=== PATIENT | female | born 1965 | race Caucasian/White ===

== ENCOUNTER → 2019-10-14 13:47 | Outpatient (BNVA) | payer MEDICARE, MEDICAID, SELFPAY | PROVIDERS: Family Provider Family Medicine; PCP Family Medicine; Visit Provider Nurse Practitioner | DX: M47.816 Spondylosis without myelopathy or radiculopathy, lumbar region (principal); M54.2 Cervicalgia; E11.40 Type 2 diabetes mellitus with diabetic neuropathy, unspecified; F17.210 Nicotine dependence, cigarettes, uncomplicated; Z79.891 Long term (current) use of opiate analgesic | CPT/HCPCS: 99213; 99214 ==

== ENCOUNTER → 2019-12-10 14:08 | Outpatient (BNVA) | payer MEDICARE, MEDICAID, SELFPAY | PROVIDERS: Family Provider Family Medicine; PCP Family Medicine; Visit Provider Nurse Practitioner | DX: M48.061 Spinal stenosis, lumbar region without neurogenic claudication (principal); M47.816 Spondylosis without myelopathy or radiculopathy, lumbar region; E13.610 Other specified diabetes mellitus with diabetic neuropathic arthropathy; F17.210 Nicotine dependence, cigarettes, uncomplicated; Z79.891 Long term (current) use of opiate analgesic; Z71.6 Tobacco abuse counseling | CPT/HCPCS: 99214 ==

== ENCOUNTER 2020-01-06 21:25 | Emergency (ER) | payer MEDICARE, MEDICAID, SELFPAY ==
[2020-01-06 21:27] VITALS: BP 164/127; PULSE 121; RESP 18; O2SAT 92; BMI 43.6
[2020-01-06 21:44] VITALS: BP 109/75; PULSE 114; RESP 18; O2SAT 90
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
--- NOTE | 2020-01-06 22:02 | PC.NURSE ---
pt to ct via stretcher.
--- NOTE | 2020-01-06 22:20 | PC.NURSE ---
Pt back from CT
[2020-01-06] MEDS: ondansetron 4 MG Tablet PO (23:20)
[2020-01-07 00:26] VITALS: BP 126/93; PULSE 118; RESP 18; O2SAT 98
== END 2020-01-07 00:27 | disposition home or self-care (01) ==
PROVIDERS: Emergency Provider Physician Assistant; Family Provider Family Medicine; PCP Family Medicine
DX: S01.01XA Laceration without foreign body of scalp, initial encounter (principal); S00.03XA Contusion of scalp, initial encounter; W01.198A Fall on same level from slipping, tripping and stumbling with subsequent striking against other object, initial encounter; E11.40 Type 2 diabetes mellitus with diabetic neuropathy, unspecified; E66.01 Morbid (severe) obesity due to excess calories; Z68.41 Body mass index [BMI] 40.0-44.9, adult; F17.210 Nicotine dependence, cigarettes, uncomplicated; Z79.4 Long term (current) use of insulin; Z79.82 Long term (current) use of aspirin; Z91.81 History of falling; Z89.511 Acquired absence of right leg below knee; Z89.412 Acquired absence of left great toe; Z90.49 Acquired absence of other specified parts of digestive tract; Z90.710 Acquired absence of both cervix and uterus
CPT/HCPCS: 12032; 12345; 70450; 72125; 96374; 99282; 99283; J2001; Q0162

== ENCOUNTER → 2020-03-01 14:03 | Outpatient (BNVA) | payer MEDICARE, MEDICAID, SELFPAY | PROVIDERS: Family Provider Family Medicine; PCP Family Medicine; Visit Provider Anesthesiology | DX: M47.816 Spondylosis without myelopathy or radiculopathy, lumbar region (principal); M54.9 Dorsalgia, unspecified; S88.111A Complete traumatic amputation at level between knee and ankle, right lower leg, initial encounter; X58.XXXA Exposure to other specified factors, initial encounter; F17.210 Nicotine dependence, cigarettes, uncomplicated; Z79.891 Long term (current) use of opiate analgesic; Z71.6 Tobacco abuse counseling | CPT/HCPCS: 99214 ==

== ENCOUNTER → 2020-05-03 12:48 | Outpatient (BNVA) | payer MEDICARE, MEDICAID, SELFPAY | PROVIDERS: Family Provider Family Medicine; PCP Family Medicine; Visit Provider Anesthesiology | DX: M47.816 Spondylosis without myelopathy or radiculopathy, lumbar region (principal); M54.9 Dorsalgia, unspecified; S88.111A Complete traumatic amputation at level between knee and ankle, right lower leg, initial encounter; X58.XXXA Exposure to other specified factors, initial encounter; E13.610 Other specified diabetes mellitus with diabetic neuropathic arthropathy; F17.210 Nicotine dependence, cigarettes, uncomplicated; Z79.891 Long term (current) use of opiate analgesic; Z71.6 Tobacco abuse counseling | CPT/HCPCS: 99214 ==

== ENCOUNTER → 2020-06-28 13:33 | Outpatient (BNVA) | payer MEDICARE, MEDICAID, SELFPAY | PROVIDERS: Family Provider Family Medicine; PCP Family Medicine; Visit Provider Nurse Practitioner | DX: M54.41 Lumbago with sciatica, right side (principal); M47.816 Spondylosis without myelopathy or radiculopathy, lumbar region; E13.610 Other specified diabetes mellitus with diabetic neuropathic arthropathy; F17.210 Nicotine dependence, cigarettes, uncomplicated; Z91.81 History of falling; Z79.891 Long term (current) use of opiate analgesic; Z71.6 Tobacco abuse counseling | CPT/HCPCS: 99213 ==

== ENCOUNTER → 2020-08-18 13:01 | Outpatient (BNVA) | payer MEDICARE, MEDICAID, SELFPAY | PROVIDERS: Family Provider Family Medicine; PCP Family Medicine; Visit Provider Anesthesiology | DX: M47.816 Spondylosis without myelopathy or radiculopathy, lumbar region (principal); M54.9 Dorsalgia, unspecified; S88.111A Complete traumatic amputation at level between knee and ankle, right lower leg, initial encounter; X58.XXXA Exposure to other specified factors, initial encounter; E11.42 Type 2 diabetes mellitus with diabetic polyneuropathy; F17.210 Nicotine dependence, cigarettes, uncomplicated; Z79.891 Long term (current) use of opiate analgesic; Z71.6 Tobacco abuse counseling | CPT/HCPCS: 99214 ==

== ENCOUNTER → 2020-10-05 13:57 | Outpatient (BNVA) | payer MEDICARE, MEDICAID, SELFPAY | PROVIDERS: Family Provider Family Medicine; PCP Family Medicine; Visit Provider Nurse Practitioner | DX: M47.816 Spondylosis without myelopathy or radiculopathy, lumbar region (principal); M54.9 Dorsalgia, unspecified; E13.610 Other specified diabetes mellitus with diabetic neuropathic arthropathy; F17.200 Nicotine dependence, unspecified, uncomplicated; Z91.81 History of falling; Z79.899 Other long term (current) drug therapy | CPT/HCPCS: 99215 ==

== ENCOUNTER → 2020-10-26 15:51 | Outpatient (BNVA) | payer MEDICARE, MEDICAID, SELFPAY | PROVIDERS: Family Provider Family Medicine; PCP Family Medicine; Visit Provider Podiatrist Foot & Ankle Surgery | DX: L97.522 Non-pressure chronic ulcer of other part of left foot with fat layer exposed (principal); M77.32 Calcaneal spur, left foot | CPT/HCPCS: 73630 ==

== ENCOUNTER 2020-11-02 13:20 | Outpatient (CLI) | payer MEDICARE, MEDICAID, SELFPAY | END 2020-11-02 13:21 | disposition home or self-care (01) | LOC: WOUND 13:23 | PROVIDERS: Family Provider Family Medicine; PCP Family Medicine; Visit Provider Nurse Practitioner Family | DX: E11.621 Type 2 diabetes mellitus with foot ulcer (principal); L97.522 Non-pressure chronic ulcer of other part of left foot with fat layer exposed | CPT/HCPCS: 11042; 87070; 87077; 87176; 87186; 87205; G0463 ==

== ENCOUNTER 2020-11-29 13:08 | Outpatient (CLI) | payer MEDICARE, MEDICAID, SELFPAY | END 2020-11-29 13:09 | disposition home or self-care (01) | LOC: WOUND 13:09 | PROVIDERS: Family Provider Family Medicine; PCP Family Medicine; Visit Provider Thoracic Surgery (Cardiothoracic Vascular Surgery) | DX: E11.621 Type 2 diabetes mellitus with foot ulcer (principal); L97.522 Non-pressure chronic ulcer of other part of left foot with fat layer exposed | CPT/HCPCS: 11042 ==

== ENCOUNTER → 2020-11-30 13:10 | Outpatient (BNVA) | payer MEDICARE, MEDICAID, SELFPAY | PROVIDERS: Family Provider Family Medicine; PCP Family Medicine; Visit Provider Nurse Practitioner | DX: M47.816 Spondylosis without myelopathy or radiculopathy, lumbar region (principal); M54.9 Dorsalgia, unspecified; E11.40 Type 2 diabetes mellitus with diabetic neuropathy, unspecified; F17.210 Nicotine dependence, cigarettes, uncomplicated; S88.111A Complete traumatic amputation at level between knee and ankle, right lower leg, initial encounter; X58.XXXA Exposure to other specified factors, initial encounter; Z79.891 Long term (current) use of opiate analgesic; Z91.81 History of falling; Z71.6 Tobacco abuse counseling | CPT/HCPCS: 99213 ==

== ENCOUNTER 2020-12-06 13:08 | Outpatient (CLI) | payer MEDICARE, MEDICAID, SELFPAY | END 2020-12-06 13:09 | disposition home or self-care (01) | LOC: WOUND 13:10 | PROVIDERS: Family Provider Family Medicine; PCP Family Medicine; Visit Provider Thoracic Surgery (Cardiothoracic Vascular Surgery) | DX: E11.621 Type 2 diabetes mellitus with foot ulcer (principal); L97.522 Non-pressure chronic ulcer of other part of left foot with fat layer exposed | CPT/HCPCS: 11042 ==

== ENCOUNTER 2020-12-20 14:08 | Outpatient (CLI) | payer MEDICARE, MEDICAID, SELFPAY | END 2020-12-20 14:09 | disposition home or self-care (01) | LOC: WOUND 14:09 | PROVIDERS: Family Provider Family Medicine; PCP Family Medicine; Visit Provider Thoracic Surgery (Cardiothoracic Vascular Surgery) | DX: E11.621 Type 2 diabetes mellitus with foot ulcer (principal); L97.522 Non-pressure chronic ulcer of other part of left foot with fat layer exposed | CPT/HCPCS: 97597 ==

== ENCOUNTER 2021-01-03 10:49 | Outpatient (CLI) | payer MEDICARE, MEDICAID, SELFPAY | END 2021-01-03 10:50 | disposition home or self-care (01) | LOC: WOUND 10:51 | PROVIDERS: Family Provider Family Medicine; PCP Family Medicine; Visit Provider Thoracic Surgery (Cardiothoracic Vascular Surgery) | DX: E11.621 Type 2 diabetes mellitus with foot ulcer (principal); L97.522 Non-pressure chronic ulcer of other part of left foot with fat layer exposed | CPT/HCPCS: 97597 ==

== ENCOUNTER 2021-01-10 10:47 | Outpatient (CLI) | payer MEDICARE, MEDICAID, SELFPAY | END 2021-01-10 10:48 | LOC: WOUND 10:48 | PROVIDERS: Family Provider Family Medicine; PCP Family Medicine; Visit Provider Nurse Practitioner Family | DX: M47.816 Spondylosis without myelopathy or radiculopathy, lumbar region (principal); M54.9 Dorsalgia, unspecified; F17.210 Nicotine dependence, cigarettes, uncomplicated | CPT/HCPCS: 64493; 64494; 64495; 99212; J3490 ==

== ENCOUNTER → 2021-01-26 13:06 | Outpatient (BNVA) | payer MEDICARE, MEDICAID, SELFPAY | PROVIDERS: Family Provider Family Medicine; PCP Family Medicine; Visit Provider Nurse Practitioner | DX: M47.816 Spondylosis without myelopathy or radiculopathy, lumbar region (principal); M54.9 Dorsalgia, unspecified; E11.40 Type 2 diabetes mellitus with diabetic neuropathy, unspecified; S88.111A Complete traumatic amputation at level between knee and ankle, right lower leg, initial encounter; X58.XXXA Exposure to other specified factors, initial encounter; Z91.81 History of falling; Z79.891 Long term (current) use of opiate analgesic; F17.210 Nicotine dependence, cigarettes, uncomplicated; Z71.6 Tobacco abuse counseling | CPT/HCPCS: 99214 ==

== ENCOUNTER → 2021-01-30 14:39 | Outpatient (BNVA) | payer MEDICARE, MEDICAID, SELFPAY | PROVIDERS: Family Provider Family Medicine; PCP Family Medicine; Visit Provider Anesthesiology Pain Medicine | DX: M47.816 Spondylosis without myelopathy or radiculopathy, lumbar region (principal); M54.9 Dorsalgia, unspecified | CPT/HCPCS: 64635; 64636; J7030 ==

== ENCOUNTER → 2021-02-12 12:39 | Outpatient (BNVA) | payer MEDICARE, MEDICAID, SELFPAY | PROVIDERS: Family Provider Family Medicine; PCP Family Medicine; Visit Provider Anesthesiology Pain Medicine | DX: M47.816 Spondylosis without myelopathy or radiculopathy, lumbar region (principal); M54.9 Dorsalgia, unspecified; F17.210 Nicotine dependence, cigarettes, uncomplicated | CPT/HCPCS: 64635; 64636 ==

== ENCOUNTER 2021-03-25 02:50 | Inpatient (IN) | payer MEDICARE, MEDICAID, SELFPAY ==
[2021-03-25] VITALS (12 sets, daily range): BP systolic 154–181; BP diastolic 80–103; PULSE 77–107; RESP 16–18; TEMP 36.2–37.1; O2SAT 90–94; BMI 34.4
--- NOTE | 2021-03-25 03:07 | CTR_ITS ---
PROCEDURE INFORMATION: Exam: CT Head Without Contrast Exam date and time: 03/25/2021 3:07 AM Age: 55 years old Clinical indication: Altered mental status/memory loss; Additional info: AMS TECHNIQUE: Imaging protocol: Computed tomography of the head without contrast. Radiation optimization: All CT scans at this facility use at least one of these dose optimization techniques: automated exposure control; mA and/or kV adjustment per patient size (includes targeted exams where dose is matched to clinical indication); or iterative reconstruction. COMPARISON: CT head wo con* [id number] 01/06/2020 9:58 PM RADIATION DOSE METRICS: Total DLP (mGy-cm): 1615.33 FINDINGS: Brain: Normal. No hemorrhage. Unremarkable white matter. No mass effect. Cerebral ventricles: No ventriculomegaly. Paranasal sinuses: Visualized sinuses are unremarkable. No fluid levels. Mastoid air cells: Visualized mastoid air cells are well aerated. Bones/joints: Unremarkable. No acute fracture. Soft tissues: Unremarkable. CT/CT head wo con* [id number] IMPRESSION: No acute intracranial abnormality. Radiation Dose CTDIVOL = (mGy): DLP = 1615.33 (mGy-cm)
--- NOTE | 2021-03-25 03:07 | XRR_ITS ---
PROCEDURE INFORMATION: Exam: XR Chest Exam date and time: 03/25/2021 3:07 AM Age: 55 years old Clinical indication: Other: AMS TECHNIQUE: Imaging protocol: XR of the chest. Views: 1 view. COMPARISON: CR Chest 1 [place] [id number] 12/07/2018 5:15 PM FINDINGS: Lungs: There is increased lung markings and hazy airspace opacities in the lower lungs, concerning for pneumonia. Mild pulmonary edema can have this appearance. No large pleural effusion or pneumothorax. Pleural spaces: See Lungs finding. Heart/Mediastinum: Stable cardiomediastinal silhouette. Bones/joints: Surgical changes of the right shoulder joint noted. XR/XR chest 1V portable [id number] IMPRESSION: Imaging findings concerning for pneumonia. Mild pulmonary edema can have this appearance. Clinical correlation is recommended.
--- NOTE | 2021-03-25 03:09 | ECG_ITS ---
[facility] Test Date: 2021-03-25 Pat Name: Angeles Valdes Department: Room: Gender: Female [employer]: : 1965 Requested By: Loe Berman Order Number: [id number] John MD: Tye Quezada M.D. Measurements Intervals [place] Rate: 102 P: 40 VA: 186 QRS: -10 QRSD: 114 T: 30 QT: 394 QTc: 513 Interpretive Statements SINUS TACHYCARDIA PROBABLE INFERIOR MYOCARDIAL INFARCTION [35 ms Q WAVE IN II/aVF], PROBABLY OLD Compared to ECG 09/23/2019 14:35:00 Sinus rhythm no longer present Myocardial infarct finding still present Electronically Signed On 03-25-2021 9:45:30 CDT by Tye Quezada M.D. [email or web address]/store/NU/[id number] f
[2021-03-25 03:21] LABS: ABG PCO2 29.8 mmHg (35-45); ABG PH Result 7.59 (7.35-7.45); Base Excess ABG 7.4 mmol/L (-2.0-2.0); Blood Gas Allen Test Pos; Blood Gas Sample Site Radial, left; Blood Gas Sample Type Arterial; HCO3 ABG 28.6 mmol/L (22-26); Oxygen Device ROOM AIR; PO2 ABG 53.2 mmHg (80.0-100.0)
[2021-03-25 03:27] LABS: Basophils # 0.1 10^3/uL (0.0-0.1); Basophils % 0.8 %; Eosinophils % 0.1 %; Hematocrit 43.3 % (37.0-47.0); Hemoglobin 14.3 g/dL (11.5-15.3); Lymphocytes # 1.8 10^3/uL (0.8-4.8); Lymphocytes % 10.6 %; Mean Corpuscular Hemoglobin 27.2 pg (28.0-34.0); Mean Corpuscular Volume 82.5 fL (81-99); Mean Platelet Volume 10.1 fL (7.4-10.4); Monocytes # 1.1 10^3/uL (0.2-0.9); Monocytes % 6.4 %; Neutrophils # 13.16 10^3/uL (1.8-7.7); Neutrophils % 79.8 %; Nucleated Red Blood Cells # 0.1 /100WBC; Nucleated Red Blood Cells % 0.3 %; Platelet Count 391 10^3/cmm (130-400); Red Blood Count 5.25 10^6/uL (4.1-5.3); White Blood Count 16.5 10^3/uL (4.0-10.0)
[2021-03-25 03:38] LABS: Ketone (Acetest) Serum Negative (Negative)
[2021-03-25 03:48] LABS: Alanine Aminotransferase 8 U/L (0-33); Alkaline Phosphatase 136 IU/L (35-105); Aspartate Amino Transferase 13 U/L (0-32); Blood Urea Nitrogen 8 mg/dL (6-20); C Reactive Protein 127.4 mg/L (0.0-4.9); Calcium 10.1 mg/dL (8.5-10.5); Carbon Dioxide 25 mmol/L (22-29); Chloride 90 mmol/L (98-107); Creatine Phosphokinase 252 U/L (26-192); Globulin 4.2 g/dL (1.3-4.6); Glomerular Filtration Rate 57.4 mL/min (90-130); Lipase 27 U/L (13-60); Osmolality Calculated 299 mOsm/kg (285-295); Sodium 133 mmol/L (136-145); Total Bilirubin 0.7 mg/dL (0.15-1.2); Total Protein 8.2 g/dL (6.6-8.7)
[2021-03-25 03:55] LABS: Procalcitonin 0.21 ng/mL (0-0.5)
[2021-03-25] MEDS: sodium chloride 0.9% 1,000 ML 999 ML IV ×2 (04:04→13:44)
[2021-03-25] MEDS: insulin regular-human 100 units/1 mL 14 UNIT IVP (04:05)
[2021-03-25 04:15] LABS: Alcohol Level < 10 mg/dL (0-10); Glucose 535 mg/dL (65-115)
--- NOTE | 2021-03-25 04:23 | PM.HP ---
Providers/Chief Complaint Primary Care Provider: Dayne Greene MD Chief Complaint: HYPERGLYCEMIA History of Present Illness Angeles Valdes is a 55 year old female who has history of opiate dependence follow-up with pain clinic, type 2 diabetes, status post below-knee amputation was brought in because of an episode of confusion. Patient lives with her friend who works at a longterm. When her friend returned from her work around midnight she noticed that Ms. Valdes was not acting right, she was throwing stuff on the ground, and all of a sudden she took her scooter and went outside naked. EMS was called who brought to the ER for further evaluation. On arrival patient did not meet any CVA criteria, she was very aggressive hyperactive and required Valium in the ER to get CT head without contrast, her chest x-ray shows possibility for right middle lobe infiltrate, she has leukocytosis however afebrile with tachycardia, U tox positive for opioids, UA unremarkable, as per her friend last time she had similar episode with UTI. Hyperglycemia without DKA, ABG reveals hypoxia with respiratory alkalosis During my interview patient told me her name her friend's name who was at the bedside, she was able to tell me that she is in the hospital however quickly went back to sleep,, she was able to move all of her extremities, did not appreciate any strokelike symptom or meningitis, she was saturating well on room air Requested D-dimer, high CRP, procalcitonin unremarkable I have requested Covid antigen testing Review of Systems Const: Denies: fever(s) Eyes: Denies: change in vision ENMT: Denies: throat pain Card: Denies: chest pain Resp: Denies: dyspnea GI: Denies: abdominal pain : Denies: flank pain Musc: Denies: neck pain Skin/Breast: Denies: rash Neuro: Denies: headache(s) Psych: Denies: anxiety Endo: Denies: polyuria Iker/Lymph: Denies: easy bruising All/Imm: Denies: urticaria Medications/Allergies Home Medications Medication Instructions Recorded Confirmed Last Taken Type albuterol 90 mcg/actuation aerosol 90 mcg INHALATION QID 10/13/19 02/12/21 01/06/20 History inhaler amlodipine 10 mg tablet 10 mg PO ONCE 10/13/19 02/12/21 01/06/20 History aspirin 81 mg chewable tablet 81 mg PO ONCE 10/13/19 02/12/21 01/06/20 History fluticasone 100 mcg-salmeterol 50 1 puff INHALATION BID 10/13/19 02/12/21 01/06/20 History mcg/dose blistr powdr for inhalation fluticasone propionate 50 1 spray INTRANASAL Q12H 10/13/19 02/12/21 01/06/20 History mcg/actuation nasal spray,suspension levothyroxine 100 mcg tablet 100 mcg PO ONCE 10/13/19 02/12/21 01/06/20 History losartan 50 mg tablet 50 mg PO BID 10/13/19 02/12/21 01/06/20 History metoprolol tartrate 50 mg tablet 50 mg PO BID 10/13/19 02/12/21 01/06/20 History montelukast 10 mg tablet 10 mg PO ONCE 10/13/19 02/12/21 01/06/20 History sennosides 8.6 mg-docusate sodium 1 tab-cap PO BID PRN 10/13/19 02/12/21 01/06/20 History 50 mg capsule simvastatin 20 mg tablet 20 mg PO ONCE 10/13/19 02/12/21 01/06/20 History insulin aspart U-100 100 unit/mL 20 unit SUBCUT TID 10/14/19 02/12/21 01/06/20 History subcutaneous solution trazodone 50 mg tablet 50 mg PO QDAY 10/14/19 02/12/21 01/05/20 History citalopram 20 mg tablet 20 mg PO DAILY tab 01/07/20 02/12/21 Unknown History clonidine HCl 0.1 mg tablet 0.1 mg PO DAILY tab 01/07/20 02/12/21 Unknown History mupirocin 2 % topical ointment 1 applic TOPICAL BID #30 gm 01/19/20 02/12/21 Unknown Rx quetiapine 200 mg tablet 200 mg PO BID 10/25/20 02/12/21 Unknown History celecoxib 200 mg capsule 200 mg PO BID 11/30/20 02/12/21 Unknown History clopidogrel 75 mg tablet 75 mg PO DAILY 11/30/20 02/12/21 Unknown History esomeprazole magnesium 40 mg 40 mg PO BID cap 11/30/20 02/12/21 Unknown History capsule,delayed release melatonin 10 mg capsule 10 mg PO DAILY 11/30/20 02/12/21 Unknown History pantoprazole 40 mg tablet,delayed 40 mg PO DAILY 11/30/20 02/12/21 Unknown History release tamsulosin 0.4 mg capsule 0.4 mg PO DAILY 11/30/20 02/12/21 Unknown History vitamin b-6 DIRECTED 11/30/20 02/12/21 Unknown History gabapentin 600 mg tablet 1,200 mg PO TID 30 Days #180 tab 01/26/21 02/12/21 Unknown Rx hydromorphone 4 mg tablet 4 mg PO .four times day PRN 30 01/26/21 02/12/21 Unknown Rx Days #120 tab hydromorphone 4 mg tablet 4 mg PO QID PRN 30 Days #120 tab 01/26/21 02/12/21 Unknown Rx oxycodone 5 mg tablet 5 mg PO Q8H PRN 30 Days #90 tab 01/26/21 02/12/21 Unknown Rx oxycodone 5 mg tablet 5 mg PO TID PRN 30 Days #90 tab 01/26/21 02/12/21 Unknown Rx tizanidine 4 mg tablet 4 mg PO TID PRN 30 Days #90 tab 01/26/21 02/12/21 Unknown Rx Allergies Allergy/AdvReac Type Severity Reaction Status Date / Time adhesive tape Allergy rash Verified 02/12/21 12:50 varenicline [From Chantix] Allergy RENAL Verified 02/12/21 11:35 FAILURE oxycodone AdvReac Intermediate Itching Verified 02/12/21 11:35 Sulfa (Sulfonamide AdvReac Unknown UNKNOWN Verified 02/12/21 11:35 Antibiotics) amitriptyline AdvReac UNKNOWN Verified 02/12/21 11:35 benzoin AdvReac UNKNOWN Verified 02/12/21 11:35 cefazolin AdvReac UNKNOWN Verified 02/12/21 11:35 codeine AdvReac Unknown Verified 02/12/21 11:35 cyclobenzaprine AdvReac UNKNOWN Verified 02/12/21 11:35 [From Flexeril] hydrocodone AdvReac UNKNOWN Verified 02/12/21 11:35 ketorolac AdvReac UNKNOWN Verified 02/12/21 11:35 Opioids - Morphine Analogues AdvReac nausea Verified 02/12/21 11:35 trimethoprim AdvReac UNKNOWN Verified 02/12/21 11:35 PFSH Acute PFSH: Medical History (Updated 03/25/21 @ 06:18 by Andriy Lambert MD) Failed spinal cord stimulator REMOVED BY DR 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 Status post amputation of toe LT BIG TOE Family History Brother CHF (congestive heart failure) Father Lung disease Denies family history of Anesthesia complication Bleeding disorder Social History Smoking and tobacco status: current every day smoker cigarettes Packs smoked per day: 2 Alcohol intake: never History of recent travel: No Vitals/I&O/Wt Last Vital Signs Temp 97.2 F L 03/25/21 02:55 Pulse 105 H 03/25/21 02:55 Resp 18 03/25/21 02:55 BP 167/103 03/25/21 02:55 Pulse Ox 94 03/25/21 02:55 Weight last 48 hrs Weight 108.862 kg Physical Exam Narrative: EXAM NARRATIVE: Middle-age female who recently got Amos and was very sleepy at the time of my evaluation and interview S1, S2 sinus tachycardia no signs of heart failure Distended abdomen with obesity nontender Below-knee amputation without any active cellulitis lower extremity no edema She is verbally redirectable, she woke up to verbal command as well, no strokelike symptoms She was able to tell me her name, her friend's name, she was oriented to place and person No acute respite distress was saturating well on room air No joint swelling or signs of cellulitis Clinically does not look fluid overloaded or dehydrated Data : 03/25/21 03:19 03/25/21 03:19 A&P Assessment and plan (1) Acute hyperactive delirium due to multiple etiologies: Status: Acute (2) Sepsis: Status: Acute Additional A&P Information Hyperactive delirium Chest x-ray concerning for right middle lobe infiltrate, hyperactive delirium related to metabolic encephalopathy, hyperglycemia nonketotic state Sepsis criteria met with tachycardia and leukocytosis however normal lactic acid No signs of meningitis, UA unremarkable CT head unremarkable Respiratory alkalosis with hypoxia noted however she saturating well on room air, check D-dimer to rule out PE She is allergic to cephalosporins, will start doxycycline and Levaquin and start septic bolus Hyperglycemia without DKA Check hemoglobin A1c level, moderate sliding scale, consistent carb diet Opioid dependence: I would hold her opioids for now until she is more awake and alert U tox reviewed Polypharmacy, she takes multiple medications for her hypertension, continue metoprolol, losartan, clonidine Check ammonia level, procalcitonin, TSH and prolactin along B12 Full code Consistent carb diet DVT prophylaxis Lovenox Attestations Medical Necessity Statement*: Anticipating discharge within 48 hours, need evaluation for metabolic encephalopathy/hyperactive delirium Time Spent in Patient Care: 30mins Coding Level of Care Code Acute [employer] Barnes Diagnoses Acute hyperactive delirium due to multiple etiologies F05 Sepsis A41.9
[2021-03-25] MEDS: midazolam 1 mg/mL INJ 2 mL 2 MG IVP (04:37)
[2021-03-25 05:09] LABS: Add Urine Microscopic? YES; Bilirubin Urine Neg (Negative); Blood Urine 2+ (Negative); Glucose Urine UA 4+ (Normal); Ketones Urine 1+ (Negative); Leukocyte Esterase Urine Negative (Negative); Nitrate Urine Negative (Negative); Protein Urine 1+ (Negative); Specific Gravity, Urine 1.015 (1.005-1.030); Urine Appearance Clear (CLEAR); Urine Color Yellow (Yellow); Urobilinogen Urine Norm (Negative); pH Urine 9 (5-7)
[2021-03-25 05:10] LABS: Add Urine Culture? Yes; Bacteria Urine TRACE /hpf; WBC Urine 0-4 /hpf (0-5)
[2021-03-25 05:12] LABS: Amphetamines Screen Urine Negative (Negative); Barbiturates Screen Urine Negative (Negative); Benzodiazepines Screen Urine Negative (Negative); Cocaine Screen Urine Negative (Negative); Opiate Screen Urine Positive (Negative); PCP Screen Urine Negative (Negative); THC Screen Urine Negative (Negative)
[2021-03-25 05:52] LABS: Glucose Point of Care 441 mg/dL (70-110)
[2021-03-25] MEDS: sodium chloride 0.9% 1,000 ML 500 ML IV (06:16)
--- NOTE | 2021-03-25 06:20 | ED_ITS ---
HPI - Altered Mental Status General: Chief Complaint: Altered Mental Status Stated Complaint: HYPERGLYCEMIA Time Seen by Provider: 03/25/21 02:55 History of Present Illness: HPI narrative: 55-year-old female presents with altered mental status. She is unable to give a history. He has a history of diabetes, and recently had a increased blood sugar. By report she was outside wandering around. 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 Status post amputation of toe LT BIG TOE Family History Brother CHF (congestive heart failure) Father Lung disease Denies family history of Anesthesia complication Bleeding disorder Social History Smoking and tobacco status: current every day smoker cigarettes Packs smoked per day: 2 Alcohol intake: never History of recent travel: No Physical Exam Const: EXAM LIMITATIONS: altered mental status and behavioral limitations GENERAL APPEARANCE: disheveled, ill appearing and appears older than stated age NUTRITIONAL APPEARANCE: obese ORIENTATION/CONSCIOUSNESS: Yes awake and Yes confused HENMT: COMMON NORMALS: normocephalic, atraumatic and Normal external nose present HEAD & SCALP: normocephalic and atraumatic FACE & SINUS: normal facial exam NOSE: Normal external nose present Eye: COMMON NORMALS: Equal, round and reactive pupils present and EOMs intact bilaterally PUPIL: Yes Equal, round and reactive pupils present Chest: COMMONS NORMALS: normal inspection of the chest Resp: COMMON NORMALS: normal respiratory effort, No use of accessory muscles and percussion normal PERCUSSION: percussion normal Cardio: COMMON NORMALS: regular rhythm RATE: tachycardic RHYTHM: regular rhythm GI: COMMON NORMALS: Normal to inspection, nondistended, normoactive bowel sounds present and Soft to palpation PALPATION: Yes Soft to palpation Neuro: TERESA COMA SCALE: document GCS findings [place] coma scale eye opening: Spontaneous [place] coma scale verbal response: Words [place] coma scale motor response: Obey commands Teresa coma scale total score: 13 CRANIAL NERVES: Yes CN normal except as noted GAIT: Yes Unable to assess gait MOTOR EXAM: Motor abnormalities not present Course Consultations: Consultation #1: deejay Vital Signs: Vital signs: Vital Signs Temperature 97.2 F L 03/25/21 02:55 Pulse Rate 105 H 03/25/21 02:55 Respiratory Rate 18 03/25/21 02:55 Blood Pressure 167/103 03/25/21 02:55 Pulse Oximetry 94 03/25/21 02:55 MDM - Altered Mental Status MDM Narrative: Medical decision making narrative: 55-year-old female with altered mental status. Her blood sugar was high, at 535. However, she is not acidotic and not ketotic. She does not appear septic, and is afebrile. Her chest x-ray shows a possible right middle lobe infiltrate, but there is no definite history consistent with pneumonia. Her white blood cell count is 16.5 with 80% neutrophils. Urinalysis is negative. Blood gas showed hypoxia on arrival. Oxygen saturations have been 90 to 95% on room air. She is quite fidgety. She knows her name, but basically does not answer questions otherwise. Head CT is negative by my read. She does take Dilaudid, and this may be a case of unintentional overdose. She was given 14 units of insulin, and sugar is down to the 440s. She will be admitted. Hospitalist aware. Lab Data: Labs: Lab Results 03/25/21 03/25/21 03/25/21 Range/Units 03:15 03:19 03:19 WBC 16.5 H (4.0-10.0) 10^3/ uL RBC 5.25 (4.1-5.3) 10^6/u L Hgb 14.3 (11.5-15.3) g/dL Hct 43.3 (37.0-47.0) % MCV 82.5 (81-99) fL MCH 27.2 L (28.0-34.0) pg MCHC 33.0 (30.0-36.0) g/dL RDW 18.0 H (12.1-15.1) % Plt Count 391 (130-400) 10^3/c mm MPV 10.1 (7.4-10.4) fL Neut % (Auto) 79.8 % Lymph % (Auto) 10.6 % Dickens % (Auto) 6.4 % Eos % (Auto) 0.1 % Baso % (Auto) 0.8 % Neut # (Auto) 13.16 H (1.8-7.7) 10^3/u L Lymph # (Auto) 1.8 (0.8-4.8) 10^3/u L Dickens # (Auto) 1.1 H (0.2-0.9) 10^3/u L Eos # (Auto) 0.0 (0.0-0.8) 10^3/u L Baso # (Auto) 0.1 (0.0-0.1) 10^3/u L Nucleated RBC % (a uto) 0.3 % Nucleated RBCs # 0.1 /100WBC Specimen Type Arterial Sample Site Radial, left ABG pH 7.59 H* (7.35-7.45) ABG pCO2 29.8 L (35-45) mmHg ABG pO2 53.2 L (80.0-100.0) mmH g ABG HCO3 28.6 H (22-26) mmol/L ABG Base Excess 7.4 H (-2.0-2.0) mmol/ L Jeff Test Pos Hematocrit 45.0 (37-47) % O2 Delivery Device Room air Disassembler Product ID ellpe Sodium 133 L (136-145) mmol/L Potassium 4.0 (3.5-5.1) mmol/L Chloride 90 L (98-107) mmol/L Carbon Dioxide 25 (22-29) mmol/L Anion Gap 22.0 H (5-19) BUN 8 (6-20) mg/dL Creatinine 1.0 H (0.5-0.9) mg/dL GFR Calculation 57.4 L (90-130) mL/min Glucose 535 H* (65-115) mg/dL POC Glucose (70-110) mg/dL Calculated Osmolal ity 299 H (285-295) mOsm/k g Lactate (0.5-2.2) mmol/L Calcium 10.1 (8.5-10.5) mg/dL Total Bilirubin 0.7 (0.15-1.2) mg/dL AST 13 (0-32) U/L ALT 8 (0-33) U/L Alkaline Phosphata se 136 H (35-105) IU/L Creatine Kinase 252 H (26-192) U/L C-Reactive Protein 127.4 H (0.0-4.9) mg/L Total Protein 8.2 (6.6-8.7) g/dL Albumin 4.0 (3.5-5.2) g/dL Globulin 4.2 (1.3-4.6) g/dL Lipase 27 (13-60) U/L Procalcitonin 0.21 (0-0.5) ng/mL Urine Color (Yellow) Urine Appearance (CLEAR) Urine pH (5-7) Ur Specific Gravit y (1.005-1.030) Urine Protein (Negative) Urine Glucose (UA) (Normal) Urine Ketones (Negative) Urine Blood (Negative) Urine Nitrate (Negative) Urine Bilirubin (Negative) Urine Urobilinogen (Negative) mg/dL Ur Leukocyte Nallely ase (Negative) Urine RBC (0-2) /hpf Urine WBC (0-5) /hpf Ur Squamous Epith Cells (0-5) /hpf Amorphous Sediment Urine Bacteria (NONE) /hpf Urine Yeast /hpf Urine Opiates Scre en (Negative) ng/mL Ur Barbiturates Sc reen (Negative) ng/mL Ur Phencyclidine S crn (Negative) ng/mL Ur Amphetamines Sc reen (Negative) ng/mL U Benzodiazepines Scrn (Negative) ng/mL Urine Cocaine Scre en (Negative) ng/mL U Marijuana (THC) Screen (Negative) ng/mL Ethyl Alcohol < 10 (0-10) mg/dL Serum Ketones (Negative) 06/27/21 06/27/21 06/27/21 Range/Units 03:19 03:19 04:26 WBC (4.0-10.0) 10^3/ uL RBC (4.1-5.3) 10^6/u L Hgb (11.5-15.3) g/dL Hct (37.0-47.0) % MCV (81-99) fL MCH (28.0-34.0) pg MCHC (30.0-36.0) g/dL RDW (12.1-15.1) % Plt Count (130-400) 10^3/c mm MPV (7.4-10.4) fL Neut % (Auto) % Lymph % (Auto) % Dickens % (Auto) % Eos % (Auto) % Baso % (Auto) % Neut # (Auto) (1.8-7.7) 10^3/u L Lymph # (Auto) (0.8-4.8) 10^3/u L Dickens # (Auto) (0.2-0.9) 10^3/u L Eos # (Auto) (0.0-0.8) 10^3/u L Baso # (Auto) (0.0-0.1) 10^3/u L Nucleated RBC % (a uto) % Nucleated RBCs # /100WBC Specimen Type Sample Site ABG pH (7.35-7.45) ABG pCO2 (35-45) mmHg ABG pO2 (80.0-100.0) mmH g ABG HCO3 (22-26) mmol/L ABG Base Excess (-2.0-2.0) mmol/ L Jeff Test Hematocrit (37-47) % O2 Delivery Device Disassembler Product ID Sodium (136-145) mmol/L Potassium (3.5-5.1) mmol/L Chloride (98-107) mmol/L Carbon Dioxide (22-29) mmol/L Anion Gap (5-19) BUN (6-20) mg/dL Creatinine (0.5-0.9) mg/dL GFR Calculation (90-130) mL/min Glucose (65-115) mg/dL POC Glucose (70-110) mg/dL Calculated Osmolal ity (285-295) mOsm/k g Lactate 2.0 (0.5-2.2) mmol/L Calcium (8.5-10.5) mg/dL Total Bilirubin (0.15-1.2) mg/dL AST (0-32) U/L ALT (0-33) U/L Alkaline Phosphata se (35-105) IU/L Creatine Kinase (26-192) U/L C-Reactive Protein (0.0-4.9) mg/L Total Protein (6.6-8.7) g/dL Albumin (3.5-5.2) g/dL Globulin (1.3-4.6) g/dL Lipase (13-60) U/L Procalcitonin (0-0.5) ng/mL Urine Color Yellow (Yellow) Urine Appearance Clear (CLEAR) Urine pH 9 H (5-7) Ur Specific Gravit y 1.015 (1.005-1.030) Urine Protein 1+ H (Negative) Urine Glucose (UA) 4+ H (Normal) Urine Ketones 1+ H (Negative) Urine Blood 2+ H (Negative) Urine Nitrate Negative (Negative) Urine Bilirubin Neg (Negative) Urine Urobilinogen Norm (Negative) mg/dL Ur Leukocyte Nallely ase Negative (Negative) Urine RBC 5-10 H (0-2) /hpf Urine WBC 0-4 H (0-5) /hpf Ur Squamous Epith Cells 5-10 H (0-5) /hpf Amorphous Sediment Not Reportable Urine Bacteria Trace (NONE) /hpf Urine Yeast Trace /hpf Urine Opiates Scre en (Negative) ng/mL Ur Barbiturates Sc reen (Negative) ng/mL Ur Phencyclidine S crn (Negative) ng/mL Ur Amphetamines Sc reen (Negative) ng/mL U Benzodiazepines Scrn (Negative) ng/mL Urine Cocaine Scre en (Negative) ng/mL U Marijuana (THC) Screen (Negative) ng/mL Ethyl Alcohol (0-10) mg/dL Serum Ketones Negative (Negative) 03/25/21 03/25/21 Range/Units 04:26 05:48 WBC (4.0-10.0) 10^3/ uL RBC (4.1-5.3) 10^6/u L Hgb (11.5-15.3) g/dL Hct (37.0-47.0) % MCV (81-99) fL MCH (28.0-34.0) pg MCHC (30.0-36.0) g/dL RDW (12.1-15.1) % Plt Count (130-400) 10^3/c mm MPV (7.4-10.4) fL Neut % (Auto) % Lymph % (Auto) % Dickens % (Auto) % Eos % (Auto) % Baso % (Auto) % Neut # (Auto) (1.8-7.7) 10^3/u L Lymph # (Auto) (0.8-4.8) 10^3/u L Dickens # (Auto) (0.2-0.9) 10^3/u L Eos # (Auto) (0.0-0.8) 10^3/u L Baso # (Auto) (0.0-0.1) 10^3/u L Nucleated RBC % (a uto) % Nucleated RBCs # /100WBC Specimen Type Sample Site ABG pH (7.35-7.45) ABG pCO2 (35-45) mmHg ABG pO2 (80.0-100.0) mmH g ABG HCO3 (22-26) mmol/L ABG Base Excess (-2.0-2.0) mmol/ L Jeff Test Hematocrit (37-47) % O2 Delivery Device Disassembler Product ID Sodium (136-145) mmol/L Potassium (3.5-5.1) mmol/L Chloride (98-107) mmol/L Carbon Dioxide (22-29) mmol/L Anion Gap (5-19) BUN (6-20) mg/dL Creatinine (0.5-0.9) mg/dL GFR Calculation (90-130) mL/min Glucose (65-115) mg/dL POC Glucose 441 H (70-110) mg/dL Calculated Osmolal ity (285-295) mOsm/k g Lactate (0.5-2.2) mmol/L Calcium (8.5-10.5) mg/dL Total Bilirubin (0.15-1.2) mg/dL AST (0-32) U/L ALT (0-33) U/L Alkaline Phosphata se (35-105) IU/L Creatine Kinase (26-192) U/L C-Reactive Protein (0.0-4.9) mg/L Total Protein (6.6-8.7) g/dL Albumin (3.5-5.2) g/dL Globulin (1.3-4.6) g/dL Lipase (13-60) U/L Procalcitonin (0-0.5) ng/mL Urine Color (Yellow) Urine Appearance (CLEAR) Urine pH (5-7) Ur Specific Gravit y (1.005-1.030) Urine Protein (Negative) Urine Glucose (UA) (Normal) Urine Ketones (Negative) Urine Blood (Negative) Urine Nitrate (Negative) Urine Bilirubin (Negative) Urine Urobilinogen (Negative) mg/dL Ur Leukocyte Nallely ase (Negative) Urine RBC (0-2) /hpf Urine WBC (0-5) /hpf Ur Squamous Epith Cells (0-5) /hpf Amorphous Sediment Urine Bacteria (NONE) /hpf Urine Yeast /hpf Urine Opiates Scre en Positive H (Negative) ng/mL Ur Barbiturates Sc reen Negative (Negative) ng/mL Ur Phencyclidine S crn Negative (Negative) ng/mL Ur Amphetamines Sc reen Negative (Negative) ng/mL U Benzodiazepines Scrn Negative (Negative) ng/mL Urine Cocaine Scre en Negative (Negative) ng/mL U Marijuana (THC) Screen Negative (Negative) ng/mL Ethyl Alcohol (0-10) mg/dL Serum Ketones (Negative) Discharge Plan Discharge Patient Disposition: Admitted As Inpatient Admit Provider: Andriy Lambert Clinical Impression: Acute hyperactive delirium due to multiple etiologies Condition: Stable Coding Level of Care Code ED Athletic Team Physician for Paulieg Fwd Exam Comprehensive
[2021-03-25 06:32] LABS: Estmated Average Glucose 249; Hemoglobin A1C 10.3 % (4.0-6.0)
[2021-03-25 06:41] LABS: D Dimer 1.31 ug/mIFEU (0-0.59)
[2021-03-25 06:44] LABS: Ammonia 38 umol/L (11-51)
[2021-03-25 07:01] LABS: Prolactin 3.44 ng/mL (4.8-23.3)
[2021-03-25 07:07] LABS: Glucose Point of Care 455 mg/dL (70-110)
[2021-03-25 07:08] LABS: Procalcitonin 0.08 ng/mL (0-0.5); Thyroid Stimulating Hormone 1.19 uIU/mL (0.27-4.20); Vitamin B12 566 pg/mL (232-1245)
[2021-03-25] MEDS: doxycycline 100 mg Tablet PO ×2 (10:57→18:31)
[2021-03-25] MEDS: aspirin 81 mg Chew Tablet PO (10:57)
[2021-03-25] MEDS: tamsulosin 0.4 mg Capsule PO (10:57)
[2021-03-25] MEDS: pantoprazole DR 40 mg Tablet PO (10:57)
[2021-03-25] MEDS: clopidogrel 75 mg Tablet PO (10:58)
[2021-03-25] MEDS: cloNIDine 0.1 mg Tablet PO (10:59)
[2021-03-25] MEDS: levothyroxine 100 mcg Tablet PO (11:00)
[2021-03-25] MEDS: metoprolol tartrate 50 mg Tablet PO ×2 (11:00→22:15)
[2021-03-25] MEDS: losartan 50 mg Tablet PO ×2 (11:06→18:32)
[2021-03-25] MEDS: levoFLOXacin 750 mg Tablet PO (11:06)
[2021-03-25 13:04] LABS: Glucose Point of Care 426 mg/dL (70-110)
[2021-03-25 13:05] LABS: SARS Covid-2 Antigen Negative (Negative)
[2021-03-25 17:33] LABS: Glucose Point of Care 152 mg/dL (70-110)
--- NOTE | 2021-03-25 18:52 | PM.PN ---
Subjective Subjective: Interval history: Patient was seen in am, alert however confused. Only nods yes or no to questions, no fever. No nausea or vomiting. Medications: Reviewed: Yes Vitals/I&O/Wt Last Vital Signs Temp 97.6 F 03/25/21 15:45 Pulse 93 03/25/21 15:45 Resp 17 03/25/21 18:32 BP 181/96 03/25/21 18:32 Pulse Ox 91 03/25/21 18:32 03/25/21 03/25/21 03/25/21 06:59 14:59 22:59 Intake Total 1000 / 1000 1959 / 1959 Output Total 350 / 350 Balance 1000 / 1000 1610 / 1610 Weight last 48 hrs Weight 108.862 kg Physical Exam Narrative: EXAM NARRATIVE: General : alert, awake however confused. HEENT : Grossly unremarkable CVS; RRR Chest : CLABL Abd: NT,ND Ext - s/p R.BKA Data : 03/25/21 03:19 03/25/21 03:19 Micro: Microbiology 03/25/21 04:26 Legionella Urinary Antigen - Final Urine,Voided Bacterial Antigens - Final A&P Assessment and plan (1) Acute hyperactive delirium due to multiple etiologies: Status: Acute (2) Sepsis: Status: Acute Additional A&P Information Hyperactive delirium - Multifactorial - Improving - Polypharmacy - Bedside swallow - Fall precautions - PRN Ativan - Avoid narcotics. Sepsis due to possible pneumonia - Chest x-ray - ?RLL pneumonia - On ABx - F/u on culture - Pro-laura in am - CBC in am Diabetes with hyperglycemia - Improving - BS down to 165 - A1c in am - Continue current regimen Full code Consistent carb diet DVT prophylaxis Lovenox Attestations Medical Necessity Statement*: Will require further hospitalization for management of altered mental status Time Spent in Patient Care: Greater than 35 minutes (>than 50% of time spent in counselling and/or direct pt care on unit). Coding Level of Care Code Acute Wire Mesh Filter Fabricator for Darron Fwd Diagnoses Acute hyperactive delirium due to multiple etiologies F05 Sepsis A41.9
[2021-03-25 20:34] LABS: Glucose Point of Care 230 mg/dL (70-110)
[2021-03-26] VITALS (12 sets, daily range): BP systolic 151–169; BP diastolic 84–98; PULSE 87–112; RESP 16–20; TEMP 36.3–37.2; O2SAT 90–96
[2021-03-26] MEDS: levothyroxine 100 mcg Tablet PO (06:32)
[2021-03-26 06:48] LABS: Glucose Point of Care 356 mg/dL (70-110)
[2021-03-26 07:44] LABS: Basophils # 0.1 10^3/uL (0.0-0.1); Basophils % 0.7 %; Eosinophils % 0.2 %; Hematocrit 45.7 % (37.0-47.0); Hemoglobin 14.4 g/dL (11.5-15.3); Lymphocytes # 2.7 10^3/uL (0.8-4.8); Lymphocytes % 14.1 %; Mean Corpuscular HGB Conc 31.5 g/dL (30.0-36.0); Mean Corpuscular Volume 85.6 fL (81-99); Monocytes # 1.3 10^3/uL (0.2-0.9); Monocytes % 6.8 %; Neutrophils # 14.61 10^3/uL (1.8-7.7); Neutrophils % 76.3 %; Nucleated Red Blood Cells % 0 %; Platelet Count 426 10^3/cmm (130-400); Red Blood Count 5.34 10^6/uL (4.1-5.3); Red Cell Distribution Width 18.3 % (12.1-15.1); White Blood Count 19.2 10^3/uL (4.0-10.0)
[2021-03-26 08:03] LABS: Blood Urea Nitrogen 12 mg/dL (6-20); Calcium 9.2 mg/dL (8.5-10.5); Carbon Dioxide 17 mmol/L (22-29); Chloride 99 mmol/L (98-107); Glomerular Filtration Rate 64.8 mL/min (90-130); Glucose 339 mg/dL (65-115); Osmolality Calculated 291 mOsm/kg (285-295); Sodium 134 mmol/L (136-145)
[2021-03-26 08:04] LABS: Anion Gap 21.7 (5-19); Potassium 3.7 mmol/L (3.5-5.1)
[2021-03-26] MEDS: tamsulosin 0.4 mg Capsule PO (09:15)
[2021-03-26] MEDS: losartan 50 mg Tablet PO ×2 (09:15→19:19)
[2021-03-26] MEDS: metoprolol tartrate 50 mg Tablet PO ×2 (09:15→22:36)
[2021-03-26] MEDS: clopidogrel 75 mg Tablet PO (09:16)
[2021-03-26] MEDS: levoFLOXacin 750 mg Tablet PO (09:16)
[2021-03-26] MEDS: doxycycline 100 mg Tablet PO (09:16)
[2021-03-26] MEDS: cloNIDine 0.1 mg Tablet PO (09:16)
[2021-03-26] MEDS: aspirin 81 mg Chew Tablet PO (09:17)
[2021-03-26] MEDS: pantoprazole DR 40 mg Tablet PO (09:17)
[2021-03-26 11:29] LABS: Glucose Point of Care 363 mg/dL (70-110)
--- NOTE | 2021-03-26 13:08 | PC.CHAP ---
Pastoral Care Encounter/Spiritual Assessment Type of Contact [] Declined broadloom weaver visit [] Patient/Family/Request visit [] Outpatient visit [] Follow-up visit [] Physician referral [] Code/Alert [] Routine visit [] Staff referral [] Actively dying [] Patient sleeping [] Family support [] [] Out of room [] Palliative care [] [] Receiving care in room [] Pre-surgical visit [] Trauma [] Long length of stay [] ICU visit [] Other: Relational/Emotional Strength [] Patient feels connected with others/family/visitors/staff [] Distress [] Loneliness/isolation [] Abandonment Spirituality of Patient []x Person of Susan [] Attends Rastafarian of their Susan [x] Believes in Prayer [] Reads Bible or Moravian materials [] There are Spiritual issues to be addressed Head Refrigeration Engineer Interventions [x] Prayer [] Active listening [] Non-anxious presence [] Spiritual/emotional support [] Crisis/trauma care [] Spiritual counseling [] Bereavement support [] Provided bereavement packet [] Provided Bible/devotional materials [] Provided toy/stuffed animal, coloring book to patient or family member [] Provided Communion [] Anointing/[place] [] Salvation [] Completed spiritual assessment [] Other: Impact on Illness or Injury [] Angry [] Fearful [] Anxious [] Often cries [] Exhaustion [] Unable to work [] Unable to attend jewish [] Unable to walk/stand [] Unable to read [] Unable to drive [] Unable to eat/drink [] Unable to sleep [] Unable to be with family [] Patient intubated [] Other: Summary Time spent with patient
--- NOTE | 2021-03-26 14:52 | PM.PN ---
Subjective Subjective: Interval history: mental status worsening today, patient only says yes in response to multiple questions. WBC increasing to 19. Does not tolerate po intake, yesterday had complained of food being bad tasting . Intermittemnt episodes of sweating noted, however afberile. yesterday with one episode of diarrhea. Medications: Reviewed: Yes Vitals/I&O/Wt Last Vital Signs Temp 98.7 F 03/26/21 12:00 Pulse 99 03/26/21 12:00 Resp 16 03/26/21 12:00 BP 163/92 03/26/21 12:00 Pulse Ox 96 03/26/21 12:00 03/25/21 03/26/21 03/26/21 22:59 06:59 14:59 Intake Total 120 / 120 Output Total Balance -1608 120 / 120 Weight last 48 hrs Weight 108.862 kg Physical Exam Narrative: EXAM NARRATIVE: GEN: Disoriented, does not answer any questions or follwo commands, does not participate with attempts at passive movements CVS: S1S2 N RS: CTA B/L Abd: Soft, nt/nd , bs+ TELEGRAPH REPEATER MECHANIC:moves all extremities in bed Data : 03/26/21 07:18 03/26/21 07:18 Micro: Microbiology 03/25/21 04:26 Urine Culture - Preliminary Urine,Clean Catch 03/25/21 04:26 Legionella Urinary Antigen - Final Urine,Voided Bacterial Antigens - Final A&P Assessment and plan (1) Acute hyperactive delirium due to multiple etiologies: Status: Acute (2) Sepsis: Status: Acute Additional A&P Information # Altered mental status Mental status worsened today, encephalopathic, unable to answer questions or follow commands cause under evaluation differentials include acute metabolic encephalopathy, sepsis from possible pneumonia WBC count increasing today 1 episode of diarrhea check C diff PCR, blood culture CT head without acute abnormality TSH within range CT CAP if fails to repsond to changes in medications or WBC continues to trend up # Right lower lobe pneumonia with sepsis Criteria met with leukocytosis, tachycardia, acute encephalopathy Check blood culture D/c levofloxacin and doxycycline start ceftriaxone,vanc 2g iv q12h COVID PCR pending UA, urine cx pending # Diabetes with hyperglycemia - Check ketones to evalute for HHS Mild AG acidosis his am on labs Repeat CMP Full code Consistent carb diet DVT prophylaxis Lovenox Attestations Medical Necessity Statement*: worsening mentation under evaluation at this time, needs iv abx, further work up Coding Level of Care Code Acute Automotive Technician for Chg Fwd Diagnoses Acute hyperactive delirium due to multiple etiologies F05 Sepsis A41.9
--- NOTE | 2021-03-26 15:05 | PC.RESP ---
SMOKING CESSATION INFORMATION SENT TO PATIENT.
[2021-03-26 15:08] LABS: Alanine Aminotransferase 10 U/L (0-33); Albumin Level 3.8 g/dL (3.5-5.2); Alkaline Phosphatase 107 IU/L (35-105); Anion Gap 16.9 (5-19); Aspartate Amino Transferase 19 U/L (0-32); Blood Urea Nitrogen 14 mg/dL (6-20); Calcium 9.5 mg/dL (8.5-10.5); Carbon Dioxide 25 mmol/L (22-29); Chloride 101 mmol/L (98-107); Globulin 4.3 g/dL (1.3-4.6); Glomerular Filtration Rate 51.4 mL/min (90-130); Glucose 182 mg/dL (65-115); Osmolality Calculated 295 mOsm/kg (285-295); Sodium 140 mmol/L (136-145); Total Bilirubin 0.5 mg/dL (0.15-1.2); Total Protein 8.1 g/dL (6.6-8.7)
[2021-03-26 15:26] LABS: Potassium 2.9 mmol/L (3.5-5.1)
[2021-03-26] MEDS: vancomycin 1,250 MG/250 ML PIGGYBACK 250 MG IV (17:11)
[2021-03-26 17:54] LABS: Glucose Point of Care 168 mg/dL (70-110)
[2021-03-26] MEDS: cefTRIAXone 2,000 MG in sodium chloride 0.9% (plus) 50 ML 100 MG IV (19:18)
[2021-03-26] MEDS: lidocaine 1% 5 ML in potassium chloride premix 100 ML 25 ML IV (19:56)
[2021-03-26 22:25] LABS: Glucose Point of Care 260 mg/dL (70-110)
[2021-03-27] VITALS (14 sets, daily range): BP systolic 159–183; BP diastolic 90–116; PULSE 91–109; RESP 15–23; TEMP 36.9–37.6; O2SAT 83–96
[2021-03-27] MEDS: lidocaine 1% 5 ML in potassium chloride premix 100 ML 25 ML IV (00:21)
[2021-03-27] MEDS: cefTRIAXone 2,000 MG in sodium chloride 0.9% (plus) 50 ML 100 MG IV ×2 (05:21→16:53)
[2021-03-27] MEDS: vancomycin 1,250 MG/250 ML PIGGYBACK 250 MG IV ×2 (06:06→18:02)
[2021-03-27] MEDS: cloNIDine 0.1 mg Tablet PO (06:10)
[2021-03-27] MEDS: levothyroxine 100 mcg Tablet PO (06:10)
[2021-03-27] MEDS: metoprolol tartrate 50 mg Tablet PO ×2 (06:10→21:10)
[2021-03-27 06:54] LABS: Glucose Point of Care 275 mg/dL (70-110)
[2021-03-27 06:58] LABS: Basophils # 0.1 10^3/uL (0.0-0.1); Basophils % 0.8 %; Eosinophils % 0.1 %; Hematocrit 46.7 % (37.0-47.0); Hemoglobin 14.9 g/dL (11.5-15.3); Lymphocytes # 3.1 10^3/uL (0.8-4.8); Lymphocytes % 18.8 %; Mean Corpuscular HGB Conc 31.9 g/dL (30.0-36.0); Mean Corpuscular Hemoglobin 27.1 pg (28.0-34.0); Mean Corpuscular Volume 84.9 fL (81-99); Mean Platelet Volume 9.7 fL (7.4-10.4); Monocytes # 1.5 10^3/uL (0.2-0.9); Monocytes % 8.7 %; Neutrophils # 11.56 10^3/uL (1.8-7.7); Neutrophils % 69.7 %; Nucleated Red Blood Cells % 0 %; Platelet Count 440 10^3/cmm (130-400); Red Cell Distribution Width 18.4 % (12.1-15.1); White Blood Count 16.6 10^3/uL (4.0-10.0)
[2021-03-27 07:08] LABS: Alanine Aminotransferase 10 U/L (0-33); Albumin Level 3.7 g/dL (3.5-5.2); Alkaline Phosphatase 98 IU/L (35-105); Blood Urea Nitrogen 18 mg/dL (6-20); Calcium 8.8 mg/dL (8.5-10.5); Carbon Dioxide 21 mmol/L (22-29); Chloride 103 mmol/L (98-107); Globulin 3.9 g/dL (1.3-4.6); Glomerular Filtration Rate 51.4 mL/min (90-130); Glucose 294 mg/dL (65-115); Osmolality Calculated 305 mOsm/kg (285-295); Sodium 141 mmol/L (136-145); Total Bilirubin 0.4 mg/dL (0.15-1.2); Total Protein 7.6 g/dL (6.6-8.7)
[2021-03-27 07:12] LABS: Anion Gap 20.9 (5-19); Aspartate Amino Transferase 30 U/L (0-32); Potassium 3.9 mmol/L (3.5-5.1)
--- NOTE | 2021-03-27 07:47 | PC.NURSE ---
Upon assessment patient would not or could not verbalize any answer's to my questions. She nodded her head in reply but somewhat at inappropriate times. When asked her name she nodded yes. When asked if she was in any pain she nodded yes, but could not point to a specific location.
[2021-03-27 07:49] LABS: HIV 1 & 2 Antibody Non-Reactive (Non-Reactiv); HIV 1 & 2 Antigen Non-Reactive (Non-Reactiv)
[2021-03-27] MEDS: pantoprazole DR 40 mg Tablet PO (08:32)
[2021-03-27] MEDS: clopidogrel 75 mg Tablet PO (08:32)
[2021-03-27] MEDS: azithromycin 250 mg Tablet 500 MG PO (08:32)
[2021-03-27] MEDS: tamsulosin 0.4 mg Capsule PO (08:32)
[2021-03-27] MEDS: aspirin 81 mg Chew Tablet PO (08:32)
[2021-03-27] MEDS: losartan 50 mg Tablet PO ×2 (08:32→18:03)
[2021-03-27 10:46] LABS: Glucose Point of Care 254 mg/dL (70-110)
[2021-03-27 11:46] LABS: Lyme AB Screen <0.90 index
[2021-03-27] MEDS: ondansetron 2 mg/ML SDV 2 mL 4 MG IVP (12:16)
[2021-03-27] MEDS: acetaminophen 325 mg Tablet 650 MG PO (12:16)
--- NOTE | 2021-03-27 12:42 | CT_ITS ---
WS: [id number] CT CHEST, ABDOMEN, AND PELVIS TECHNIQUE: Noncontrast CT of the chest, abdomen, and pelvis with coronal and sagittal reformatted fred ges. CLINICAL INFORMATION: sepsis, source evaluation, persisting leukocytosis COMPARISON: CT abdomen November 29, 2018 DLP: 2341.[address] scans at [facility] use at least one of these dose optimization techniques: automat ed exposure control; mA and/or kV adjustment per patient size (includes targeted exams where dose is matched to clinical indication); or iterative reconstruction. CT CHEST: Moderate chronic emphysematous changes. Bibasilar atelectasis. Groundglass infiltrates within the rig ht upper lobe likely infectious or inflammatory. A few patchy groundglass infiltrates in the left low er lobe. Aortic calcification. Calcified right hilar lymph nodes. Coronary calcification. No axillary lymphade nopathy. No focal consolidation or pleural fluid. CT ABDOMEN AND PELVIS: 2.1 cm incidental left adrenal myelolipoma is unchanged. Prior cholecystectomy. Hepatomegaly. No intr ahepatic biliary ductal dilatation. Fatty atrophy of the pancreas. Splenic granulomas. Small esophage al hiatal hernia. Normal right adrenal gland. Perinephric inflammatory stranding can be seen with baylee al insufficiency or pyelonephritis. No hydronephrosis left kidney. Right calyceal tip calculus measur ing 7 mm. No obstruction. Both ureters are decompressed. No obstructing ureteral calculi. Normal caliber abdominal aorta. Aortic calcification. No abdominal lymphadenopathy. No pelvic or ingu inal lymphadenopathy. Normal sigmoid colon. No evidence of small or large bowel obstruction. No free fluid in the abdomen or pelvis. No other significant findings. CT/CT chest abd pel wo con IMPRESSION: 1. Patchy groundglass infiltrates in the right upper lobe anteriorly likely in fectious or inflammatory. Recommend correlation for pneumonia. A few slight pat aletha infiltrates in the left lower lobe. 2. Chronic emphysematous changes. 3. Bilateral perinephric inflammatory stranding can be seen with renal insuffi ciency or pyelonephritis. No obstructing renal or ureteral calculi. Recommend c orrelation for urinary tract infection. 4. Left adrenal myelolipoma measuring 2.1 cm is unchanged. 5. Hepatomegaly. 6. Cholecystectomy. 7. No free fluid in the abdomen or pelvis.
[2021-03-27] MEDS: labetalol 5 mg/mL SDV 20mL 10 MG IVP (14:17)
[2021-03-27 18:09] LABS: Glucose Point of Care 176 mg/dL (70-110)
--- NOTE | 2021-03-27 19:34 | PM.PN ---
Subjective Subjective: Interval history: mental status overall remains unchanged, responds with few short words, t max 99.8F, leukocytosis stable at 16. Medications: Reviewed: Yes Vitals/I&O/Wt Last Vital Signs Temp 99.7 F H 03/27/21 16:00 Pulse 91 03/27/21 16:00 Resp 18 03/27/21 16:00 BP 159/90 03/27/21 18:03 Pulse Ox 90 03/27/21 16:00 03/27/21 03/27/21 03/27/21 06:59 14:59 22:59 Intake Total 260 / 680 970 / 970 600 / 1570 Balance 260 / 680 970 / 970 600 / 1570 Physical Exam Narrative: EXAM NARRATIVE: GEN: Awake, disoriented , only answers yes to questions CVS: S1S2 N RS: CTA B/L Abd: Soft, nt/nd , bs+ CORRECTIONS NURSE: no focal neuro deficits Data : 03/27/21 06:42 03/27/21 06:42 Micro: Microbiology 03/25/21 04:26 Urine Culture - Final Urine,Clean Catch 03/27/21 06:42 Blood Culture - Preliminary Blood SPECIMEN COLLECTED 03/27/21 06:40 Blood Culture - Preliminary Blood SPECIMEN COLLECTED 03/26/21 17:02 C.difficile Toxin B Gene (PCR) - Final Stool Routine Collection A&P Assessment and plan (1) Acute hyperactive delirium due to multiple etiologies: Status: Acute (2) Sepsis: Status: Acute (3) Acute delirium: Status: Acute Additional A&P Information # Altered mental status Mental status remains unchanged, no gross improvement cause under evaluation differentials include acute metabolic encephalopathy, sepsis from possible pneumonia WBC count stable Thus far work up with pneumonia, on CT chest today noted to have B/L vague GGOs, no gross consoildation, appears unlikely to be the cause of profound AMS CT head without acute abnormality TSH within range CT Abd/pelvis with possible pyelonephritis, however urine cx with no prominent growth. Patient currently on appropriate empiric regimen with ceftriaxone and vancomycin. Tick panel pending, blood cx taken today and pending Rapid Covid Ag negative, PCR pending, per sister patient likely to have been vaccinated Patient has been off opiates and sedating medications since admission without gross improvement in mentation. Now with low grade fever, AMS and no good alternate explanation, will likely need LP # Right lower lobe pneumonia with sepsis Criteria met with leukocytosis, tachycardia, acute encephalopathy Continue ceftriaxone,vanc 2g iv q12h COVID PCR pending UA, urine cx pending # Diabetes with hyperglycemia - Blood sugar better controlled # Uncontrolled hypertension, BP up to 180 systolic today, improved with iv labetalol Full code Consistent carb diet, currently not taking adequate po intake with poor mentation DVT prophylaxis Lovenox Attestations Medical Necessity Statement*: Persisting altered mental status, no gross improvement, cause under evaluation Coding Level of Care Code Acute Career And Guidance Counselor for g Fwd Diagnoses Acute hyperactive delirium due to multiple etiologies F05 Sepsis A41.9 Acute delirium R41.0
[2021-03-27 20:50] LABS: Glucose Point of Care 168 mg/dL (70-110)
[2021-03-28] VITALS (11 sets, daily range): BP systolic 123–192; BP diastolic 77–113; PULSE 97–126; RESP 14–24; TEMP 37.3–38.1; O2SAT 89–95
[2021-03-28] MEDS: hyDRALAzine 20 mg/mL INJ 1 mL 10 MG IVP (03:34)
[2021-03-28] MEDS: cefTRIAXone 2,000 MG in sodium chloride 0.9% (plus) 50 ML 100 MG IV ×2 (03:42→16:37)
[2021-03-28 04:21] LABS: Basophils # 0.2 10^3/uL (0.0-0.1); Basophils % 0.9 %; Eosinophils # 0.1 10^3/uL (0.0-0.8); Eosinophils % 0.3 %; Hematocrit 48.7 % (37.0-47.0); Hemoglobin 15.5 g/dL (11.5-15.3); Lymphocytes # 3.4 10^3/uL (0.8-4.8); Lymphocytes % 17.9 %; Mean Corpuscular HGB Conc 31.8 g/dL (30.0-36.0); Mean Corpuscular Hemoglobin 26.9 pg (28.0-34.0); Mean Corpuscular Volume 84.5 fL (81-99); Mean Platelet Volume 9.7 fL (7.4-10.4); Monocytes # 1.5 10^3/uL (0.2-0.9); Monocytes % 7.7 %; Neutrophils # 13.54 10^3/uL (1.8-7.7); Neutrophils % 71.4 %; Nucleated Red Blood Cells % 0.1 %; Platelet Count 429 10^3/cmm (130-400); Red Blood Count 5.76 10^6/uL (4.1-5.3); Red Cell Distribution Width 18.6 % (12.1-15.1)
[2021-03-28 04:37] LABS: Alanine Aminotransferase 11 U/L (0-33); Albumin Level 3.7 g/dL (3.5-5.2); Alkaline Phosphatase 98 IU/L (35-105); Aspartate Amino Transferase 19 U/L (0-32); Blood Urea Nitrogen 20 mg/dL (6-20); Calcium 9.2 mg/dL (8.5-10.5); Carbon Dioxide 20 mmol/L (22-29); Chloride 102 mmol/L (98-107); Globulin 3.8 g/dL (1.3-4.6); Glomerular Filtration Rate 57.4 mL/min (90-130); Glucose 252 mg/dL (65-115); Osmolality Calculated 299 mOsm/kg (285-295); Sodium 139 mmol/L (136-145); Total Bilirubin 0.3 mg/dL (0.15-1.2); Total Protein 7.5 g/dL (6.6-8.7)
[2021-03-28 04:47] LABS: Anion Gap 20.5 (5-19); Potassium 3.5 mmol/L (3.5-5.1)
[2021-03-28] MEDS: levothyroxine 100 mcg Tablet PO (06:03)
[2021-03-28 07:07] LABS: Glucose Point of Care 254 mg/dL (70-110)
[2021-03-28] MEDS: cloNIDine 0.1 mg Tablet PO (08:58)
[2021-03-28] MEDS: azithromycin 250 mg Tablet 500 MG PO (08:58)
[2021-03-28] MEDS: losartan 50 mg Tablet PO ×2 (08:58→17:04)
[2021-03-28] MEDS: clopidogrel 75 mg Tablet PO (08:58)
[2021-03-28] MEDS: aspirin 81 mg Chew Tablet PO (08:58)
[2021-03-28] MEDS: tamsulosin 0.4 mg Capsule PO (08:58)
[2021-03-28] MEDS: pantoprazole DR 40 mg Tablet PO (08:58)
[2021-03-28] MEDS: metoprolol tartrate 50 mg Tablet PO ×2 (09:07→21:20)
[2021-03-28] MEDS: vancomycin 1,250 MG/250 ML PIGGYBACK 250 MG IV (10:40)
[2021-03-28 13:12] LABS: Glucose Point of Care 226 mg/dL (70-110)
[2021-03-28 13:53] LABS: Coronavirus Test Green County Not Detected
--- NOTE | 2021-03-28 14:08 | PC.NURSE ---
COVID PCR result notified to Dr. Fernandes, new orders received to remove isolation precautions.
[2021-03-28] MEDS: acyclovir 1,000 MG in sodium chloride 0.9% (100 ml) 100 ML 120 MG IV ×2 (15:45→23:20)
--- NOTE | 2021-03-28 16:59 | PC.NURSE ---
MRI form completed with family on the phone, unable to answer all questions fully.
--- NOTE | 2021-03-28 17:35 | PC.NURSE ---
Patients oxygen saturation 88% on 4L NC, notified RT and increased oxygen to 5L NC, heart rate 126, Dr. Fernandes notified.
[2021-03-28 17:55] LABS: Glucose Point of Care 177 mg/dL (70-110)
[2021-03-28 20:55] LABS: Glucose Point of Care 212 mg/dL (70-110)
--- NOTE | 2021-03-28 21:47 | PM.PN ---
Subjective Subjective: Interval history: no significant change in mentation, remains non verbal at this time, does not folow commands, COVID PCR negative, unable to perform LP as currently on DAPT with ASA and Plavix. T max 100.4F. Leukocytosis persisting at 19. Medications: Reviewed: Yes Vitals/I&O/Wt Last Vital Signs Temp 99.3 F 03/28/21 20:00 Pulse 122 H 03/28/21 21:04 Resp 18 03/28/21 21:04 BP 139/83 03/28/21 20:00 Pulse Ox 93 03/28/21 21:04 03/28/21 03/28/21 03/28/21 06:59 14:59 22:59 Intake Total 50 / 1740 370 / 370 170 / 540 Balance 50 / 1740 370 / 370 170 / 540 Physical Exam Narrative: EXAM NARRATIVE: GEN: Awake, disoriented , only answers yes to questions CVS: S1S2 N RS: CTA B/L Abd: Soft, nt/nd , bs+ GEOTHERMAL OPERATIONS ENGINEER: no focal neuro deficits Data : 03/28/21 04:15 03/28/21 04:15 Micro: Microbiology 03/27/21 06:42 Blood Culture - Preliminary Blood NEGATIVE TO DATE 03/27/21 06:40 Blood Culture - Preliminary Blood NEGATIVE TO DATE A&P Assessment and plan (1) Acute hyperactive delirium due to multiple etiologies: Status: Acute (2) Sepsis: Status: Acute (3) Acute delirium: Status: Acute Additional A&P Information # Altered mental status Mental status remains unchanged, no gross improvement , non verbal. does not appear to follow commands cause under evaluation differentials include acute metabolic encephalopathy, sepsis from possible pneumonia WBC count stable Thus far work up with pneumonia on CXR initially, on CT chest noted to have B/L vague GGOs, no gross consoildation, appears unlikely to be the cause of profound AMS CT head without acute abnormality TSH within range CT Abd/pelvis with possible pyelonephritis, however urine cx with no prominent growth. Patient currently on appropriate empiric regimen with ceftriaxone and vancomycin. Tick panel pending, blood cx taken and pending Rapid Covid Ag negative, PCR negative Patient has been off opiates and sedating medications since admission without gross improvement in mentation. Now with low grade fever, AMS and no good alternate explanation, encephalitis on the differential. Unable to perform LP as plavix needs to be off at least 5 days to safely attempt per IR. Empirically add Acyclovir 10mg/kg q8h , closely monitor renal function MR Brain to evaluate for CVA given aphasia which may not have been evident on initial CT images # Tachycardia: increase metoprolol to 75mg BID # Uncontrolled hypertension, BP better controlled today Full code Consistent carb diet, currently not taking adequate po intake with poor mentation DVT prophylaxis Lovenox Attestations Medical Necessity Statement*: AMS under evaluation, MR pending, presumptive addition of Acyclovir and monitor for response Coding Level of Care Code Acute Log Handler for Darron Fwsachin Diagnoses Acute hyperactive delirium due to multiple etiologies F05 Sepsis A41.9 Acute delirium R41.0
[2021-03-29] VITALS (9 sets, daily range): BP systolic 104–146; BP diastolic 69–88; PULSE 75–127; RESP 18–20; TEMP 36.8–37.5; O2SAT 90–97
[2021-03-29] MEDS: cefTRIAXone 2,000 MG in sodium chloride 0.9% (plus) 50 ML 100 MG IV ×2 (04:59→18:35)
[2021-03-29 06:18] LABS: Glucose Point of Care 253 mg/dL (70-110)
[2021-03-29] MEDS: levothyroxine 100 mcg Tablet PO (06:37)
[2021-03-29] MEDS: pantoprazole DR 40 mg Tablet PO (09:13)
[2021-03-29] MEDS: tamsulosin 0.4 mg Capsule PO (09:13)
[2021-03-29] MEDS: metoprolol tartrate 50 mg Tablet 75 MG PO ×2 (09:13→21:14)
[2021-03-29] MEDS: aspirin 81 mg Chew Tablet PO (09:13)
[2021-03-29] MEDS: cloNIDine 0.1 mg Tablet PO (09:13)
[2021-03-29] MEDS: losartan 50 mg Tablet PO ×2 (09:14→17:35)
--- NOTE | 2021-03-29 09:43 | PC.NURSE ---
MRI scheduled for 1430. Transportation arranged with Ricardo Hong.
--- NOTE | 2021-03-29 10:54 | PC.SOCIAL ---
*IMM UPDATE* Gave patient's brother Rodney verbal IMM update. Verbalized understanding 03/29/21 @ 0905 Initialed, dated, timed and placed in chart.
[2021-03-29 11:08] LABS: Glucose Point of Care 271 mg/dL (70-110)
[2021-03-29] MEDS: acyclovir 1,000 MG in sodium chloride 0.9% (100 ml) 100 ML 120 MG IV ×3 (11:14→23:26)
--- NOTE | 2021-03-29 11:33 | PM.PN ---
Subjective Subjective: Interval history: mental status appears slightly improved today, increased oxygen requirement at 5lpm today, tachycardic 112, tmax 99.1F MRI today at 4pm Medications: Reviewed: Yes Vitals/I&O/Wt Last Vital Signs Temp 99.1 F 03/29/21 08:00 Pulse 112 H 03/29/21 08:00 Resp 19 H 03/29/21 08:00 BP 146/84 03/29/21 09:14 Pulse Ox 92 03/29/21 08:00 03/28/21 03/29/21 03/29/21 22:59 06:59 14:59 Intake Total 170 / 540 170 / 710 360 / 360 Balance 170 / 540 170 / 710 360 / 360 Physical Exam Narrative: EXAM NARRATIVE: GEN: Awake, disoriented CVS: S1S2 N RS: CTA B/L Abd: Soft, nt/nd , bs+ SALES AMBASSADOR: no focal neuro deficits Data : 03/28/21 04:15 03/28/21 04:15 Micro: Microbiology 03/28/21 04:15 Cryptococcal Antigen - Final Blood 03/29/21 05:43 Blood Culture - Preliminary Blood SPECIMEN COLLECTED 03/29/21 05:39 Blood Culture - Preliminary Blood SPECIMEN COLLECTED 03/27/21 06:42 Blood Culture - Preliminary Blood NEGATIVE TO DATE 03/27/21 06:40 Blood Culture - Preliminary Blood NEGATIVE TO DATE A&P Assessment and plan (1) Acute hyperactive delirium due to multiple etiologies: Status: Acute (2) Sepsis: Status: Acute (3) Acute delirium: Status: Acute Additional A&P Information # Altered mental status Mental status still with profound lethargy Differentials include acute metabolic encephalopathy, sepsis from possible pneumonia WBC count stable Thus far work up with pneumonia on CXR initially, on CT chest noted to have B/L vague GGOs, no gross consolidation, appears unlikely to be the cause of profound AMS CT head without acute abnormality TSH within range CT Abd/pelvis with possible pyelonephritis, however urine cx with no prominent growth. Patient currently on appropriate empiric regimen with ceftriaxone and vancomycin. Tick panel pending, blood cx taken and pending Rapid Covid Ag negative, PCR negative Patient has been off opiates and sedating medications since admission without gross improvement in mentation. Now with low grade fever, AMS and no good alternate explanation, encephalitis on the differential. Unable to perform LP as plavix needs to be off at least 5 days to safely attempt per IR. Empirically added Acyclovir 10mg/kg q8h , closely monitor renal function MR Brain to evaluate for CVA given aphasia which may not have been evident on initial CT images , will follow results # Tachycardia: increase metoprolol to 75mg BID # Uncontrolled hypertension, BP better controlled today Full code Consistent carb diet, currently not taking adequate po intake with poor mentation DVT prophylaxis Lovenox Attestations Medical Necessity Statement*: MRI today, empiric management for possible encephalitis Coding Level of Care Code Acute Crime Scene Investigator for [facility] Fwd Diagnoses Acute hyperactive delirium due to multiple etiologies F05 Sepsis A41.9 Acute delirium R41.0
--- NOTE | 2021-03-29 14:30 | MR_ITS ---
WS: [id number] MRI HEAD WITHOUT CONTRAST TECHNIQUE: Sagittal T1, T2 axial, T2 axial FLAIR, axial and coronal T1 images, axial susceptibility w eighted imaging, axial diffusion weighted images, and coronal T2 images were obtained. CLINICAL INFORMATION: stroke, altered mental status COMPARISON: CT March 25, 2021 FINDINGS: Some images are limited due to motion artifact. No evidence of restricted diffusion to suggest acute ischemia. Ventricular system and basal cisterns are patent. Mild small vessel changes. Moderate parenchymal volume loss. No extra-axial fluid collect ions. No evidence of mass or mass effect. Normal posterior fossa. Normal vascular flow voids at the s kull base. No extra-axial fluid collections. Chronic lacunar infarcts right cerebellum. Mastoid air c ells are well aerated. Paranasal sinuses are well aerated. Moderate symmetric atrophy temporal lobes and hippocampal formations. Normal optic chiasm and pituita ry infundibulum. No hemosiderin on the susceptibly weighted images. MR/MR head wo con* [id number] IMPRESSION: 1. No evidence of restricted diffusion to suggest acute ischemia. 2. Mild small vessel changes with moderate parenchymal volume loss. 3. Tiny chronic lacunar infarcts in the right cerebellum. 4. Paranasal sinuses and mastoid air cells are well aerated. 5. Moderate symmetric atrophy temporal lobes and hippocampal formations. 6. No hemosiderin on susceptibly weighted images.
[2021-03-29 17:13] LABS: Glucose Point of Care 277 mg/dL (70-110)
[2021-03-29 17:26] LABS: RMSF IGG NOT DETECTED; RMSF IGM NOT DETECTED
[2021-03-29] MEDS: ondansetron 2 mg/ML SDV 2 mL 4 MG IVP (17:47)
[2021-03-29 20:46] LABS: Glucose Point of Care 261 mg/dL (70-110)
[2021-03-29 22:27] LABS: E. Chaffeensis AB IGG <1:64; E. Chaffeensis AB IGM <1:20
[2021-03-30] VITALS (10 sets, daily range): BP systolic 123–165; BP diastolic 81–96; PULSE 87–119; RESP 16–18; TEMP 36.1–36.9; O2SAT 91–95
[2021-03-30 00:45] LABS: Glucose Point of Care 203 mg/dL (70-110)
[2021-03-30] MEDS: cefTRIAXone 2,000 MG in sodium chloride 0.9% (plus) 50 ML 100 MG IV (03:32)
[2021-03-30 04:53] LABS: Basophils # 0.2 10^3/uL (0.0-0.1); Basophils % 0.8 %; Eosinophils # 0.3 10^3/uL (0.0-0.8); Eosinophils % 1.5 %; Hematocrit 46.9 % (37.0-47.0); Hemoglobin 14.8 g/dL (11.5-15.3); Lymphocytes # 3.5 10^3/uL (0.8-4.8); Lymphocytes % 17.2 %; Mean Corpuscular HGB Conc 31.6 g/dL (30.0-36.0); Mean Corpuscular Hemoglobin 27.6 pg (28.0-34.0); Mean Corpuscular Volume 87.3 fL (81-99); Mean Platelet Volume 10.4 fL (7.4-10.4); Monocytes # 1.6 10^3/uL (0.2-0.9); Neutrophils # 14.42 10^3/uL (1.8-7.7); Neutrophils % 71.4 %; Nucleated Red Blood Cells % 0 %; Platelet Count 369 10^3/cmm (130-400); Red Blood Count 5.37 10^6/uL (4.1-5.3); Red Cell Distribution Width 18.6 % (12.1-15.1); White Blood Count 20.2 10^3/uL (4.0-10.0)
[2021-03-30 05:17] LABS: Alanine Aminotransferase 7 U/L (0-33); Alkaline Phosphatase 82 IU/L (35-105); Anion Gap 17.4 (5-19); Aspartate Amino Transferase 11 U/L (0-32); Blood Urea Nitrogen 31 mg/dL (6-20); Calcium 9.7 mg/dL (8.5-10.5); Carbon Dioxide 24 mmol/L (22-29); Chloride 106 mmol/L (98-107); Globulin 3.6 g/dL (1.3-4.6); Glomerular Filtration Rate 38.9 mL/min (90-130); Glucose 211 mg/dL (65-115); Osmolality Calculated 311 mOsm/kg (285-295); Potassium 3.4 mmol/L (3.5-5.1); Sodium 144 mmol/L (136-145); Total Bilirubin 0.3 mg/dL (0.15-1.2); Total Protein 7.6 g/dL (6.6-8.7)
--- NOTE | 2021-03-30 05:46 | PC.NURSE ---
SHIFT SUMMARY Has not slept tonight. Sits upright in bed most of the time. Occ will lay down. Talks very little. Occ will speak a short sentence. Told me couple of times that she was thirsty and would drink well but when giving her her pills she didn't seem to understand to swallow them. Most of the time she will just look at nurse when asked a question. Will follow instructions at times but other times again will just stare at nurse as if she doesn't understand what she is supposed to do. Has not tried to get OOB. Bed alarm is on for safety. Is incont of urine. Required a new IV start due to getting it pulled out. Receiving IV antibiotics. Has occ loose sounding cough. O2 in place at 4l per NC
[2021-03-30] MEDS: levothyroxine 100 mcg Tablet PO (06:13)
[2021-03-30 06:14] LABS: Glucose Point of Care 231 mg/dL (70-110)
--- NOTE | 2021-03-30 08:17 | PC.NURSE ---
PT REFUSED MEDS THIS AM. PT HELD MEDICATIONS IN MOUTH AND WOULDN'T SWALLOW THEM. PT THEN SPIT OUT MEDICATIONS. PT WAS BEGINNING TO INCREASE IN AGITATION. WILL CONTINUE TO MONITOR.
[2021-03-30] MEDS: acyclovir 1,000 MG in sodium chloride 0.9% (100 ml) 100 ML 120 MG IV ×2 (08:50→22:19)
--- NOTE | 2021-03-30 09:35 | PC.NURSE ---
Primary nurse was notified that patient had spit out meds this am. Informed that bp was 165/96. Will continue to monitor.
[2021-03-30] MEDS: ondansetron 2 mg/ML SDV 2 mL 4 MG IVP (10:27)
[2021-03-30 11:04] LABS: Glucose Point of Care 228 mg/dL (70-110)
[2021-03-30] MEDS: labetalol 5 mg/mL SDV 20mL 10 MG IVP (11:06)
--- NOTE | 2021-03-30 17:01 | P.PN_ITS ---
Subjective Subjective: Interval history: Mental status much improved today. Patient was able to correctly tell me her name, date of , recognized her brother bedside, looking at pictures of family on sister in law's phone. verbalized to PT that she doesnt want to work with them., Afberile now Medications: Reviewed: Yes Vitals/I&O/Wt Last Vital Signs Temp 97.6 F 03/30/21 11:28 Pulse 119 H 03/30/21 11:28 Resp 16 03/30/21 11:28 BP 123/88 03/30/21 11:28 Pulse Ox 93 03/30/21 11:28 03/30/21 03/30/21 03/30/21 06:59 14:59 22:59 Intake Total 370 / 1480 240 / 240 Balance 370 / 1480 240 / 240 Physical Exam Narrative: EXAM NARRATIVE: GEN: Awake, much more alert and awake today, still disoriented CVS: S1S2 N RS: CTA B/L Abd: Soft, nt/nd , bs+ COLOR STRAINER: no focal neuro deficits, moving all extremities Data : 03/30/21 04:23 03/30/21 04:23 Micro: Microbiology 03/29/21 05:43 Blood Culture - Preliminary Blood NEGATIVE TO DATE 03/29/21 05:39 Blood Culture - Preliminary Blood NEGATIVE TO DATE A&P Assessment and plan (1) Acute hyperactive delirium due to multiple etiologies: Status: Acute (2) Sepsis: Status: Acute (3) Acute delirium: Status: Acute Additional A&P Information # Altered mental status Mental status appears to be improving today, oriented x 1, correctlt tells me her name aand Differentials include acute metabolic encephalopathy vs viral encephalitis WBC count stable but persistently elevated Sepsis w/up thus far with CT chest noted to have B/L vague GGOs, no gross consolidation, appears unlikely to be the cause of profound AMS CT Abd/pelvis with possible pyelonephritis, however urine cx with no prominent growth. Patient currently on appropriate empiric regimen with ceftriaxone and vancomycin. CT head without acute abnormality TSH within range Tick panel negative Rapid Covid Ag negative, PCR negative Patient has been off opiates and sedating medications since admission without gross improvement in mentation. Now with low grade fever, AMS and no good alternate explanation, encephalitis on the differential. Unable to perform LP as plavix needs to be off at least 5 days to safely attempt per IR. Empirically added Acyclovir 10mg/kg q8h , mentation improving since addition of antivirals MR Brain to evaluate for CVA negative Lp once off plavix x 5 days continue CTX for now, d/c vancomycin # Tachycardia: increase metoprolol to 75mg BID , refused po this morning, metoprolol prn added this morning # Uncontrolled hypertension, BP better controlled today Full code Consistent carb diet, currently not taking adequate po intake with poor mentation , tolerating liquids DVT prophylaxis Lovenox Attestations Medical Necessity Statement*: on empiric management of bacterial vs viral encephalitis Coding Level of Care Code Acute Supervisor Blood Donor Recruiters for g Fwd Diagnoses Acute hyperactive delirium due to multiple etiologies F05 Sepsis A41.9 Acute delirium R41.0
[2021-03-30 17:38] LABS: Glucose Point of Care 324 mg/dL (70-110)
--- NOTE | 2021-03-30 18:48 | PC.NURSE ---
Patient has had increased agitation after her sister in law Lesly visited this after. Her IV infiltrated when I went to hand her 1500 dose of acyclovir. after multiple attempts to get new IV access the patient refused. Dr. Fernandes notified and medications switched to orals. patient refusing to try even open mouth to take a drink. she keeps turning head and shes yelled no and leave me alone . Dr. Fernandes notified.
[2021-03-30 21:05] LABS: Glucose Point of Care 239 mg/dL (70-110)
[2021-03-30 21:46] LABS: Glucose Point of Care 208 mg/dL (70-110)
[2021-03-30] MEDS: metoprolol tartrate 50 mg Tablet 75 MG PO (22:19)
[2021-03-31] MEDS: acetaminophen 325 mg Tablet 650 MG PO ×2 (02:55→23:22)
[2021-03-31 04:00] VITALS: BP 150/94; PULSE 87; RESP 17; TEMP 36.4; O2SAT 95
[2021-03-31] MEDS: cefTRIAXone 2,000 MG in sodium chloride 0.9% (plus) 50 ML 100 MG IV ×2 (04:08→17:06)
[2021-03-31] MEDS: levothyroxine 100 mcg Tablet PO (06:12)
[2021-03-31 06:26] LABS: Glucose Point of Care 213 mg/dL (70-110)
[2021-03-31] MEDS: acyclovir 1,000 MG in sodium chloride 0.9% (100 ml) 100 ML 120 MG IV ×2 (09:20→22:13)
[2021-03-31] MEDS: aspirin 81 mg Chew Tablet PO (09:27)
--- NOTE | 2021-03-31 10:10 | PC.SOCIAL ---
IMM UPDATE Gave pt's brother, Rodney verbal IMM update via phone. Left copy at bedside. Verbalized understanding. 03/31/21 @ 0934 Initialed, dated, timed and placed in chart.
[2021-03-31 10:43] LABS: Glucose Point of Care 229 mg/dL (70-110)
[2021-03-31 12:14] VITALS: BP 150/94
[2021-03-31] MEDS: cloNIDine 0.1 mg Tablet PO (12:14)
[2021-03-31] MEDS: metoprolol tartrate 50 mg Tablet 75 MG PO ×2 (12:14→22:14)
--- NOTE | 2021-03-31 12:25 | PC.NURSE ---
MIDLINE RIGHT arm ready for use. Primary nurse notified.
--- NOTE | 2021-03-31 12:56 | XRR_ITS ---
PROCEDURE INFORMATION: Exam: XR Chest Exam date and time: 03/31/2021 12:56 PM Age: 55 years old Clinical indication: Device placement; Picc; Additional info: Picc placement TECHNIQUE: Imaging protocol: XR of the chest. Views: 1 view. COMPARISON: CT chest abd pel wo con 03/27/2021 1:56 PM FINDINGS: Lungs: Unremarkable. No consolidation. Pleural spaces: Unremarkable. No pleural effusion. No pneumothorax. Heart/Mediastinum: Unremarkable. No cardiomegaly. Bones/joints: Unremarkable. There is a right PICC catheter which is in the mid right arm and perhaps in the right cephalic vein. XR/XR chest 1V portable [id number] IMPRESSION: No acute findings. There is a right PICC catheter which is in the mid right arm and perhaps in the right cephalic vein. Readjust as clinically indicated.
[2021-03-31 15:32] VITALS: BP 136/73; PULSE 69; RESP 18; TEMP 36.7; O2SAT 90
--- NOTE | 2021-03-31 17:48 | P.PN_ITS ---
Subjective Subjective: Interval history: mental status continues to improve today, afberile, PICC placed as poor access. Conversing and joking with niece at bedside, calls her by correct name, knows her name and , tells me she is in a NH, able to correctly tell me her family's names. Follows commands to move limbs Medications: Reviewed: Yes Vitals/I&O/Wt Last Vital Signs Temp 98.1 F 03/31/21 15:32 Pulse 69 03/31/21 15:32 Resp 18 03/31/21 15:32 BP 136/73 03/31/21 15:32 Pulse Ox 90 03/31/21 15:32 03/31/21 03/31/21 03/31/21 06:59 14:59 22:59 Intake Total 530 / 770 120 / 120 Output Total Balance 529 / 769 120 / 120 Physical Exam Narrative: EXAM NARRATIVE: GEN: Awake, much more alert and awake today, oriented x 2 CVS: S1S2 N RS: CTA B/L Abd: Soft, nt/nd , bs+ BIOMEDICAL EQUIPMENT SUPPORT SPECIALIST: no focal neuro deficits, moving all extremities Data : 03/30/21 04:23 03/30/21 04:23 A&P Assessment and plan (1) Acute hyperactive delirium due to multiple etiologies: Status: Acute (2) Sepsis: Status: Acute (3) Acute delirium: Status: Acute (4) Encephalitis: Status: Acute Additional A&P Information # Altered mental status Mental status continues to be improving today, oriented x 1, correctlt tells me her name aand Differentials include acute metabolic encephalopathy vs viral encephalitis WBC count stable but persistently elevated , recheck with am labs Sepsis w/up thus far with CT chest noted to have B/L vague GGOs, no gross consolidation, appears unlikely to be the cause of profound AMS CT Abd/pelvis with possible pyelonephritis, however urine cx with no prominent growth. Patient currently on appropriate empiric regimen with ceftriaxone, s/p vancomycin CT head without acute abnormality TSH within range Tick panel negative Rapid Covid Ag negative, PCR negative Patient has been off opiates and sedating medications since admission without gross improvement in mentation. with low grade fever, AMS and no good alternate explanation, encephalitis on the differential. Unable to perform LP as plavix needs to be off at least 5 days to safely attempt per IR. Empirically added Acyclovir 10mg/kg q8h , mentation continues to be improving since addition of antivirals MR Brain to evaluate for CVA negative Lp once off plavix x 5 days continue CTX for now, d/c vancomycin, d/c doxycycline , continue acyclovir Encourage po intake # Tachycardia: metoprolol to 75mg BID # HTN, currently well controlled Titrated off 02 Full code Consistent carb diet, currently not taking adequate po intake with poor mentation , states poor appetite, tolerating liquids DVT prophylaxis Lovenox Attestations Medical Necessity Statement*: presumed encephalitis, on treatment, refuses po medications, still with significant confusion, need to continue iv abx and iv antivirls Coding Level of Care Code Acute Green Building Engineer for Darron Barnes Diagnoses Acute hyperactive delirium due to multiple etiologies F05 Sepsis A41.9 Acute delirium R41.0 Encephalitis G04.90
[2021-03-31 18:06] LABS: Glucose Point of Care 296 mg/dL (70-110)
[2021-03-31] MEDS: famotidine 20 mg/2 mL INJ IVP (18:42)
[2021-04-01] VITALS (10 sets, daily range): BP systolic 149–160; BP diastolic 80–96; PULSE 80–102; RESP 16–20; TEMP 36.2–37.1; O2SAT 90–96
[2021-04-01] MEDS: cefTRIAXone 2,000 MG in sodium chloride 0.9% (plus) 50 ML 100 MG IV ×2 (04:46→16:01)
[2021-04-01 06:22] LABS: Glucose Point of Care 212 mg/dL (70-110)
[2021-04-01 06:27] LABS: Basophils # 0.2 10^3/uL (0.0-0.1); Eosinophils # 0.4 10^3/uL (0.0-0.8); Eosinophils % 2.4 %; Hematocrit 44.5 % (37.0-47.0); Hemoglobin 13.7 g/dL (11.5-15.3); Lymphocytes # 3.3 10^3/uL (0.8-4.8); Lymphocytes % 22.4 %; Mean Corpuscular HGB Conc 30.8 g/dL (30.0-36.0); Mean Corpuscular Hemoglobin 27.1 pg (28.0-34.0); Mean Corpuscular Volume 88.1 fL (81-99); Monocytes # 1.1 10^3/uL (0.2-0.9); Monocytes % 7.6 %; Neutrophils # 9.54 10^3/uL (1.8-7.7); Neutrophils % 65.7 %; Nucleated Red Blood Cells % 0 %; Platelet Count 323 10^3/cmm (130-400); Red Blood Count 5.05 10^6/uL (4.1-5.3); Red Cell Distribution Width 18.4 % (12.1-15.1); White Blood Count 14.5 10^3/uL (4.0-10.0)
[2021-04-01] MEDS: levothyroxine 100 mcg Tablet PO (06:31)
[2021-04-01] MEDS: acetaminophen 325 mg Tablet 650 MG PO (06:31)
[2021-04-01] MEDS: acyclovir 1,000 MG in sodium chloride 0.9% (100 ml) 100 ML 120 MG IV ×2 (06:32→18:03)
[2021-04-01] MEDS: famotidine 20 mg/2 mL INJ IVP ×2 (06:32→18:42)
[2021-04-01 06:39] LABS: Alanine Aminotransferase 8 U/L (0-33); Albumin Level 3.7 g/dL (3.5-5.2); Alkaline Phosphatase 74 IU/L (35-105); Anion Gap 16.1 (5-19); Aspartate Amino Transferase 13 U/L (0-32); Blood Urea Nitrogen 22 mg/dL (6-20); Calcium 9.3 mg/dL (8.5-10.5); Carbon Dioxide 23 mmol/L (22-29); Chloride 107 mmol/L (98-107); Globulin 3.2 g/dL (1.3-4.6); Glomerular Filtration Rate 51.4 mL/min (90-130); Glucose 206 mg/dL (65-115); Osmolality Calculated 305 mOsm/kg (285-295); Potassium 3.1 mmol/L (3.5-5.1); Sodium 143 mmol/L (136-145); Total Bilirubin 0.3 mg/dL (0.15-1.2); Total Protein 6.9 g/dL (6.6-8.7)
[2021-04-01] MEDS: cloNIDine 0.1 mg Tablet PO (08:24)
[2021-04-01] MEDS: aspirin 81 mg Chew Tablet PO (08:25)
[2021-04-01] MEDS: tamsulosin 0.4 mg Capsule PO (08:25)
[2021-04-01] MEDS: metoprolol tartrate 50 mg Tablet 75 MG PO ×2 (08:25→22:12)
[2021-04-01 10:52] LABS: Glucose Point of Care 201 mg/dL (70-110)
--- NOTE | 2021-04-01 12:29 | PC.PT ---
Patient refused to participate in therapy. Therapist attempted to have patient perform bed mobility to help staighten blankets and pillow cases, but she refused this as well.
--- NOTE | 2021-04-01 17:18 | P.PN_ITS ---
Subjective Subjective: Interval history: Mental status back at baseline today. Patient is alert awake and oriented x3. She is able to have an appropriate conversation. Her brother is at bedside. She states as if she has brain fog and is taking longer than usual to complete activities, however she is significantly improved. Correctly tells me her name age date of and the fact that she is in [facility]. Correctly identifies her brother and names all of her family members. Reports poor appetite, poor p.o. intake. Medications: Reviewed: Yes Vitals/I&O/Wt Last Vital Signs Temp 97.6 F 04/01/21 15:53 Pulse 87 04/01/21 15:53 Resp 17 04/01/21 15:53 BP 157/94 04/01/21 15:53 Pulse Ox 91 04/01/21 15:53 04/01/21 04/01/21 04/01/21 06:59 14:59 22:59 Intake Total 170 / 460 120 / 120 50 / 170 Output Total 225 / 225 Balance -55 / 235 120 / 120 50 / 170 Physical Exam Narrative: EXAM NARRATIVE: GEN: Awake, alert and oriented x 3 CVS: S1S2 N RS: CTA B/L Abd: Soft, nt/nd , bs+ PERSONAL LINES SALES REP: no focal neuro deficits, moving all extremities Data : 04/01/21 05:42 04/01/21 05:42 Micro: Microbiology 03/27/21 06:42 Blood Culture - Final Blood NO GROWTH AFTER 5 DAYS 03/27/21 06:40 Blood Culture - Final Blood NO GROWTH AFTER 5 DAYS A&P Assessment and plan (1) Acute hyperactive delirium due to multiple etiologies: Status: Acute (2) Sepsis: Status: Acute (3) Acute delirium: Status: Acute (4) Encephalitis: Status: Acute Additional A&P Information # Altered mental status Mental status now back at baseline. Confirmed with brother at bedside. Differentials include acute metabolic encephalopathy vs viral encephalitis WBC count trending down Sepsis w/up thus far with CT chest noted to have B/L vague GGOs, no gross consolidation, appears unlikely to be the cause of profound AMS CT Abd/pelvis with possible pyelonephritis, however urine cx with no prominent growth. CT head without acute abnormality TSH within range Tick panel negative Rapid Covid Ag negative, PCR negative Patient had been off opiates and sedating medications since admission without gross improvement in mentation. With low grade fever, AMS and no good alternate explanation, high suspicion for herpes encephalitis. Unable to perform LP as plavix needs to be off at least 5 days to safely attempt per IR. Empirically added Acyclovir 10mg/kg q8h on 03/28, mentation has continued to improve since then and is now back at baseline. MR Brain to evaluate for CVA negative defer LP since mental status improved Will treat presumptively with Ceftriaxone (day 7 today) and acyclovir (day 5 today) for total 10 days of treatment. Encourage PT/OT ambulation Her brother has brought in her prosthetic leg so she can ambulate, uses sccoter at home aditionally # Tachycardia: metoprolol to 75mg BID # HTN, currently well controlled #Titrated off 02 # chronic pain : resume dilaudid 2mg po q6h and monitor mentation very closely Full code Consistent carb diet, currently not taking adequate po intake , states poor appetite, tolerating liquids DVT prophylaxis Lovenox Attestations Medical Necessity Statement*: ongoing need for iv abx and antivirals, therapy assessments Coding Level of Care Code Acute Sales Operations for Darron Barnes Diagnoses Acute hyperactive delirium due to multiple etiologies F05 Sepsis A41.9 Acute delirium R41.0 Encephalitis G04.90
[2021-04-01 17:34] LABS: Glucose Point of Care 220 mg/dL (70-110)
[2021-04-01] MEDS: losartan 50 mg Tablet PO (18:42)
[2021-04-01 20:30] LABS: Glucose Point of Care 190 mg/dL (70-110)
[2021-04-02] VITALS (13 sets, daily range): BP systolic 144–166; BP diastolic 79–86; PULSE 76–90; RESP 16–18; TEMP 36.3–36.8; O2SAT 90–93
[2021-04-02] MEDS: acyclovir 1,000 MG in sodium chloride 0.9% (100 ml) 100 ML 120 MG IV ×3 (01:30→20:51)
[2021-04-02] MEDS: ondansetron 2 mg/ML SDV 2 mL 4 MG IVP (04:10)
[2021-04-02] MEDS: cefTRIAXone 2,000 MG in sodium chloride 0.9% (plus) 50 ML 100 MG IV ×2 (04:14→16:32)
[2021-04-02] MEDS: levothyroxine 100 mcg Tablet PO (05:32)
[2021-04-02] MEDS: famotidine 20 mg/2 mL INJ IVP ×2 (05:32→18:29)
[2021-04-02 06:33] LABS: Glucose Point of Care 221 mg/dL (70-110)
[2021-04-02 07:05] LABS: Basophils # 0.2 10^3/uL (0.0-0.1); Eosinophils # 0.4 10^3/uL (0.0-0.8); Eosinophils % 2.3 %; Hematocrit 43.2 % (37.0-47.0); Hemoglobin 13.4 g/dL (11.5-15.3); Lymphocytes # 3.3 10^3/uL (0.8-4.8); Mean Corpuscular Hemoglobin 27.2 pg (28.0-34.0); Mean Corpuscular Volume 87.8 fL (81-99); Mean Platelet Volume 11.9 fL (7.4-10.4); Monocytes # 1.1 10^3/uL (0.2-0.9); Monocytes % 7.2 %; Neutrophils # 10.09 10^3/uL (1.8-7.7); Neutrophils % 66.9 %; Nucleated Red Blood Cells % 0 %; Platelet Count 333 10^3/cmm (130-400); Red Blood Count 4.92 10^6/uL (4.1-5.3); Red Cell Distribution Width 18.2 % (12.1-15.1); White Blood Count 15.1 10^3/uL (4.0-10.0)
[2021-04-02 07:25] LABS: Alanine Aminotransferase 8 U/L (0-33); Albumin Level 3.6 g/dL (3.5-5.2); Alkaline Phosphatase 72 IU/L (35-105); Anion Gap 18.2 (5-19); Aspartate Amino Transferase 15 U/L (0-32); Blood Urea Nitrogen 18 mg/dL (6-20); Calcium 8.7 mg/dL (8.5-10.5); Carbon Dioxide 23 mmol/L (22-29); Chloride 107 mmol/L (98-107); Globulin 3.3 g/dL (1.3-4.6); Glomerular Filtration Rate 57.4 mL/min (90-130); Glucose 187 mg/dL (65-115); Osmolality Calculated 307 mOsm/kg (285-295); Potassium 3.2 mmol/L (3.5-5.1); Sodium 145 mmol/L (136-145); Total Bilirubin 0.3 mg/dL (0.15-1.2); Total Protein 6.9 g/dL (6.6-8.7)
[2021-04-02] MEDS: metoprolol tartrate 50 mg Tablet 75 MG PO ×2 (09:35→22:53)
[2021-04-02] MEDS: losartan 50 mg Tablet PO ×2 (09:35→18:00)
[2021-04-02] MEDS: aspirin 81 mg Chew Tablet PO (09:35)
[2021-04-02] MEDS: cloNIDine 0.1 mg Tablet PO (09:35)
[2021-04-02] MEDS: tamsulosin 0.4 mg Capsule PO (09:36)
[2021-04-02 11:12] LABS: Glucose Point of Care 201 mg/dL (70-110)
--- NOTE | 2021-04-02 12:06 | PC.NUTR ---
Nutrition reassessment: Have notified Dr. Blanchard of pt possibly having little to no caloric intake X 8 days per chart, (some liquids possibly consumed but unclear caloric value) and lack of NATIONAL VAN OWNER OPERATOR eval. Recommend to obtain NATIONAL VAN OWNER OPERATOR eval to better determine swallowing ability and aspiration risk. If unable to consume oral diet and consistent with plan of care, recommend initiation of nutrition support within 1-3 days to meet estimated nutritional needs (given previous 8 days of little to no intake). RD available for recommendations as appropriate. See RD assessments for further details.
--- NOTE | 2021-04-02 13:43 | PC.SOCIAL ---
IMM UPDATE IMM updated with patient. Left copy at bedside. Verbalized understanding. Initialed, dated, timed and placed in chart.
--- NOTE | 2021-04-02 16:30 | PM.PN ---
Subjective Subjective: Interval history: She denies any new symptoms. States that she has not had appetite. When asked what she usually eats, states that her [id number] has been bringing her some big Mac meals, other things, and she ate those. Discussed with her consideration of there is anything we could try to get for her here, she states no. Discussed with her if she would try protein shakes and whether has a preferred flavor. She states normal and would not want to try any. Discussed with her if family would be willing to bring her big Mac or other food, she could have that. Only thing bothering her is some chronic lower back pain. Vitals/I&O/Wt Last Vital Signs Temp 97.3 F L 04/02/21 16:00 Pulse 85 04/02/21 16:00 Resp 18 04/02/21 16:00 BP 166/80 04/02/21 16:00 Pulse Ox 90 04/02/21 16:00 04/02/21 04/02/21 04/02/21 06:59 14:59 22:59 Intake Total 290 / 700 120 / 120 Output Total 500 / 500 Balance 290 / 700 -380 / -380 Physical Exam Const: COMMON NORMALS: no acute distress NUTRITIONAL APPEARANCE: overweight OTHER: Things strewn about around the bed. Don't touch my Mountain Dew -open bottle at the edge of the bedside table about to fall over which I had repositioned so it did not get spilled on the floor. HENMT: COMMON NORMALS: oropharynx normal Neck/C-Spine: COMMON NORMALS: no JVD Resp: COMMON NORMALS: normal respiratory effort and clear to auscultation bilaterally AUSCULTATION: clear to auscultation bilaterally Cardio: COMMON NORMALS: no JVD, regular rhythm, S1 normal heart sound present, S2 normal heart sound present and No murmurs present (Cardio) RHYTHM: regular rhythm HEART SOUNDS: S1 normal heart sound present and S2 normal heart sound present GI: COMMON NORMALS: Normal to inspection, nondistended, normoactive bowel sounds present, Soft to palpation and non-tender PALPATION: Yes Soft to palpation Extremity: COMMON NORMALS: no joint enlargement and no pedal edema Neuro: COMMON NORMALS: moves all extremities Skin: COMMON NORMALS: no rashes or lesions noted GENERAL SKIN EXAM: no rashes or lesions noted Data : 04/02/21 05:51 04/02/21 05:51 A&P Assessment and plan (1) Acute delirium: Per reports mental status has returned to baseline, although spotty participation with physical therapy, nursing staff. Appears to be oriented to name only this morning. Continues empirical antibiotic/antiviral coverage due to suspected MEDICAL TECHNOLOGIST CHEMISTRY infection. Fever so far appears resolved. High suspicion for herpes encephalitis. Continue on acyclovir. Ceftriaxone. Complete 10 days of treatment. Continue attempts to mobilize. Would benefit from therapy if would participate. Continue to encourage. Spoke with her today, asking whether she has been working with physical therapy, states yes, with Gregory. Poor oral intake. No appetite. States at home was eating big max which were brought to her by her [id number]. She does not want to try anything different with regards to meals in the hospital. Does not want to try protein shakes. States she would eat Alanis's if family brought it for her. Status: Acute (2) Acute hyperactive delirium due to multiple etiologies: Status: Acute (3) Sepsis: Status: Acute (4) Encephalitis: Status: Acute Additional A&P Information Her brother has brought in her prosthetic leg so she can ambulate, uses scooter at home additionally. # Tachycardia: Improved. metoprolol to 75mg BID # HTN, could be slightly better controlled. Continue clonidine, losartan, tamsulosin, metoprolol. Monitor blood pressures. #Titrated off 02 # chronic pain: Was resumed on Dilaudid. Mild hypokalemia: Replaced. Attestations Medical Necessity Statement*: Continue admission for assessment and treatment of acute encephalopathy, possible MEDICAL TECHNOLOGIST CHEMISTRY infection, suspected herpes encephalitis, possible bacterial infection. Disposition planning and arrangements. Coding Level of Care Code Acute Loan Manager for [facility]ron Barnes Diagnoses Acute delirium R41.0 Acute hyperactive delirium due to multiple etiologies F05 Sepsis A41.9 Encephalitis G04.90
[2021-04-02] MEDS: acetaminophen 325 mg Tablet 650 MG PO (16:31)
[2021-04-02 16:41] LABS: Glucose Point of Care 251 mg/dL (70-110)
[2021-04-02] MEDS: potassium chloride ER 20 mEq Tablet PO (18:00)
[2021-04-02 21:08] LABS: Glucose Point of Care 162 mg/dL (70-110)
[2021-04-03] VITALS (10 sets, daily range): BP systolic 141–178; BP diastolic 70–121; PULSE 58–105; RESP 16–18; TEMP 36.6–37.2; O2SAT 91–98
[2021-04-03] MEDS: cefTRIAXone 2,000 MG in sodium chloride 0.9% (plus) 50 ML 100 MG IV ×2 (03:59→16:47)
[2021-04-03] MEDS: acyclovir 1,000 MG in sodium chloride 0.9% (100 ml) 100 ML 120 MG IV ×2 (04:37→22:10)
[2021-04-03] MEDS: famotidine 20 mg/2 mL INJ IVP ×2 (06:00→18:20)
[2021-04-03] MEDS: levothyroxine 100 mcg Tablet PO (06:00)
[2021-04-03 06:42] LABS: Basophils # 0.2 10^3/uL (0.0-0.1); Basophils % 1.1 %; Eosinophils # 0.3 10^3/uL (0.0-0.8); Hemoglobin 13.9 g/dL (11.5-15.3); Lymphocytes # 2.8 10^3/uL (0.8-4.8); Lymphocytes % 20.2 %; Mean Corpuscular HGB Conc 30.9 g/dL (30.0-36.0); Mean Corpuscular Hemoglobin 27.2 pg (28.0-34.0); Mean Corpuscular Volume 88.1 fL (81-99); Mean Platelet Volume 11.3 fL (7.4-10.4); Monocytes % 7.2 %; Neutrophils # 9.65 10^3/uL (1.8-7.7); Neutrophils % 68.9 %; Nucleated Red Blood Cells % 0 %; Platelet Count 348 10^3/cmm (130-400); Red Blood Count 5.11 10^6/uL (4.1-5.3); Red Cell Distribution Width 18.2 % (12.1-15.1)
[2021-04-03 07:05] LABS: Anion Gap 17.5 (5-19); Blood Urea Nitrogen 19 mg/dL (6-20); Calcium 9.3 mg/dL (8.5-10.5); Carbon Dioxide 23 mmol/L (22-29); Chloride 107 mmol/L (98-107); Glomerular Filtration Rate 33.3 mL/min (90-130); Glucose 201 mg/dL (65-115); Osmolality Calculated 306 mOsm/kg (285-295); Potassium 3.5 mmol/L (3.5-5.1); Sodium 144 mmol/L (136-145)
--- NOTE | 2021-04-03 08:22 | PC.NURSE ---
Taken before morning medicine nurse notified of blood pressure. Is giving morning medicine currently.
[2021-04-03] MEDS: cloNIDine 0.1 mg Tablet PO (08:39)
[2021-04-03] MEDS: aspirin 81 mg Chew Tablet PO (08:39)
[2021-04-03] MEDS: metoprolol tartrate 50 mg Tablet 75 MG PO ×2 (08:40→22:11)
[2021-04-03] MEDS: losartan 50 mg Tablet PO (08:40)
[2021-04-03] MEDS: tamsulosin 0.4 mg Capsule PO (08:40)
[2021-04-03 09:10] LABS: Glucose Point of Care 217 mg/dL (70-110)
[2021-04-03 09:12] LABS: Glucose Point of Care 216 mg/dL (70-110)
[2021-04-03 12:41] LABS: Glucose Point of Care 239 mg/dL (70-110)
--- NOTE | 2021-04-03 12:54 | PC.NURSE ---
Nurse notified of blood pressure, medication is being given.
[2021-04-03] MEDS: amlodipine 5 mg Tablet PO (13:27)
--- NOTE | 2021-04-03 15:11 | P.PN_ITS ---
Subjective Subjective: Interval history: She feels she has not regained her memory. She says she previously did not have trouble with her memory, but feels she is not back to her usual self. She could not remember the year, did remember she was [place] [facility] [place] Knows she is in [place], but had trouble recalling the name of the town. Volunteered the name of the president. She says she previously did not have trouble remembering the year or other similar information. She otherwise denies headache, denies discomfort this time. Still no appetite. Vitals/I&O/Wt Last Vital Signs Temp 98.3 F 04/03/21 12:00 Pulse 95 04/03/21 12:00 Resp 18 04/03/21 12:00 BP 167/121 04/03/21 12:00 Pulse Ox 91 04/03/21 12:00 04/03/21 04/03/21 04/03/21 06:59 14:59 22:59 Intake Total 170 / 580 60 / 60 Output Total 150 / 650 Balance 20 / -70 60 / 60 Physical Exam Const: COMMON NORMALS: no acute distress NUTRITIONAL APPEARANCE: overweight HENMT: COMMON NORMALS: oropharynx normal Neck/C-Spine: COMMON NORMALS: no JVD Resp: COMMON NORMALS: normal respiratory effort and clear to auscultation bilaterally AUSCULTATION: clear to auscultation bilaterally Cardio: COMMON NORMALS: no JVD, regular rhythm, S1 normal heart sound present, S2 normal heart sound present and No murmurs present (Cardio) RHYTHM: regular rhythm HEART SOUNDS: S1 normal heart sound present and S2 normal heart sound present GI: COMMON NORMALS: Normal to inspection, nondistended, normoactive bowel sounds present, Soft to palpation and non-tender PALPATION: Yes Soft to palpation Extremity: COMMON NORMALS: no joint enlargement and no pedal edema Neuro: COMMON NORMALS: moves all extremities Skin: COMMON NORMALS: no rashes or lesions noted GENERAL SKIN EXAM: no rashes or lesions noted Data : 04/03/21 06:25 04/03/21 06:25 Micro: Microbiology 03/29/21 05:43 Blood Culture - Final Blood NO GROWTH AFTER 5 DAYS 03/29/21 05:39 Blood Culture - Final Blood NO GROWTH AFTER 5 DAYS A&P Assessment and plan (1) Acute delirium: Appears to have some lingering cognitive effects, not able to recall the year, cannot recall the month, but knows it is summer, knows the state, not the town. Volunteers name of the president. States previously did not have issues remembering similar information. Sleeping possibly some lingering effects of acute encephalopathy which may take a while to resolve. Discussed with her. She feels that she would have support at home from her brother, [id number], and states that occasionally would have a caregiver coming in to see her, although does echo the concerns with regards to having not yet come back to her usual mental status, and concern that with cognitive deficits may get into trouble if staying alone without daily supervision. Discussing with discharge planning with regards to what support may be provided at home. Discussed with her encouraged her to consider care at assisted facility. She initially was declining, but on additional discussion does state that she will give it more thought, given we cannot give an exact timeline at this time as to when she may return to her previous level of functioning. She is afebrile. Leukocytosis overall with improvement, but persists around 14,000. At this time we will continue with IV antibiotics given some persistent mental status changes. Continue acyclovir, ceftriaxone. Continue discussions regarding disposition planning. Continue to encourage oral intake. Status: Acute (2) Acute hyperactive delirium due to multiple etiologies: Status: Acute (3) Sepsis: Status: Acute (4) Encephalitis: Status: Acute (5) CORINA (acute kidney injury): Creatinine up to 1.6, hold losartan. Status: Acute Additional A&P Information Her brother has brought in her prosthetic leg so she can ambulate, uses scooter at home additionally. # Tachycardia: Improved. metoprolol to 75mg BID # HTN, could be slightly better controlled. Continue clonidine, losartan, tamsulosin, metoprolol. Monitor blood pressures. #Titrated off 02 # chronic pain: Was resumed on Dilaudid. Mild hypokalemia: Replaced. Attestations Medical Necessity Statement*: Continue treatment of suspected DECK LID FITTER infection, suspected herpes encephalitis, persistent symptoms and leukocytosis. CORINA. Disposition planning given persistent memory deficits. Coding Level of Care Code Acute Customer Development Representative for Darron Barnes Diagnoses Acute delirium R41.0 Acute hyperactive delirium due to multiple etiologies F05 Sepsis A41.9 Encephalitis G04.90 CORINA (acute kidney injury) N17.9
[2021-04-03 17:24] LABS: Glucose Point of Care 326 mg/dL (70-110)
[2021-04-03 21:11] LABS: Glucose Point of Care 171 mg/dL (70-110)
[2021-04-04] VITALS (8 sets, daily range): BP systolic 101–174; BP diastolic 80–116; PULSE 91–177; RESP 16–20; TEMP 36.4–36.8; O2SAT 90–95
--- NOTE | 2021-04-04 01:51 | PC.NURSE ---
upon entering the pt's room, pt was laying with her head toward the foot of the bed and completely naked
[2021-04-04] MEDS: cefTRIAXone 2,000 MG in sodium chloride 0.9% (plus) 50 ML 100 MG IV ×2 (04:38→17:41)
[2021-04-04] MEDS: famotidine 20 mg/2 mL INJ IVP ×2 (05:40→17:43)
[2021-04-04] MEDS: acyclovir 1,000 MG in sodium chloride 0.9% (100 ml) 100 ML 120 MG IV ×3 (05:43→22:56)
[2021-04-04] MEDS: levothyroxine 100 mcg Tablet PO (05:43)
[2021-04-04 06:30] LABS: Glucose Point of Care 181 mg/dL (70-110)
[2021-04-04] MEDS: cloNIDine 0.1 mg Tablet PO (09:31)
[2021-04-04] MEDS: metoprolol tartrate 50 mg Tablet 75 MG PO ×2 (09:31→20:55)
[2021-04-04] MEDS: aspirin 81 mg Chew Tablet PO (09:31)
[2021-04-04] MEDS: tamsulosin 0.4 mg Capsule PO (09:31)
[2021-04-04 09:33] LABS: Basophils # 0.1 10^3/uL (0.0-0.1); Basophils % 0.7 %; Eosinophils # 0.3 10^3/uL (0.0-0.8); Hematocrit 45.9 % (37.0-47.0); Hemoglobin 14.4 g/dL (11.5-15.3); Lymphocytes % 20.1 %; Mean Corpuscular HGB Conc 31.4 g/dL (30.0-36.0); Mean Corpuscular Hemoglobin 27.4 pg (28.0-34.0); Mean Corpuscular Volume 87.3 fL (81-99); Mean Platelet Volume 12.1 fL (7.4-10.4); Monocytes % 6.9 %; Neutrophils # 10.38 10^3/uL (1.8-7.7); Neutrophils % 69.8 %; Nucleated Red Blood Cells % 0 %; Platelet Count 394 10^3/cmm (130-400); Red Blood Count 5.26 10^6/uL (4.1-5.3); Red Cell Distribution Width 18.6 % (12.1-15.1); White Blood Count 14.9 10^3/uL (4.0-10.0)
[2021-04-04 09:56] LABS: Blood Urea Nitrogen 16 mg/dL (6-20); Calcium 9.9 mg/dL (8.5-10.5); Carbon Dioxide 25 mmol/L (22-29); Chloride 107 mmol/L (98-107); Creatinine Clr Calc Pharmacy 64.5688; Glomerular Filtration Rate 42.4 mL/min (90-130); Glucose 188 mg/dL (65-115); Osmolality Calculated 308 mOsm/kg (285-295); Sodium 146 mmol/L (136-145)
--- NOTE | 2021-04-04 10:38 | PC.CHAP ---
Pastoral Care Encounter/Spiritual Assessment Type of Contact [] Declined bandage winding machine operator visit [] Patient/Family/Request visit [] Outpatient visit [] Follow-up visit [] Physician referral [] Code/Alert [x] Routine visit [] Staff referral [] Actively dying [] Patient sleeping [] Family support [] [] Out of room [] Palliative care [] [] Receiving care in room [] Pre-surgical visit [] Trauma [] Long length of stay [] ICU visit [] Other: Relational/Emotional Strength [x] Patient feels connected with others/family/visitors/staff [] Distress [] Loneliness/isolation [] Abandonment Spirituality of Patient x[] Person of Susan [] Attends Adventist of their Susan [x] Believes in Prayer [] Reads Bible or Sabianism materials [] There are Spiritual issues to be addressed Spinner Continuous Interventions [x] Prayer [] Active listening [x] Non-anxious presence [] Spiritual/emotional support [] Crisis/trauma care [] Spiritual counseling [] Bereavement support [] Provided bereavement packet [] Provided Bible/devotional materials [] Provided toy/stuffed animal, coloring book to patient or family member [] Provided Communion [] Anointing/[place] [] Salvation [x] Completed spiritual assessment [] Other: Impact on Illness or Injury [] Angry [] Fearful [] Anxious [] Often cries [] Exhaustion [] Unable to work [] Unable to attend yazidism [] Unable to walk/stand [] Unable to read [] Unable to drive [] Unable to eat/drink [] Unable to sleep [] Unable to be with family [] Patient intubated [] Other: Summary Time spent with patient 10 min
[2021-04-04 11:00] LABS: Glucose Point of Care 331 mg/dL (70-110)
--- NOTE | 2021-04-04 11:15 | PM.PN ---
Subjective Subjective: Interval history: She is awake, alert, interacting and readily giving responses. Makes eye contact. Does not remember the year. Does not remember the town she is in. Does not remember the month. Cannot tell me the season of the year. Asks about going home. States that perhaps could come back. Discussed with her that appears she is having significant residual symptoms. We do not know how long it may take for them to improve. We are continuing treatment with Acyclovir and antibiotic. She is agreeable to continue. Understands concern regarding memory problems. Vitals/I&O/Wt Last Vital Signs Temp 98.2 F 04/04/21 07:29 Pulse 115 H 04/04/21 08:46 Resp 16 04/04/21 08:46 BP 161/116 04/04/21 09:31 Pulse Ox 95 04/04/21 08:46 04/03/21 04/04/21 04/04/21 22:59 06:59 14:59 Intake Total 250 / 310 530 / 840 200 / 200 Output Total 0 / 0 Balance 250 / 310 530 / 840 200 / 200 Physical Exam Const: COMMON NORMALS: no acute distress NUTRITIONAL APPEARANCE: overweight HENMT: COMMON NORMALS: oropharynx normal Neck/C-Spine: COMMON NORMALS: no JVD Resp: COMMON NORMALS: normal respiratory effort and clear to auscultation bilaterally AUSCULTATION: clear to auscultation bilaterally Cardio: COMMON NORMALS: no JVD, regular rhythm, S1 normal heart sound present, S2 normal heart sound present and No murmurs present (Cardio) RHYTHM: regular rhythm HEART SOUNDS: S1 normal heart sound present and S2 normal heart sound present GI: COMMON NORMALS: Normal to inspection, nondistended, normoactive bowel sounds present, Soft to palpation and non-tender PALPATION: Yes Soft to palpation Extremity: COMMON NORMALS: no joint enlargement and no pedal edema Neuro: COMMON NORMALS: moves all extremities Skin: COMMON NORMALS: no rashes or lesions noted GENERAL SKIN EXAM: no rashes or lesions noted Data : 04/04/21 08:30 04/04/21 08:30 A&P Assessment and plan (1) Acute delirium: Acute encephalopathy, appears to have some lingering cognitive effects, memory deficits. Aphasia with improvement. Previously repeating single words, short statements, this overall is better, and per discussion with her brother mental status is better, but is not at her baseline. Low-grade fever has resolved without recurrence. There is some persistence of leukocytosis 14.9. Discussed with her and her brother that it is difficult to predict timing of her recovery and whether she may have complete recovery at all. Discussed in the current condition she would not be able to safely care for self without significant risk of neglect at home. He states he and his would not be able to care for her. At this time both patient and brother are agreeable to continue treatment, continue reassessments with regards to her recovery. I encouraged her also yesterday and discussed with him and he will discuss with her again also with regards to going to jail facility. At this time we will continue with IV antibiotics given some persistent mental status changes. Continue acyclovir, ceftriaxone. Requesting neurology consultation given protracted symptoms. Status: Acute (2) Acute hyperactive delirium due to multiple etiologies: Status: Acute (3) Sepsis: Status: Acute (4) Encephalitis: Status: Acute (5) CORINA (acute kidney injury): Creatinine improved to 1.3, hold losartan. Status: Acute Additional A&P Information Her brother has brought in her prosthetic leg so she can ambulate, uses scooter at home additionally. # Tachycardia: Improved. metoprolol to 75mg BID # HTN: Add amlodipine. Continue clonidine, tamsulosin, metoprolol. Monitor blood pressures. Losartan held due to CORINA. #Titrated off 02. Continues empirically on ceftriaxone for PNA. # chronic pain: Was resumed on Dilaudid. Mild hypokalemia: Replaced. Attestations Medical Necessity Statement*: Continue admission for assessment of management of acute encephalopathy, continued empiric treatment with suspected herpes encephalitis. Coding Level of Care Code Acute Commercial Pest Control Representative for [facility] Fwd Exam Comprehensive Diagnoses Acute delirium R41.0 Acute hyperactive delirium due to multiple etiologies F05 Sepsis A41.9 Encephalitis G04.90 CORINA (acute kidney injury) N17.9
--- NOTE | 2021-04-04 12:36 | PC.SOCIAL ---
IMM UPDATE IMM updated with patient. Left copy at bedside. Verbalized understanding. Initialed, dated, timed and placed in chart.
[2021-04-04] MEDS: amlodipine 5 mg Tablet PO (14:02)
[2021-04-04 17:15] LABS: Glucose Point of Care 161 mg/dL (70-110)
--- NOTE | 2021-04-04 19:32 | PC.NURSE ---
AT APPROX. 1650, PT AND PTS FAMILY REQESTED FACE BOSS TO COME INTO ROOM. FACE BOSS PROCEEDED TO ROOM AND PT STATED, I WILL GO. FACE BOSS ASKED GO WHERE? PT THEN STATED, I WILL GO TO THE CARE HOME. FAMILY ASKED FACE BOSS TO NOTIFY [facility]I MAKI MGMT. FACE BOSS NOTIFIED LANI MAKI AND DR. CASTANEDA OF PTS DECISION. PT WAS AAOx4 AND FULLY UNDERSTANDS WHAT GOING TO A SNF MEANS FOR HER.
[2021-04-04 21:45] LABS: Glucose Point of Care 146 mg/dL (70-110)
[2021-04-05] VITALS (10 sets, daily range): BP systolic 136–168; BP diastolic 89–102; PULSE 92–107; RESP 16–18; TEMP 36.3–37.1; O2SAT 92–95
[2021-04-05] MEDS: metoprolol tartrate 1 mg/1 mL SDV 5 mL 5 MG IV (01:56)
[2021-04-05] MEDS: levothyroxine 100 mcg Tablet PO (05:24)
[2021-04-05] MEDS: cefTRIAXone 2,000 MG in sodium chloride 0.9% (plus) 50 ML 100 MG IV ×2 (05:24→15:56)
[2021-04-05] MEDS: famotidine 20 mg/2 mL INJ IVP ×2 (05:48→16:50)
--- NOTE | 2021-04-05 06:07 | PC.NURSE ---
pt has not slept at all tonight, each time this nurse has entered the room, pt has been sitting up on the side of the bed wide awake
[2021-04-05 06:39] LABS: Glucose Point of Care 190 mg/dL (70-110)
--- NOTE | 2021-04-05 08:04 | PC.NURSE ---
I reported the high bp to the nurse 155/102
[2021-04-05] MEDS: cloNIDine 0.1 mg Tablet PO (08:43)
[2021-04-05] MEDS: potassium chloride ER 20 mEq Tablet PO (08:43)
[2021-04-05] MEDS: tamsulosin 0.4 mg Capsule PO (08:44)
[2021-04-05] MEDS: aspirin 81 mg Chew Tablet PO (08:44)
[2021-04-05] MEDS: metoprolol tartrate 50 mg Tablet 75 MG PO ×2 (08:44→20:48)
[2021-04-05] MEDS: amlodipine 5 mg Tablet PO (08:44)
[2021-04-05] MEDS: acyclovir 1,000 MG in sodium chloride 0.9% (100 ml) 100 ML 120 MG IV ×3 (08:48→23:50)
[2021-04-05 10:14] LABS: Basophils # 0.2 10^3/uL (0.0-0.1); Eosinophils # 0.3 10^3/uL (0.0-0.8); Eosinophils % 2.1 %; Hematocrit 42.6 % (37.0-47.0); Hemoglobin 13.5 g/dL (11.5-15.3); Lymphocytes % 19.5 %; Mean Corpuscular HGB Conc 31.7 g/dL (30.0-36.0); Mean Corpuscular Hemoglobin 27.5 pg (28.0-34.0); Mean Corpuscular Volume 86.8 fL (81-99); Mean Platelet Volume 12.1 fL (7.4-10.4); Monocytes # 0.8 10^3/uL (0.2-0.9); Monocytes % 5.4 %; Neutrophils # 10.92 10^3/uL (1.8-7.7); Neutrophils % 71.5 %; Nucleated Red Blood Cells % 0 %; Platelet Count 412 10^3/cmm (130-400); Red Blood Count 4.91 10^6/uL (4.1-5.3); Red Cell Distribution Width 18.3 % (12.1-15.1); White Blood Count 15.3 10^3/uL (4.0-10.0)
[2021-04-05 10:29] LABS: Anion Gap 18.2 (5-19); Blood Urea Nitrogen 14 mg/dL (6-20); Calcium 8.9 mg/dL (8.5-10.5); Carbon Dioxide 22 mmol/L (22-29); Chloride 106 mmol/L (98-107); Glomerular Filtration Rate 57.4 mL/min (90-130); Glucose 202 mg/dL (65-115); Osmolality Calculated 302 mOsm/kg (285-295); Potassium 3.2 mmol/L (3.5-5.1); Sodium 143 mmol/L (136-145)
[2021-04-05 11:44] LABS: Glucose Point of Care 223 mg/dL (70-110)
--- NOTE | 2021-04-05 14:31 | P.PN_ITS ---
Subjective Subjective: Interval history: She is awake, alert, denies any pain or discomfort. When asked if she knows where she is, asks long term? Discussed with her that she is not yet at the long term, although discussed with her I had heard that she had agreed to go to [facility] facility yesterday. Asking her again where she thinks she may be, states hospital. She knows she is in [place] and [place]. Does not remember the year. Cannot tell me the season. Discussed with her again regarding disposition planning. Discussed again regarding it being unsafe returning home at this time. She verbalized understanding. I asked her whether she had given some choices to discharge planning regarding nursing homes, she states [facility]. Then after couple moments also asks [facility]? Vitals/I&O/Wt Last Vital Signs Temp 97.6 F 04/05/21 11:44 Pulse 96 04/05/21 11:44 Resp 18 04/05/21 11:44 BP 152/96 04/05/21 11:44 Pulse Ox 95 04/05/21 11:44 04/04/21 04/05/21 04/05/21 22:59 06:59 14:59 Intake Total 170 / 370 410 / 780 360 / 360 Output Total 200 / 200 Balance -30 / 170 410 / 580 360 / 360 Physical Exam Const: COMMON NORMALS: no acute distress and alert NUTRITIONAL APPEARANCE: overweight ORIENTATION/CONSCIOUSNESS: Yes oriented to person and Yes oriented to place; not oriented to time OTHER: Sitting up in bed. HENMT: COMMON NORMALS: oropharynx normal Neck/C-Spine: COMMON NORMALS: no meningeal signs and no JVD Resp: COMMON NORMALS: normal respiratory effort and clear to auscultation bilaterally AUSCULTATION: clear to auscultation bilaterally Cardio: COMMON NORMALS: no JVD, regular rhythm, S1 normal heart sound present, S2 normal heart sound present and No murmurs present (Cardio) RHYTHM: regular rhythm HEART SOUNDS: S1 normal heart sound present and S2 normal heart sound present GI: COMMON NORMALS: Normal to inspection, nondistended, normoactive bowel sounds present, Soft to palpation and non-tender PALPATION: Yes Soft to palp ation Extremity: COMMON NORMALS: no joint enlargement and no pedal edema Neuro: COMMON NORMALS: moves all extremities SENSORIUM/ORIENTATION: Yes alert, Yes oriented to person, Yes oriented to place and No oriented to time MENINGEAL SIGNS: Yes no meningeal signs SPEECH: expressive aphasia and Other neuro speech findings Skin: COMMON NORMALS: no rashes or lesions noted GENERAL SKIN EXAM: no rashes or lesions noted Data : 04/05/21 09:50 04/05/21 09:50 A&P Assessment and plan (1) Acute delirium: Memory deficits appeared persistent, fluctuating orientation, today she knows she is in [place], in the hospital. Does not remember the year, cannot tell me the season. Response and short statements or single words, but awake alert, interactive. Cooperates with exam. Continue acyclovir. Given persistent deficits may benefit from completion of 21 days of therapy. Has midline in the right arm. She is working on long term selection with case management. Discussed with her and her brother that it is difficult to predict timing of her recovery and whether she may have complete recovery at all. Discussed in the current condition she would not be able to safely care for self without significant risk of neglect at home. He states he and his would not be able to care for her. At this time both patient and brother are agreeable to continue treatment, continue reassessments with regards to her recovery. I encouraged her also yesterday and discussed with him and he will discuss with her again also with regards to going to [facility] facility. At this time we will continue with IV antibiotics given some persistent mental status changes. Continue acyclovir, ceftriaxone. Status: Acute (2) Acute hyperactive delirium due to multiple etiologies: Status: Acute (3) Sepsis: Status: Acute (4) Encephalitis: Status: Acute (5) CORINA (acute kidney injury): Improved, creatinine down to 1. Losartan on hold. Replace and follow mild hypokalemia. Status: Acute Additional A&P Information Her brother has brought in her prosthetic leg so she can ambulate, uses scooter at home additionally. # Tachycardia: Improved. metoprolol to 75mg BID # HTN: Amlodipine. Continue clonidine, tamsulosin, metoprolol. Monitor blood pressures. Losartan held due to CORINA. #Titrated off 02. Continues empirically on ceftriaxone for PNA. # chronic pain: Dilaudid. Mild hypokalemia: Replaced. Attestations Medical Necessity Statement*: Continue admission for assessment management of persistent encephalopathy, memory deficits, aphasia, herpes encephalitis, disposition planning and arrangements. Coding Level of Care Code Acute Engine Repair Supervisor for [facility] Fwd Diagnoses Acute delirium R41.0 Acute hyperactive delirium due to multiple etiologies F05 Sepsis A41.9 Encephalitis G04.90 CORINA (acute kidney injury) N17.9
--- NOTE | 2021-04-05 14:53 | PC.NUTR ---
Nutrition follow up: Interviewed pt and offered multiple foods/snacks, and pt refused, stating she is not likely to eat anything we provide her. Pointed out poor nutritional benefit of only consuming Tariq Yellow. Pt verbalized understanding but continued to refuse. Recommend obtain current weight on patient, given 10 days with only 5 meals consumed. Have stopped order for Ensure with meals, per pt request. Continue to recommend swallowing evaluation. See RD assessments for further details.
[2021-04-05 16:48] LABS: Glucose Point of Care 207 mg/dL (70-110)
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
[2021-04-05 21:03] LABS: Glucose Point of Care 199 mg/dL (70-110)
[2021-04-05] MEDS: acetaminophen 325 mg Tablet 650 MG PO (22:50)
[2021-04-06] VITALS (10 sets, daily range): BP systolic 160–178; BP diastolic 88–113; PULSE 85–110; RESP 16–18; TEMP 36.9–37.2; O2SAT 93–97
[2021-04-06] MEDS: metoprolol tartrate 1 mg/1 mL SDV 5 mL 5 MG IV ×2 (01:17→13:47)
[2021-04-06] MEDS: cefTRIAXone 2,000 MG in sodium chloride 0.9% (plus) 50 ML 100 MG IV ×2 (04:02→16:36)
[2021-04-06] MEDS: levothyroxine 100 mcg Tablet PO (05:30)
[2021-04-06] MEDS: famotidine 20 mg/2 mL INJ IVP (05:33)
[2021-04-06 05:46] LABS: Basophils # 0.2 10^3/uL (0.0-0.1); Basophils % 1.3 %; Eosinophils # 0.4 10^3/uL (0.0-0.8); Eosinophils % 3.2 %; Hematocrit 46.8 % (37.0-47.0); Hemoglobin 13.6 g/dL (11.5-15.3); Lymphocytes # 3.1 10^3/uL (0.8-4.8); Lymphocytes % 23.1 %; Mean Corpuscular HGB Conc 29.1 g/dL (30.0-36.0); Mean Corpuscular Hemoglobin 27.7 pg (28.0-34.0); Mean Corpuscular Volume 95.3 fL (81-99); Mean Platelet Volume 11.3 fL (7.4-10.4); Monocytes # 0.9 10^3/uL (0.2-0.9); Monocytes % 6.8 %; Neutrophils # 8.86 10^3/uL (1.8-7.7); Neutrophils % 65.2 %; Nucleated Red Blood Cells % 0 %; Platelet Count 383 10^3/cmm (130-400); Red Blood Count 4.91 10^6/uL (4.1-5.3); Red Cell Distribution Width 18.7 % (12.1-15.1); White Blood Count 13.6 10^3/uL (4.0-10.0)
[2021-04-06 06:01] LABS: Alanine Aminotransferase 9 U/L (0-33); Albumin Level 3.7 g/dL (3.5-5.2); Alkaline Phosphatase 79 IU/L (35-105); Aspartate Amino Transferase 12 U/L (0-32); Blood Urea Nitrogen 13 mg/dL (6-20); Calcium 9.5 mg/dL (8.5-10.5); Carbon Dioxide 23 mmol/L (22-29); Chloride 107 mmol/L (98-107); Globulin 3.4 g/dL (1.3-4.6); Glomerular Filtration Rate 57.4 mL/min (90-130); Glucose 192 mg/dL (65-115); Osmolality Calculated 301 mOsm/kg (285-295); Sodium 143 mmol/L (136-145); Total Bilirubin 0.4 mg/dL (0.15-1.2); Total Protein 7.1 g/dL (6.6-8.7)
[2021-04-06 06:08] LABS: Anion Gap 16.8 (5-19); Potassium 3.8 mmol/L (3.5-5.1)
[2021-04-06 07:02] LABS: Glucose Point of Care 208 mg/dL (70-110)
[2021-04-06] MEDS: tamsulosin 0.4 mg Capsule PO (08:39)
[2021-04-06] MEDS: amlodipine 5 mg Tablet PO (08:39)
[2021-04-06] MEDS: metoprolol tartrate 50 mg Tablet 75 MG PO (08:39)
[2021-04-06] MEDS: cloNIDine 0.1 mg Tablet PO (08:39)
[2021-04-06] MEDS: aspirin 81 mg Chew Tablet PO (08:39)
[2021-04-06] MEDS: acyclovir 1,000 MG in sodium chloride 0.9% (100 ml) 100 ML 120 MG IV (08:48)
--- NOTE | 2021-04-06 11:51 | PC.SOCIAL ---
IMM UPDATE Gave patient IMM update. Provided copy of pg 2. Verbalized understanding. 04/06/21 @ 1005 Initialed, dated, timed and placed in chart.
--- NOTE | 2021-04-06 17:01 | PC.NURSE ---
PT HAS DONE WELL FOR ME TODAY. SHE HASNT HAD ANY COMPLAINTS OF PAIN. PT HAS HAD A BOWEL MOVEMENT FOR ME TODAY. PT GOT UP WITH PHYSICAL THERAPY. PT WILL DISCHARGE TO [facility] [place] TODAY. PT WILL GO WITH PICC LINE IN. DRESSING WAS CHANGED. REPORT CALLED TO ÁNGEL WILLIAMSON. ALL QUESTIONS ANSWERED. PT IS DRESSED AND WAITING FOR RIDE TO GET HERE. FAMILY HAS BEEN NOTIFIED PER PT REQUEST. WILL CONTINUE TO MONITOR UNTIL RIDE GETS HERE.
--- NOTE | 2021-04-06 17:40 | P.DS_ITS ---
Discharge Providers Date of Admission: 03/26/21 15:02 Date of Discharge: April 06, 2021 Attending Provider at Admission: Andriy Lambert MD Attending Provider at Discharge: Tucker Blanchard Primary Care Provider: Dayne Greene MD Diagnoses at Discharge Discharge Diagnosis (1) Toxic metabolic encephalopathy: Status: Acute (2) Severe obstructive sleep apnea: Status: Acute (3) Depression: Status: Acute (4) Diabetic peripheral neuropathy associated with type 2 diabetes mellitus: Status: Acute (5) Smoker: Status: Chronic Reason for Visit Reason for Visit: HYPERGLYCEMIA Hospital Course Hospital Course 55-year-old lady with history of chronic pain, 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 Nonverbal at times. Mild elevation of WBC count, mild temp 100.4. Initially thought to have possible pneumonia with nonspecific patchy infiltrate noted on imaging in right upper lung, with CT abdomen pelvis with possibility of pyelonephritis. Due to concern of possible [employer] infection was empirically treated with ceftriaxone, vancomycin, and with symptoms concerning for herpes encephalitis empirically started on acyclovir. Due to antiplatelet therapy could not undergo lumbar puncture. Cultures including blood, urine from admission, repeat blood culture on 03/29 all remain negative. Cryptococcal antigen negative. Urine bacterial antigens including Legionella negative. COVID-19 PCR was negative. Tick panel obtained and was negative. HIV nonreactive. TSH was normal. Her mental status noted with very slow/gradual improvement. Some of her medications were held through the hospitalization including gabapentin, Seroquel. Pain medications initially held, subsequently restarted on hydromorphone. Blood pressures were fluctuating, at times elevated, and was restarted on antihypertensives. She has had poor appetite, stating normally being used to eating big Mac sandwiches. He continues to have memory lapses with on and off orientation. She appears to know she is in [place], sometimes knows she is in the hospital, knows she is in [place], not oriented to year, knows the president. She is able to tell me some of her medical conditions, was telling me that she is here to treat infection of nervous system. She is able to tell me that she was seen yesterday specifically by Dr. Ernst. She also notes today had planned follow-up in clinic with EEG. However, she recognizes that her memory and functioning are not back to her usual. As at this time she remains afebrile, with downtrending leukocytosis, without signs of any ongoing pneumonia, urinary infection, antibiotics are not continued. With slow improvement of cognitive, memory changes, she is agreeable for additional care at [facility] facility while completing the course of acyclovir via right arm midline catheter placed on 03/31. Please remove the c atheter on completion of therapy. At discharge she is restarted on additional home medications although at lower doses given she had been off of them during the hospitalization, with doses of gabapentin, trazodone, Seroquel hydromorphone changed. Consider reescalation as appropriate. Insulin dose is also decreased with long-acting insulin 10 units subcutaneous daily. Scheduled short acting insulin for now is held. Continue sliding scale as appropriate. Physical Exam Const: COMMON NORMALS: no acute distress and alert GENERAL APPEARANCE: cooperative and comfortable NUTRITIONAL APPEARANCE: overweight ORIENTATION/CONSCIOUSNESS: Yes awake, Yes oriented to person and Yes oriented to place; not oriented to time OTHER: Having minimal posterior headache, denies dizziness, photosensitivity chills, aches or pain anywhere. In good spirits. Happy about her discharge to [facility] facility today. HENMT: COMMON NORMALS: oropharynx normal Neck/C-Spine: COMMON NORMALS: no meningeal signs and no JVD Resp: COMMON NORMALS: normal respiratory effort and clear to auscultation bilaterally AUSCULTATION: clear to auscultation bilaterally Cardio: COMMON NORMALS: no JVD, regular rhythm, S1 normal heart sound present, S2 normal heart sound present and No murmurs present (Cardio) RHYTHM: regular rhythm HEART SOUNDS: S1 normal heart sound present and S2 normal heart sound present GI: COMMON NORMALS: Normal to inspection, nondistended, normoactive bowel sounds present, Soft to palpation and non-tender PALPATION: Yes Soft to palpation Extremity: COMMON NORMALS: no joint enlargement and no pedal edema Neuro: COMMON NORMALS: moves all extremities SENSORIUM/ORIENTATION: Yes alert, Yes oriented to person, Yes oriented to place and No oriented to time MENINGEAL SIGNS: Yes no meningeal signs SPEECH: expressive aphasia and Other neuro speech findings Skin: COMMON NORMALS: no rashes or lesions noted GENERAL SKIN EXAM: no rashes or lesions noted Discharge Data Data Completed and Pending: Completed Studies During Hospitalization Category Date Time Status CT chest abd pel wo con Routine Cat Scan 03/27/21 12:[address] head wo con* 7 0450 Urgent Cat Scan 03/25/21 03:07 Completed CXRP [XR chest 1V portable 00812] S tat Exams 03/31/21 12:56 Completed XR chest 1V milagros ble [id number] Urgent Exams 03/25/21 03:07 Completed MR head wo con* 7 0551 Routine MRI 03/29/21 14:30 Completed Pending at discharge Category Date Time Status CSF Analysis + Ce ll Count Routine Lab 04/06/21 03:12 Ordered CSF Culture & Gra m Stain Routine Lab 04/06/21 03:12 Ordered Cryptococcal Anti gen Routine Lab 04/06/21 03:12 Ordered Glucose CSF Routi ne Lab 04/06/21 03:12 Ordered Total Protein CSF Routine Lab 04/06/21 03:12 Ordered VDRL on CSF Routi ne Lab 04/06/21 03:12 Ordered Labs from last 24 hours 04/06/21 04/06/21 04/06/21 06:25 05:23 05:23 WBC 13.6 H RBC 4.91 Hgb 13.6 Hct 46.8 MCV 95.3 D MCH 27.7 L MCHC 29.1 L D RDW 18.7 H Plt Count 383 MPV 11.3 H Neut % (Auto) 65.2 Lymph % (Auto) 23.1 Lares % (Auto) 6.8 Eos % (Auto) 3.2 Baso % (Auto) 1.3 Neut # (Auto) 8.86 H Lymph # (Auto) 3.1 Lares # (Auto) 0.9 Eos # (Auto) 0.4 Baso # (Auto) 0.2 H Nucleated RBC % (a uto) 0 Nucleated RBCs # 0.0 Sodium 143 Potassium 3.8 Chloride 107 Carbon Dioxide 23 Anion Gap 16.8 BUN 13 Creatinine 1.0 H GFR Calculation 57.4 L Glucose 192 H POC Glucose 208 H Calculated Osmolal ity 301 H Calcium 9.5 Total Bilirubin 0.4 AST 12 ALT 9 Alkaline Phosphata se 79 Total Protein 7.1 Albumin 3.7 Globulin 3.4 04/05/21 20:37 WBC RBC Hgb Hct MCV MCH MCHC RDW Plt Count MPV Neut % (Auto) Lymph % (Auto) Lares % (Auto) Eos % (Auto) Baso % (Auto) Neut # (Auto) Lymph # (Auto) Lares # (Auto) Eos # (Auto) Baso # (Auto) Nucleated RBC % (a uto) Nucleated RBCs # Sodium Potassium Chloride Carbon Dioxide Anion Gap BUN Creatinine GFR Calculation Glucose POC Glucose 199 H Calculated Osmolal ity Calcium Total Bilirubin AST ALT Alkaline Phosphata se Total Protein Albumin Globulin Vitals: Last Vital Signs Temp 98.9 F 04/06/21 17:09 Pulse 100 04/06/21 17:09 Resp 16 04/06/21 17:09 BP 164/110 04/06/21 12:00 Pulse Ox 94 04/06/21 17:09 Discharge Plan Discharge Patient Disposition: Xfer [facility] Condition: Stable Prescriptions: New acyclovir sodium 1,000 mg recon soln 1,000 mg IV Q8H 14 Days Qty: 42 RF: 0 Continued mupirocin 2 % ointment 1 applic TOPICAL BID Qty: 30 RF: 0 fluticasone propion-salmeterol [Advair Diskus] 100-50 mcg/dose blister with device 1 puff INHALATION BID RF: 0 albuterol 90 mcg/actuation aerosol 90 mcg INHALATION QID RF: 0 amlodipine 10 mg tablet 10 mg PO DAILY RF: 0 aspirin 81 mg tablet,chewable 81 mg PO DAILY RF: 0 fluticasone propionate 50 mcg/actuation spray,suspension 1 spray INTRANASAL Q12H RF: 0 levothyroxine 100 mcg tablet 100 mcg PO DAILY RF: 0 losartan 50 mg tablet 50 mg PO BID RF: 0 montelukast 10 mg tablet 10 mg PO DAILY RF: 0 Senna Plus 8.6-50 mg capsule 1 tab-cap PO BID PRN (Reason: Constipation) RF: 0 simvastatin [Zocor] 20 mg tablet 20 mg PO DAILY RF: 0 citalopram 20 mg tablet 20 mg PO DAILY RF: 0 clonidine HCl 0.1 mg tablet 0.1 mg PO BID RF: 0 tamsulosin 0.4 mg capsule 0.4 mg PO DAILY RF: 0 pantoprazole 40 mg tablet,delayed release (DR/EC) 40 mg PO DAILY RF: 0 clopidogrel 75 mg tablet 75 mg PO DAILY RF: 0 melatonin 10 mg capsule 10 mg PO DAILY RF: 0 Vitamin B-6 50 mg Tablet 25 mg PO DAILY RF: 0 Changed gabapentin 600 mg tablet 600 mg PO BID 30 Days Qty: 180 RF: 1 trazodone 50 mg tablet 25 mg PO BEDTIME Qty: 0 RF: 0 Seroquel 200 mg tablet 25 mg PO BID Qty: 0 RF: 0 metoprolol tartrate 50 mg tablet 75 mg PO BID Qty: 0 RF: 0 hydromorphone 4 mg tablet 2 mg PO .four times day PRN (Reason: pain) 30 Days Qty: 120 RF: 0 Tresiba FlexTouch U-200 200 unit/mL (3 mL) Insulin Pen 10 unit SUBCUT DAILY Qty: 9 RF: 0 Discontinued Novolog U-100 Insulin aspart 100 unit/mL solution 20 unit SUBCUT TID RF: 0 celecoxib [Celebrex] 200 mg capsule 200 mg PO BID RF: 0 esomeprazole magnesium [Nexium] 40 mg capsule,delayed release(DR/EC) 40 mg PO BID RF: 0 tizanidine 4 mg tablet 4 mg PO TID PRN (Reason: muscle spasticity) 30 Days Qty: 90 RF: 1 oxycodone 5 mg tablet 5 mg PO Q8H PRN (Reason: pain) 30 Days Qty: 90 RF: 0 methylprednisolone acetate [Depo-Medrol] 40 mg/mL suspension 40 mg Infiltration ONCE Qty: 1 RF: 0 lidocaine (PF) 10 mg/mL (1 %) solution 10 mg SUBCUT ONCE Qty: 1 RF: 0 Discharge Orders: Discharge Order (Routine); Ordered 04/06/21 Ordered By: Tucker Blanchard Referrals: SNF, PCP [Other] [facility] [Outside] Vianey Ernst MD [Physician] - 1 week Edin Conenlly MD [Physician] - 2 weeks Discharge Diet: Diabetic Discharge Activity: Increase activity as tolerated and As per PT/OT instructions Activity Restrictions/Additional Instructions: Please continue acyclovir for additional 14 days to complete 21 days of therapy. Continue via right arm midline catheter, remove catheter after treatment is finished. Discharge Attestations Time Spent in Discharge Care*: greater than 30 min Quality Metrics Clinical Quality Measures During this hospital stay, did patient experience: None Coding Level of Care Code Acute Chg FW DC note Exam Comprehensive Diagnoses Toxic metabolic encephalopathy G92 Severe obstructive sleep apnea G47.33 Depression F32.9 Diabetic peripheral neuropathy associated with type 2 diabetes mellitus E11.42 Smoker F17.200
== END 2021-04-06 17:09 | disposition skilled nursing facility (03) | DRG 871 ==
LOC: ER 03:07 → MEDSURG 06:29
PROVIDERS: Student in an Organized Health Care Education/Training Program; Admitting Provider Internal Medicine; Emergency Provider Emergency Medicine; PCP Family Medicine; Visit Provider Internal Medicine
DX: A41.9 Sepsis, unspecified organism (principal); G92 Toxic encephalopathy; J18.9 Pneumonia, unspecified organism; F05 Delirium due to known physiological condition; E87.3 Alkalosis; B02.0 Zoster encephalitis; N17.9 Acute kidney failure, unspecified; Z79.891 Long term (current) use of opiate analgesic; E11.65 Type 2 diabetes mellitus with hyperglycemia; E11.40 Type 2 diabetes mellitus with diabetic neuropathy, unspecified; Z89.511 Acquired absence of right leg below knee; E66.01 Morbid (severe) obesity due to excess calories; Z68.34 Body mass index [BMI] 34.0-34.9, adult; F17.210 Nicotine dependence, cigarettes, uncomplicated; M48.061 Spinal stenosis, lumbar region without neurogenic claudication; I25.10 Atherosclerotic heart disease of native coronary artery without angina pectoris; Z98.61 Coronary angioplasty status; Z89.412 Acquired absence of left great toe; I10 Essential (primary) hypertension; Z79.4 Long term (current) use of insulin; Z79.82 Long term (current) use of aspirin; Z79.51 Long term (current) use of inhaled steroids; F32.9 Major depressive disorder, single episode, unspecified; G47.33 Obstructive sleep apnea (adult) (pediatric); G89.29 Other chronic pain; E87.6 Hypokalemia
CPT/HCPCS: 36415; 36416; 36569; 36600; 51702; 70450; 70551; 71045; 71250; 74176; 80048; 80053; 80202; 80306; 80307; 81001; 82009; 82140; 82550; 82607; 82803; 82962; 83036; 83605; 83690; 84145; 84146; 84443; 85025; 85378; 86140; 86403; 86618; 86666; 86757; 87040; 87086; 87327; 87426; 87449; 87493; 87635; 87806; 93005; 96361; 96372; 96374; 96375; 97161; 97167; 97530; 99285; C1751; G0378; J0133; J0360; J0696; J1815; J2250; J2405; J3370; J3480; J3490; J7030; Q0144

== ENCOUNTER 2021-04-11 10:29 | Outpatient (CLI) | payer MEDICARE, MEDICAID, SELFPAY ==
[2021-04-11 12:02] LABS: Blood Urea Nitrogen 26 mg/dL (6-20); Calcium 8.1 mg/dL (8.5-10.5); Carbon Dioxide 19 mmol/L (22-29); Chloride 103 mmol/L (98-107); Glomerular Filtration Rate 16.1 mL/min (90-130); Glucose 183 mg/dL (65-115); Magnesium 1.3 mg/dL (1.7-2.3); Osmolality Calculated 295 mOsm/kg (285-295); Sodium 138 mmol/L (136-145)
[2021-04-11 12:04] LABS: Anion Gap 19.4 (5-19); Potassium 3.4 mmol/L (3.5-5.1)
== END 2021-04-11 10:30 | disposition home or self-care (01) ==
LOC: LAB 10:32
PROVIDERS: PCP Family Medicine; Visit Provider Family Medicine
DX: N17.9 Acute kidney failure, unspecified (principal)
CPT/HCPCS: 80048; 83735; 85025

== ENCOUNTER → 2021-04-17 17:55 | Day surgery (SDC) | payer MEDICARE, MEDICAID, SELFPAY ==
--- NOTE | 2021-04-17 18:01 | XR_ITS ---
WS: [id number] Portable AP supine chest, 04/17/2021 Clinical Data: PICC line placement Comparison: Portable chest, 03/31/2021. Findings: The right PICC line has been inserted. The distal tip points into the right internal jugula r vein. The pulmonary vascularity is not increased. No pneumonia or pneumothorax is seen. The heart i s normal. There are orthopedic anchors in the right humeral head. XR/XR chest 1V portable [id number] Impression: Insertion of right PICC line such as distal tip points toward right internal ju gular vein.
--- NOTE | 2021-04-17 19:56 | PC.NURSE ---
Ordered to replace PICC due to leaking. Midline placed right arm. Unable to place PICC. Therapy for 5 days.
== END ==
PROVIDERS: PCP Family Medicine; Visit Provider Family Medicine
DX: Z95.828 Presence of other vascular implants and grafts (principal)
CPT/HCPCS: 36569; 71045

== ENCOUNTER → 2021-04-19 10:11 | Outpatient (BNVA) | payer OTHER, MEDICARE, MEDICAID, SELFPAY | PROVIDERS: PCP Family Medicine; Referring Provider Internal Medicine; Visit Provider Specialist | DX: G04.90 Encephalitis and encephalomyelitis, unspecified (principal); R41.0 Disorientation, unspecified; F17.210 Nicotine dependence, cigarettes, uncomplicated | CPT/HCPCS: 95816 ==

== ENCOUNTER → 2021-04-24 14:45 | Outpatient (BNVA) | payer MEDICARE, MEDICAID, SELFPAY | PROVIDERS: PCP Family Medicine; Referring Provider Internal Medicine; Visit Provider Specialist | DX: G40.909 Epilepsy, unspecified, not intractable, without status epilepticus (principal); G92 Toxic encephalopathy; Z79.899 Other long term (current) drug therapy; F17.210 Nicotine dependence, cigarettes, uncomplicated | CPT/HCPCS: 99215 ==

== ENCOUNTER → 2021-05-01 13:55 | Outpatient (BNVA) | payer MEDICARE, MEDICAID, SELFPAY | PROVIDERS: PCP Family Medicine; Visit Provider Nurse Practitioner | DX: M47.816 Spondylosis without myelopathy or radiculopathy, lumbar region (principal); E11.40 Type 2 diabetes mellitus with diabetic neuropathy, unspecified; S88.111A Complete traumatic amputation at level between knee and ankle, right lower leg, initial encounter; X58.XXXA Exposure to other specified factors, initial encounter; F17.200 Nicotine dependence, unspecified, uncomplicated; Z79.891 Long term (current) use of opiate analgesic; Z71.6 Tobacco abuse counseling | CPT/HCPCS: 99214 ==

== ENCOUNTER → 2021-05-17 08:41 | Outpatient (BNVA) | payer MEDICARE, MEDICAID, SELFPAY | PROVIDERS: PCP Family Medicine; Visit Provider Urology | DX: R33.9 Retention of urine, unspecified (principal); N39.0 Urinary tract infection, site not specified; N20.0 Calculus of kidney | CPT/HCPCS: 81003 ==

== ENCOUNTER 2021-05-21 10:16 | Inpatient (IN) | payer MEDICARE, MEDICAID, SELFPAY ==
[2021-05-21] VITALS (16 sets, daily range): BP systolic 73–143; BP diastolic 39–81; PULSE 46–103; RESP 15–20; TEMP 36.8–37.2; O2SAT 90–96; BMI 47.3; BMI 38.9
--- NOTE | 2021-05-21 10:58 | XR_ITS ---
WS: [id number] Exam: XR chest 1V portable [id number] Date/Time of Exam: 05/21/2021 11:03 AM Reason For Exam: dyspnea/cough The lungs are clear and fully expanded. Chronic interstitial changes in the right lung. Normal cardio mediastinal structures. No pleural effusions. Regional bony elements are intact. XR/XR chest 1V portable [id number] IMPRESSION: 1. Chronic interstitial changes in the mid right lung zone. No acute cardiopulm onary finding.
--- NOTE | 2021-05-21 10:58 | ECG_ITS ---
[facility] ED Test Date: 2021-05-21 Pat Name: Angeles Valdes Department: Room: Gender: Female Sub Acute Care Nurse: : 1965 Requested By: Luis Miguel Miller Order Number: [id number] John MD: Jeannette Keller M.D. Measurements Intervals [place] Rate: 90 P: 33 HI: 179 QRS: -18 QRSD: 112 T: 21 QT: 362 QTc: 445 Interpretive Statements SINUS RHYTHM INFERIOR MYOCARDIAL INFARCTION [40+ ms Q WAVE AND/OR ST/T ABNORMALITY IN II/aVF], PROBABLY OLD Compared to ECG 03/25/2021 06:01:41 Sinus tachycardia no longer present Myocardial infarct finding still present Electronically Signed On 05-21-2021 13:03:41 CDT by Jeannette Keller M.D. [id number]
--- NOTE | 2021-05-21 11:00 | W.ED.GENADLT ---
HPI - General Adult General: Chief complaint: General Medical Stated complaint: AMS Time Seen by Provider: 05/21/21 10:43 History of Present Illness: HPI narrative: 55-year-old female presents emergency room via EMS complaining of altered mental status. She seems confused and disoriented per her report she has noticed chills sweats mild nausea. Blood pressure was hypotensive with multiple readings in the 70s confirmed by manual. She is not had any difficulty breathing she does have a history of coronary artery disease and diabetes. 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 She denies any dysuria urgency or frequency. No hematochezia melena hematemesis or coffee-ground emesis. Onset (ago): hour(s) Radiation: non-radiation Severity: moderate Quality: burning Pain Consistency: constant Relieving factors: none Exacerbating factors: none Associated symptoms: Reports confusion, decreased appetite, dyspnea, fevers/chills, malaise and weakness; Deny headache(s), nausea, rash, palpitations, seizures, short of breath, syncope or vomiting Treatments prior to arrival: none Review of Systems General: Reports: ROS unobtainable due to medical condition Const: Reports: malaise Card: Denies: palpitations or syncope Resp: Reports: dyspnea GI: Denies: nausea or vomiting Skin/Breast: Denies: rash Neuro: Reports: confusion; Denies: headache(s) PFSH ED PFSH: Medical History Depression Diabetic peripheral neuropathy associated with type 2 diabetes mellitus Failed spinal cord stimulator REMOVED BY DR VARGAS 01/23/2012 Long-term use of high-risk medication Lumbar facet arthropathy Morbid obesity Opioid contract exists Recurrent UTI Right renal stone Risk for falls Severe obstructive sleep apnea Smoker Spinal stenosis, lumbar Spondylolisthesis, site unspecified Urinary retention Surgical History History of ear surgery 10/2019 Dr. 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 Status post amputation of toe LT BIG TOE Family History Brother CHF (congestive heart failure) Father , at age 72 Lung disease Mother , at age 54 CHF (congestive heart failure) Social History Alcohol intake: never Marital status: Single Current occupational status: disabled History of recent travel: No Physical Exam Const: COMMON NORMALS: no acute distress GENERAL APPEARANCE: cooperative and comfortable ORIENTATION/CONSCIOUSNESS: Yes awake HENMT: COMMON NORMALS: normocephalic, atraumatic and hearing grossly normal bilaterally HEAD & SCALP: normocephalic and atraumatic Neck/C-Spine: COMMON NORMALS: no JVD Resp: COMMON NORMALS: normal respiratory effort, No retractions, No use of accessory muscles and clear to auscultation bilaterally AUSCULTATION: clear to auscultation bilaterally Cardio: COMMON NORMALS: no JVD, regular rate, regular rhythm and No murmurs present (Cardio) RATE: regular rate RHYTHM: regular rhythm GI: COMMON NORMALS: Soft to palpation and No hepatosplenomegaly present AUSCULTATION: Yes normoactive bowel sounds PALPATION: Yes Soft to palpation, No Tenderness to palpation present (GI), No Guarding due to palpation present (GI) and Yes No hepatosplenomegaly present Extremity: COMMON NORMALS: normal to inspection, capillary refill normal, no clubbing, cyanosis or edema, no calf tenderness and no pedal edema Skin: COMMON NORMALS: no rashes or lesions noted GENERAL SKIN EXAM: no rashes or lesions noted Course Vital Signs: Vital signs: Vital Signs Temperature 98.6 F 05/23/21 12:42 Pulse Rate 80 05/23/21 12:42 Respiratory Rate 18 05/23/21 12:42 Blood Pressure 111/69 05/23/21 12:42 Pulse Oximetry 93 05/23/21 12:42 MDM - General Adult MDM Narrative: Medical decision making narrative: Patient is elevated white count with slight bump in troponin as well. She has been started on antibiotics fluid bolus from the sepsis did improve her blood pressure. Initial lactic elevated. Discussed with hospitalist will admit orders have been written Lab Data: Labs: Lab Results 05/21/21 05/21/21 05/21/21 Range/Units 10:47 10:47 10:47 WBC 20.2 H (4.0-10.0) 10^3/ uL RBC 4.22 (4.1-5.3) 10^6/u L Hgb 12.5 (11.5-15.3) g/dL Hct 39.5 (37.0-47.0) % MCV 93.6 (81-99) fl MCH 29.6 (28.0-34.0) pg MCHC 31.6 (30.0-36.0) g/dL RDW 20.3 H (12.1-15.1) % Plt Count 342 (130-400) 10^3/c mm MPV 10.8 H (7.4-10.4) fL Neut % (Auto) 85.1 % Lymph % (Auto) 4.5 % [place] % (Auto) 5.2 % Eos % (Auto) 4.1 % Baso % (Auto) 0.2 % Neut # (Auto) 17.16 H (1.8-7.7) 10^3/u L Lymph # (Auto) 0.9 (0.8-4.8) 10^3/u L [place] # (Auto) 1.1 H (0.2-0.9) 10^3/u L Eos # (Auto) 0.8 (0.0-0.8) 10^3/u L Baso # (Auto) 0.1 (0.0-0.1) 10^3/u L Nucleated RBC % (a uto) 0 % Nucleated RBCs # 0.0 /100WBC Specimen Type Sample Site ABG pH (7.35-7.45) ABG pCO2 (35-45) mmHg ABG pO2 (80.0-100.0) mmH g ABG HCO3 (22-26) mmol/L ABG O2 Saturation ABG Base Excess (-2.0-2.0) mmol/ L Jeff Test A-a O2 Gradient (5-10) mmHg Hematocrit (37-47) % Hgb O2 Saturation (95-100) % Carboxyhemoglobin (0.4-20.1) %THgb Methemoglobin (0.4-1.5) % Total Hemoglobin (12-16) g/dL Ionized Calcium (1.1-1.4) mmol/L O2 Delivery Device FiO2 % Inspector Packer Glass Container ID Sodium 127 L (136-145) mmol/L Potassium 5.2 H (3.5-5.1) mmol/L Chloride 89 L (98-107) mmol/L Carbon Dioxide 21 L (22-29) mmol/L Anion Gap 22.2 H (5-19) BUN 22 H (6-20) mg/dL Creatinine 2.3 H (0.5-0.9) mg/dL GFR Calculation 21.9 L (90-130) mL/min Glucose 283 H (65-115) mg/dL Calculated Osmolal ity 278 L (285-295) mOsm/k g Lactic Acid 3.9 H (0.5-2.2) mmol/L Calcium 8.2 L (8.5-10.5) mg/dL Magnesium 1.5 L (1.7-2.3) mg/dL Total Bilirubin 0.5 (0.15-1.2) mg/dL AST 10 (0-32) U/L ALT 10 (0-33) U/L Alkaline Phosphata se 124 H (35-105) IU/L Creatine Kinase (26-192) U/L Troponin T Baselin e (0-10) ng/L C-Reactive Protein 146.7 H (0.0-4.9) mg/L Total Protein 6.5 L (6.6-8.7) g/dL Albumin 3.2 L (3.5-5.2) g/dL Globulin 3.3 (1.3-4.6) g/dL Procalcitonin 0.47 (0-0.5) ng/mL Urine Color (Yellow) Urine Appearance (CLEAR) Urine pH (5-7) Ur Specific Gravit y (1.005-1.030) Urine Protein (Negative) Urine Glucose (UA) (Normal) Urine Ketones (Negative) Urine Blood (Negative) Urine Nitrate (Negative) Urine Bilirubin (Negative) Urine Urobilinogen (Negative) mg/dL Ur Leukocyte Nallely ase (Negative) Urine RBC (0-2) /hpf Urine WBC (0-5) /hpf Ur Squamous Epith Cells (0-5) /hpf Amorphous Sediment Urine Bacteria (NONE) /hpf Coarse Granular Ca sts /lpf Serum Ketones (Negative) 05/21/21 05/21/21 05/21/21 Range/Units 10:47 10:47 10:47 WBC (4.0-10.0) 10^3/ uL RBC (4.1-5.3) 10^6/u L Hgb (11.5-15.3) g/dL Hct (37.0-47.0) % MCV (81-99) fl MCH (28.0-34.0) pg MCHC (30.0-36.0) g/dL RDW (12.1-15.1) % Plt Count (130-400) 10^3/c mm MPV (7.4-10.4) fL Neut % (Auto) % Lymph % (Auto) % [place] % (Auto) % Eos % (Auto) % Baso % (Auto) % Neut # (Auto) (1.8-7.7) 10^3/u L Lymph # (Auto) (0.8-4.8) 10^3/u L [place] # (Auto) (0.2-0.9) 10^3/u L Eos # (Auto) (0.0-0.8) 10^3/u L Baso # (Auto) (0.0-0.1) 10^3/u L Nucleated RBC % (a uto) % Nucleated RBCs # /100WBC Specimen Type Sample Site ABG pH (7.35-7.45) ABG pCO2 (35-45) mmHg ABG pO2 (80.0-100.0) mmH g ABG HCO3 (22-26) mmol/L ABG O2 Saturation ABG Base Excess (-2.0-2.0) mmol/ L Jeff Test A-a O2 Gradient (5-10) mmHg Hematocrit (37-47) % Hgb O2 Saturation (95-100) % Carboxyhemoglobin (0.4-20.1) %THgb Methemoglobin (0.4-1.5) % Total Hemoglobin (12-16) g/dL Ionized Calcium (1.1-1.4) mmol/L O2 Delivery Device FiO2 % Inspector Packer Glass Container ID Sodium (136-145) mmol/L Potassium (3.5-5.1) mmol/L Chloride (98-107) mmol/L Carbon Dioxide (22-29) mmol/L Anion Gap (5-19) BUN (6-20) mg/dL Creatinine (0.5-0.9) mg/dL GFR Calculation (90-130) mL/min Glucose (65-115) mg/dL Calculated Osmolal ity (285-295) mOsm/k g Lactic Acid (0.5-2.2) mmol/L Calcium (8.5-10.5) mg/dL Magnesium (1.7-2.3) mg/dL Total Bilirubin (0.15-1.2) mg/dL AST (0-32) U/L ALT (0-33) U/L Alkaline Phosphata se (35-105) IU/L Creatine Kinase 28 (26-192) U/L Troponin T Baselin e 74 H (0-10) ng/L C-Reactive Protein (0.0-4.9) mg/L Total Protein (6.6-8.7) g/dL Albumin (3.5-5.2) g/dL Globulin (1.3-4.6) g/dL Procalcitonin (0-0.5) ng/mL Urine Color (Yellow) Urine Appearance (CLEAR) Urine pH (5-7) Ur Specific Gravit y (1.005-1.030) Urine Protein (Negative) Urine Glucose (UA) (Normal) Urine Ketones (Negative) Urine Blood (Negative) Urine Nitrate (Negative) Urine Bilirubin (Negative) Urine Urobilinogen (Negative) mg/dL Ur Leukocyte Nallely ase (Negative) Urine RBC (0-2) /hpf Urine WBC (0-5) /hpf Ur Squamous Epith Cells (0-5) /hpf Amorphous Sediment Urine Bacteria (NONE) /hpf Coarse Granular Ca sts /lpf Serum Ketones Negative (Negative) 05/21/21 05/21/21 Range/Units 11:19 12:32 WBC (4.0-10.0) 10^3/ uL RBC (4.1-5.3) 10^6/u L Hgb (11.5-15.3) g/dL Hct (37.0-47.0) % MCV (81-99) fl MCH (28.0-34.0) pg MCHC (30.0-36.0) g/dL RDW (12.1-15.1) % Plt Count (130-400) 10^3/c mm MPV (7.4-10.4) fL Neut % (Auto) % Lymph % (Auto) % [place] % (Auto) % Eos % (Auto) % Baso % (Auto) % Neut # (Auto) (1.8-7.7) 10^3/u L Lymph # (Auto) (0.8-4.8) 10^3/u L [place] # (Auto) (0.2-0.9) 10^3/u L Eos # (Auto) (0.0-0.8) 10^3/u L Baso # (Auto) (0.0-0.1) 10^3/u L Nucleated RBC % (a uto) % Nucleated RBCs # /100WBC Specimen Type Arterial Sample Site Brachial, left ABG pH 7.34 L (7.35-7.45) ABG pCO2 40.8 (35-45) mmHg ABG pO2 58.1 L (80.0-100.0) mmH g ABG HCO3 21.9 L (22-26) mmol/L ABG O2 Saturation 89.9 ABG Base Excess -3.7 L (-2.0-2.0) mmol/ L Jeff Test N/a A-a O2 Gradient 5.4 (5-10) mmHg Hematocrit 36.1 L (37-47) % Hgb O2 Saturation 85.1 L (95-100) % Carboxyhemoglobin 4.8 (0.4-20.1) %THgb Methemoglobin 0.5 (0.4-1.5) % Total Hemoglobin 11.8 L (12-16) g/dL Ionized Calcium 1.1 (1.1-1.4) mmol/L O2 Delivery Device Room air FiO2 21.0 % Inspector Packer Glass Container ID Amh Sodium 128.0 L (136-145) mmol/L Potassium 4.9 (3.5-5.1) mmol/L Chloride (98-107) mmol/L Carbon Dioxide (22-29) mmol/L Anion Gap (5-19) BUN (6-20) mg/dL Creatinine (0.5-0.9) mg/dL GFR Calculation (90-130) mL/min Glucose 287.0 H (65-115) mg/dL Calculated Osmolal ity (285-295) mOsm/k g Lactic Acid (0.5-2.2) mmol/L Calcium (8.5-10.5) mg/dL Magnesium (1.7-2.3) mg/dL Total Bilirubin (0.15-1.2) mg/dL AST (0-32) U/L ALT (0-33) U/L Alkaline Phosphata se (35-105) IU/L Creatine Kinase (26-192) U/L Troponin T Baselin e (0-10) ng/L C-Reactive Protein (0.0-4.9) mg/L Total Protein (6.6-8.7) g/dL Albumin (3.5-5.2) g/dL Globulin (1.3-4.6) g/dL Procalcitonin (0-0.5) ng/mL Urine Color Yellow (Yellow) Urine Appearance Hazy A (CLEAR) Urine pH 5 (5-7) Ur Specific Gravit y 1.015 (1.005-1.030) Urine Protein Trace (Negative) Urine Glucose (UA) Norm (Normal) Urine Ketones Negative (Negative) Urine Blood Neg (Negative) Urine Nitrate Negative (Negative) Urine Bilirubin 1+ H (Negative) Urine Urobilinogen 1 H (Negative) mg/dL Ur Leukocyte Nallely ase 2+ H (Negative) Urine RBC None (0-2) /hpf Urine WBC 15-25 H (0-5) /hpf Ur Squamous Epith Cells 25-40 H (0-5) /hpf Amorphous Sediment Not Reportable Urine Bacteria 3+ H (NONE) /hpf Coarse Granular Ca sts 0-4 H /lpf Serum Ketones (Negative) Discharge Plan Discharge Patient Disposition: Admitted As Inpatient Admit Provider: Srinivasa Gould Clinical Impression: Sepsis, Acute encephalopathy, Acute kidney injury, Lactic acidosis, NSTEMI (non-ST elevated myocardial infarction), Recurrent UTI Condition: Stable Discharge Diet: Diabetic Discharge Activity: Resume usual activity Coding Level of Care Code ED Remarketing Manager for Darron Barnes
[2021-05-21] MEDS: ondansetron 2 mg/ML SDV 2 mL 4 MG IVP (11:10)
[2021-05-21 11:11] LABS: Basophils # 0.1 10^3/uL (0.0-0.1); Basophils % 0.2 %; Eosinophils # 0.8 10^3/uL (0.0-0.8); Eosinophils % 4.1 %; Hematocrit 39.5 % (37.0-47.0); Hemoglobin 12.5 g/dL (11.5-15.3); Lymphocytes # 0.9 10^3/uL (0.8-4.8); Lymphocytes % 4.5 %; Mean Corpuscular HGB Conc 31.6 g/dL (30.0-36.0); Mean Corpuscular Hemoglobin 29.6 pg (28.0-34.0); Mean Corpuscular Volume 93.6 fl (81-99); Mean Platelet Volume 10.8 fL (7.4-10.4); Monocytes # 1.1 10^3/uL (0.2-0.9); Monocytes % 5.2 %; Neutrophils # 17.16 10^3/uL (1.8-7.7); Neutrophils % 85.1 %; Nucleated Red Blood Cells % 0 %; Platelet Count 342 10^3/cmm (130-400); Red Blood Count 4.22 10^6/uL (4.1-5.3); Red Cell Distribution Width 20.3 % (12.1-15.1); White Blood Count 20.2 10^3/uL (4.0-10.0)
[2021-05-21] MEDS: sodium chloride 0.9% 1,000 ML 999 ML IV (11:11)
[2021-05-21 11:19] LABS: Ketone (Acetest) Serum Negative (Negative)
[2021-05-21 11:23] LABS: Lactic Sepsis W/Reflex 3.9 mmol/L (0.5-2.2)
[2021-05-21 11:25] LABS: Troponin(5th) Baseline 74 ng/L (0-10)
[2021-05-21 11:26] LABS: Alanine Aminotransferase 10 U/L (0-33); Albumin Level 3.2 g/dL (3.5-5.2); Alkaline Phosphatase 124 IU/L (35-105); Anion Gap 22.2 (5-19); Aspartate Amino Transferase 10 U/L (0-32); Blood Urea Nitrogen 22 mg/dL (6-20); C Reactive Protein 146.7 mg/L (0.0-4.9); Calcium 8.2 mg/dL (8.5-10.5); Carbon Dioxide 21 mmol/L (22-29); Chloride 89 mmol/L (98-107); Globulin 3.3 g/dL (1.3-4.6); Glomerular Filtration Rate 21.9 mL/min (90-130); Glucose 283 mg/dL (65-115); Magnesium 1.5 mg/dL (1.7-2.3); Osmolality Calculated 278 mOsm/kg (285-295); Potassium 5.2 mmol/L (3.5-5.1); Sodium 127 mmol/L (136-145); Total Bilirubin 0.5 mg/dL (0.15-1.2); Total Protein 6.5 g/dL (6.6-8.7)
[2021-05-21 11:30] LABS: ABG PCO2 40.8 mmHg (35-45); ABG PH Result 7.34 (7.35-7.45); Alveolar-Arterial Oxygen Gradi 5.4 mmHg (5-10); Arterial Blood Gas Hematocrit 36.1 % (37-47); Base Excess ABG -3.7 mmol/L (-2.0-2.0); Blood Gas Operator Identificat AMH; Blood Gas Sample Site Brachial, left; Blood Gas Sample Type Arterial; Carboxyhemoglobin 4.8 %THgb (0.4-20.1); HCO3 ABG 21.9 mmol/L (22-26); HGB O2 Sat 85.1 % (95-100); Ionized Calcium Level - ABG 1.1 mmol/L (1.1-1.4); Methemoglobin 0.5 % (0.4-1.5); Oxygen Saturation ABG 89.9; PO2 ABG 58.1 mmHg (80.0-100.0); Potassium Level - ABG 4.9 mmol/L (3.5-5.0); Total Hemoglobin 11.8 g/dL (12-16)
[2021-05-21 11:31] LABS: Oxygen Device ROOM AIR
[2021-05-21 11:33] LABS: Procalcitonin 0.47 ng/mL (0-0.5)
[2021-05-21 12:30] LABS: SARS Covid-2 Antigen Negative (Negative)
--- NOTE | 2021-05-21 12:44 | CT_ITS ---
WS: [id number] CT ABDOMEN PELVIS TECHNIQUE: Noncontrast CT of the abdomen and pelvis with coronal and sagittal reformatted images. CLINICAL INFORMATION: flank pain COMPARISON: CT March 27, 2021 DLP: 2323.[address] scans at [facility] use at least one of these dose optimization techniques: automat ed exposure control; mA and/or kV adjustment per patient size (includes targeted exams where dose is matched to clinical indication); or iterative reconstruction. FINDINGS: Nonobstructing 7 mm right calyceal tip calculi. This is unchanged from previous. Right ureter is deco mpressed. No hydronephrosis in either kidney. No obstructing left renal parenchymal calculi. Left ure ter is decompressed. Perinephric edema about both kidneys can be seen with renal insufficiency versus pyelonephritis right greater than left unchanged from previous. Slight atelectasis in the lung bases. Slight subpleural nodularity in the lung bases is unchanged. He patomegaly. Diffuse fatty infiltration. Normal GE junction. Prior cholecystectomy. Splenic granulomas . Fatty atrophy of the pancreas. Colon is decompressed. Normal sigmoid colon. Air-fluid level in the stomach with mild distention of fluid-filled duodenum. A few air-fluid levels in normal caliber small bowel in the pelvis. No free fluid in the abdomen or pelvis. Normal caliber abdominal aorta. Left adrenal myelolipoma carlos enrique uring 2 cm is unchanged. Normal right adrenal gland. Mild lumbar curve. CT/CT kidney stone [id number] IMPRESSION: 1. No obstructing renal or ureteral calculi. No hydronephrosis. 2. Bilateral perinephric edema is similar to previous can be seen with renal i nsufficiency or pyelonephritis. Recommend correlation for urinary tract infecti on. 3. Stable left adrenal myelolipoma. 4. Hepatomegaly with cholecystectomy. 5. Air-fluid level in the stomach and proximal duodenum. No evidence of high-g rade small or large bowel obstruction. 6. No free fluid in the abdomen or pelvis. 7. Prior hysterectomy.
[2021-05-21 12:55] LABS: Reflex Lactate Order REFLEX LACTIC ORDERD
--- NOTE | 2021-05-21 12:58 | ECG_ITS ---
[facility] ED Test Date: 2021-05-21 Pat Name: Angeles Valdes Department: Room: Gender: Female Borough Coordinator: : 1965 Requested By: Luis Miguel Miller Order Number: [id number] John MD: Jeannette Keller M.D. Measurements Intervals [place] Rate: 76 P: 65 CA: 190 QRS: 8 QRSD: 112 T: 8 QT: 404 QTc: 454 Interpretive Statements SINUS RHYTHM PROBABLE INFERIOR MYOCARDIAL INFARCTION [35 ms Q WAVE IN II/aVF], PROBABLY OLD Compared to ECG 05/21/2021 10:40:42 No significant changes Electronically Signed On 05-21-2021 13:19:19 CDT by Jeannette Keller M.D. [id number]
[2021-05-21] MEDS: piperacillin-tazobactam 3.375 GM in sodium chloride 0.9% (plus) 50 ML IV (13:10)
[2021-05-21 13:12] LABS: Protein Urine Trace (Negative); Specific Gravity, Urine 1.015 (1.005-1.030); Urine Appearance Hazy (CLEAR); Urine Color Yellow (Yellow); pH Urine 5 (5-7)
[2021-05-21 13:13] LABS: Add Urine Microscopic? YES; Bilirubin Urine 1+ (Negative); Blood Urine Neg (Negative); Glucose Urine UA Norm (Normal); Ketones Urine Negative (Negative); Leukocyte Esterase Urine 2+ (Negative); Nitrate Urine Negative (Negative); Urobilinogen Urine 1 mg/dL (Negative)
[2021-05-21 13:14] LABS: Add Urine Culture? No; Bacteria Urine 3+ /hpf; Coarse Granular Casts Urine 0-4 /lpf; Squamous Epithelial Cell Urine 25-40 /hpf (0-5); WBC Urine 15-25 /hpf (0-5)
[2021-05-21] MEDS: morphine 4 mg/mL SDV 1 mL 2 MG IVP (14:21)
[2021-05-21 15:13] LABS: Troponin 5 2HR 72.22 ng/L (0-10)
[2021-05-21 15:15] LABS: Lactic Acid level (Lactate) 1.7 mmol/L (0.5-2.2); Troponin 5 2HR Delta -1.78 ABS# (0-10)
--- NOTE | 2021-05-21 15:40 | P.HP_ITS ---
Providers/Chief Complaint Primary Care Provider: Dayne Greene MD Chief Complaint: AMS History of Present Illness Angeles Valdes is a 55 year old female chronic pain, who is on oxycodone 5 every 8 as needed/Dilaudid 4 mg 4 times daily, gabapentin, tizanidine, insulin- dependent type 2 diabetes mellitus, history of right BKA, hypertension, hyperlipidemia, history of CAD status post stenting 2 years ago, GERD, recent hospitalization for toxic encephalopathy secondary to polypharmacy and viral meningitis on acyclovir, morbid obesity, history of recurrent urinary tract infections seen by Dr. Sauceda, who presents to [facility] due to complaints of confusion, and bilateral back pain. Currently patient's alert to person, to place, not to time, she does answer most questions appropriately, her only complaints is that she is more confused than normal, and she is having more significant bilateral back pain than her normal. When asked how she got here, she tells me her friend called. Denies any fevers, no chills, no nausea, no vomiting, she is requiring 3 L, she tells me she is more short of breath than normal, denies any history of Covid exposure, has not received Covid vaccine. No nausea, no vomiting, abdominal pain. Review of Systems Const: Denies: fever(s), chills or body aches Eyes: Denies: change in vision Card: Denies: chest pain, palpitations, irregular heart rhythm, edema or lightheadedness Resp: Denies: dyspnea, productive cough or non-productive cough GI: Denies: abdominal pain, nausea, vomiting or hematemesis : Reports: flank pain; Denies: difficulty voiding or dysuria Musc: Denies: neck pain or back pain Skin/Breast: Reports: rash Neuro: Denies: headache(s) Psych: Denies: anxiety or depression Endo: Denies: polyuria Medications/Allergies Home Medications Medication Instructions Recorded Confirmed Last Taken Type amlodipine 10 mg tablet 5 mg PO DAILY 10/13/19 05/21/21 05/21/21 History aspirin 81 mg chewable tablet 81 mg PO DAILY 10/13/19 05/21/21 05/21/21 History fluticasone 100 mcg-salmeterol 50 1 puff INHALATION BID 10/13/19 05/21/21 01/06/20 History mcg/dose blistr powdr for inhalation fluticasone propionate 50 1 spray INTRANASAL Q12H 10/13/19 05/21/21 05/21/21 History mcg/actuation nasal spray,suspension losartan 50 mg tablet 50 mg PO BID 10/13/19 05/21/21 05/21/21 History montelukast 10 mg tablet 10 mg PO DAILY 10/13/19 05/21/21 05/21/21 History citalopram 20 mg tablet 20 mg PO DAILY tab 01/07/20 05/21/21 05/21/21 History clopidogrel 75 mg tablet 75 mg PO DAILY 11/30/20 05/21/21 05/21/21 History melatonin 10 mg capsule 10 mg PO DAILY 11/30/20 05/21/21 05/20/21 History pantoprazole 40 mg tablet,delayed 40 mg PO DAILY 11/30/20 05/21/21 05/21/21 History release pyridoxine (vitamin B6) [Vitamin 25 mg PO DAILY 03/25/21 05/21/21 05/21/21 History B-6] gabapentin 600 mg tablet 1,200 mg PO TID #180 tab 05/01/21 05/21/21 05/21/21 Rx oxycodone 5 mg tablet 5 mg PO Q8H PRN 30 Days #90 tab 05/01/21 05/21/21 05/21/21 Rx tizanidine 4 mg tablet 4 mg PO TID PRN #90 tab 05/01/21 05/21/21 05/21/21 Rx celecoxib 200 mg capsule 200 mg PO BID 05/17/21 05/21/21 05/21/21 History esomeprazole magnesium 40 mg 40 mg PO BID cap 05/17/21 05/21/21 05/21/21 History capsule,delayed release levothyroxine 100 mcg tablet 50 mcg PO DAILY tab 05/17/21 05/21/21 05/21/21 History metoprolol tartrate 50 mg tablet 50 mg PO BID tab 05/17/21 05/21/21 05/21/21 History nitrofurantoin 100 mg PO BID #60 cap 05/17/21 05/21/21 05/21/21 Rx monohydrate/macrocrystals 100 mg capsule potassium chloride 20 mEq 20 meq PO BID 05/17/21 05/21/21 05/21/21 History tablet,extended release tamsulosin 0.4 mg capsule 0.4 mg PO DAILY #30 cap 05/17/21 05/21/21 05/21/21 Rx albuterol sulfate 90 mcg INHALATION QID 05/21/21 05/21/21 Unknown History hydromorphone 4 mg PO QID PRN 05/21/21 05/21/21 05/21/21 History insulin aspart U-100 [Novolog See Rx Instructions .ROUTE .COMPLEX 05/21/21 05/21/21 Unknown History Flexpen U-100 Insulin] insulin degludec [Tresiba See Rx Instructions .ROUTE .COMPLEX 05/21/21 05/21/21 05/19/21 History FlexTouch U-200] quetiapine [Seroquel] 25 mg PO DAILY 05/21/21 05/21/21 05/21/21 History trazodone 50 mg PO BEDTIME 05/21/21 05/21/21 05/20/21 History Allergies Allergy/AdvReac Type Severity Reaction Status Date / Time adhesive tape Allergy rash Verified 05/17/21 08:36 varenicline [From Chantix] Allergy RENAL Verified 05/17/21 08:36 FAILURE oxycodone AdvReac Intermediate Itching Verified 05/17/21 08:36 Sulfa (Sulfonamide AdvReac Unknown UNKNOWN Verified 05/17/21 08:36 Antibiotics) amitriptyline AdvReac UNKNOWN Verified 05/17/21 08:36 benzoin AdvReac UNKNOWN Verified 05/17/21 08:36 cefazolin AdvReac UNKNOWN Verified 05/17/21 08:36 codeine AdvReac Unknown Verified 05/17/21 08:36 cyclobenzaprine AdvReac UNKNOWN Verified 05/17/21 08:36 [From Flexeril] hydrocodone AdvReac UNKNOWN Verified 05/17/21 08:36 ketorolac AdvReac UNKNOWN Verified 05/17/21 08:36 Opioids - Morphine Analogues AdvReac nausea Verified 05/17/21 08:36 trimethoprim AdvReac UNKNOWN Verified 05/17/21 08:36 PFSH Acute PFSH: Medical History Depression Diabetic peripheral neuropathy associated with type 2 diabetes mellitus Failed spinal cord stimulator REMOVED BY DR VARGAS 01/23/2012 Long-term use of high-risk medication Lumbar facet arthropathy Morbid obesity Opioid contract exists Recurrent UTI Right renal stone Risk for falls Severe obstructive sleep apnea Smoker Spinal stenosis, lumbar Spondylolisthesis, site unspecified Urinary retention Surgical History History of ear surgery 10/2019 Dr. 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 Status post amputation of toe LT BIG TOE Family History Brother CHF (congestive heart failure) Father , at age 72 Lung disease Mother , at age 54 CHF (congestive heart failure) Social History Alcohol intake: never Marital status: Single Current occupational status: disabled History of recent travel: No Vitals/I&O/Wt Last Vital Signs Temp 98.8 F 05/21/21 10:26 Pulse 46 L 05/21/21 15:00 Resp 19 H 05/21/21 14:21 BP 92/66 05/21/21 15:00 Pulse Ox 94 05/21/21 15:00 Weight last 48 hrs Weight 117.48 kg Physical Exam Const: COMMON NORMALS: no acute distress ORIENTATION/CONSCIOUSNESS: Yes awake, Yes oriented to person, Yes oriented to place and Yes confused; not oriented to time Eye: COMMON NORMALS: Equal, round and reactive pupils present GENERAL EYE: appearance normal, both eyes and all related structures PUPIL: Yes Equal, round and reactive pupils present Neck/C-Spine: COMMON NORMALS: full ROM and no lymphadenopathy THYROID: Thyroid normal Lymph: LYMPHATIC: no lymphadenopathy noted Resp: COMMON NORMALS: normal respiratory effort, No retractions, No use of accessory muscles and clear to auscultation bilaterally AUSCULTATION: clear to auscultation bilaterally Cardio: COMMON NORMALS: regular rate, regular rhythm, S1 normal heart sound present, S2 normal heart sound present, No gallops present (Cardio), No clicks present (Cardio) and No murmurs present (Cardio) RATE: regular rate RH YTHM: regular rhythm HEART SOUNDS: S1 normal heart sound present and S2 normal heart sound present GI: COMMON NORMALS: Normal to inspection, nondistended, normoactive bowel sounds present, Soft to palpation, non-tender and No hepatosplenomegaly present PALPATION: Yes Soft to palpation Extremity: COMMON NORMALS: normal to inspection and full ROM NARRATIVE EXTREMITY EXAM: Left knee knee amputation Neuro: COMMON NORMALS: CN's II-XII intact bilaterally, moves all extremities and no focal motor deficits Data : 05/21/21 10:47 05/21/21 10:47 A&P Assessment and plan (1) Acute encephalopathy: -With sepsis secondary to urinary tract infection, acute pyelonephritis -Sepsis markers, hypotensive initially when she came in, blood pressure 70s over 50s, improved to 110/80 with sepsis fluid bolus, has received Zosyn, on 3 L, -With the acute kidney injury, creatinine 2.3 -With type II NSTEMI, supply demand ischemia -With elevated lactic acid, 3.9, now 1.7 -WBC 20.2, pro-Conor 0.47, CRP 147, UA indicated a UTI, CT scan of the abdomen pelvis shows no obstructing renal or ureteral calculi, no hydronephrosis, bilateral perinephric edema, has bilateral flank pain -Currently alert to person, to place, not to time Plan: -Admit to general medical floors -Continue IV hydration at 150 cc an hour, monitor creatinine, monitor urine output, monitor CPK -Zosyn for antibiotic coverage -Follow blood cultures, urine cultures -Trend lactic acid -Monitor mentation -Full code -Lovenox for DVT prophylaxis Insulin-dependent type 2 diabetes mellitus -Patient has been using Tresiba 30 units morning, 40 units in the evening -For now continue moderate dose sliding scale, Levemir 50 units twice daily Hypoxia, requiring 3 to 4 L, ABG does not show any significant hypoxia, rapid Covid negative, await Covid PCR, possibly secondary fluid overload, chest x-ray no pneumonia, continue to monitor, wean oxygen as tolerated Acute kidney injury on chronic kidney disease, likely secondary to UTI, pyelonephritis, IV fluids as above, monitor urine output NSTEMI, type II, supply demand ischemia, trend troponins, 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 driver/monitor, EKG normal sinus rhythm on aspirin, Plavix, continue to monitor for chest pain Chronic pain, continue oxycodone, Dilaudid, gabapentin, tizanidine Pseudohyponatremia, secondary to elevated blood sugars, continue to monitor Hyperkalemia, potassium 5.2, continue to monitor, telemetry monitoring, no interventions for now Hypomagnesemia, 1.5, continue to monitor Status: Acute (2) Acute kidney injury: Status: Acute (3) Lactic acidosis: Status: Acute (4) NSTEMI (non-ST elevated myocardial infarction): Status: Acute (5) Hypoxia: Status: Acute (6) Below-knee amputation of right lower extremity: Status: Acute (7) Morbid obesity: Status: Chronic (8) Sepsis: Status: Acute (9) Acute pyelonephritis: Status: Acute Attestations Medical Necessity Statement*: Patient requires hospitalization for acute encephalopathy secondary to UTI, bilateral pyelonephritis, with sepsis, requiring inpatient admission, greater than 2 midnights Coding Level of Care Code Acute Lehr Tender for [facility] [place] Diagnoses Acute encephalopathy G93.40 Acute kidney injury N17.9 Lactic acidosis E87.2 NSTEMI (non-ST elevated myocardial infarction) I21.4 Hypoxia R09.02 Below-knee amputation of right lower extremity S88.111A Morbid obesity E66.01 Sepsis A41.9 Acute pyelonephritis N10
--- NOTE | 2021-05-21 15:53 | PC.PHAR ---
JOSE DID MED REC-DR ASKED ME TO DOUBLE CHECK TRESIBA FLEXTOUCH DIRECTIONS-RX FILLED ON 04/30/21 FOR TRESIBA FLEXTOUCH U200- 110 UNITS DAILY( 40 UNITS QAM AND 70 UNITS HS)-PT STATES FOR 3-4 WEEKS SINCE SHE HAS GOTTEN SICK SHE HAS BEEN TAKING 30 UNITS QAM AND 40 UNITS HS
[2021-05-21 16:13] LABS: Creatine Phosphokinase 28 U/L (26-192)
[2021-05-21 16:22] LABS: NT Pro B Type Natriuretic Pept 705 pg/mL (0-125)
[2021-05-21] MEDS: midodrine 5 mg TABLET 10 MG PO ×2 (17:19→23:42)
[2021-05-21 17:59] LABS: Troponin 5 6HR 66.21 ng/L (0-10)
[2021-05-21 18:00] LABS: Troponin 5 6HR Delta -7.79 ng/L (0-12)
--- NOTE | 2021-05-21 18:41 | PC.NURSE ---
Suppose to wear O2 but refuses to wear
[2021-05-21 20:52] LABS: Glucose Point of Care 175 mg/dL (70-110)
[2021-05-21] MEDS: gabapentin 400 mg Capsule 1200 MG PO (21:38)
[2021-05-21] MEDS: trazodone 50 mg Tablet PO (21:38)
[2021-05-21] MEDS: fluticasone nasal spray 16gm Btl 1 SPRAY INTRANASAL (21:42)
[2021-05-21] MEDS: enoxaparin 40 mg/0.4 mL Syringe SUBCUT (21:43)
[2021-05-21] MEDS: albuterol 8 gm MDI 1 PUFF INHALATION (22:30)
[2021-05-21] MEDS: sodium chloride 0.9% 1,000 ML 100 ML IV (22:49)
[2021-05-22] VITALS (13 sets, daily range): BP systolic 98–160; BP diastolic 63–84; PULSE 64–95; RESP 14–18; TEMP 36.9–37.1; O2SAT 90–95
[2021-05-22] MEDS: piperacillin-tazobactam 3.375 GM in sodium chloride 0.9% (plus) 50 ML IV ×3 (00:23→18:04)
--- NOTE | 2021-05-22 05:34 | PC.NURSE ---
Shift Note Frequent safety and comfort rounds continue. Orders and/or nursing care completed as indicated. Patient monitored for response to intervention and treatment(s). Education provided includes side effects of midodrine, metoprolol and losartan. Patient was a bit hypertensive when she got to [facility] floor from ER. Patient had midodrine and metoprolol ordered for the same time so the midodrine was going to be held and hospitalist was notified. This nurse rechecked patient's vital signs before administration of medication and patient was found to be a bit hypotensive with blood pressure of 105/57 so the metoprolol and the losartan were held and the midodrine was given. Patient verbalized understanding to how the medications work and side effects they could cause as well as why the metoprolol and the losartan were held. Patient rested well throughout the night with stable vital signs. Patient is currently resting comfortably in bed and watching television. Will continue to monitor.
[2021-05-22 06:50] LABS: Glucose Point of Care 153 mg/dL (70-110)
[2021-05-22] MEDS: albuterol 8 gm MDI 1 PUFF INHALATION ×3 (08:27→16:36)
[2021-05-22] MEDS: montelukast sodium 10 mg Tablet PO (09:04)
[2021-05-22] MEDS: aspirin 81 mg Chew Tablet PO (09:04)
[2021-05-22] MEDS: quetiapine 25 mg Tablet PO (09:04)
[2021-05-22] MEDS: gabapentin 400 mg Capsule 1200 MG PO ×3 (09:04→21:36)
[2021-05-22] MEDS: metoprolol tartrate 50 mg Tablet PO (09:04)
[2021-05-22] MEDS: citalopram 20 mg Tablet PO (09:04)
[2021-05-22] MEDS: clopidogrel 75 mg Tablet PO (09:04)
--- NOTE | 2021-05-22 09:04 | PC.CHAP ---
Pastoral Care Encounter/Spiritual Assessment Type of Contact [] Declined contract implementation analyst visit [] Patient/Family/Request visit [] Outpatient visit [] Follow-up visit [] Physician referral [] Code/Alert [x] Routine visit [] Staff referral [] Actively dying [x] Patient sleeping [] Family support [] [] Out of room [] Palliative care [] [] Receiving care in room [] Pre-surgical visit [] Trauma [] Long length of stay [] ICU visit [] Other: Relational/Emotional Strength [] Patient feels connected with others/family/visitors/staff [] Distress [] Loneliness/isolation [] Abandonment Spirituality of Patient [] Person of Susan [] Attends Sikh of their Susan [] Believes in Prayer [] Reads Bible or Protestant materials [] There are Spiritual issues to be addressed Energy Control Officer Interventions [] Prayer [] Active listening [] Non-anxious presence [] Spiritual/emotional support [] Crisis/trauma care [] Spiritual counseling [] Bereavement support [] Provided bereavement packet [] Provided Bible/devotional materials [] Provided toy/stuffed animal, coloring book to patient or family member [] Provided Communion [] Anointing/[place] [] Salvation [] Completed spiritual assessment [] Other: Impact on Illness or Injury [] Angry [] Fearful [] Anxious [] Often cries [] Exhaustion [] Unable to work [] Unable to attend samaritan [] Unable to walk/stand [] Unable to read [] Unable to drive [] Unable to eat/drink [] Unable to sleep [] Unable to be with family [] Patient intubated [] Other: Summary Time spent with patient
[2021-05-22] MEDS: pantoprazole DR 40 mg Tablet PO ×2 (09:05→18:11)
[2021-05-22] MEDS: tamsulosin 0.4 mg Capsule PO (09:05)
[2021-05-22] MEDS: losartan 50 mg Tablet PO (09:05)
[2021-05-22] MEDS: levothyroxine 50 mcg Tablet PO (09:05)
[2021-05-22] MEDS: pyridoxine 50 mg Tablet 25 MG PO (09:10)
[2021-05-22] MEDS: sodium chloride 0.9% 1,000 ML 100 ML IV (09:19)
[2021-05-22 09:55] LABS: Basophils % 0.2 %; Eosinophils # 1.5 10^3/uL (0.0-0.8); Eosinophils % 11.3 %; Hematocrit 38.9 % (37.0-47.0); Hemoglobin 12.6 g/dL (11.5-15.3); Lymphocytes # 1.6 10^3/uL (0.8-4.8); Lymphocytes % 12.3 %; Mean Corpuscular HGB Conc 32.4 g/dL (30.0-36.0); Mean Corpuscular Volume 92.6 fl (81-99); Mean Platelet Volume 10.2 fL (7.4-10.4); Monocytes # 0.7 10^3/uL (0.2-0.9); Monocytes % 5.4 %; Neutrophils % 69.8 %; Nucleated Red Blood Cells % 0 %; Platelet Count 328 10^3/cmm (130-400); White Blood Count 13.1 10^3/uL (4.0-10.0)
[2021-05-22 10:15] LABS: Lactic Sepsis W/Reflex 0.9 mmol/L (0.5-2.2)
[2021-05-22 10:26] LABS: NT Pro B Type Natriuretic Pept 466 pg/mL (0-125); Procalcitonin 0.28 ng/mL (0-0.5); Thyroid Stimulating Hormone 2.25 uIU/mL (0.27-4.20)
[2021-05-22 10:31] LABS: Estmated Average Glucose 186; Hemoglobin A1C 8.1 % (4.0-6.0)
[2021-05-22 10:37] LABS: Alanine Aminotransferase 9 U/L (0-33); Albumin Level 3.1 g/dL (3.5-5.2); Alkaline Phosphatase 123 IU/L (35-105); Anion Gap 17.7 (5-19); Aspartate Amino Transferase 9 U/L (0-32); Blood Urea Nitrogen 19 mg/dL (6-20); Calcium 8.4 mg/dL (8.5-10.5); Carbon Dioxide 22 mmol/L (22-29); Chloride 98 mmol/L (98-107); Globulin 3.7 g/dL (1.3-4.6); Glomerular Filtration Rate 35.9 mL/min (90-130); Glucose 179 mg/dL (65-115); Magnesium 1.7 mg/dL (1.7-2.3); Osmolality Calculated 283 mOsm/kg (285-295); Phosphorus 2.9 mg/dL (2.5-4.5); Potassium 4.7 mmol/L (3.5-5.1); Sodium 133 mmol/L (136-145); Total Bilirubin 0.4 mg/dL (0.15-1.2); Total Protein 6.8 g/dL (6.6-8.7)
[2021-05-22 11:49] LABS: Glucose Point of Care 163 mg/dL (70-110)
--- NOTE | 2021-05-22 12:40 | PC.NURSE ---
DETEMIR NOT SCANNING, CONFIRMED MED WITH [facility]. ENTERED MANUALLY.
--- NOTE | 2021-05-22 12:47 | PM.PN ---
Subjective Subjective: Interval history: Patient was seen this morning, she sitting up in bed, she tells me that she is feeling a lot better, her back pain has improved, no nausea, no vomiting, no lightheadedness, no dizziness, no fevers overnight Vitals/I&O/Wt Last Vital Signs Temp 98.5 F 05/22/21 12:00 Pulse 66 05/22/21 12:00 Resp 17 05/22/21 12:00 BP 98/63 05/22/21 12:00 Pulse Ox 95 05/22/21 12:00 05/21/21 05/22/21 05/22/21 22:59 06:59 14:59 Intake Total 530 / 5104.4 1240 / 1240 Output Total 950 / 950 Balance -420 / 4154.4 1240 / 1240 Weight last 48 hrs Weight 122.924 kg Weight 117.48 kg Physical Exam Const: COMMON NORMALS: no acute distress and patient oriented x3 Resp: COMMON NORMALS: normal respiratory effort, No retractions, No use of accessory muscles and clear to auscultation bilaterally AUSCULTATION: clear to auscultation bilaterally Cardio: COMMON NORMALS: regular rate, regular rhythm, S1 normal heart sound present and S2 normal heart sound present RATE: regular rate RHYTHM: regular rhythm HEART SOUNDS: S1 normal heart sound present and S2 normal heart sound present Extremity: COMMON NORMALS: no pedal edema NARRATIVE EXTREMITY EXAM: Left knee knee amputation Neuro: COMMON NORMALS: patient oriented x3 Psych: COMMON NORMALS: mental status grossly normal Data : 05/22/21 09:44 05/22/21 09:44 Micro: Microbiology 05/21/21 11:19 Gram Stain - Final Sputum - Expectorated Sputum Sputum Culture - Preliminary A&P Assessment and plan (1) Acute encephalopathy: -With sepsis secondary to urinary tract infection, acute pyelonephritis -Sepsis markers, hypotensive initially when she came in, blood pressure 70s over 50s, improved to 110/80 with sepsis fluid bolus, has received Zosyn, on 3 L, -With the acute kidney injury, improved to 1.5 -With type II NSTEMI, supply demand ischemia -With elevated lactic acid, 3.9, now 0.9 -WBC 13.1, pro-Conor 0.28, CRP 147, UA indicated a UTI, CT scan of the abdomen pelvis shows no obstructing renal or ureteral calculi, no hydronephrosis, bilateral perinephric edema, has bilateral flank pain -Currently alert to person, to place, and to time, encephalopathy resolved Plan: -Admit to general medical floors -Decrease IV hydration -Zosyn for antibiotic coverage -Follow blood cultures, urine cultures -Monitor mentation -Full code -Lovenox for DVT prophylaxis Insulin-dependent type 2 diabetes mellitus -Patient has been using Tresiba 30 units morning, 40 units in the evening -For now continue moderate dose sliding scale, Levemir 15 units twice daily Hypoxia, now on room air, ABG does not show any significant hypoxia, rapid Covid negative, await Covid PCR, possibly secondary fluid overload, chest x-ray no pneumonia, continue to monitor, wean oxygen as tolerated Acute kidney injury on chronic kidney disease, likely secondary to UTI, pyelonephritis, IV fluids as above, monitor urine output NSTEMI, type II, supply demand ischemia, trend troponins, consulting sme, EKG normal sinus rhythm on aspirin, Plavix, continue to monitor for chest pain Chronic pain, continue oxycodone, Dilaudid, gabapentin, tizanidine Pseudohyponatremia, secondary to elevated blood sugars, continue to monitor Hyperkalemia, potassium 4.7, continue to monitor, telemetry monitoring, no interventions for now Hypomagnesemia, 1.7, continue to monitor Plan for today, decrease fluids, continue antibiotics, continue to monitor mentation, follow cultures Status: Acute (2) Acute kidney injury: Status: Acute (3) Lactic acidosis: Status: Acute (4) NSTEMI (non-ST elevated myocardial infarction): Status: Acute (5) Hypoxia: Status: Acute (6) Below-knee amputation of right lower extremity: Status: Acute (7) Morbid obesity: Status: Chronic (8) Sepsis: Status: Acute (9) Acute pyelonephritis: Status: Acute Attestations Medical Necessity Statement*: Patient requires hospitalization for acute encephalopathy secondary to UTI, pyelonephritis Coding Level of Care Code Acute Family Resource Coordinator for [facility] [place] Diagnoses Acute encephalopathy G93.40 Acute kidney injury N17.9 Lactic acidosis E87.2 NSTEMI (non-ST elevated myocardial infarction) I21.4 Hypoxia R09.02 Below-knee amputation of right lower extremity S88.111A Morbid obesity E66.01 Sepsis A41.9 Acute pyelonephritis N10
[2021-05-22 18:10] LABS: Glucose Point of Care 207 mg/dL (70-110)
--- NOTE | 2021-05-22 19:58 | USCV_ITS ---
Angeles Valdes Age: 55 Gender: F : 1965 Exam Date: 05/22/2021 12:16 Ordering Phys: Srinivasa Gould MD Technologist: Rhea Zaragoza [place]am [place] [facility] [place]: SHORTNESS OF BREATH BP: 117 / 80 HR: 67 Rhythm: Sinus Technical Quality: Adequate MEASUREMENTS (Male / Female) Normal Values 2D ECHO LV Diastolic Diameter PLAX 4.2 cm 4.2 - 5.9 / 3.9 - 5.3 cm LV Systolic Diameter PLAX 2.8 cm IVS Diastolic Thickness 1.6 cm 0.6 - 1.0 / 0.6 - 0.9 cm IVS Systolic Thickness 1.8 cm LVPW Diastolic Thickness 1.6 cm 0.6 - 1.0 / 0.6 - 0.9 cm LVPW Systolic Thickness 1.9 cm RV Chamber Size 2.7 cm LVOT Diameter 2.0 cm LV Ejection Fraction 2D Teich 65.8 % LV Ejection Fraction MOD 2C 63.3 % LV Ejection Fraction 2C AL 61.6 % LA Diameter 3.3 cm LA Width 3.7 cm LA Height 4.2 cm RA Width 3.4 cm RA Height 4.2 cm Aorta at Sinotubular Diameter 2.6 cm M-MODE Aortic Annulus Diameter 3.8 cm LA Ao Ratio MM 0.8 DOPPLER AV Peak Velocity 141.0 cm/s LVOT Peak Velocity 110.0 cm/s AV Area Cont Eq vti 2.4 cm squared AV Area Cont Eq pk 2.5 cm squared MV Area PHT 5.0 cm squared Mitral E to A Ratio 1.2 MV E' Velocity 57.5 cm/s Mitral E to MV E' Ratio 12.2 Mitral E to LV E' Lateral Ratio 11.7 Mitral E to LV E' Septal Ratio 12.6 TR Peak Velocity 246.3 cm/s TR Peak Gradient 24.3 mmHg TV Peak E Velocity 46.0 cm/s Right Atrial Pressure 3.0 mmHg Pulmonary Artery Systolic Pressu 27.3 mmHg PV Peak Velocity 90.0 cm/s RV Acceleration Time 0.1 s RV Ejection Time 0.3 s RV AcT/ET 0.4 FINDINGS Left Ventricle Normal left ventricular cavity size. Normal left ventricular systolic function. No regional wall motion abnormalities. Left ventricular ejection fraction is estimated at 60 %. Grade I/IV diastolic dysfunction (abnormal relaxation filling pattern), normal to mildly elevated filling pressures. Right Ventricle The right ventricle is normal in size and function. Right Atrium The right atrium is normal in size. Left Atrium The left atrium is normal in size. Mitral Valve Structurally normal mitral valve without significant stenosis or prolapse. There is no mitral regurgitation. Aortic Valve Structurally normal aortic valve without significant sclerosis or stenosis. There is no aortic regurgitation. Tricuspid Valve Structurally normal tricuspid valve without significant stenosis or regurgitation. Pulmonary artery systolic pressure is normal. Pulmonic Valve Structurally normal pulmonic valve without significant stenosis. There is no pulmonic regurgitation. Pericardium Normal pericardium without effusion. Aorta Normal ascending aorta dimension. CONCLUSIONS 1-Normal left ventricular cavity size. Normal left ventricular systolic function. No regional wall motion abnormalities. Left ventricular ejection fraction is estimated at 60 %. Grade I/IV diastolic dysfunction (abnormal relaxation filling pattern), normal to mildly elevated filling pressures. 2-No significant valve abnormalities. 3-There is no pericardial effusion. 4-Pulmonary artery systolic pressure is within normal limits. 5-Right atrial pressure is around 5 mm of mercury. 6-No significant change since the prior echocardiogram study of 07/13/2014. Andriy Hawthorne MD (Electronically Signed) Final Date: 22 May 2021 14:45 S
[2021-05-22] MEDS: fluticasone nasal spray 16gm Btl 1 SPRAY INTRANASAL (20:59)
[2021-05-22] MEDS: oxyCODONE 5 mg IR Tab/Cap PO (21:35)
[2021-05-22] MEDS: enoxaparin 40 mg/0.4 mL Syringe SUBCUT (21:35)
[2021-05-22] MEDS: trazodone 50 mg Tablet PO (21:36)
[2021-05-22 22:06] LABS: Glucose Point of Care 208 mg/dL (70-110)
[2021-05-23] VITALS (9 sets, daily range): BP systolic 111–159; BP diastolic 69–91; PULSE 72–89; RESP 14–18; TEMP 36.9–37.1; O2SAT 89–98
[2021-05-23] MEDS: sodium chloride 0.9% 1,000 ML 50 ML IV (00:33)
[2021-05-23] MEDS: piperacillin-tazobactam 3.375 GM in sodium chloride 0.9% (plus) 50 ML IV ×2 (00:37→09:42)
[2021-05-23 03:26] LABS: Hematocrit 34.3 % (37.0-47.0); Hemoglobin 10.8 g/dL (11.5-15.3); Mean Corpuscular HGB Conc 31.5 g/dL (30.0-36.0); Mean Corpuscular Hemoglobin 29.7 pg (28.0-34.0); Mean Corpuscular Volume 94.2 fl (81-99); Mean Platelet Volume 10.6 fL (7.4-10.4); Platelet Count 328 10^3/cmm (130-400); Red Blood Count 3.64 10^6/uL (4.1-5.3); White Blood Count 11.8 10^3/uL (4.0-10.0)
[2021-05-23 03:45] LABS: Alanine Aminotransferase 8 U/L (0-33); Albumin Level 2.9 g/dL (3.5-5.2); Alkaline Phosphatase 99 IU/L (35-105); Anion Gap 13.6 (5-19); Aspartate Amino Transferase 12 U/L (0-32); Blood Urea Nitrogen 13 mg/dL (6-20); C Reactive Protein 59.2 mg/L (0.0-4.9); Calcium 8.1 mg/dL (8.5-10.5); Carbon Dioxide 26 mmol/L (22-29); Chloride 105 mmol/L (98-107); Globulin 3.1 g/dL (1.3-4.6); Glomerular Filtration Rate 46.5 mL/min (90-130); Glucose 144 mg/dL (65-115); Magnesium 1.8 mg/dL (1.7-2.3); Osmolality Calculated 293 mOsm/kg (285-295); Phosphorus 2.5 mg/dL (2.5-4.5); Potassium 4.6 mmol/L (3.5-5.1); Sodium 140 mmol/L (136-145); Total Bilirubin 0.2 mg/dL (0.15-1.2)
[2021-05-23 03:50] LABS: Procalcitonin 0.19 ng/mL (0-0.5)
[2021-05-23 04:00] LABS: Absolute Eosinophils 1.8 10^3/cmm (0.0-0.7); Absolute Neutrophil 6.8 10^3/cmm (1.4-6.5); Absolute Segmented Neutrophil 6.8 10/cmm (1.6-7.1); Eosinophils 16 %; Lymphocytes 18 %; Lymphocytes Absolute 2.5 10^3/cmm (1.2-3.4); Monocytes Absolute 0.4 10^3/cmm (0.1-0.6); Platelet Estimate Normal (Normal); Segmented Neutrophils 58 %; Slide Review Slide Review Perform; Total Cells Counted 100 (0-100)
[2021-05-23] MEDS: albuterol 8 gm MDI 1 PUFF INHALATION (08:17)
[2021-05-23] MEDS: gabapentin 400 mg Capsule 1200 MG PO (09:38)
[2021-05-23] MEDS: pyridoxine 50 mg Tablet 25 MG PO (09:39)
[2021-05-23] MEDS: tamsulosin 0.4 mg Capsule PO (09:40)
[2021-05-23] MEDS: montelukast sodium 10 mg Tablet PO (09:40)
[2021-05-23] MEDS: citalopram 20 mg Tablet PO (09:40)
[2021-05-23] MEDS: pantoprazole DR 40 mg Tablet PO (09:40)
[2021-05-23] MEDS: metoprolol tartrate 50 mg Tablet PO (09:40)
[2021-05-23] MEDS: quetiapine 25 mg Tablet PO (09:40)
[2021-05-23] MEDS: losartan 50 mg Tablet PO (09:41)
[2021-05-23] MEDS: clopidogrel 75 mg Tablet PO (09:41)
[2021-05-23] MEDS: aspirin 81 mg Chew Tablet PO (09:41)
[2021-05-23] MEDS: levothyroxine 50 mcg Tablet PO (09:41)
[2021-05-23] MEDS: levoFLOXacin 750 mg Tablet PO (10:24)
--- NOTE | 2021-05-23 11:02 | PM.DCS ---
Discharge Providers Date of Admission: 05/21/21 12:50 Date of Discharge: May 23, 2021 Attending Provider at Admission: Srinivasa Gould MD Attending Provider at Discharge: Srinivasa Gould MD Primary Care Provider: Dayne Greene MD Diagnoses at Discharge Discharge Diagnosis (1) Acute encephalopathy: Status: Acute (2) Acute kidney injury: Status: Acute (3) Lactic acidosis: Status: Acute (4) NSTEMI (non-ST elevated myocardial infarction): Status: Acute (5) Hypoxia: Status: Acute (6) Below-knee amputation of right lower extremity: Status: Acute (7) Morbid obesity: Status: Chronic (8) Sepsis: Status: Acute (9) Acute pyelonephritis: Status: Acute Reason for Visit Reason for Visit: AMS Hospital Course Hospital Course Angeles Valdes is a 55 year old female chronic pain, who is on oxycodone 5 every 8 as needed/Dilaudid 4 mg 4 times daily, gabapentin, tizanidine, insulin-dependent type 2 diabetes mellitus, history of right BKA, hypertension, hyperlipidemia, history of CAD status post stenting 2 years ago, GERD, recent hospitalization for toxic encephalopathy secondary to polypharmacy and viral meningitis on acyclovir, morbid obesity, history of recurrent urinary tract infections seen by Dr. Sauceda, who presents to [facility] due to complaints of confusion, and bilateral back pain. Patient was admitted to [facility] for acute encephalopathy with sepsis secondary to UTI and acute pyelonephritis, patient required sepsis fluid bolus, broad-spectrum antibiotic therapy, and clinically monitored, CT scan was did show radiographic evidence of bilateral perinephric edema, no ureteral colliculi, no hydronephrosis. She is monitored on general medical floors, received IV hydration, broad-spectrum antibiotic therapy, clinically monitored. Patient's clinical condition improved, she is alert oriented x3, remained afebrile, back pain improved, blood cultures remain unremarkable, unfortunately urine cultures were not drawn in the emergency room. I will discharge patient on Levaquin for 7 remaining days, with close follow-up with Dr. Sauceda as outpatient, she is to resume her Macrobid for UTI prophylaxis thereafter. For her type 2 diabetes mellitus, I have reduced her Tresiba dose down to 15 units the morning, 15 units in the evening, monitor blood sugars 3 times daily, record in blood sugar log, bring to primary care physician's office. If her blood sugars greater than 500 call primary care. If blood sugar is less than 60, drink or juice or eat a hard candy go to emergency room. Physical Exam Const: COMMON NORMALS: no acute distress and patient oriented x3 HENMT: COMMON NORMALS: normocephalic HEAD & SCALP: normocephalic Resp: COMMON NORMALS: normal respiratory effort, No retractions, No use of accessory muscles and clear to auscultation bilaterally AUSCULTATION: clear to auscultation bilaterally Cardio: COMMON NORMALS: regular rate, regular rhythm, S1 normal heart sound present and S2 normal heart sound present RATE: regular rate RHYTHM: regular rhythm HEART SOUNDS: S1 normal heart sound present and S2 normal heart sound present GI: COMMON NORMALS: Normal to inspection, nondistended, normoactive bowel sounds present, Soft to palpation, non-tender and no bruits PALPATION: Yes Soft to palpation Extremity: COMMON NORMALS: no pedal edema Neuro: COMMON NORMALS: patient oriented x3 Psych: COMMON NORMALS: mental status grossly normal Discharge Data Data Completed and Pending: Completed Studies During Hospitalization Category Date Time Status CT kidney stone [id number] Stat Cat Scan 05/21/21 12:44 Completed XR chest 1V milagros ble [id number] Stat Exams 05/21/21 10:58 Completed CV. echo complete * [id number] Routine Ultrasound 05/22/21 19:58 Completed Pending at discharge Category Date Time Status C Reactive Protei n AM LABS Lab 05/24/21 04:00 Ordered C Reactive Protei n AM LABS Lab 05/25/21 04:00 Ordered Complete Blood Co unt w/Auto AM LABS Lab 05/24/21 04:00 Ordered Complete Blood Co unt w/Auto AM LABS Lab 05/25/21 04:00 Ordered Comprehensive Met abolic Panel AM LA BS Lab 05/24/21 04:00 Ordered Comprehensive Met abolic Panel AM LA BS Lab 05/25/21 04:00 Ordered Coronavirus Test [facility] Stat Lab 05/21/21 11:15 Received Magnesium AM LABS Lab 05/24/21 04:00 Ordered Magnesium AM LABS Lab 05/24/21 04:00 Ordered Magnesium AM LABS Lab 05/25/21 04:00 Ordered Phosphorus AM LAB S Lab 05/24/21 04:00 Ordered Phosphorus AM LAB S Lab 05/24/21 04:00 Ordered Phosphorus AM LAB S Lab 05/25/21 04:00 Ordered Procalcitonin AM LABS Lab 05/24/21 04:00 Ordered Procalcitonin AM LABS Lab 05/25/21 04:00 Ordered Urine Culture Sta t Lab 05/23/21 09:37 Uncollected Labs from last 24 hours 05/23/21 05/23/21 05/22/21 02:25 02:25 21:30 WBC 11.8 H RBC 3.64 L Hgb 10.8 L Hct 34.3 L MCV 94.2 MCH 29.7 MCHC 31.5 RDW 20.0 H Plt Count 328 MPV 10.6 H Lymph % (Auto) Not Reportable Isabela % (Auto) Not Reportable Lymph # (Auto) Not Reportable Isabela # (Auto) Not Reportable Total Counted 100 Atypical Lymphs % 3.0 Absolute Neutrophi ls 6.8 H Segmented Neutroph ils 58 Abs Segm Neuts (Ma n) 6.8 Band Neutrophils 0.0 Abs Band Neuts (Ma n) 0.0 Absolute Lymphocyt es 2.5 Lymphocytes (Manua l) 18 Monocytes (Manual) 3.0 Absolute Monocytes 0.4 Eosinophils (Manua l) 16 Absolute Eosinophi ls 1.8 H Basophils (Manual) 0.0 Absolute Basophils 0.0 Metamyelocytes 2.0 Platelet Estimate Normal Sodium 140 Potassium 4.6 Chloride 105 Carbon Dioxide 26 Anion Gap 13.6 BUN 13 Creatinine 1.2 H GFR Calculation 46.5 L Glucose 144 H POC Glucose 208 H Calculated Osmolal ity 293 Calcium 8.1 L Phosphorus 2.5 Magnesium 1.8 Total Bilirubin 0.2 AST 12 ALT 8 Alkaline Phosphata se 99 C-Reactive Protein 59.2 H Total Protein 6.0 L Albumin 2.9 L Globulin 3.1 Procalcitonin 0.19 05/22/21 05/22/21 17:02 11:40 WBC RBC Hgb Hct MCV MCH MCHC RDW Plt Count MPV Lymph % (Auto) Isabela % (Auto) Lymph # (Auto) Isabela # (Auto) Total Counted Atypical Lymphs % Absolute Neutrophi ls Segmented Neutroph ils Abs Segm Neuts (Ma n) Band Neutrophils Abs Band Neuts (Ma n) Absolute Lymphocyt es Lymphocytes (Manua l) Monocytes (Manual) Absolute Monocytes Eosinophils (Manua l) Absolute Eosinophi ls Basophils (Manual) Absolute Basophils Metamyelocytes Platelet Estimate Sodium Potassium Chloride Carbon Dioxide Anion Gap BUN Creatinine GFR Calculation Glucose POC Glucose 207 H 163 H Calculated Osmolal ity Calcium Phosphorus Magnesium Total Bilirubin AST ALT Alkaline Phosphata se C-Reactive Protein Total Protein Albumin Globulin Procalcitonin Vitals: Last Vital Signs Temp 98.5 F 05/23/21 08:00 Pulse 72 05/23/21 08:18 Resp 18 05/23/21 09:39 BP 159/71 05/23/21 09:41 Pulse Ox 98 05/23/21 09:39 Discharge Plan Discharge Patient Disposition: Home Condition: Stable Prescriptions: New levofloxacin 750 mg tablet 750 mg PO DAILY 7 Days Qty: 7 RF: 0 Continued fluticasone propion-salmeterol [Advair Diskus] 100-50 mcg/dose blister with device 1 puff INHALATION BID RF: 0 amlodipine 10 mg tablet 5 mg PO DAILY RF: 0 aspirin 81 mg tablet,chewable 81 mg PO DAILY RF: 0 fluticasone propionate 50 mcg/actuation spray,suspension 1 spray INTRANASAL Q12H RF: 0 losartan 50 mg tablet 50 mg PO BID RF: 0 montelukast 10 mg tablet 10 mg PO DAILY RF: 0 citalopram 20 mg tablet 20 mg PO DAILY RF: 0 levothyroxine 100 mcg tablet 50 mcg PO DAILY RF: 0 clopidogrel 75 mg tablet 75 mg PO DAILY RF: 0 melatonin 10 mg capsule 10 mg PO DAILY RF: 0 tizanidine 4 mg tablet 4 mg PO TID PRN (Reason: muscle spasm) Qty: 90 RF: 1 gabapentin 600 mg tablet 1,200 mg PO TID Qty: 180 RF: 1 oxycodone 5 mg tablet 5 mg PO Q8H PRN (Reason: pain) 30 Days Qty: 90 RF: 0 esomeprazole magnesium 40 mg capsule,delayed release(DR/EC) 40 mg PO BID RF: 0 metoprolol tartrate 50 mg tablet 50 mg PO BID RF: 0 potassium chloride 20 mEq tablet extended release 20 meq PO BID RF: 0 tamsulosin 0.4 mg capsule 0.4 mg PO DAILY Qty: 30 RF: 6 pyridoxine (vitamin B6) [Vitamin B-6] 50 mg Tablet 25 mg PO DAILY RF: 0 albuterol sulfate 90 mcg/actuation HFA aerosol inhaler 90 mcg INHALATION QID RF: 0 Seroquel 25 mg Tablet 25 mg PO DAILY RF: 0 trazodone 50 mg tablet 50 mg PO BEDTIME RF: 0 hydromorphone 4 mg tablet 4 mg PO QID PRN (Reason: pain) RF: 0 Novolog Flexpen U-100 Insulin 100 unit/mL (3 mL) insulin pen See Rx Instructions .ROUTE .COMPLEX RF: 0 nitrofurantoin monohyd/m-cryst [Macrobid] 100 mg capsule 100 mg PO BID Qty: 60 RF: 2 Changed Tresiba FlexTouch U-200 200 unit/mL (3 mL) insulin pen See Rx Instructions .ROUTE .COMPLEX Qty: 0 RF: 0 Discontinued pantoprazole 40 mg tablet,delayed release (DR/EC) 40 mg PO DAILY RF: 0 celecoxib 200 mg capsule 200 mg PO BID RF: 0 Discharge Orders: Discharge Order (Routine); Ordered 05/23/21 Ordered By: Srinivasa Gould Referrals: Elvis Sauceda MD [Physician] - 1 week Dayne Greene MD [Primary Care Provider] - 4-7 days Discharge Diet: Diabetic Discharge Activity: Resume usual activity Patient Instructions: Opioid Safety Activity Restrictions/Additional Instructions: -For your type 2 diabetes mellitus, I have reduced her Tresiba down to 15 units in the morning, 15 units in the evening -Monitor blood sugars carefully, record blood sugars, bring to primary care physician's office in 1 week -If blood sugar greater than 500 call primary care -If blood sugar less than 60, drink or juice or eat hard candy go to emergency room -Please drink plenty of electrolyte balance fluids -Take Levaquin as prescribed for infection -Follow-up with Dr. Sauceda Discharge Attestations Time Spent in Discharge Care*: less than 30 min Quality Metrics Clinical Quality Measures During this hospital stay, did patient experience: None Coding Level of Care Code Acute Chg FW DC note Diagnoses Acute encephalopathy G93.40 Acute kidney injury N17.9 Lactic acidosis E87.2 NSTEMI (non-ST elevated myocardial infarction) I21.4 Hypoxia R09.02 Below-knee amputation of right lower extremity S88.111A Morbid obesity E66.01 Sepsis A41.9 Acute pyelonephritis N10
--- NOTE | 2021-05-23 11:46 | PC.RESP ---
RT Shift Note Frequent safety and respiratory rounds continue. Orders completed as indicated. Patient monitored pre and post treatments throughout shift. Patient [Did.] tolerate treatments appropriately. Condition [I.DidNotChange]. Patient and/or sales representative education courses educated on respiratory treatment and medications. Patient and/or sales representative education courses [VERBALIZED UNDERSTANDING]. Will continue to monitor patient progress.
[2021-05-23 11:49] LABS: Glucose Point of Care 163 mg/dL (70-110)
[2021-05-23 11:49] LABS: Glucose Point of Care 343 mg/dL (70-110)
[2021-05-23 16:06] LABS: Coronavirus Test Green County Not Detected
--- NOTE | 2021-05-23 16:38 | PC.RESP ---
SMOKING CESSATION INFORMATION SENT TO PATIENT.
== END 2021-05-23 12:42 | disposition home health service (06) | DRG 871 ==
LOC: ER 10:43 → ER IP 16:52 → MEDSURG 17:10
PROVIDERS: Admitting Provider Family Medicine; Emergency Provider Family Medicine; PCP Family Medicine; Visit Provider Family Medicine
DX: A41.9 Sepsis, unspecified organism (principal); G93.41 Metabolic encephalopathy; I21.A1 Myocardial infarction type 2; N39.0 Urinary tract infection, site not specified; N10 Acute pyelonephritis; N17.9 Acute kidney failure, unspecified; E87.2 Acidosis; E11.22 Type 2 diabetes mellitus with diabetic chronic kidney disease; I12.9 Hypertensive chronic kidney disease with stage 1 through stage 4 chronic kidney disease, or unspecified chronic kidney disease; N18.9 Chronic kidney disease, unspecified; I95.9 Hypotension, unspecified; E87.5 Hyperkalemia; E83.42 Hypomagnesemia; E11.42 Type 2 diabetes mellitus with diabetic polyneuropathy; E66.01 Morbid (severe) obesity due to excess calories; G47.33 Obstructive sleep apnea (adult) (pediatric); F32.9 Major depressive disorder, single episode, unspecified; M48.061 Spinal stenosis, lumbar region without neurogenic claudication; M47.816 Spondylosis without myelopathy or radiculopathy, lumbar region; R09.02 Hypoxemia; G89.29 Other chronic pain; Z68.38 Body mass index [BMI] 38.0-38.9, adult; Z89.511 Acquired absence of right leg below knee; Z87.828 Personal history of other (healed) physical injury and trauma; Z87.440 Personal history of urinary (tract) infections; Z87.442 Personal history of urinary calculi; Z91.81 History of falling; Z79.4 Long term (current) use of insulin; Z79.82 Long term (current) use of aspirin; Z79.02 Long term (current) use of antithrombotics/antiplatelets; Z79.891 Long term (current) use of opiate analgesic
CPT/HCPCS: 36415; 36416; 36600; 71045; 74176; 80051; 80053; 81001; 82009; 82330; 82550; 82805; 82962; 83036; 83605; 83735; 83880; 84100; 84145; 84443; 84484; 85007; 85025; 86140; 87070; 87205; 87426; 87635; 93005; 93306; 94640; 94664; 96365; 96372; 96375; 99285; J1650; J1815; J2270; J2405; J2543; J3535; J7030

== ENCOUNTER → 2021-05-30 16:11 | Outpatient (BNVA) | payer MEDICARE, MEDICAID, SELFPAY | PROVIDERS: PCP Family Medicine; Visit Provider Urology | DX: N12 Tubulo-interstitial nephritis, not specified as acute or chronic (principal); N20.0 Calculus of kidney; N39.0 Urinary tract infection, site not specified | CPT/HCPCS: 81003 ==

== ENCOUNTER → 2021-06-27 13:08 | Outpatient (BNVA) | payer MEDICARE, MEDICAID, SELFPAY | PROVIDERS: PCP Family Medicine; Visit Provider Nurse Practitioner | DX: M47.816 Spondylosis without myelopathy or radiculopathy, lumbar region (principal); E13.610 Other specified diabetes mellitus with diabetic neuropathic arthropathy; S88.111A Complete traumatic amputation at level between knee and ankle, right lower leg, initial encounter; E66.01 Morbid (severe) obesity due to excess calories; X58.XXXA Exposure to other specified factors, initial encounter; Z91.81 History of falling; Z79.891 Long term (current) use of opiate analgesic; Z68.37 Body mass index [BMI] 37.0-37.9, adult | CPT/HCPCS: 99213 ==

== ENCOUNTER → 2021-08-30 10:18 | Outpatient (BNVA) | payer MEDICARE, MEDICAID, SELFPAY | PROVIDERS: PCP Family Medicine; Visit Provider Anesthesiology | DX: G89.29 Other chronic pain (principal); M47.816 Spondylosis without myelopathy or radiculopathy, lumbar region; M54.2 Cervicalgia; E13.610 Other specified diabetes mellitus with diabetic neuropathic arthropathy; S88.111D Complete traumatic amputation at level between knee and ankle, right lower leg, subsequent encounter; Z91.81 History of falling; F17.210 Nicotine dependence, cigarettes, uncomplicated; Z79.899 Other long term (current) drug therapy; Z79.891 Long term (current) use of opiate analgesic; Z71.6 Tobacco abuse counseling; X58.XXXD Exposure to other specified factors, subsequent encounter; Z79.4 Long term (current) use of insulin | CPT/HCPCS: 99214 ==

== ENCOUNTER → 2021-12-28 12:54 | Outpatient (BNVA) | payer MEDICARE, MEDICAID, SELFPAY | PROVIDERS: PCP Family Medicine; Visit Provider Surgery | DX: E11.622 Type 2 diabetes mellitus with other skin ulcer (principal); I96 Gangrene, not elsewhere classified; L97.821 Non-pressure chronic ulcer of other part of left lower leg limited to breakdown of skin; F17.210 Nicotine dependence, cigarettes, uncomplicated; Z89.511 Acquired absence of right leg below knee | CPT/HCPCS: 11042; 99213 ==

== ENCOUNTER → 2021-12-31 13:39 | Outpatient (BNVA) | payer MEDICARE, MEDICAID, SELFPAY | PROVIDERS: PCP Family Medicine; Visit Provider Podiatrist Foot & Ankle Surgery | DX: E11.21 Type 2 diabetes mellitus with diabetic nephropathy; M77.52 Other enthesopathy of left foot and ankle; Z89.412 Acquired absence of left great toe; Z89.511 Acquired absence of right leg below knee; F17.210 Nicotine dependence, cigarettes, uncomplicated | CPT/HCPCS: 20600; 73630; J1100; J3301; J3490 ==

== ENCOUNTER → 2022-01-04 15:10 | Outpatient (BNVA) | payer MEDICARE, MEDICAID, SELFPAY | PROVIDERS: PCP Family Medicine; Visit Provider Surgery | DX: E11.622 Type 2 diabetes mellitus with other skin ulcer (principal); L97.821 Non-pressure chronic ulcer of other part of left lower leg limited to breakdown of skin; I96 Gangrene, not elsewhere classified; F17.210 Nicotine dependence, cigarettes, uncomplicated | CPT/HCPCS: 11042 ==

== ENCOUNTER → 2022-01-11 14:17 | Outpatient (BNVA) | payer MEDICARE, MEDICAID, SELFPAY | PROVIDERS: PCP Family Medicine; Visit Provider Emergency Medicine | DX: E11.621 Type 2 diabetes mellitus with foot ulcer (principal); L97.821 Non-pressure chronic ulcer of other part of left lower leg limited to breakdown of skin; I96 Gangrene, not elsewhere classified; F17.210 Nicotine dependence, cigarettes, uncomplicated | CPT/HCPCS: 11042 ==

== ENCOUNTER → 2022-01-18 09:06 | Outpatient (BNVA) | payer MEDICARE, MEDICAID, SELFPAY | PROVIDERS: PCP Family Medicine; Visit Provider Surgery | DX: E11.622 Type 2 diabetes mellitus with other skin ulcer (principal); L97.821 Non-pressure chronic ulcer of other part of left lower leg limited to breakdown of skin; I96 Gangrene, not elsewhere classified; F17.210 Nicotine dependence, cigarettes, uncomplicated | CPT/HCPCS: 15271; A6206; Q4196 ==

== ENCOUNTER → 2022-01-25 09:22 | Outpatient (BNVA) | payer MEDICARE, MEDICAID, SELFPAY | PROVIDERS: PCP Family Medicine; Visit Provider Nurse Practitioner Family | DX: E11.622 Type 2 diabetes mellitus with other skin ulcer (principal); L97.821 Non-pressure chronic ulcer of other part of left lower leg limited to breakdown of skin; I96 Gangrene, not elsewhere classified; F17.210 Nicotine dependence, cigarettes, uncomplicated | CPT/HCPCS: 11042; A6206 ==

== ENCOUNTER → 2022-01-29 16:30 | Outpatient (BNVA) | payer MEDICARE, MEDICAID, SELFPAY | PROVIDERS: PCP Family Medicine; Visit Provider Obstetrics & Gynecology | DX: N90.7 Vulvar cyst (principal) | CPT/HCPCS: 88305 ==

== ENCOUNTER → 2022-02-01 11:00 | Outpatient (BNVA) | payer MEDICARE, MEDICAID, SELFPAY | PROVIDERS: PCP Family Medicine; Visit Provider Surgery | DX: E11.622 Type 2 diabetes mellitus with other skin ulcer (principal); L97.821 Non-pressure chronic ulcer of other part of left lower leg limited to breakdown of skin; I96 Gangrene, not elsewhere classified; F17.210 Nicotine dependence, cigarettes, uncomplicated | CPT/HCPCS: 15271; A6206; Q4196 ==

== ENCOUNTER → 2022-02-08 12:56 | Outpatient (BNVA) | payer MEDICARE, MEDICAID, SELFPAY | PROVIDERS: PCP Family Medicine; Visit Provider Surgery | DX: E11.622 Type 2 diabetes mellitus with other skin ulcer (principal); L97.821 Non-pressure chronic ulcer of other part of left lower leg limited to breakdown of skin; I96 Gangrene, not elsewhere classified | CPT/HCPCS: 15271; A6206; A6250; Q4196 ==

== ENCOUNTER → 2022-02-15 13:03 | Outpatient (BNVA) | payer MEDICARE, MEDICAID, SELFPAY | PROVIDERS: PCP Family Medicine; Visit Provider Surgery | DX: E11.621 Type 2 diabetes mellitus with foot ulcer (principal); L97.821 Non-pressure chronic ulcer of other part of left lower leg limited to breakdown of skin; I96 Gangrene, not elsewhere classified | CPT/HCPCS: 99212 ==

== ENCOUNTER → 2022-02-26 13:18 | Outpatient (BNVA) | payer MEDICARE, MEDICAID, SELFPAY | PROVIDERS: PCP Family Medicine; Visit Provider Urology | DX: N30.20 Other chronic cystitis without hematuria (principal) | CPT/HCPCS: 51798; 99213 ==

== ENCOUNTER 2022-03-29 00:53 | Inpatient (IN) | payer MEDICARE, MEDICAID, SELFPAY ==
[2022-03-29] VITALS (47 sets, daily range): BP systolic 76–176; BP diastolic 44–109; PULSE 43–97; RESP 12–22; TEMP 36.8–36.9; O2SAT 86–100; BMI 36.7
--- NOTE | 2022-03-29 01:05 | XRR_ITS ---
PROCEDURE INFORMATION: Exam: XR Chest Exam date and time: 03/29/2022 1:40 AM Age: 56 years old Clinical indication: Shortness of breath; Additional info: Short of breath TECHNIQUE: Imaging protocol: Radiologic exam of the chest. Views: 1 view. COMPARISON: 1. CR XR chest 1V portable [id number] 05/21/2021 10:59 AM 2. CR XR chest 1V portable [id number] 04/17/2021 6:34 PM 3. CR (CHEST, ) 03/31/2021 1:[address] [place] [id number] 03/27/2021 1:56 PM FINDINGS: Lungs: Questionable mild ground-glass densities in the lung bases. The mid and upper lungs are clear. Pleural spaces: No pneumothorax. No pleural effusion. Heart/Mediastinum: The heart is mildly enlarged for size slightly worsened compared to prior exam. Bones/joints: Postsurgical changes in the proximal right humerus. XR/XR chest 1V portable [id number] IMPRESSION: Mild cardiomegaly with questionable mild ground-glass densities in the lung bases, which could be due to pulmonary edema versus possible pneumonia.
--- NOTE | 2022-03-29 01:06 | ECG_ITS ---
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 Measurements Intervals [place] Rate: 44 P: AL: QRS: -17 QRSD: 170 T: 15 QT: 489 QTc: 422 Interpretive Statements Third-degree heart block LEFT BUNDLE BRANCH BLOCK [120+ ms QRS DURATION, 80+ ms Q/S IN V1/V2, 85+ ms R IN I/aVL/V5/V6] CRITICAL TEST RESULT Compared to ECG 05/21/2021 13:17:21 Left bundle-branch block now present Myocardial infarct finding no longer present Third-degree AV block is new Electronically Signed On 03-30-2022 12:16:44 CDT by James Roman M.D. [email or web address]
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
[2022-03-29] MEDS: sodium chloride 0.9% 1,000 ML 999 ML IV (01:30)
[2022-03-29 01:36] LABS: Basophils # 0.1 10^3/uL (0.0-0.1); Basophils % 0.8 %; Eosinophils # 0.2 10^3/uL (0.0-0.8); Eosinophils % 1.3 %; Hematocrit 32.7 % (37.0-47.0); Hemoglobin 11.3 g/dL (11.5-15.3); Lymphocytes % 12.3 %; Mean Corpuscular HGB Conc 34.6 g/dL (30.0-36.0); Mean Corpuscular Hemoglobin 30.9 pg (28.0-34.0); Mean Corpuscular Volume 89.3 fl (81-99); Mean Platelet Volume 10.2 fL (7.4-10.4); Neutrophils # 12.82 10^3/uL (1.8-7.7); Neutrophils % 78.3 %; Nucleated Red Blood Cells % 0 %; Platelet Count 323 10^3/cmm (130-400); Red Blood Count 3.66 10^6/uL (4.1-5.3); Red Cell Distribution Width 14.9 % (12.1-15.1); White Blood Count 16.4 10^3/uL (4.0-10.0)
[2022-03-29 01:43] LABS: Add Urine Microscopic? NO; Charge for UA Resulting for Rev
[2022-03-29 01:45] LABS: Bilirubin Urine 1+ (Negative); Blood Urine Neg (Negative); Glucose Urine UA Norm (Normal); Ketones Urine Negative (Negative); Leukocyte Esterase Urine Negative (Negative); Nitrate Urine Negative (Negative); Protein Urine Neg (Negative); Specific Gravity, Urine 1.015 (1.005-1.030); Urine Appearance Clear (CLEAR); Urine Color Yellow (Yellow); Urobilinogen Urine Norm (Negative); pH Urine 5 (5-7)
[2022-03-29 01:56] LABS: Lactic Sepsis W/Reflex 2.4 mmol/L (0.5-2.2); Troponin(5th) Baseline 45 ng/L (0-10)
[2022-03-29 03:06] LABS: ABG PCO2 40.1 mmHg (35-45); ABG PH Result 7.31 (7.35-7.45); Arterial Blood Gas Hematocrit 35.2 % (37-47); Base Excess ABG -5.9 mmol/L (-2.0-2.0); Blood Gas Allen Test Pos; Blood Gas Sample Site Radial, right; Blood Gas Sample Type Arterial; HCO3 ABG 20.1 mmol/L (22-26); Oxygen Device NC; PO2 ABG 50.1 mmHg (80.0-100.0)
--- NOTE | 2022-03-29 03:06 | ECG_ITS ---
[facility] Test Date: 2022-03-29 Pat Name: Angeles Valdes Department: Room: Gender: Female Financial Institution Manager: : 1965 Requested By: Amos Flores Order Number: [id number] John MD: James Roman M.D. Measurements Intervals [place] Rate: 47 P: MA: QRS: -79 QRSD: 224 T: 68 QT: 557 QTc: 493 Interpretive Statements High degree AV block, likely third-degree heart block LEFT AXIS DEVIATION [QRS AXIS < -30] RIGHT BUNDLE BRANCH BLOCK [120+ ms QRS DURATION, UPRIGHT V1, 40+ ms S IN I/aVL/V4/V5/V6] POSSIBLE ANTERIOR MYOCARDIAL INFARCTION , OF INDETERMINATE AGE [30 ms Q WAVE IN V3/V4, OR R < 0.2 mV IN V4] PROLONGED QT INTERVAL CRITICAL TEST RESULT Compared to ECG 03/29/2022 01:20:30 Left-axis deviation now present Right bundle-branch block now present Myocardial infarct finding now present Prolonged QT interval now present Electronically Signed On 03-30-2022 12:30:45 CDT by James Roman M.D. [id number]
[2022-03-29] MEDS: ipratropium-albuterol 3 mL Neb INHALATION ×4 (03:10→20:59)
[2022-03-29 03:21] LABS: Reflex Lactate Order REFLEX LACTIC ORDERD
[2022-03-29] MEDS: insulin regular-human 100 units/1 mL 10 UNIT IVP ×2 (03:28→07:15)
[2022-03-29] MEDS: dextrose 50% syringe 50 mL IVP (03:30)
[2022-03-29] MEDS: calcium gluconate 0.9% NaCL 1 GM/50 ML PREMIX IV ×2 (03:32→04:26)
[2022-03-29] MEDS: tetanus-dipt-pertussis 0.5 mL SDV IM (03:35)
[2022-03-29] MEDS: doxycycline 100 MG in sodium chloride 0.9% (plus) 100 ML IV (03:44)
[2022-03-29 04:07] LABS: Alanine Aminotransferase 9 U/L (0-33); Albumin Level 3.5 g/dL (3.5-5.2); Alkaline Phosphatase 95 IU/L (35-105); Aspartate Amino Transferase 12 U/L (0-32); Blood Urea Nitrogen 31 mg/dL (6-20); Calcium 8.2 mg/dL (8.5-10.5); Carbon Dioxide 20 mmol/L (22-29); Chloride 88 mmol/L (98-107); Globulin 3.1 g/dL (1.3-4.6); Glomerular Filtration Rate 24.3 mL/min (90-130); Glucose 308 mg/dL (65-115); Osmolality Calculated 262 mOsm/kg (285-295); Total Bilirubin 0.5 mg/dL (0.15-1.2); Total Protein 6.6 g/dL (6.6-8.7)
[2022-03-29 04:08] LABS: Anion Gap 16.4 (5-19)
[2022-03-29 04:09] LABS: Potassium 7.4 mmol/L (3.5-5.1); Sodium 117 mmol/L (136-145)
[2022-03-29] MEDS: cefTRIAXone 1,000 MG in sodium chloride 0.9% (plus) 50 ML 100 MG IV (04:27)
[2022-03-29] MEDS: sodium chloride 0.9% 1,000 ML 125 ML IV (04:41)
[2022-03-29] MEDS: lactated ringers 1,000 ML 999 ML IV (05:10)
[2022-03-29 05:50] LABS: Glucose Point of Care 261 mg/dL (70-110)
--- NOTE | 2022-03-29 06:27 | ECG_ITS ---
[facility] Test Date: 2022-03-29 Pat Name: Angeles Valdes Department: Room: ICU07 Gender: Female Customer Service Associate: : 1965 Requested By: Mirella Fernandes Order Number: [id number] John MD: James Roman M.D. Measurements Intervals [place] Rate: 51 P: -84 [place]: 308 QRS: -5 QRSD: 187 T: 67 QT: 497 QTc: 460 Interpretive Statements LEFT ATRIAL ENLARGEMENT [-0.15mV P-WAVE IN V1/V2] High degree AV block, likely third-degree heart block LEFT BUNDLE BRANCH BLOCK [120+ ms QRS DURATION, 80+ ms Q/S IN V1/V2, 85+ ms R IN I/aVL/V5/V6] Compared to ECG 03/29/2022 02:48:14 Atrial abnormality now present Left bundle-branch block now present Left-axis deviation no longer present Right bundle-branch block no longer present Myocardial infarct finding no longer present Prolonged QT interval no longer present Electronically Signed On 03-30-2022 12:18:14 CDT by James Roman M.D. [id number]
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
[2022-03-29 06:33] LABS: Anion Gap 17.1 (5-19); Blood Urea Nitrogen 30 mg/dL (6-20); Calcium 8.5 mg/dL (8.5-10.5); Carbon Dioxide 20 mmol/L (22-29); Chloride 89 mmol/L (98-107); Glomerular Filtration Rate 25.7 mL/min (90-130); Glucose 139 mg/dL (65-115); Lactic Acid level (Lactate) 1.3 mmol/L (0.5-2.2); Osmolality Calculated 256 mOsm/kg (285-295)
[2022-03-29 06:35] LABS: Troponin 5 2HR 37.24 ng/L (0-10); Troponin 5 2HR Delta -7.76 ABS# (0-10)
[2022-03-29 06:37] LABS: Potassium 7.1 mmol/L (3.5-5.1); Sodium 119 mmol/L (136-145)
--- NOTE | 2022-03-29 06:38 | PC.PHAR ---
Pharmacokinetic dosing service Date: 03/29/22 Time: 629 Objective: Patient: Angeles Valdes Floor: ICU-7 Age: 56 yo Serum creatinine: 2.1 mg/dL Height: 70.0 Inches Weight (kg): 116.12 Diagnosis: Relevant medical/social history: Cultures and sensitivities: Other labs: Assessment: IBW (kg): 68.50 Dosing wt(kg): 116.12 Estimated Creatinine clearance (ml/min): 32.0 CRCL method: Cockcroft and Gault using ibw(default). Drug selected: Vancomycin Loading dose (mg): 0 Vd (liters): 104.5 (factor used: 0.9 L/kg) Noah (hr-1): 0.031 Half life (hrs): 22.36 Recommended dose: 1500 mg Interval: 24 hrs Infusion time (hrs): 1.5 Predicted peak (mcg/mL): 26.7 Predicted trough (mcg/mL): 13.29 Total body weight is being used for vancomycin dosing. Renal function is stable [ ] /unstable [ ] Recommendations: Give Vancomycin 1500 mg q 24 hrs with an expected Cpeak of 26.7 mcg/ml and an expected Ctrough of 13.29 mcg/ml Renal dosing of other antibiotics (review renal dosing of other medications and list guidelines here): Thank you for the consult, will continue to follow. Signature: Lashay Lewis [facility]
--- NOTE | 2022-03-29 07:06 | ECG_ITS ---
[facility] Test Date: 2022-03-29 Pat Name: Angeles Valdes Department: Room: ICU07 Gender: Female Farmer General: : 1965 Requested By: Amos Flores Order Number: [id number] John MD: James Roman M.D. Measurements Intervals [place] Rate: 41 P: [place]: QRS: 44 QRSD: 157 T: 52 QT: 486 QTc: 406 Interpretive Statements Junctional bradycardia LEFT BUNDLE BRANCH BLOCK [120+ ms QRS DURATION, 80+ ms Q/S IN V1/V2, 85+ ms R IN I/aVL/V5/V6] WARNING: DATA QUALITY MAY AFFECT INTERPRETATION Compared to ECG 03/29/2022 06:40:57 Sinus bradycardia no longer present First degree AV block no longer present Atrial abnormality no longer present Electronically Signed On 03-30-2022 12:32:06 CDT by James Roman M.D. [email or web address]
[2022-03-29] MEDS: calcium chloride 10% Syr 10 mL 2 GM IVP (07:19)
[2022-03-29] MEDS: piperacillin-tazobactam 3.375 GM in sodium chloride 0.9% (plus) 50 ML IV ×2 (07:25→18:22)
[2022-03-29] MEDS: hydrocortisone 100 mg/2 mL SDV IVP (07:28)
--- NOTE | 2022-03-29 07:32 | USCV_ITS ---
ValdesAngeles Age: 56 Gender: F : 1965 Exam Date: 03/29/2022 07:43 Ordering Phys: Mirella Fernandes MD Technologist: Renae Bradley [place] [facility] [place]: 2nd degree block with sybil. BP: 93 / 46 HR: 57 Rhythm: Sinus Technical Quality: Suboptimal MEASUREMENTS (Male / Female) Normal Values 2D ECHO LV Diastolic Diameter PLAX 4.3 cm 4.2 - 5.9 / 3.9 - 5.3 cm LV Systolic Diameter PLAX 3.4 cm LV Chamber Size 4.4 cm IVS Diastolic Thickness 1.6 cm 0.6 - 1.0 / 0.6 - 0.9 cm IVS Systolic Thickness 1.8 cm LVPW Diastolic Thickness 1.5 cm 0.6 - 1.0 / 0.6 - 0.9 cm LVPW Systolic Thickness 1.8 cm RV Chamber Size 3.2 cm LVOT Diameter 2.0 cm LV Ejection Fraction 2D Teich 43.1 % LV Ejection Fraction MOD 2C 54.2 % LV Ejection Fraction 2C AL 53.6 % LA Diameter 3.6 cm LA Width 4.7 cm LA Height 5.1 cm RA Width 4.3 cm RA Height 4.4 cm Aorta at Sinotubular Diameter 3.4 cm IVC Diameter 1.8 cm M-MODE Aortic Annulus Diameter 3.9 cm LA Ao Ratio MM 0.9 MV E Point Septal Separation 0.4 cm DOPPLER AV Peak Velocity 148.0 cm/s LVOT Peak Velocity 102.0 cm/s AV Area Cont Eq vti 2.6 cm squared AV Area Cont Eq pk 2.2 cm squared MV Area PHT 3.9 cm squared Mitral E to A Ratio 1.3 MV E' Velocity 114.0 cm/s Mitral E to LV E' Septal Ratio 12.0 TR Peak Velocity 149.0 cm/s TR Peak Gradient 8.9 mmHg TR Mean Velocity 111.4 cm/s TR Mean Gradient 5.7 mmHg TR Velocity Time Integral 54.8 cm TV Peak E Velocity 74.0 cm/s Right Atrial Pressure 8.0 mmHg Pulmonary Artery Systolic Pressu 16.9 mmHg PV Peak Velocity 92.0 cm/s RV Acceleration Time 0.1 s RV Ejection Time 0.4 s RV AcT/ET 0.4 FINDINGS Left Ventricle Normal left ventricular size, systolic function and wall thickness, with no regional wall motion abnormalities. Grade II/IV diastolic dysfunction, moderately elevated filling pressures. Left ventricular ejection fraction is estimated at 65 %. Right Ventricle Normal right ventricular size and systolic function. Right Atrium Mildly increased right atrial size. Left Atrium Mildly increased left atrial size. Mitral Valve Structurally normal mitral valve without significant stenosis or prolapse. There is no mitral regurgitation. Aortic Valve Structurally normal aortic valve without significant sclerosis or stenosis. There is no aortic regurgitation. Tricuspid Valve Structurally normal tricuspid valve. Trace tricuspid valve regurgitation. Pulmonic Valve Structurally normal pulmonic valve. Pericardium Normal pericardium without effusion. Aorta Normal ascending aorta dimension. IVC The inferior vena cava pulmonary and hepatic veins appear normal. CONCLUSIONS Normal left ventricular size, systolic function and wall thickness, with no regional wall motion abnormalities. Grade II/IV diastolic dysfunction, moderately elevated filling pressures. Left ventricular ejection fraction is estimated at 65 %. Mildly increased right atrial size. Mildly increased left atrial size. Dr. James Roman MD (Electronically Signed) Final Date: 29 March 2022 12:52 S
[2022-03-29] MEDS: FUROsemide 10 mg/mL SDV 2mL 20 MG IVP (07:34)
[2022-03-29] MEDS: levalbuterol 0.63 mg/3 mL Neb INHALATION ×5 (07:36)
[2022-03-29] MEDS: sodium bicarbonate 8.4% 1 mEq/mL 50mL Syr 100 MEQ IVP (07:49)
[2022-03-29] MEDS: sodium polystyrene sulfonate 15 gm/60 mL Btl 30 GM PO (07:53)
[2022-03-29 08:10] LABS: Potassium, Radom Urine 65 mmol/L
[2022-03-29 08:11] LABS: Urine Random Chloride 13 mmol/L
[2022-03-29 08:13] LABS: Urine Random Sodium < 10 mmol/L
--- NOTE | 2022-03-29 08:30 | PC.NURSE ---
Pt arrives to ICU from ED. Pt alert and oriented. She is able to use BSC.
--- NOTE | 2022-03-29 08:51 | CTR_ITS ---
PROCEDURE INFORMATION: Exam: CT Chest Without Contrast; Diagnostic Exam date and time: 03/30/2022 2:45 AM Age: 56 years old Clinical indication: Other: SOB; Shortness of breath; Additional info: Fransisco, pneumonia, fransisco, sepsis, evaluate for obstructive pyelonephritis TECHNIQUE: Imaging protocol: Diagnostic computed tomography of the chest without contrast. Radiation optimization: All CT scans at this facility use at least one of these dose optimization techniques: automated exposure control; mA and/or kV adjustment per patient size (includes targeted exams where dose is matched to clinical indication); or iterative reconstruction. COMPARISON: CT chest [facility] [place] [id number] 03/27/2021 1:56 PM RADIATION DOSE METRICS: Total DLP (mGy-cm): 2547.27 FINDINGS: Lungs: There are hazy opacities in both upper lobes which are nonspecific but could be secondary to pneumonia. Pleural spaces: Unremarkable. No pneumothorax. No pleural effusion. Heart: Moderate coronary artery calcifications. Lymph nodes: Calcified lymph nodes are present, secondary to prior granulomatous disease. Vasculature: Unremarkable. No aortic aneurysm. Bones/joints: Unremarkable. No acute fracture. Soft tissues: Unremarkable. PROCEDURE INFORMATION: Exam: CT Abdomen And Pelvis Without Contrast Exam date and time: 03/30/2022 2:45 AM Age: 56 years old Clinical indication: Other: SOB; Shortness of breath; Additional info: Fransisco, pneumonia, fransisco, sepsis, evaluate for obstructive pyelonephritis TECHNIQUE: Imaging protocol: Computed tomography of the abdomen and pelvis without contrast. Radiation optimization: All CT scans at this facility use at least one of these dose optimization techniques: automated exposure control; mA and/or kV adjustment per patient size (includes targeted exams where dose is matched to clinical indication); or iterative reconstruction. COMPARISON: CT chest [facility] [place] [id number] 03/27/2021 1:56 PM RADIATION DOSE METRICS: Total DLP (mGy-cm): 2547.27 FINDINGS: Lungs: The lung bases are clear. No effusion Liver: Normal. No mass. Gallbladder and bile ducts: There has been a cholecystectomy. Pancreas: Normal. No ductal dilation. Spleen: There are multiple calcified splenic granulomata . Adrenal glands: Normal. No mass. Kidneys and ureters: 11 mm nonobstructing right renal pelvis stone. There is bilateral perinephric fat stranding, nonspecific but can be seen with pyelonephritis. Stomach and bowel: Unremarkable. No obstruction. No mucosal thickening. Appendix: No evidence of appendicitis. Intraperitoneal space: Unremarkable. No free air. No significant fluid collection. Vasculature: There is mild atherosclerotic disease. Lymph nodes: Unremarkable. No enlarged lymph nodes. Urinary bladder: Unremarkable as visualized. Reproductive: There has been a hysterectomy. Bones/joints: Unremarkable. No acute fracture. Soft tissues: Unremarkable. CT/[place] [id number] IMPRESSION: There are hazy opacities in both upper lobes which are nonspecific but could be secondary to pneumonia. IMPRESSION: 1. 11 mm nonobstructing right renal pelvis stone. 2. There is bilateral perinephric fat stranding, nonspecific but can be seen with pyelonephritis.
[2022-03-29 09:12] LABS: Add Urine Microscopic? NO; Charge for UA Resulting for Rev
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
[2022-03-29 09:16] LABS: Bilirubin Urine Neg (Negative); Blood Urine Neg (Negative); Glucose Urine UA Norm (Normal); Ketones Urine Negative (Negative); Leukocyte Esterase Urine Negative (Negative); Nitrate Urine Negative (Negative); Protein Urine Neg (Negative); Urine Appearance Clear (CLEAR); Urine Color Yellow (Yellow); Urobilinogen Urine Norm (Negative); pH Urine 5 (5-7)
[2022-03-29 09:30] LABS: Potassium, Radom Urine 44 mmol/L; Urine Creatinine 79 mg/dL (28-217); Urine Random Chloride 45 mmol/L; Urine Random Sodium 36 mmol/L
[2022-03-29 09:38] LABS: D Dimer 2.92 ug/mIFEU (0-0.59)
[2022-03-29 09:39] LABS: Lactic Sepsis W/Reflex 1.8 mmol/L (0.5-2.2)
[2022-03-29 09:40] LABS: Troponin 5 6HR 35.43 ng/L (0-10)
[2022-03-29 09:44] LABS: Adenovirus Not Detected (NOT DETECT); Chlamydia Pneumoniae Not Detected (NOT DETECT); Coronavirus 229E,HKU1,NL63,OC4 Not Detected (NOT DETECT); Human Metapneumovirus Not Detected (NOT DETECT); Human Rhinovirus/Enterovirus Not Detected (NOT DETECT); Influenza A Not Detected (NOT DETECT); Influenza A H1 Not Detected (NOT DETECT); Influenza A H1-2009 Not Detected (NOT DETECT); Influenza A H3 Not Detected (NOT DETECT); Influenza B Not Detected (NOT DETECT); Mycoplasma Pneumoniae Not Detected (NOT DETECT); Parainfluenza Virus Type 1 Not Detected (NOT DETECT); Parainfluenza Virus Type 2 Not Detected (NOT DETECT); Parainfluenza Virus Type 3 Not Detected (NOT DETECT); Parainfluenza Virus Type 4 Not Detected (NOT DETECT); Respiratory Syncytial Virus A Not Detected (NOT DETECT); Respiratory Syncytial Virus B Not Detected (NOT DETECT); SARS-COV-2 Not Detected (NOT DETECT)
[2022-03-29 09:48] LABS: Anion Gap 17.6 (5-19); Blood Urea Nitrogen 29 mg/dL (6-20); Calcium 10.3 mg/dL (8.5-10.5); Carbon Dioxide 21 mmol/L (22-29); Chloride 89 mmol/L (98-107); Creatine Phosphokinase 136 U/L (26-192); Glomerular Filtration Rate 27.2 mL/min (90-130); Glucose 124 mg/dL (65-115); Magnesium 1.5 mg/dL (1.7-2.3); Osmolality Calculated 261 mOsm/kg (285-295); Potassium 5.6 mmol/L (3.5-5.1); Sodium 122 mmol/L (136-145); Thyroid Stimulating Hormone 4.65 uIU/mL (0.27-4.20); Uric Acid 6.8 mg/dL (2.4-5.7)
[2022-03-29] MEDS: heparin 5,000 unit/mL INJ 1 mL 5000 UNIT SUBCUT ×2 (10:02→21:10)
[2022-03-29] MEDS: pantoprazole DR 40 mg Tablet PO (10:03)
[2022-03-29 10:11] LABS: Amphetamines Screen Urine Negative (Negative); Barbiturates Screen Urine Negative (Negative); Benzodiazepines Screen Urine Negative (Negative); Cocaine Screen Urine Negative (Negative); Opiate Screen Urine Positive (Negative); PCP Screen Urine Negative (Negative); THC Screen Urine Negative (Negative)
--- NOTE | 2022-03-29 10:14 | PC.CHAP ---
Pastoral Care Encounter/Spiritual Assessment Type of Contact [] Declined certified pediatric nurse practitioner visit [] Patient/Family/Request visit [] Outpatient visit [] Follow-up visit [] Physician referral [] Code/Alert [x] Routine visit [] Staff referral [] Actively dying [] Patient sleeping [] Family support [] [] Out of room [] Palliative care [] [x] Receiving care in room [] Pre-surgical visit [] Trauma [] Long length of stay [x] ICU visit [] Other: Relational/Emotional Strength [] Patient feels connected with others/family/visitors/staff [] Distress [] Loneliness/isolation [] Abandonment Spirituality of Patient [] Person of Susan [] Attends Holiness of their Susan [] Believes in Prayer [] Reads Bible or Jewish materials [] There are Spiritual issues to be addressed Assistant Designer Interventions [x] Prayer [] Active listening [] Non-anxious presence [] Spiritual/emotional support [] Crisis/trauma care [] Spiritual counseling [] Bereavement support [] Provided bereavement packet [] Provided Bible/devotional materials [] Provided toy/stuffed animal, coloring book to patient or family member [] Provided Communion [] Anointing/[place] [] Salvation [x] Completed spiritual assessment [] Other: Impact on Illness or Injury [] Angry [] Fearful [] Anxious [] Often cries [] Exhaustion [] Unable to work [] Unable to attend adventist [] Unable to walk/stand [] Unable to read [] Unable to drive [] Unable to eat/drink [] Unable to sleep [] Unable to be with family [] Patient intubated [] Other: Summary Time spent with patient
--- NOTE | 2022-03-29 12:05 | PM.MISC ---
Miscellaneous Note Note: She was examined twice today I examined her first when she was in the ER At that point she was getting hyperkalemic treatment There was plan for placement of temporary dialysis catheter, she was kept n.p.o. I did update her daughter However when she was examined in ICU at that point potassium has improved, nephro recommended holding off on placement of hemodialysis catheter, Dr. Pollard has been notified For her pulm edema fluid overload state she was put on BiPAP to help with work of breathing however she is not complaining of any active chest pain or shortness of breath Currently on BiPAP settings 09/03 No active chest pain Distended abdomen Recently bee sting Ulcers of toes noted Sutures in place Right below-knee amputation No active chest pain Awake and alert Nonfocal neuro exam Assessment plan Acute on chronic kidney disease Awaiting fluid overload flash pulm edema Start BiPAP Follow-up with echo Holding off on dialysis for now Hyperkalemia improved with medications Appreciate nephro recommendations Pulm edema with acute hypoxia Related to underlying fluid overload due to acute on chronic kidney insufficiency Keep her on BiPAP for now, I can give her a break from BiPAP to have her eat Hypoxia was worsening in the ER she was requiring 6 L She has been diagnosed with sepsis for possible pneumonia Judicious use of fluids because of pulm edema, acute kidney injury, avoid liberal fluid resuscitation however creatinine, lactic acidemia Improving Follow-up on echo Will follow up with cultures She has been empirically treated for possible pneumonia Hyperkalemia: Responded to medicine Hypervolemic hyponatremia We will follow up with nephro recommendations She has been started on D5 half-normal saline For DVT prophylaxis I will discontinue Lovenox and use heparin I requested a chest and abdominal CT scan without contrast Renal nondialysis diet Full code Family updated
[2022-03-29 12:22] LABS: Glucose Point of Care 178 mg/dL (70-110)
[2022-03-29 12:41] LABS: Glucose Point of Care 249 mg/dL (70-110)
[2022-03-29] MEDS: insulin lispro 100 unit/1 mL SUBCUT ×3 (13:14→21:10)
[2022-03-29] MEDS: linezolid premix 600 MG/300 ML PREMIX 300 MG IV ×2 (13:14→23:50)
[2022-03-29] MEDS: dextrose 5%-sod chloride 0.45% 1,000 ML 125 ML IV (13:15)
[2022-03-29 14:14] LABS: Anion Gap 18.3 (5-19); Blood Urea Nitrogen 30 mg/dL (6-20); Calcium 10.2 mg/dL (8.5-10.5); Carbon Dioxide 23 mmol/L (22-29); Chloride 90 mmol/L (98-107); Glucose 231 mg/dL (65-115); Osmolality Calculated 276 mOsm/kg (285-295); Potassium 5.3 mmol/L (3.5-5.1); Sodium 126 mmol/L (136-145)
[2022-03-29 14:21] LABS: Estmated Average Glucose 194; Hemoglobin A1C 8.4 % (4.0-6.0)
[2022-03-29 16:51] LABS: Glucose Point of Care 203 mg/dL (70-110)
[2022-03-29] MEDS: dextrose 5 % 500 ML 1000 ML IV (18:17)
--- NOTE | 2022-03-29 18:43 | PC.NURSE ---
Shift report: Pt alert and oriented. She said her head is fuzzier this evening. Dr Crews had called , Her sodium level increased to 126 from 122, he wants that slower, bolus of D%W ordered. If above 123 after next BMP nurse to notify him. she was using nasal cannula this am. The rest of the shift she has switched between Bipap at 30% FIO2 and room air. She gets out of bed , using her prosthtic leg and walker to go to [facility] without difficulty. She has had several bouts of diarrhea after the Lactulose administration this am. HEr Urine output has been over 3000ml this sift.
[2022-03-29] MEDS: bacitracin ointment 28 gm 1 APPLIC TOPICAL (18:53)
--- NOTE | 2022-03-29 19:49 | PC.NURSE ---
Bedside report completed with Sandra Parker RN
--- NOTE | 2022-03-29 20:00 | PC.NURSE ---
Patient back on Bipap.
[2022-03-29 20:28] LABS: Glucose Point of Care 207 mg/dL (70-110)
[2022-03-29] MEDS: insulin glargine 100 units/1 mL 10 UNIT SUBCUT (21:09)
[2022-03-29 21:20] LABS: Blood Urea Nitrogen 26 mg/dL (6-20); Calcium 9.9 mg/dL (8.5-10.5); Carbon Dioxide 25 mmol/L (22-29); Chloride 92 mmol/L (98-107); Glomerular Filtration Rate 35.8 mL/min (90-130); Glucose 161 mg/dL (65-115); Osmolality Calculated 278 mOsm/kg (285-295); Sodium 130 mmol/L (136-145)
--- NOTE | 2022-03-29 21:29 | PC.NURSE ---
Lung sounds improved with Bipap.
--- NOTE | 2022-03-29 21:36 | PC.NURSE ---
Dr. Crews updated on sodium level of 130. Telephone order for D5W 1000ml Bolus over 3 hours DDAVP 20mcg IV ONCE NOW.
--- NOTE | 2022-03-29 21:51 | PC.NURSE ---
Patient requesting home medications Gabapentin and Hydromorphone and nicotine patch. Dr. Fernandes does not want Gabapentin or Hydromorphone ordered at this time due to medication affecting neurological status and the need for assessing for neurological changes due to hyponatremia. Telephone order for Nicotine patch 21mg given.
[2022-03-29] MEDS: dextrose 5% 1,000 ML 333 ML IV (22:37)
--- NOTE | 2022-03-29 23:20 | PC.NURSE ---
Patient off bipap at 2200 back on bipap 2320.
[2022-03-30] VITALS (30 sets, daily range): BP systolic 149–180; BP diastolic 74–101; PULSE 69–109; RESP 13–24; TEMP 36.5–36.7; O2SAT 90–99
[2022-03-30 01:30] LABS: Glucose Point of Care 224 mg/dL (70-110)
[2022-03-30 01:52] LABS: Anion Gap 16.8 (5-19); Blood Urea Nitrogen 23 mg/dL (6-20); Calcium 9.6 mg/dL (8.5-10.5); Carbon Dioxide 25 mmol/L (22-29); Chloride 92 mmol/L (98-107); Glomerular Filtration Rate 35.8 mL/min (90-130); Glucose 182 mg/dL (65-115); Osmolality Calculated 278 mOsm/kg (285-295); Potassium 3.8 mmol/L (3.5-5.1); Sodium 130 mmol/L (136-145)
[2022-03-30 01:57] LABS: Procalcitonin 0.09 ng/mL (0-0.5)
[2022-03-30] MEDS: acetaminophen 325 mg Tablet 650 MG PO (02:00)
--- NOTE | 2022-03-30 02:25 | PC.NURSE ---
Labs reports to Dr. Crews Order for D5W 1000ml at 200ml/hr given.
[2022-03-30] MEDS: dextrose 5% 1,000 ML 200 ML IV ×2 (03:03→12:42)
--- NOTE | 2022-03-30 03:07 | PC.NURSE ---
Patient brought to CT via wheelchair with portable monitoring. Patient is currently back in bed with Bipap on.
[2022-03-30] MEDS: ipratropium-albuterol 3 mL Neb INHALATION ×2 (03:44→08:39)
[2022-03-30 05:56] LABS: Basophils # 0.1 10^3/uL (0.0-0.1); Basophils % 0.4 %; Eosinophils # 0.1 10^3/uL (0.0-0.8); Eosinophils % 0.8 %; Hematocrit 31.6 % (37.0-47.0); Hemoglobin 11.2 g/dL (11.5-15.3); Lymphocytes # 1.6 10^3/uL (0.8-4.8); Lymphocytes % 13.3 %; Mean Corpuscular HGB Conc 35.4 g/dL (30.0-36.0); Mean Corpuscular Hemoglobin 30.7 pg (28.0-34.0); Mean Corpuscular Volume 86.6 fl (81-99); Mean Platelet Volume 9.7 fL (7.4-10.4); Monocytes # 0.7 10^3/uL (0.2-0.9); Monocytes % 5.7 %; Neutrophils # 9.38 10^3/uL (1.8-7.7); Neutrophils % 78.7 %; Nucleated Red Blood Cells % 0 %; Platelet Count 312 10^3/cmm (130-400); Red Blood Count 3.65 10^6/uL (4.1-5.3); Red Cell Distribution Width 14.6 % (12.1-15.1); White Blood Count 11.9 10^3/uL (4.0-10.0)
[2022-03-30 06:15] LABS: Anion Gap 16.7 (5-19); Blood Urea Nitrogen 20 mg/dL (6-20); Calcium 9.1 mg/dL (8.5-10.5); Carbon Dioxide 25 mmol/L (22-29); Chloride 89 mmol/L (98-107); Glomerular Filtration Rate 38.8 mL/min (90-130); Glucose 244 mg/dL (65-115); Osmolality Calculated 275 mOsm/kg (285-295); Potassium 3.7 mmol/L (3.5-5.1); Sodium 127 mmol/L (136-145)
[2022-03-30] MEDS: piperacillin-tazobactam 3.375 GM in sodium chloride 0.9% (plus) 50 ML IV (06:19)
--- NOTE | 2022-03-30 06:33 | XRR_ITS ---
PROCEDURE INFORMATION: Exam: XR Chest Exam date and time: 03/30/2022 8:50 AM Age: 56 years old Clinical indication: Dyspnea; Additional info: Oedema TECHNIQUE: Imaging protocol: Radiologic exam of the chest. Views: 1 view. COMPARISON: CT chest [place] [id number] 03/30/2022 2:45 AM FINDINGS: Lungs: Unremarkable. No consolidation. Pleural spaces: Unremarkable. No pleural effusion. No pneumothorax. Heart/Mediastinum: Unremarkable. No cardiomegaly. Bones/joints: Unremarkable. XR/XR chest 1V portable [id number] IMPRESSION: No acute findings.
[2022-03-30 07:45] LABS: Glucose Point of Care 226 mg/dL (70-110)
--- NOTE | 2022-03-30 07:45 | PC.NURSE ---
Dr. Lambert at bedside, observed patient AO x4 and ambulates independently, HCP to put in transfer orders for med surg
[2022-03-30] MEDS: insulin lispro 100 unit/1 mL SUBCUT ×3 (08:07→17:26)
[2022-03-30] MEDS: heparin 5,000 unit/mL INJ 1 mL 5000 UNIT SUBCUT ×2 (08:08→20:05)
[2022-03-30] MEDS: pantoprazole DR 40 mg Tablet PO (08:08)
[2022-03-30] MEDS: nicotine 21 mg Patch 1 PATCH TRANSDERMA (08:09)
[2022-03-30] MEDS: bacitracin ointment 28 gm 1 APPLIC TOPICAL ×2 (08:10→17:30)
--- NOTE | 2022-03-30 08:11 | P.PN_ITS ---
Subjective Subjective: [place] feels much better today. Sodium trend over the last 24 hours is appreciated for which I managed overnight. Due to a robust urine output, sodium levels did increase up to 130. I gave boluses of D5W as well as a high prescribed dose of D5W at 200 mL/h in addition to DDAVP. The sodium levels are now drifting down to 127. Still above our goal. Some mild global edema, some back pain but otherwise she is breathing comfortably and full otherwise feels okay. Blood pressure now very robust, last measured 161/78. Vitals/I&O/Wt Last Vital Signs Temp 98.0 F 03/30/22 02:00 Pulse 95 03/30/22 06:00 Resp 18 03/30/22 06:00 BP 161/78 03/30/22 06:00 Pulse Ox 92 03/30/22 06:00 03/29/22 03/30/22 03/30/22 22:59 06:59 14:59 Intake Total 1656.25 / 3970.833 1405 / 5375.833 Output Total 5425 / 6425 1850 / 8275 Balance -3768.75 / -2454.167 -445 / -2899.167 Weight last 48 hrs Weight 116.12 kg Physical Exam Narrative: Constitutional: Awake, comfortable HEENT: Wet mucosa, no jvp, non icteric Lungs: Bilaterally wheeze/rales in lung bases CVS: S1 S2, no murmurs Abdo: Soft, BS ok Ext 4: Minimal edema, peripheral perfusion with no cyanosis Neurological: Grossly non-focal Data : 03/30/22 05:07 03/30/22 05:07 Micro: Microbiology 03/29/22 03:26 Blood Culture - Preliminary Blood NEGATIVE TO DATE 03/29/22 03:17 Blood Culture - Preliminary Blood NEGATIVE TO DATE 03/29/22 09:00 Legionella Urinary Antigen - Final Urine,Voided A&P Assessment and plan (1) CORINA (acute kidney injury): Status: Acute Plan 1. Acute kidney injury Likely to be prerenal azotemia from labile hemodynamics including bradycardia and hypotension from the hyperkalemia which is now caused further acute kidney injury. Creatinine recovering nicely, no indication for dialysis Strict I's and O's Avoid usual's This medication for GFR less than 30 2. Hyperkalemia Due to combo of CORINA, ARB, KCl Now in a safe range 3. Hyponatremia The treatment of the hyperkalemia made this complicated yesterday, furthermore, she has a very robust urine output over the last 24 hours i.e. circulating ADH levels significantly dropped down to produce this effect. DDAVP given in the night, currently on D5W at 200 mL/h. Continue to follow sodium levels Q4 I would like to keep the sodium levels in the mid 120 range throughout today, drifting up to the high 120-130 range throughout the night tonight. 4. Shortness of breath Culture data appreciated On Zosyn and Zyvox Thank you for consultation Exam and interview performed with aid of bedside RN using telemedicine Time spent 20 min inc > 50% of time in face to face counseling Cullen Crews MD [facility] [phone] Attestations Medical Necessity Statement*: eval for CORINA and electrolyte problems Coding Level of Care Code Acute Demurrage Worker for Chg Fwd Diagnoses CORINA (acute kidney injury) N17.9
[2022-03-30 08:35] LABS: Anion Gap 15.8 (5-19); Blood Urea Nitrogen 17 mg/dL (6-20); Calcium 9.7 mg/dL (8.5-10.5); Carbon Dioxide 26 mmol/L (22-29); Chloride 87 mmol/L (98-107); Glomerular Filtration Rate 46.3 mL/min (90-130); Glucose 217 mg/dL (65-115); Osmolality Calculated 268 mOsm/kg (285-295); Potassium 3.8 mmol/L (3.5-5.1); Sodium 125 mmol/L (136-145)
--- NOTE | 2022-03-30 10:50 | PM.PN ---
Subjective Subjective: Morning patient was sitting at the bedside, she wanted to use bedside commode She is breathing well on room air No acute shortness of breath No active chest pain Blood pressure is stable Sodium has trended up more than our target range She was given D5W and DDAVP by nephro currently on D5 W Appreciate nephro recommendations She probably can be transferred out of ICU later today Patient was concerned about her neuropathic pain and wanted her gabapentin and opioids, I have reduced the dose of Augmentin to 800 instead of 1200 mg Patient is endorsing significant improvement Potassium, blood pressure, bradycardia improved Patient does take clonidine at home, monitor closely, to avoid rebound hypertension we will add clonidine Vitals/I&O/Wt Last Vital Signs Temp 98.0 F 03/30/22 02:00 Pulse 93 03/30/22 08:41 Resp 16 03/30/22 08:41 BP 161/78 03/30/22 06:00 Pulse Ox 93 03/30/22 08:41 03/29/22 03/30/22 03/30/22 22:59 06:59 14:59 Intake Total 1656.25 / 3970.833 1405 / 5375.833 Output Total 5425 / 6425 1850 / 8275 Balance -3768.75 / -2454.167 -445 / -2899.167 Weight last 48 hrs Weight 116.12 kg Physical Exam Narrative: Patient sitting at the bedside Looks euvolemic No signs of chest pain or shortness of breath Saturating well on room air Nonfocal neuro exam No signs of cyanosis or edema Very pleasant and cooperative She wanted to use bedside commode No audible stridor or wheezing No signs of bradycardia, heart rate improved Data : 03/30/22 05:07 03/30/22 08:00 Micro: Microbiology 03/29/22 03:26 Blood Culture - Preliminary Blood NEGATIVE TO DATE 03/29/22 03:17 Blood Culture - Preliminary Blood NEGATIVE TO DATE 03/29/22 09:00 Legionella Urinary Antigen - Final Urine,Voided A&P Assessment and plan (1) Sepsis with acute hypoxic respiratory failure: Status: Acute (2) CORINA (acute kidney injury): Status: Acute (3) Hyponatremia: Status: Acute (4) Hyperkalemia: Status: Acute (5) Sepsis: Status: Acute Qualifiers: Sepsis type: sepsis due to unspecified organism Sepsis acute organ dysfunction status: with acute organ dysfunction Severe sepsis acute organ dysfunction type: acute renal failure Acute renal failure type: unspecified Severe sepsis shock status: without septic shock Qualified Code(s): A41.9 - Sepsis, unspecified organism; R65.20 - Severe sepsis without septic shock; N17.9 - Acute kidney failure, unspecified (6) Bradyarrhythmia: Status: Acute (7) Laceration of foot: Status: Acute Qualifiers: Encounter type: initial encounter Laterality: left Qualified Code(s): S91.312A - Laceration without foreign body, left foot, initial encounter (8) COPD (chronic obstructive pulmonary disease): Status: Acute Qualifiers: COPD type: COPD with acute exacerbation Qualified Code(s): J44.1 - Chronic obstructive pulmonary disease with (acute) exacerbation (9) Hypoxia: Status: Acute (10) CORINA (acute kidney injury): Status: Acute (11) Hypothyroidism: Status: Acute (12) Chronic hypertension: Status: Acute Plan Sepsis related to possible community-acquired pneumonia: Improved X-ray showed pulm edema She did very well on BiPAP Currently on room air No active shortness of breath She was given broad-spectrum antibiotics, I will de-escalate to Augmentin Rebound hypertension, restart clonidine, added amlodipine She was also taking losartan at home Acute on chronic kidney disease Hyperkalemia improved Hyponatremia, correction more than goal, appreciate nephro recommendations, she has been given DDAVP, D5W, monitor BMP every 4 hours Hyperkalemia related to CORINA and use of losartan and potassium supplementation at home, Bradycardia related to hyperkalemia: Improved No active chest pain or shortness of breath Currently on renal nondialysis diet Patient has diabetic neuropathy, I have reduced the dose of gabapentin Start tizanidine Continue levothyroxine Patient is full code Attestations Medical Necessity Statement*: She can be transferred out of ICU later today Time Spent in Patient Care: 30 Coding Level of Care Code Acute [employer] Professor for Darron Barnes Diagnoses Sepsis with acute hypoxic respiratory failure A41.9; R65.20; J96.01 CORINA (acute kidney injury) N17.9 Hyponatremia E87.1 Hyperkalemia E87.5 Sepsis A41.9; R65.20; N17.9 Sepsis type: sepsis due to unspecified organism Sepsis acute organ dysfunction status: with acute organ dysfunction Severe sepsis acute organ dysfunction type: acute renal failure Acute renal failure type: unspecified Severe sepsis shock status: without septic shock Bradyarrhythmia I49.8 Laceration of foot S91.312A Encounter type: initial encounter Laterality: left COPD (chronic obstructive pulmonary disease) J44.1 COPD type: COPD with acute exacerbation Hypoxia R09.02 CORINA (acute kidney injury) N17.9 Hypothyroidism E03.9 Chronic hypertension I10
[2022-03-30] MEDS: oxyCODONE 5 mg IR Tab/Cap PO ×2 (10:56→16:19)
[2022-03-30 11:21] LABS: Glucose Point of Care 179 mg/dL (70-110)
--- NOTE | 2022-03-30 11:26 | PC.NURSE ---
Patient crying due to pain, Dr. Lambert put in prn oxycodone, after taking patient stated it isn't working and hydromorphone is the primary relief at home. Dr. Lambert starting per home dose and approved continuing with allergy on file due to patient taking at home
[2022-03-30] MEDS: cloNIDine 0.1 mg Tablet PO ×2 (11:29→17:24)
[2022-03-30] MEDS: amlodipine 5 mg Tablet PO (11:30)
[2022-03-30 12:29] LABS: Anion Gap 15.8 (5-19); Blood Urea Nitrogen 15 mg/dL (6-20); Calcium 9.2 mg/dL (8.5-10.5); Carbon Dioxide 26 mmol/L (22-29); Chloride 84 mmol/L (98-107); Glomerular Filtration Rate 57.1 mL/min (90-130); Glucose 176 mg/dL (65-115); Osmolality Calculated 259 mOsm/kg (285-295); Potassium 3.8 mmol/L (3.5-5.1); Sodium 122 mmol/L (136-145)
--- NOTE | 2022-03-30 14:26 | PC.NURSE ---
Dr. Woods with nephrology called and gave t.o. to turn D5 down to 50 ml/hr
[2022-03-30] MEDS: gabapentin 400 mg Capsule 800 MG PO ×2 (14:29→20:05)
[2022-03-30 16:38] LABS: Anion Gap 14.6 (5-19); Blood Urea Nitrogen 13 mg/dL (6-20); Calcium 8.9 mg/dL (8.5-10.5); Carbon Dioxide 27 mmol/L (22-29); Chloride 82 mmol/L (98-107); Glomerular Filtration Rate 51.2 mL/min (90-130); Glucose 172 mg/dL (65-115); Osmolality Calculated 254 mOsm/kg (285-295); Potassium 3.6 mmol/L (3.5-5.1); Sodium 120 mmol/L (136-145)
[2022-03-30 16:50] LABS: Glucose Point of Care 232 mg/dL (70-110)
[2022-03-30] MEDS: amoxicillin-clav 875-125 mg Tablet 1 TAB PO (17:24)
[2022-03-30] MEDS: doxycycline 100 mg Tablet PO (17:24)
[2022-03-30] MEDS: metoprolol tartrate 50 mg Tablet PO (17:26)
--- NOTE | 2022-03-30 18:18 | PC.NURSE ---
report called to [facility]
[2022-03-30] MEDS: sodium chloride 0.9% 1,000 ML 75 ML IV (19:54)
[2022-03-30] MEDS: methocarbamol 750 mg Tablet PO (20:05)
[2022-03-30] MEDS: nortriptyline 25 mg Capsule 100 MG PO (20:06)
[2022-03-30 20:29] LABS: Anion Gap 13.4 (5-19); Blood Urea Nitrogen 11 mg/dL (6-20); Calcium 9.1 mg/dL (8.5-10.5); Carbon Dioxide 28 mmol/L (22-29); Chloride 82 mmol/L (98-107); Glomerular Filtration Rate 57.1 mL/min (90-130); Glucose 143 mg/dL (65-115); Osmolality Calculated 252 mOsm/kg (285-295); Potassium 3.4 mmol/L (3.5-5.1); Sodium 120 mmol/L (136-145)
[2022-03-30 21:06] LABS: Glucose Point of Care 201 mg/dL (70-110)
[2022-03-30] MEDS: insulin glargine 100 units/1 mL 10 UNIT SUBCUT (21:44)
[2022-03-30] MEDS: tizanidine 4 mg Tablet PO (21:47)
--- NOTE | 2022-03-30 22:46 | PC.NURSE ---
labs reviewed upon receiving report. dr villalba messaged regarding sodium levels. he instructed to stop d5w and start ns at 75ml/hr, will monitor labs as scheduled
[2022-03-31] VITALS (10 sets, daily range): BP systolic 131–186; BP diastolic 71–108; PULSE 56–83; RESP 16–20; TEMP 36.7–37.2; O2SAT 88–94
[2022-03-31 01:09] LABS: Anion Gap 15.5 (5-19); Blood Urea Nitrogen 12 mg/dL (6-20); Calcium 8.4 mg/dL (8.5-10.5); Carbon Dioxide 26 mmol/L (22-29); Chloride 81 mmol/L (98-107); Glomerular Filtration Rate 51.2 mL/min (90-130); Glucose 220 mg/dL (65-115); Osmolality Calculated 255 mOsm/kg (285-295); Potassium 3.5 mmol/L (3.5-5.1)
[2022-03-31 01:10] LABS: Sodium 119 mmol/L (136-145)
--- NOTE | 2022-03-31 01:45 | PC.NURSE ---
will also notify dr garcia per estevan shin.
[2022-03-31 05:28] LABS: Basophils # 0.1 10^3/uL (0.0-0.1); Basophils % 0.5 %; Eosinophils # 0.3 10^3/uL (0.0-0.8); Hemoglobin 11.1 g/dL (11.5-15.3); Lymphocytes # 2.7 10^3/uL (0.8-4.8); Lymphocytes % 25.8 %; Mean Corpuscular HGB Conc 35.8 g/dL (30.0-36.0); Mean Corpuscular Volume 86.6 fl (81-99); Mean Platelet Volume 9.4 fL (7.4-10.4); Monocytes # 0.9 10^3/uL (0.2-0.9); Monocytes % 8.3 %; Neutrophils # 6.34 10^3/uL (1.8-7.7); Neutrophils % 61.6 %; Nucleated Red Blood Cells % 0 %; Platelet Count 293 10^3/cmm (130-400); Red Blood Count 3.58 10^6/uL (4.1-5.3); Red Cell Distribution Width 14.4 % (12.1-15.1); White Blood Count 10.3 10^3/uL (4.0-10.0)
[2022-03-31 05:50] LABS: Anion Gap 14.5 (5-19); Blood Urea Nitrogen 12 mg/dL (6-20); Carbon Dioxide 27 mmol/L (22-29); Chloride 82 mmol/L (98-107); Creatinine Clr Calc Pharmacy 95.3165; Glomerular Filtration Rate 64.5 mL/min (90-130); Glucose 168 mg/dL (65-115); Osmolality Calculated 254 mOsm/kg (285-295); Potassium 3.5 mmol/L (3.5-5.1); Sodium 120 mmol/L (136-145)
[2022-03-31 06:43] LABS: Glucose Point of Care 202 mg/dL (70-110)
[2022-03-31] MEDS: nicotine 21 mg Patch 1 PATCH TRANSDERMA (08:39)
[2022-03-31] MEDS: gabapentin 400 mg Capsule 800 MG PO (08:40)
[2022-03-31] MEDS: cloNIDine 0.1 mg Tablet PO (08:40)
[2022-03-31] MEDS: levothyroxine 50 mcg Tablet PO (08:40)
[2022-03-31] MEDS: amoxicillin-clav 875-125 mg Tablet 1 TAB PO (08:40)
[2022-03-31] MEDS: amlodipine 5 mg Tablet PO (08:41)
[2022-03-31] MEDS: pantoprazole DR 40 mg Tablet PO (08:41)
[2022-03-31] MEDS: insulin lispro 100 unit/1 mL SUBCUT (08:41)
[2022-03-31] MEDS: heparin 5,000 unit/mL INJ 1 mL 5000 UNIT SUBCUT (08:41)
[2022-03-31] MEDS: bacitracin ointment 28 gm 1 APPLIC TOPICAL (08:41)
[2022-03-31] MEDS: metoprolol tartrate 50 mg Tablet PO (08:42)
[2022-03-31] MEDS: oxyCODONE 5 mg IR Tab/Cap PO (08:45)
[2022-03-31] MEDS: sodium chloride 0.9% 1,000 ML 75 ML IV (08:46)
--- NOTE | 2022-03-31 09:04 | PM.PN ---
Subjective Subjective: No new issues with Ms. Valdes today. She feels well. Keen for discharge. Sodium levels now stuck at 120. Dextrose transition to IV normal saline yesterday. No extremity edema, shortness of breath or other hypervolemic symptoms. Vitals/I&O/Wt Last Vital Signs Temp 98.6 F 03/31/22 07:49 Pulse 56 L 03/31/22 08:00 Resp 16 03/31/22 08:45 BP 168/96 03/31/22 08:40 Pulse Ox 93 03/31/22 08:45 03/30/22 03/31/22 03/31/22 22:59 06:59 14:59 Intake Total 1170 / 2520 965 / 965 Balance 1170 / 2520 965 / 965 Physical Exam Narrative: Constitutional: Awake, comfortable HEENT: Wet mucosa, no jvp, non icteric Lungs: Bilaterally wheeze/rales in lung bases CVS: S1 S2, no murmurs Abdo: Soft, BS ok Ext 4: Minimal edema, peripheral perfusion with no cyanosis Neurological: Grossly non-focal Data : 03/31/22 04:16 03/31/22 04:16 A&P Assessment and plan (1) CORINA (acute kidney injury): Status: Acute Plan 1. Acute kidney injury Recovered 2. Hyperkalemia Recovered 3. Hyponatremia Sodium now stuck at 120 following DDAVP and dextrose. DC normal saline, will give salt tablets 1 g p.o. 3 times daily as well as Lasix x1 today. Recheck sodium at 2 PM. 4. Shortness of breath Culture data appreciated On Avbx 5. Disposition As long as her sodium level in the 125-128 range this afternoon she will be safe for discharge. Thank you for consultation Exam and interview performed with aid of bedside RN using telemedicine Time spent 20 min inc > 50% of time in face to face counseling Cullen Crews MD [facility] [phone] Attestations Medical Necessity Statement*: eval for renal failure and lyte disorder Coding Level of Care Code Acute Copy Room Technician for Chg Fwd Diagnoses CORINA (acute kidney injury) N17.9
[2022-03-31] MEDS: sodium chloride 1 gm Tablet PO (10:59)
[2022-03-31] MEDS: FUROsemide 20 mg Tablet PO (10:59)
[2022-03-31] MEDS: doxycycline 100 mg Tablet PO (10:59)
[2022-03-31 12:16] LABS: Glucose Point of Care 114 mg/dL (70-110)
--- NOTE | 2022-03-31 12:29 | PM.DCS ---
Discharge Providers Date of Admission: 03/29/22 04:48 Date of Discharge: March 31, 2022 Attending Provider at Admission: Mirella Fernandes MD Attending Provider at Discharge: Andriy Lambert MD Primary Care Provider: Dayne Greene MD Diagnoses at Discharge Discharge Diagnosis (1) CORINA (acute kidney injury): Status: Acute Reason for Visit Reason for Visit: FALL Hospital Course Hospital Course Left AMA 56-year female who was admitted for management of worsening shortness of breath, generalized weakness and fatigue on the day of admission she was diagnosed with hypokalemia and CORINA. Initially there was plan to place temporary dialysis catheter because of hyperkalemia however she improved with medical management for hyperkalemia. She never required hemodialysis. Nephro was consulted from day 1. Her hyponatremia was managed by Dr. Paniagua. Her sodium improved more than our target goal, she was given DDAVP and D5 that brought her sodium down to 120. On 03/31 she was on normal saline and sodium trended down from 120-118, nephro saw her in the morning and recommended discharge only if her sodium is between 125 -128 mEq. Patient clinically showed signs of improvement, she was put on BiPAP Friday of admission which was gradually weaned off to room air. She improved significantly in terms of her symptoms. She was also diagnosed with bradycardia initial EKG showed intermittent high degree AV block with third-degree however she never had any chest pain, shortness of breath improved. She remained hemodynamically stable. Initially there was concern for hyperkalemia related changes as her heart rate improved after potassium correction. I did asked patient to stay over the weekend for cardiology evaluation and slow sodium correction. Patient is agitated and wants to go home she is craving nicotine, she is stating that nicotine patch is not helping with her symptoms she has made up her mind and wants to go home. I did talk with her nephew as well. They do understand the risk factors involved with low sodium and high degree AV block. I counseled them to return back to the ER in case of any symptoms including chest pain, shortness of breath, confusion, strokelike symptoms, fatigue, lethargy, etc. They do understand the risk involved with leaving AGAINST MEDICAL ADVICE. I discontinued metoprolol, losartan and potassium supplementation at the time of discharge. Her hyperkalemia and CORINA most likely was drug-induced. Dr Crews Recommended adding salt tablets Discharge Data Studies Completed and Pending Completed Studies During Hospitalization Category Date Time Status CT chest abdomen pelvis [[place] [id number] Cat Scan 03/29/22 08:51 Completed ] Routine XR chest 1V portable [id number] Routine Exams 03/30/22 06:33 Completed XR chest 1V portable [id number] Stat Exams 03/29/22 01:05 Completed CV. echo complete* [id number] Routine Ultrasound 03/29/22 07:32 Completed Pending at discharge Category Date Time Status Blood Culture Stat Lab 03/29/22 03:26 Results Sodium Routine Lab 03/31/22 14:00 Ordered Sputum Culture and Gram Stain Routine Lab 03/29/22 06:53 Uncollected Radiology Impressions Chest/Abdomen/Pelvis CT 03/29/22 08:51 IMPRESSION: There are hazy opacities in both upper lobes which are nonspecific but could be secondary to pneumonia. IMPRESSION: 1. 11 mm nonobstructing right renal pelvis stone. 2. There is bilateral perinephric fat stranding, nonspecific but can be seen with pyelonephritis. Chest X-Ray 03/30/22 06:33 IMPRESSION: No acute findings. Laboratory Results WBC 10.3 10^3/uL (4.0-10.0) H 03/31/22 04:16 RBC 3.58 10^6/uL (4.1-5.3) L 03/31/22 04:16 Hgb 11.1 g/dL (11.5-15.3) L 03/31/22 04:16 Hct 31.0 % (37.0-47.0) L 03/31/22 04:16 MCV 86.6 fl (81-99) 03/31/22 04:16 MCH 31.0 pg (28.0-34.0) 03/31/22 04:16 MCHC 35.8 g/dL (30.0-36.0) 03/31/22 04:16 RDW 14.4 % (12.1-15.1) 03/31/22 04:16 Plt Count 293 10^3/cmm (130-400) 03/31/22 04:16 MPV 9.4 fL (7.4-10.4) 03/31/22 04:16 Neut % (Auto) 61.6 % 03/31/22 04:16 Lymph % (Auto) 25.8 % 03/31/22 04:16 [place] % (Auto) 8.3 % 03/31/22 04:16 Eos % (Auto) 3.0 % 03/31/22 04:16 Baso % (Auto) 0.5 % 03/31/22 04:16 Neut # (Auto) 6.34 10^3/uL (1.8-7.7) 03/31/22 04:16 Lymph # (Auto) 2.7 10^3/uL (0.8-4.8) 03/31/22 04:16 [place] # (Auto) 0.9 10^3/uL (0.2-0.9) 03/31/22 04:16 Eos # (Auto) 0.3 10^3/uL (0.0-0.8) 03/31/22 04:16 Baso # (Auto) 0.1 10^3/uL (0.0-0.1) 03/31/22 04:16 Nucleated RBC % (auto) 0 % 03/31/22 04:16 Nucleated RBCs # 0.0 /100WBC 03/31/22 04:16 D-Dimer 2.92 ug/mIFEU (0-0.59) H 03/29/22 09:05 Specimen Type Arterial 03/29/22 02:55 Sample Site Radial, right 03/29/22 02:55 ABG pH 7.31 (7.35-7.45) L 03/29/22 02:55 ABG pCO2 40.1 mmHg (35-45) 03/29/22 02:55 ABG pO2 50.1 mmHg (80.0-100.0) L 03/29/22 02:55 ABG HCO3 20.1 mmol/L (22-26) L 03/29/22 02:55 ABG Base Excess -5.9 mmol/L (-2.0-2.0) L 03/29/22 02:55 Jeff Test Pos 03/29/22 02:55 Hematocrit 35.2 % (37-47) L 03/29/22 02:55 O2 Delivery Device Nc 03/29/22 02:55 O2 Liters/Min 6.0 % 03/29/22 02:55 [place] Management Specialist ID Hensa 03/29/22 02:55 Sodium 120 mmol/L (136-145) L 03/31/22 04:16 Potassium 3.5 mmol/L (3.5-5.1) 03/31/22 04:16 Chloride 82 mmol/L (98-107) L 03/31/22 04:16 Carbon Dioxide 27 mmol/L (22-29) 03/31/22 04:16 Anion Gap 14.5 (5-19) 03/31/22 04:16 BUN 12 mg/dL (6-20) 03/31/22 04:16 Creatinine 0.9 mg/dL (0.5-0.9) 03/31/22 04:16 GFR Calculation 64.5 mL/min (90-130) L 03/31/22 04:16 Glucose 168 mg/dL (65-115) H 03/31/22 04:16 POC Glucose 114 mg/dL (70-110) H 03/31/22 12:12 Estimat Average Glucose 194 03/29/22 01:22 Hemoglobin A1c 8.4 % (4.0-6.0) H 03/29/22 01:22 Calculated Osmolality 254 mOsm/kg (285-295) L 03/31/22 04:16 Lactic Acid 1.8 mmol/L (0.5-2.2) 03/29/22 09:05 Lactic Acid (Sepsis) 1.3 mmol/L (0.5-2.2) 03/29/22 06:09 Uric Acid 6.8 mg/dL (2.4-5.7) H 03/29/22 09:05 Calcium 9.0 mg/dL (8.5-10.5) 03/31/22 04:16 Magnesium 1.5 mg/dL (1.7-2.3) L 03/29/22 09:05 Total Bilirubin 0.5 mg/dL (0.15-1.2) 03/29/22 03:40 AST 12 U/L (0-32) 03/29/22 03:40 ALT 9 U/L (0-33) 03/29/22 03:40 Alkaline Phosphatase 95 IU/L (35-105) 03/29/22 03:40 Creatine Kinase 136 U/L (26-192) 03/29/22 09:05 Troponin T Baseline 45 ng/L (0-10) H 03/29/22 01:22 Troponin T 120 Minute 37.24 ng/L (0-10) H 03/29/22 06:09 Delta Troponin T -7.76 ABS# (0-10) L 03/29/22 06:09 Troponin T Hi Sens 6Hr 35.43 ng/L (0-10) H 03/29/22 09:05 Troponin T Hi Sens 6Hr Delta -9.57 ng/L (0-12) L 03/29/22 09:05 C-Reactive Protein 42.0 mg/L (0.0-4.9) H 03/30/22 01:12 Total Protein 6.6 g/dL (6.6-8.7) 03/29/22 03:40 Albumin 3.5 g/dL (3.5-5.2) 03/29/22 03:40 Globulin 3.1 g/dL (1.3-4.6) 03/29/22 03:40 Procalcitonin 0.09 ng/mL (0-0.5) 03/30/22 01:12 TSH 4.65 uIU/mL (0.27-4.20) H 03/29/22 09:05 Random Cortisol 11.40 ug/dL (2.47-19.5) 03/29/22 06:09 Urine Color Yellow (Yellow) 03/29/22 09:00 Urine Appearance Clear (CLEAR) 03/29/22 09:00 Urine pH 5 (5-7) 03/29/22 09:00 Ur Specific [place] 1.010 (1.005-1.030) 03/29/22 09:00 Urine Protein Neg (Negative) 03/29/22 09:00 Urine Glucose (UA) Norm (Normal) 03/29/22 09:00 Urine Ketones Negative (Negative) 03/29/22 09:00 Urine Blood Neg (Negative) 03/29/22 09:00 Urine Nitrate Negative (Negative) 03/29/22 09:00 Urine Bilirubin Neg (Negative) 03/29/22 09:00 Urine Urobilinogen Norm mg/dL (Negative) 03/29/22 09:00 Ur Leukocyte Esterase Negative (Negative) 03/29/22 09:00 Ur Random Sodium 36 mmol/L 03/29/22 09:00 Ur Random Potassium 44 mmol/L 03/29/22 09:00 Ur Random Chloride 45 mmol/L 03/29/22 09:00 Urine Creatinine 79 mg/dL (28-217) 03/29/22 09:00 Urine Opiates Screen Positive ng/mL (Negative) H 03/29/22 09:00 Ur Barbiturates Screen Negative ng/mL (Negative) 03/29/22 09:00 Ur Phencyclidine Scrn Negative ng/mL (Negative) 03/29/22 09:00 Ur Amphetamines Screen Negative ng/mL (Negative) 03/29/22 09:00 U Benzodiazepines Scrn Negative ng/mL (Negative) 03/29/22 09:00 Urine Cocaine Screen Negative ng/mL (Negative) 03/29/22 09:00 U Marijuana (THC) Screen Negative ng/mL (Negative) 03/29/22 09:00 Coronavirus 229E (PCR) Not detected (NOT DETECT) 03/29/22 07:45 SARS-CoV-2 (PCR) Not detected (NOT DETECT) 03/29/22 07:45 Vitals Last Vital Signs Temp 98.5 F 03/31/22 11:42 Pulse 69 03/31/22 11:42 Resp 16 03/31/22 11:42 BP 186/108 03/31/22 11:42 Pulse Ox 88 L 03/31/22 11:42 Discharge Plan Discharge Patient Disposition: Left Against Medical Advice Condition: Stable Prescriptions: New sodium chloride 1 gram Tablet 1 g PO TID Qty: 20 0RF amoxicillin-pot clavulanate 875-125 mg Tablet 1 tab PO BID Qty: 6 0RF Continued methenamine hippurate 1 gram tablet 1 g PO BID Qty: 60 12RF Rx Instructions: 1 pill twice a day with 1 g vitamin C each dose fluticasone propion-salmeterol [Advair Diskus] 100-50 mcg/dose blister with device 1 puff INHALATION BID 0RF amlodipine 10 mg tablet 5 mg PO DAILY 0RF aspirin 81 mg tablet,chewable 81 mg PO DAILY 0RF fluticasone propionate 50 mcg/actuation spray,suspension 1 spray INTRANASAL Q12H PRN (Reason: Nasal Congestion) 0RF montelukast 10 mg tablet 10 mg PO DAILY 0RF citalopram 20 mg tablet 20 mg PO DAILY 0RF levothyroxine 100 mcg tablet 50 mcg PO DAILY 0RF clopidogrel 75 mg tablet 75 mg PO DAILY 0RF melatonin 10 mg capsule 10 mg PO BEDTIME 0RF simvastatin 20 mg tablet 20 mg PO DAILY 0RF clonidine HCl 0.1 mg tablet 0.1 mg PO BID 0RF nitroglycerin 0.4 mg tablet, sublingual 0.4 mg sublingual Q5M PRN (Reason: Chest Pain) 0RF Rx Instructions: do not exceed 3 doses per episode gabapentin 600 mg tablet 1,200 mg PO TID Qty: 180 1RF tizanidine 4 mg tablet 4 mg PO TID PRN (Reason: muscle spasm) Qty: 90 1RF oxycodone 5 mg tablet 5 mg PO Q8H PRN (Reason: pain) 30 Days Qty: 90 0RF hydromorphone 4 mg tablet 4 mg PO QID PRN (Reason: pain) 30 Days Qty: 120 0RF quetiapine [Seroquel] 100 mg tablet 100 mg PO BEDTIME 0RF trazodone 100 mg tablet 100 mg PO BEDTIME 0RF tamsulosin 0.4 mg capsule 0.4 mg PO DAILY Qty: 30 12RF pyridoxine (vitamin B6) [Vitamin B-6] 50 mg Tablet 25 mg PO DAILY 0RF albuterol sulfate 90 mcg/actuation HFA aerosol inhaler 90 mcg INHALATION QID PRN (Reason: Shortness Of Breath) 0RF Tresiba FlexTouch U-200 200 unit/mL (3 mL) insulin pen See Rx Instructions .ROUTE .COMPLEX Qty: 0 0RF Rx Instructions: 15 unit subcutaneously QAM AND 15 UNITS HS Vitamin C 1,000 mg Tablet 1,000 mg PO BID 0RF methocarbamol 750 mg Tablet 750 mg PO TID PRN (Reason: Muscle Pain) 0RF Discontinued losartan 50 mg tablet 50 mg PO BID 0RF metoprolol tartrate 50 mg tablet 50 mg PO BID 0RF potassium chloride 20 mEq tablet extended release 20 meq PO BID 0RF nortriptyline 50 mg Capsule 100 mg PO BEDTIME 0RF Other Ambulatory Orders: Basic Metabolic Panel (Q3D) Timeframe: 20220403 Facility: [facility] - Location: Lab - Main Lab Ordered By: Andriy Lambert Basic Metabolic Panel (Q3D) Timeframe: 20220406 Facility: [facility] - Location: Lab - Main Lab Ordered By: Andriy Lambert Referrals: Dayne Greene MD [Primary Care Provider] - (Please call Friday to schedule a follow up appointment) Discharge Diet: Regular Patient Instructions: Amoxicillin/Clavulanate Potassium (By mouth), Electrolyte Supplement (By mouth), Sodium Chloride (By mouth), Acute Kidney Injury (DC), Sepsis (DC) Discharge Attestations Time Spent in Discharge Care*: less than 30 min Quality Metrics Clinical Quality Measures [ No reported AMI, CVA or VTE this stay] Coding Level of Care Code Acute Chg FW DC note Diagnoses CORINA (acute kidney injury) N17.9
[2022-03-31 14:07] LABS: Sodium 118 mmol/L (136-145)
--- NOTE | 2022-03-31 14:30 | PM.MISC ---
Miscellaneous Note Purpose of Documentation: Progress note for today Note: Electrode Turner And Finisher recommended discharging her home if sodium level is between 125 -128 however repeat sodium came back lower than 120 she is at low to 118, spoke with Dr. Paniagua Will not discharge her today, she is still getting salt tablets, she will also get normal saline at lower maintenance rate for closer monitoring for sodium, This morning patient is feeling better, she does not want to stay in the hospital, she is very upset that she has to stay 1 more day she might leave AGAINST MEDICAL ADVICE She does not have any symptoms or signs of sodium fluctuations so far She is feeling much better She is saturating well on room air Not even requiring oxygen No active stridor or wheezing Awake and alert Nonfocal neuro exam Abdomen is soft Looks euvolemic today Assessment and plan Secondary to significant sodium fluctuation and sodium 118, patient should not be discharged today, did speak with toll bridge operator, nurse Patient is upset Will give her some time to think about it, she is stating that she might leave AGAINST MEDICAL ADVICE I have discontinued my discharge orders Shortness of breath has improved currently she is saturating well on room air CORINA resolved, creatinine is better, hypokalemia improved her symptoms improved after IV fluid hydration Hypertension: Hypokalemia: I have discontinued her potassium supplementation and losartan which most likely cause acute kidney injury with dehydration Sepsis: Resolved Bradycardia: Resolved however she has intermittent high degree AV block with third-degree will need cardiology evaluation and pacemaker evaluation Patient is full code On renal nondialysis diet
--- NOTE | 2022-03-31 14:39 | PC.NURSE ---
pt has critical sodium level at 118, pt insists signing out ama, nurse educ pt on all benefits of her staying, also educ pt on risks, up to and including of leaving ama. notified dr. villalba and dr. garcia
--- NOTE | 2022-03-31 14:42 | P.MISC_ITS ---
Miscellaneous Note Note: I spoke with the patient and her nephew who is at the bedside I did explain her the risk factors associated with hyponatremia and EKG changes which are showing intermittent high degree AV block third-degree AV block She does not want to stay for cardiology evaluation today or improvement of sodi um until tomorrow I did explain her that initially there was concern that her bradycardia is likely related to hyperkalemia, she has not experienced worsening of shortness of breath or any chest pain She will need cardiac evaluation Dr. Paniagua has recommended 2 mg of salt tablets along Lasix Patient is stating that she has made up her mind she is upset that she is not able to smoke anymore and nicotine patch is not helping her with her anxiety and thus why she had decided to go home Nephew stating that in case of any worsening of her symptoms he will bring her back to the ER
== END 2022-03-31 13:55 | disposition left against medical advice (07) | DRG 987 ==
LOC: ER 04:48 → ICU 05:48 → MEDSURG 03-30 19:17
PROVIDERS: Internal Medicine Nephrology; Nurse Practitioner Family; Admitting Provider Student in an Organized Health Care Education/Training Program; Emergency Provider Emergency Medicine; PCP Family Medicine; Visit Provider Internal Medicine
DX: N17.9 Acute kidney failure, unspecified (principal); J81.0 Acute pulmonary edema; E87.1 Hypo-osmolality and hyponatremia; J44.1 Chronic obstructive pulmonary disease with (acute) exacerbation; I44.2 Atrioventricular block, complete; E87.6 Hypokalemia; R00.1 Bradycardia, unspecified; Z89.511 Acquired absence of right leg below knee; I10 Essential (primary) hypertension; F17.200 Nicotine dependence, unspecified, uncomplicated; Z53.29 Procedure and treatment not carried out because of patient's decision for other reasons; S91.312A Laceration without foreign body, left foot, initial encounter; W01.0XXA Fall on same level from slipping, tripping and stumbling without subsequent striking against object, initial encounter; R09.02 Hypoxemia; Z79.891 Long term (current) use of opiate analgesic; Z79.02 Long term (current) use of antithrombotics/antiplatelets; I25.2 Old myocardial infarction; E03.9 Hypothyroidism, unspecified; I95.9 Hypotension, unspecified
CPT/HCPCS: 36415; 36416; 36600; 51701; 71045; 71250; 74176; 80048; 80053; 80306; 81003; 82436; 82533; 82550; 82570; 82803; 82962; 83036; 83605; 83735; 84133; 84145; 84295; 84300; 84443; 84484; 84550; 85025; 85378; 86140; 87040; 87449; 87635; 90471; 90715; 93005; 93306; 94640; 94660; 96365; 96366; 96367; 96368; 96372; 96375; 99291; 99292; J0610; J0696; J1644; J1720; J1815; J1940; J2020; J2543; J2597; J3370; J3490; J7030; J7040; J7614; J7799; Q3014

== ENCOUNTER → 2022-04-12 08:19 | Outpatient (BNVA) | payer MEDICARE, MEDICAID, SELFPAY | PROVIDERS: PCP Family Medicine; Visit Provider Surgery | DX: I96 Gangrene, not elsewhere classified (principal); E11.621 Type 2 diabetes mellitus with foot ulcer; L97.422 Non-pressure chronic ulcer of left heel and midfoot with fat layer exposed | CPT/HCPCS: 11043; 99212 ==

== ENCOUNTER 2022-04-12 13:52 | Outpatient (CLI) | payer MEDICARE, MEDICAID, SELFPAY ==
--- NOTE | 2022-04-12 14:04 | XR_ITS ---
WS: [id number] Left foot, 3 views, 04/12/2022 Clinical Data: TYPE II DIABETIC W/FOOT ULCER Comparison: Left foot, 12/31/2021. Findings: The amputation of the left great toe and distal portion of the left first metatarsal remains the same . There is a small needle in the subcutaneous tissue of the distal phalanx of left fourth toe. There are no fractures or dislocations. No bone destruction or erosion is seen. There is a plantar sp ur and an Achilles spur. XR/XR foot LT min 3V* [id number] Impression: No change from previous left foot x-ray.
== END 2022-04-12 13:53 | disposition home or self-care (01) ==
LOC: RAD 13:56
PROVIDERS: PCP Family Medicine; Visit Provider Surgery
DX: E11.621 Type 2 diabetes mellitus with foot ulcer (principal)
CPT/HCPCS: 11043; 73630; 99212

== ENCOUNTER 2022-04-13 21:25 | Emergency (ER) | payer MEDICARE, MEDICAID, SELFPAY ==
[2022-04-13 22:04] VITALS: BP 111/72; PULSE 73; RESP 18; TEMP 36.7; O2SAT 94; BMI 36.3
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
== END 2022-04-13 23:14 | disposition home or self-care (01) ==
PROVIDERS: Emergency Provider Emergency Medicine; PCP Family Medicine
DX: M79.5 Residual foreign body in soft tissue (principal); E11.40 Type 2 diabetes mellitus with diabetic neuropathy, unspecified; Z79.82 Long term (current) use of aspirin; Z79.02 Long term (current) use of antithrombotics/antiplatelets; Z79.4 Long term (current) use of insulin; I10 Essential (primary) hypertension; J44.9 Chronic obstructive pulmonary disease, unspecified; I25.2 Old myocardial infarction; Z98.61 Coronary angioplasty status; Z89.511 Acquired absence of right leg below knee; F17.210 Nicotine dependence, cigarettes, uncomplicated
CPT/HCPCS: 99283

== ENCOUNTER → 2022-04-19 07:57 | Outpatient (BNVA) | payer MEDICARE, MEDICAID, SELFPAY | PROVIDERS: PCP Family Medicine; Visit Provider Nurse Practitioner Family | DX: E11.621 Type 2 diabetes mellitus with foot ulcer (principal); L97.522 Non-pressure chronic ulcer of other part of left foot with fat layer exposed; I96 Gangrene, not elsewhere classified | CPT/HCPCS: 97597 ==

== ENCOUNTER → 2022-06-05 13:10 | Outpatient (BNVA) | payer MEDICARE, MEDICAID, SELFPAY | PROVIDERS: PCP Family Medicine; Visit Provider Podiatrist Foot & Ankle Surgery | DX: E11.621 Type 2 diabetes mellitus with foot ulcer (principal); L97.524 Non-pressure chronic ulcer of other part of left foot with necrosis of bone; E11.42 Type 2 diabetes mellitus with diabetic polyneuropathy; Z79.4 Long term (current) use of insulin | CPT/HCPCS: 11044; 73630; 99214 ==

== ENCOUNTER → 2022-06-20 11:25 | Outpatient (BNVA) | payer MEDICARE, MEDICAID, SELFPAY | PROVIDERS: PCP Family Medicine; Visit Provider Podiatrist Foot & Ankle Surgery | DX: E11.621 Type 2 diabetes mellitus with foot ulcer (principal); L97.524 Non-pressure chronic ulcer of other part of left foot with necrosis of bone; E11.42 Type 2 diabetes mellitus with diabetic polyneuropathy; Z79.4 Long term (current) use of insulin; Z89.412 Acquired absence of left great toe | CPT/HCPCS: 11044; 87070; 87075; 87205 ==

== ENCOUNTER → 2022-06-24 13:29 | Outpatient (BNVA) | payer MEDICARE, MEDICAID, SELFPAY | PROVIDERS: PCP Family Medicine; Visit Provider Internal Medicine | DX: I25.10 Atherosclerotic heart disease of native coronary artery without angina pectoris (principal); R07.9 Chest pain, unspecified; R00.2 Palpitations; F17.200 Nicotine dependence, unspecified, uncomplicated; I10 Essential (primary) hypertension | CPT/HCPCS: 93270; 99204 ==

== ENCOUNTER → 2022-07-04 11:08 | Outpatient (BNVA) | payer MEDICARE, MEDICAID, SELFPAY | PROVIDERS: PCP Family Medicine; Visit Provider Podiatrist Foot & Ankle Surgery | DX: E11.621 Type 2 diabetes mellitus with foot ulcer (principal); Z79.4 Long term (current) use of insulin; L97.524 Non-pressure chronic ulcer of other part of left foot with necrosis of bone; E11.42 Type 2 diabetes mellitus with diabetic polyneuropathy | CPT/HCPCS: 99214 ==

== ENCOUNTER → 2022-07-11 11:43 | Outpatient (BNVA) | payer MEDICARE, MEDICAID, SELFPAY | PROVIDERS: PCP Family Medicine; Visit Provider Podiatrist Foot & Ankle Surgery | DX: E11.621 Type 2 diabetes mellitus with foot ulcer (principal); Z79.4 Long term (current) use of insulin; L97.524 Non-pressure chronic ulcer of other part of left foot with necrosis of bone; E11.42 Type 2 diabetes mellitus with diabetic polyneuropathy | CPT/HCPCS: 99213; 99214 ==

== ENCOUNTER → 2022-07-24 15:27 | Outpatient (BNVA) | payer MEDICARE, MEDICAID, SELFPAY | PROVIDERS: PCP Family Medicine; Visit Provider Podiatrist Foot & Ankle Surgery | DX: E11.621 Type 2 diabetes mellitus with foot ulcer (principal); Z79.4 Long term (current) use of insulin; Z89.511 Acquired absence of right leg below knee; Z89.412 Acquired absence of left great toe; L97.524 Non-pressure chronic ulcer of other part of left foot with necrosis of bone; E11.42 Type 2 diabetes mellitus with diabetic polyneuropathy | CPT/HCPCS: 99214 ==

== ENCOUNTER 2022-09-07 23:27 | Inpatient (IN) | payer MEDICARE, MEDICAID, SELFPAY ==
[2022-09-07 23:28] VITALS: BMI 36.3
[2022-09-07 23:33] VITALS: BP 113/76; PULSE 70; RESP 18; TEMP 36.9; O2SAT 84
--- NOTE | 2022-09-07 23:42 | ECG_ITS ---
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 Measurements Intervals [place] Rate: 92 P: 0 MO: 0 QRS: 6 QRSD: 139 T: 1 QT: 386 QTc: 478 Interpretive Statements ATRIAL FIBRILLATION INTRAVENTRICULAR CONDUCTION DELAY [130+ ms QRS DURATION] Compared to ECG 03/29/2022 07:39:27 Intraventricular conduction delay now present Left bundle-branch block no longer present Electronically Signed On 09-08-2022 12:53:03 AUTOMOTIVE ELECTRICAL FITTER by James Roman M.D. [id number]
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
--- NOTE | 2022-09-07 23:43 | XRR_ITS ---
PROCEDURE INFORMATION: Exam: XR Chest Exam date and time: 09/07/2022 11:46 PM Age: 57 years old Clinical indication: Shortness of breath; Additional info: SOB TECHNIQUE: Imaging protocol: Radiologic exam of the chest. Views: 1 view. COMPARISON: CR XR chest 1V portable [id number] 03/30/2022 8:50 AM FINDINGS: Lungs: Mild areas of lung base atelectasis or scarring, similar to 03/30/2022. No consolidation. Pleural spaces: Unremarkable. No pleural effusion. No pneumothorax. Heart/Mediastinum: Unremarkable. No cardiomegaly. Diffuse vascular calcification. Bones/joints: Unremarkable. XR/XR chest 1V portable [id number] IMPRESSION: 1. No focal pneumonia or evidence of pneumothorax. 2. Similar areas of lung base atelectasis or scarring. These findings are unchanged or minimally progressed from 03/30/2022.
[2022-09-07 23:56] LABS: Basophils # 0.1 10^3/uL (0.0-0.1); Basophils % 0.6 %; Eosinophils # 0.4 10^3/uL (0.0-0.8); Eosinophils % 2.3 %; Hematocrit 40.2 % (37.0-47.0); Hemoglobin 13.2 g/dL (11.5-15.3); Lymphocytes # 2.7 10^3/uL (0.8-4.8); Lymphocytes % 16.8 %; Mean Corpuscular HGB Conc 32.8 g/dL (30.0-36.0); Mean Corpuscular Hemoglobin 29.7 pg (28.0-34.0); Mean Corpuscular Volume 90.5 fl (81-99); Monocytes # 0.8 10^3/uL (0.2-0.9); Monocytes % 5.2 %; Neutrophils % 74.5 %; Nucleated Red Blood Cells % 0 %; Platelet Count 340 10^3/cmm (130-400); Red Blood Count 4.44 10^6/uL (4.1-5.3); Red Cell Distribution Width 15.4 % (12.1-15.1); White Blood Count 15.8 10^3/uL (4.0-10.0)
[2022-09-08] VITALS (17 sets, daily range): BP systolic 114–176; BP diastolic 75–90; PULSE 86–107; RESP 16–22; TEMP 36.5–36.9; O2SAT 90–97
[2022-09-08 00:13] LABS: Influenza A by IFA negative (Negative); Influenza B by IFA negative (Negative); Lactic Sepsis W/Reflex 3.3 mmol/L (0.5-2.2); SARS Covid-2 Antigen negative (Negative)
[2022-09-08 00:17] LABS: ABG PCO2 42.7 mmHg (35-45); ABG PH Result 7.38 (7.35-7.45); Base Excess ABG -0.3 mmol/L (-2.0-2.0); Blood Gas Allen Test Pos; Blood Gas Operator Identificat WALCI; Blood Gas Sample Site Radial, left; Blood Gas Sample Type Arterial; HCO3 ABG 25.1 mmol/L (22-26); Oxygen Device NC
[2022-09-08] MEDS: ipratropium-albuterol 3 mL Neb INHALATION ×3 (00:22→20:21)
[2022-09-08 00:24] LABS: Alanine Aminotransferase 6 U/L (0-33); Albumin Level 3.7 g/dL (3.5-5.2); Alkaline Phosphatase 150 U/L (35-105); Anion Gap 16.9 (5-19); Aspartate Amino Transferase 9 U/L (0-32); Blood Urea Nitrogen 17 mg/dL (6-20); Calcium 9.2 mg/dL (8.5-10.5); Carbon Dioxide 25 mmol/L (22-29); Chloride 90 mmol/L (98-107); Glomerular Filtration Rate 33.1 mL/min (90-130); Glucose 296 mg/dL (65-115); NT Pro B Type Natriuretic Pept 778 pg/mL (0-125); Osmolality Calculated 279 mOsm/kg (285-295); Potassium 3.9 mmol/L (3.5-5.1); Sodium 128 mmol/L (136-145); Total Bilirubin 0.2 mg/dL (0.15-1.2); Total Protein 7.7 g/dL (6.6-8.7)
[2022-09-08 00:38] LABS: Troponin(5th) Baseline 36 ng/L (0-10)
[2022-09-08 00:52] LABS: Thyroid Stimulating Hormone 3.62 uIU/mL (0.27-4.20)
[2022-09-08 01:37] LABS: Reflex Lactate Order REFLEX LACTIC ORDERD
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
--- NOTE | 2022-09-08 02:04 | ECG_ITS ---
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 Measurements Intervals [place] Rate: 89 P: 59 OH: 232 QRS: 7 QRSD: 138 T: 45 QT: 388 QTc: 473 Interpretive Statements SINUS RHYTHM WITH FIRST DEGREE AV BLOCK INTRAVENTRICULAR CONDUCTION DELAY [130+ ms QRS DURATION] Compared to ECG 09/07/2022 23:48:14 First degree AV block now present Atrial fibrillation no longer present Electronically Signed On 09-08-2022 12:55:14 AIRCRAFT POWER PLANT ASSEMBLER by James Roman M.D. [id number]
[2022-09-08 02:07] LABS: Troponin 5 2HR 30.82 ng/L (0-10)
[2022-09-08 02:08] LABS: Lactic Acid level (Lactate) 2.6 mmol/L (0.5-2.2)
[2022-09-08 02:09] LABS: Troponin 5 2HR Delta -5.18 ABS# (0-10)
[2022-09-08 02:43] LABS: Procalcitonin 0.11 ng/mL (0-0.5)
[2022-09-08] MEDS: sodium chloride 0.9% 1,000 ML 75 ML IV (02:55)
[2022-09-08] MEDS: heparin 5,000 unit/mL INJ 1 mL 5000 UNIT SUBCUT ×2 (02:55→13:58)
[2022-09-08 04:44] LABS: Bilirubin Urine Neg (Negative); Blood Urine Neg (Negative); Glucose Urine UA 1+ (Normal); Ketones Urine Negative (Negative); Nitrate Urine Negative (Negative); Protein Urine 1+ (Negative); Specific Gravity, Urine 1.015 (1.005-1.030); Urine Appearance Clear (CLEAR); Urine Color Yellow (Yellow); pH Urine 5 (5-7)
[2022-09-08 04:45] LABS: Add Urine Microscopic? YES; Leukocyte Esterase Urine Trace (Negative); Urobilinogen Urine Neg (Negative)
[2022-09-08 04:46] LABS: Add Urine Culture? Yes; Bacteria Urine 1+ /hpf; Squamous Epithelial Cell Urine 0-4 /hpf (0-5)
--- NOTE | 2022-09-08 06:06 | ECG_ITS ---
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 Measurements Intervals [place] Rate: 87 P: 56 MN: 229 QRS: 7 QRSD: 138 T: 23 QT: 409 QTc: 493 Interpretive Statements SINUS RHYTHM WITH FIRST DEGREE AV BLOCK INTRAVENTRICULAR CONDUCTION DELAY [130+ ms QRS DURATION] Compared to ECG 09/08/2022 02:04:32 No significant changes Electronically Signed On 09-08-2022 12:55:21 TANK OFFICER by James Roman M.D. [id number]
[2022-09-08 06:19] LABS: Troponin 5 6HR 24.27 ng/L (0-10)
[2022-09-08] MEDS: clopidogrel 75 mg Tablet PO (08:33)
[2022-09-08] MEDS: levothyroxine 50 mcg Tablet PO (08:33)
--- NOTE | 2022-09-08 08:33 | PC.NURSE ---
Dr. Maldonado notified of home medication list update and awaiting home pain medication to be brought for verification.
[2022-09-08] MEDS: amlodipine 10 mg Tablet 5 MG PO (08:34)
[2022-09-08] MEDS: aspirin 81 mg Chew Tablet PO (08:34)
[2022-09-08] MEDS: atorvastatin 40 mg Tablet 20 MG PO (08:34)
[2022-09-08] MEDS: tamsulosin 0.4 mg Capsule PO (08:34)
[2022-09-08] MEDS: citalopram 20 mg Tablet PO (08:34)
--- NOTE | 2022-09-08 08:48 | PC.NURSE ---
Dr. Maldonado notified of patients blood sugar was 508 above sliding scale range, new orders received for lantus 40units and increased humalog sliding scale for noon, see MAR for further details.
[2022-09-08 08:49] LABS: Glucose Point of Care 508 mg/dL (70-110)
[2022-09-08 08:53] LABS: Glucose Point of Care 496 mg/dL (70-110)
[2022-09-08] MEDS: insulin glargine 100 units/1 mL 40 UNIT SUBCUT (09:44)
[2022-09-08 11:09] LABS: Glucose Point of Care 555 mg/dL (70-110)
[2022-09-08 11:10] LABS: Anion Gap 16.3 (5-19); Blood Urea Nitrogen 20 mg/dL (6-20); Carbon Dioxide 22 mmol/L (22-29); Chloride 87 mmol/L (98-107); Glomerular Filtration Rate 38.6 mL/min (90-130); Glucose 470 mg/dL (65-115); Osmolality Calculated 275 mOsm/kg (285-295); Potassium 4.3 mmol/L (3.5-5.1); Sodium 121 mmol/L (136-145)
--- NOTE | 2022-09-08 11:23 | PC.NURSE ---
Dr. Maldonado notified of patient fingerstick 555, new orders received for 30units humalog, see MAR for further details.
[2022-09-08] MEDS: insulin lispro 100 unit/1 mL SUBCUT ×3 (11:43→21:47)
--- NOTE | 2022-09-08 12:49 | PC.OT ---
OT eval completed. Pt declined further OT services.
--- NOTE | 2022-09-08 12:53 | PC.NURSE ---
Dr. Maldonado notified of elevated blood pressure 176/75, no new orders at this time. Will continue to monitor, patient remains asymptomatic.
[2022-09-08] MEDS: azithromycin 500 MG in sodium chloride 0.9% 250 ML 250 MG IV (12:54)
[2022-09-08] MEDS: oxyCODONE 5 mg IR Tab/Cap PO ×2 (13:04→20:59)
[2022-09-08] MEDS: gabapentin 400 mg Capsule 1200 MG PO ×2 (13:58→20:56)
--- NOTE | 2022-09-08 16:57 | PC.NURSE ---
Dr. Maldonado notified of patient blood sugar 434, new orders received for 30 units of humalog, see MAR for further details.
[2022-09-08 17:43] LABS: Glucose Point of Care 434 mg/dL (70-110)
--- NOTE | 2022-09-08 17:56 | PM.PN ---
Subjective Subjective: Patient was seen and examined this morning shortness of breath is significantly improved, blood sugar is extremely uncontrolled likely secondary to very labile diabetes and use of steroids. Medications: Medication Review Details: Generic Name Dose Route Start Last Admin Trade Name Jonathan PRN Reason Stop Dose Admin Albuterol/Ipratrop ium 3 ml 09/08/22 08:45 09/08/22 14:13 Ipratropium-Albu terol 3 Ml Neb INHALATION Not Given Q6H BIJAL Amlodipine Besylat e 5 mg 09/08/22 09:00 09/08/22 08:34 Amlodipine 10 Mg Tablet PO 5 mg DAILY BIJAL Administration Aspirin 81 mg 09/08/22 09:00 09/08/22 08:34 Aspirin 81 Mg Ch ew Tablet PO 81 mg DAILY BIJAL Administration Atorvastatin Calci um 20 mg 09/08/22 09:00 09/08/22 08:34 Atorvastatin 40 Mg Tablet PO 20 mg DAILY BIJAL Administration Citalopram Hydrobr omide 20 mg 09/08/22 09:00 09/08/22 08:34 Citalopram 20 Mg Tablet PO 20 mg DAILY BIJAL Administration Clopidogrel Bisulf ate 75 mg 09/08/22 09:00 09/08/22 08:33 Clopidogrel 75 M g Tablet PO 75 mg DAILY BIJAL Administration Gabapentin 1,200 mg 09/08/22 15:00 09/08/22 13:58 Gabapentin 400 M g Capsule PO 1,200 mg TID BIJAL Administration Heparin Sodium (Po rcine) 5,000 unit 09/08/22 02:00 09/08/22 13:58 Heparin 5,000 Un it/Ml Inj 1 Ml SUBCUT 5,000 unit Q12H BIJAL Administration Azithromycin 500 m g/ Sodium 250 mls @ 250 mls /hr 09/08/22 10:45 09/08/22 14:03 Chloride IV Infused Q24H BIJAL Infusion Protocol Insulin Glargine 40 unit 09/08/22 08:55 09/08/22 09:44 Insulin Glargine 100 Units/1 Ml SUBCUT 40 unit QAM BIJAL Administration Insulin Human Lisp ro 0 unit 09/08/22 12:00 09/08/22 17:05 Insulin Lispro 1 00 Unit/1 Ml SUBCUT 30 unit WM&BEDTIME BIJAL Administration Protocol Levothyroxine Sodi um 50 mcg 09/08/22 09:00 09/08/22 08:33 Levothyroxine 50 Mcg Tablet PO 50 mcg DAILY BIJAL Administration Methylprednisolone Sodium Succinate 40 mg 09/08/22 09:00 09/08/22 17:05 Methylprednisolo ne Sod Succ 40 Mg/ Ml Inj IVP 40 mg BID BIJAL Administration Non-Formulary Medi cation 13.5 mg 09/08/22 18:00 09/08/22 17:44 Oxycodone Myrist ate [Xtampza Er] PO 13.5 mg BID BIJAL Administration Oxycodone HCl 5 mg 09/08/22 12:53 09/08/22 13:04 Oxycodone 5 Mg I r Tab/Cap PO 5 mg Q8H PRN Administration pain Tamsulosin HCl 0.4 mg 09/08/22 09:00 09/08/22 08:34 Tamsulosin 0.4 M g Capsule PO 0.4 mg DAILY BIJAL Administration Vitals/I&O/Wt Last Vital Signs Temp 98.1 F 09/08/22 16:00 Pulse 103 H 09/08/22 16:00 Resp 17 09/08/22 16:00 BP 163/85 09/08/22 16:00 Pulse Ox 92 09/08/22 16:00 O2 Del Method 09/08/22 16:00 O2 Flow Rate 2 09/08/22 09:11 09/08/22 09/08/22 09/08/22 06:59 14:59 22:59 Intake Total 1408 / 1408 Output Total 450 / 450 1500 / 1500 Balance -450 / -450 1408 / 1408 -1500 / -92 Weight last 48 hrs Weight 114.759 kg Physical Exam Resp: OTHER: Diminished air entry bilaterally minimal expiratory wheezing Cardio: COMMON NORMALS: regular rate, regular rhythm, S1 normal heart sound present, S2 normal heart sound present, No gallops present (Cardio), No murmurs present (Cardio), No rub (Cardio) and Peripheral pulses 2+ throughout RATE: regular rate RHYTHM: regular rhythm HEART SOUNDS: S1 normal heart sound present and S2 normal heart sound present PERIPHERAL PULSES: Peripheral pulses 2+ throughout GI: COMMON NORMALS: Normal to inspection, nondistended, normoactive bowel sounds present, Soft to palpation, non-tender, No hepatosplenomegaly present and no masses AUSCULTATION: Yes normoactive bowel sounds PALPATION: Yes Soft to palpation and Yes No hepatosplenomegaly present RECTAL EXAM: deferred Extremity: COMMON NORMALS: no clubbing, cyanosis or edema and no pedal edema Data 09/07/22 23:36 09/08/22 05:31 Micro: Microbiology 09/08/22 00:59 Blood Culture - Preliminary Blood SPECIMEN COLLECTED 09/08/22 00:55 Blood Culture - Preliminary Blood SPECIMEN COLLECTED A&P Assessment and plan (1) Acute exacerbation of chronic obstructive airways disease: (2) Acute respiratory failure with hypoxia: (3) Coronary artery disease: (4) Hypertension: (5) Diabetic peripheral neuropathy associated with type 2 diabetes mellitus: (6) Smoker: (7) High cholesterol: Plan 57-year-old female with past medical history of , hypertension diabetes COPD, hypothyroidism chronic hyponatremia came in today with chief complaint of worsening shortness of breath as well as cough and wheezing. She was admitted for the management of: Assessment Acute COPD exacerbation Chronic hyponatremia History of heart failure with preserved ejection fraction Diabetes Likely multifocal atrial tachycardia possible A. fib CKD stage III Plan: Follow sputum gram stain and culture Blood culture Urine culture Continue DuoNebs Solu-Medrol 40 IV twice daily Continue azithromycin Continue Lantus 40, high-dose sliding scale insulin, monitor fingerstick glucose Supplemental oxygen as needed. -Continue amlodipine, aspirin, clonidine, Plavix, gabapentin, thyroxine, quetiapine, sodium tablets, trazodone. Continue home pain medications. Full code DVT prophylaxis: Heparin SQ twice daily Attestations Medical Necessity Statement*: Patient is to be in hospital for management of COPD exacerbation. Coding Level of Care Code Acute Crusher Machine Operator for Darron Barnes Diagnoses Acute exacerbation of chronic obstructive airways disease J44.1 Acute respiratory failure with hypoxia J96.01 Coronary artery disease I25.10 Hypertension I10 Diabetic peripheral neuropathy associated with type 2 diabetes mellitus E11.42 Smoker F17.200 High cholesterol E78.00
--- NOTE | 2022-09-08 18:31 | PC.NURSE ---
Patient own medication Xtampza Er given as scheduled, patient no longer has any left in patient own bottle, counted with Barbara RN and patient. Patient reports she only had one left and needs to get a refill tomorrow morning and will have family do that and bring medication up to nurses station.
[2022-09-08] MEDS: budesonide 0.5 mg/2 mL Neb INHALATION (20:21)
[2022-09-08] MEDS: quetiapine 100 mg Tablet PO (20:56)
[2022-09-08 22:00] LABS: Glucose Point of Care 403 mg/dL (70-110)
[2022-09-09] VITALS (12 sets, daily range): BP systolic 99–172; BP diastolic 69–93; PULSE 89–106; RESP 16–22; TEMP 36.5–36.6; O2SAT 87–96
[2022-09-09] MEDS: heparin 5,000 unit/mL INJ 1 mL 5000 UNIT SUBCUT (01:50)
[2022-09-09] MEDS: ipratropium-albuterol 3 mL Neb INHALATION ×2 (02:57→07:59)
[2022-09-09 04:09] LABS: Basophils % 0.1 %; Hematocrit 37.5 % (37.0-47.0); Hemoglobin 12.2 g/dL (11.5-15.3); Lymphocytes # 1.1 10^3/uL (0.8-4.8); Lymphocytes % 6.5 %; Mean Corpuscular HGB Conc 32.5 g/dL (30.0-36.0); Mean Corpuscular Hemoglobin 28.9 pg (28.0-34.0); Mean Corpuscular Volume 88.9 fl (81-99); Mean Platelet Volume 9.6 fL (7.4-10.4); Monocytes # 0.6 10^3/uL (0.2-0.9); Monocytes % 3.6 %; Neutrophils # 15.37 10^3/uL (1.8-7.7); Nucleated Red Blood Cells % 0 %; Platelet Count 330 10^3/cmm (130-400); Red Blood Count 4.22 10^6/uL (4.1-5.3); Red Cell Distribution Width 15.3 % (12.1-15.1); White Blood Count 17.3 10^3/uL (4.0-10.0)
[2022-09-09 04:33] LABS: Anion Gap 12.5 (5-19); Blood Urea Nitrogen 19 mg/dL (6-20); Calcium 9.6 mg/dL (8.5-10.5); Carbon Dioxide 28 mmol/L (22-29); Chloride 94 mmol/L (98-107); Glomerular Filtration Rate 56.9 mL/min (90-130); Glucose 306 mg/dL (65-115); Magnesium 1.9 mg/dL (1.7-2.3); Osmolality Calculated 284 mOsm/kg (285-295); Potassium 4.5 mmol/L (3.5-5.1); Sodium 130 mmol/L (136-145)
[2022-09-09] MEDS: insulin glargine 100 units/1 mL 40 UNIT SUBCUT (06:06)
[2022-09-09 06:22] LABS: Glucose Point of Care 315 mg/dL (70-110)
[2022-09-09] MEDS: budesonide 0.5 mg/2 mL Neb INHALATION (07:59)
[2022-09-09] MEDS: insulin lispro 100 unit/1 mL SUBCUT ×2 (08:45→12:11)
[2022-09-09] MEDS: gabapentin 400 mg Capsule 1200 MG PO ×2 (08:46→14:49)
[2022-09-09] MEDS: citalopram 20 mg Tablet PO (08:46)
[2022-09-09] MEDS: amlodipine 10 mg Tablet 5 MG PO (08:46)
[2022-09-09] MEDS: levothyroxine 50 mcg Tablet PO (08:46)
[2022-09-09] MEDS: aspirin 81 mg Chew Tablet PO (08:46)
[2022-09-09] MEDS: tamsulosin 0.4 mg Capsule PO (08:46)
[2022-09-09] MEDS: clopidogrel 75 mg Tablet PO (08:46)
[2022-09-09] MEDS: atorvastatin 40 mg Tablet 20 MG PO (08:47)
--- NOTE | 2022-09-09 09:47 | P.DS_ITS ---
Discharge Providers Date of Admission: 09/08/22 01:53 Date of Discharge: September 09, 2022 Attending Provider at Admission: Brisa Coats MD Attending Provider at Discharge: Mirella Fernandes MD Primary Care Provider: Dayne Greene MD Diagnoses at Discharge Discharge Diagnosis (1) Acute exacerbation of chronic obstructive airways disease: Status: Acute (2) Acute respiratory failure with hypoxia: Status: Acute (3) Coronary artery disease: Status: Acute (4) Hypertension: Status: Acute (5) Diabetic peripheral neuropathy associated with type 2 diabetes mellitus: Status: Acute (6) Smoker: Status: Acute Permanent problem details: Unmotivated to quit Patient smokes to calm her nerves (7) High cholesterol: Status: Acute Permanent problem details: Diagnosed in 2013 and is on medication managed by her primary care provider Reason for Visit Reason for Visit: SOB Brief History: Taken from H&P: Patient is a 57-year-old female presented to the ED today with complaints of shortness of breath cough and wheezing.? She is not producing any sputum.? Denies a fever at home.? She says she has been using her inhaler that she usuall y takes but it is not helping.? She has a past medical history of COPD, hypertension, kidney injury, hyperkalemia, hyponatremia, hypothyroidism, hyperlipidemia, type 2 diabetes mellitus complicated by peripheral neuropathy, lumbar stenosis, kidney stone, BKA of right lower leg, CAD with prior PCI.? Patient is a current smoker.? Of note patient has been complaining of chest discomfort episodes from prior and she does have significant CAD history.? Patient had intermittent heart block during previous hospital stay therefore was seen by cardiology and wore a 14-day event monitor and May.? It showed baseline heart rhythm normal sinus rhythm with rate of 81.? No atrial fibrillation or arrhythmia seen, no pauses seen no reported symptoms with the patient.? Maximum heart rate 130, minimum heart rate 40.? EKG today in the ER did show atrial fibrillation but patient does not have a history of it.? She says she used to have oxygen at home but it was taken away in March since she did not need it anymore. ED course: On arrival blood pressure 113/70 6 hours 321, pulse 86, temperature 98.4, saturating 95% on 4 L nasal cannula.? Chest x-ray shows no focal pneumonia or evidence of pneumothorax.? WBC 15.5, sodium 128, potassium 3.9, creatinine 1.6, lactic acid 3.3.? Influenza and COVID-negative.? BNP 778.? Baseline troponin 36.? TSH 2.62.? Blood cultures obtained.? Patient given DuoNeb x1, Solu-Medrol 125x1.? EKG showed atrial fibrillation rate controlled.? At this time patient is requiring oxygen.? She drops down to 80s on room air. When seen in ER, she feels better after breathing treatment and solu medrol. Hospital Course Hospital Course Patient was admitted to the hospital for management of acute on chronic COPD exacerbation. She received treatment with IV Solu-Medrol, empiric antibiotic coverage with azithromycin, scheduled nebulization with DuoNebs. She needed supplemental oxygen intermittently between 2 to 3 L. Home O2 eval has been ordered prior to discharge today. Patient stated feeling significantly improved after the above interventions and is being discharged today in stable condition. Sputum gram stain and culture shows a polymicrobial gram stain, likely respiratory hudson. Culture remains pending at the time of discharge. Patient does have leukocytosis, however likely related to use of high dose steroids for COPD. She has no urinary symptoms at this time. Recent holter monitor from 05/2022 shows sinus arrhythmia. She is being planned for outpatient stress testing by cardiology, Encourage follow up within a week of discharge. No c/o chest pain this current admission. Echo from 04/19 had shown gr 2 diastolic dysfucntion, normal systolic function. Physical Exam Narrative: General: No acute distress, AO x3 HEENT: PERRLA, pupils bilaterally equal and reactive, pallors not present Chest: Normal vesicular breath sounds, no added sounds, equal good air entry bilaterally CVS: S1-S2 regular, no murmurs, no tachycardia, no gallops, no rubs Abdomen: Soft, nontender, no organomegaly, bowel sounds present Neuro: No focal deficits, no facial deformity, AO x3, power 5/5 in all limbs Discharge Data Studies Completed and Pending Completed Studies During Hospitalization Category Date Time Status XR chest 1V portable [id number] Stat Exams 09/07/22 23:43 Completed Pending at discharge Category Date Time Status Blood Culture Stat Lab 09/07/22 23:43 Results Sputum Culture and Gram Stain Stat Lab 09/08/22 12:05 Results Urine Culture Routine Lab 09/08/22 03:42 Received Radiology Impressions Chest X-Ray 09/07/22 23:43 IMPRESSION: 1. No focal pneumonia or evidence of pneumothorax. 2. Similar areas of lung base atelectasis or scarring. These findings are unchanged or minimally progressed from 03/30/2022. Laboratory Results WBC 17.3 10^3/uL (4.0-10.0) H 09/09/22 03:54 RBC 4.22 10^6/uL (4.1-5.3) 09/09/22 03:54 Hgb 12.2 g/dL (11.5-15.3) 09/09/22 03:54 Hct 37.5 % (37.0-47.0) 09/09/22 03:54 MCV 88.9 fl (81-99) 09/09/22 03:54 MCH 28.9 pg (28.0-34.0) 09/09/22 03:54 MCHC 32.5 g/dL (30.0-36.0) 09/09/22 03:54 RDW 15.3 % (12.1-15.1) H 09/09/22 03:54 Plt Count 330 10^3/cmm (130-400) 09/09/22 03:54 MPV 9.6 fL (7.4-10.4) 09/09/22 03:54 Neut % (Auto) 89.0 % 09/09/22 03:54 Lymph % (Auto) 6.5 % 09/09/22 03:54 [place] % (Auto) 3.6 % 09/09/22 03:54 Eos % (Auto) 0.0 % 09/09/22 03:54 Baso % (Auto) 0.1 % 09/09/22 03:54 Neut # (Auto) 15.37 10^3/uL (1.8-7.7) H 09/09/22 03:54 Lymph # (Auto) 1.1 10^3/uL (0.8-4.8) 09/09/22 03:54 [place] # (Auto) 0.6 10^3/uL (0.2-0.9) 09/09/22 03:54 Eos # (Auto) 0.0 10^3/uL (0.0-0.8) 09/09/22 03:54 Baso # (Auto) 0.0 10^3/uL (0.0-0.1) 09/09/22 03:54 Nucleated RBC % (auto) 0 % 09/09/22 03:54 Nucleated RBCs # 0.0 /100WBC 09/09/22 03:54 Specimen Type Arterial 09/08/22 00:06 Sample Site Radial, left 09/08/22 00:06 ABG pH 7.38 (7.35-7.45) 09/08/22 00:06 ABG pCO2 42.7 mmHg (35-45) 09/08/22 00:06 ABG pO2 53.0 mmHg (80.0-100.0) L 09/08/22 00:06 ABG HCO3 25.1 mmol/L (22-26) 09/08/22 00:06 ABG Base Excess -0.3 mmol/L (-2.0-2.0) 09/08/22 00:06 Jeff Test Pos 09/08/22 00:06 Hematocrit 39.0 % (37-47) 09/08/22 00:06 O2 Delivery Device Nc 09/08/22 00:06 O2 Liters/Min 4.0 % 09/08/22 00:06 Cad Developer ID Fannie 09/08/22 00:06 Sodium 130 mmol/L (136-145) L 09/09/22 03:29 Potassium 4.5 mmol/L (3.5-5.1) 09/09/22 03:29 Chloride 94 mmol/L (98-107) L 09/09/22 03:29 Carbon Dioxide 28 mmol/L (22-29) 09/09/22 03:29 Anion Gap 12.5 (5-19) 09/09/22 03:29 BUN 19 mg/dL (6-20) 09/09/22 03:29 Creatinine 1.0 mg/dL (0.5-0.9) H 09/09/22 03:29 GFR Calculation 56.9 mL/min (90-130) L 09/09/22 03:29 Glucose 306 mg/dL (65-115) H 09/09/22 03:29 POC Glucose 315 mg/dL (70-110) H 09/09/22 06:06 Calculated Osmolality 284 mOsm/kg (285-295) L 09/09/22 03:29 Lactic Acid 3.3 mmol/L (0.5-2.2) H 09/07/22 23:36 Lactic Acid (Sepsis) 2.6 mmol/L (0.5-2.2) H 09/08/22 01:43 Calcium 9.6 mg/dL (8.5-10.5) 09/09/22 03:29 Magnesium 1.9 mg/dL (1.7-2.3) 09/09/22 03:29 Total Bilirubin 0.2 mg/dL (0.15-1.2) 09/07/22 23:36 AST 9 U/L (0-32) 09/07/22 23:36 ALT 6 U/L (0-33) 09/07/22 23:36 Alkaline Phosphatase 150 U/L (35-105) H 09/07/22 23:36 Troponin T Baseline 36 ng/L (0-10) H 09/07/22 23:42 Troponin T 120 Minute 30.82 ng/L (0-10) H 09/08/22 01:43 Delta Troponin T -5.18 ABS# (0-10) L 09/08/22 01:43 Troponin T Hi Sens 6Hr 24.27 ng/L (0-10) H 09/08/22 05:51 Troponin T Hi Sens 6Hr Delta -11.73 ng/L (0-12) L 09/08/22 05:51 NT-Pro-B Natriuret Pep 778 pg/mL (0-125) H 09/07/22 23:36 Total Protein 7.7 g/dL (6.6-8.7) 09/07/22 23:36 Albumin 3.7 g/dL (3.5-5.2) 09/07/22 23:36 Globulin 4.0 g/dL (1.3-4.6) 09/07/22 23:36 Procalcitonin 0.11 ng/mL (0-0.5) 09/08/22 01:43 TSH 3.62 uIU/mL (0.27-4.20) 09/07/22 23:42 Urine Color Yellow (Yellow) 09/08/22 03:42 Urine Appearance Clear (CLEAR) 09/08/22 03:42 Urine pH 5 (5-7) 09/08/22 03:42 Ur Specific [place] 1.015 (1.005-1.030) 09/08/22 03:42 Urine Protein 1+ (Negative) H 09/08/22 03:42 Urine Glucose (UA) 1+ (Normal) H 09/08/22 03:42 Urine Ketones Negative (Negative) 09/08/22 03:42 Urine Blood Neg (Negative) 09/08/22 03:42 Urine Nitrate Negative (Negative) 09/08/22 03:42 Urine Bilirubin Neg (Negative) 09/08/22 03:42 Urine Urobilinogen Neg mg/dL (Negative) 09/08/22 03:42 Ur Leukocyte Esterase Trace (Negative) H 09/08/22 03:42 Urine RBC None /hpf (0-2) 09/08/22 03:42 Urine WBC 10-15 /hpf (0-5) H 09/08/22 03:42 Ur Squamous Epith Cells 0-4 /hpf (0-5) H 09/08/22 03:42 Amorphous Sediment Not Reportable 09/08/22 03:42 Urine Bacteria 1+ /hpf (NONE) H 09/08/22 03:42 Influenza Type A Ag negative (Negative) 09/07/22 23:36 Influenza Type B Ag negative (Negative) 09/07/22 23:36 SARS-CoV-2 Ag (Rapid) negative (Negative) 09/07/22 23:36 Vitals Last Vital Signs Temp 97.7 F 09/09/22 07:49 Pulse 106 H 09/09/22 08:09 Resp 22 H 09/09/22 08:09 BP 145/69 09/09/22 07:49 Pulse Ox 96 09/09/22 08:09 O2 Del Method 09/09/22 08:09 O2 Flow Rate 2 09/09/22 08:09 Discharge Plan Discharge Patient Disposition: Home Condition: Stable Prescriptions: New prednisone 20 mg tablet 20 mg PO BID 5 Days Qty: 10 0RF Continued fluticasone propion-salmeterol [Advair Diskus] 100-50 mcg/dose blister with device 1 puff INHALATION BID amlodipine 10 mg tablet 5 mg PO DAILY aspirin 81 mg tablet,chewable 81 mg PO DAILY fluticasone propionate 50 mcg/actuation spray,suspension 1 spray INTRANASAL Q12H PRN (Reason: Nasal Congestion) montelukast 10 mg tablet 10 mg PO DAILY citalopram 20 mg tablet 20 mg PO DAILY levothyroxine 100 mcg tablet 50 mcg PO DAILY clopidogrel 75 mg tablet 75 mg PO DAILY melatonin 10 mg capsule 10 mg PO BEDTIME simvastatin 20 mg tablet 20 mg PO DAILY clonidine HCl 0.1 mg tablet 0.1 mg PO BID nitroglycerin 0.4 mg tablet, sublingual 0.4 mg sublingual Q5M PRN (Reason: Chest Pain) Rx Instructions: do not exceed 3 doses per episode gabapentin 600 mg tablet 1,200 mg PO TID Qty: 180 1RF tizanidine 4 mg tablet 4 mg PO TID PRN (Reason: muscle spasm) Qty: 90 1RF oxycodone 5 mg tablet 5 mg PO Q8H PRN (Reason: pain) 30 Days Qty: 90 0RF Rx Instructions: max of three per day insulin lispro [Humalog KwikPen Insulin] 100 unit/mL insulin pen 10 unit SUBCUT TID Rx Instructions: Sliding scale quetiapine [Seroquel] 100 mg tablet 100 mg PO BEDTIME trazodone 100 mg tablet 100 mg PO BEDTIME tamsulosin 0.4 mg capsule 0.4 mg PO DAILY Qty: 30 12RF pyridoxine (vitamin B6) [Vitamin B-6] 50 mg Tablet 25 mg PO DAILY albuterol sulfate 90 mcg/actuation HFA aerosol inhaler 90 mcg INHALATION QID PRN (Reason: Shortness Of Breath) Tresiba FlexTouch U-200 200 unit/mL (3 mL) insulin pen See Rx Instructions .ROUTE .COMPLEX Qty: 0 0RF Rx Instructions: sliding scale ascorbic acid (vitamin C) [Vitamin C] 1,000 mg Tablet 1,000 mg PO BID methocarbamol 750 mg Tablet 750 mg PO TID PRN (Reason: Muscle Pain) methenamine hippurate 1 gram tablet 1 g PO DAILY Rx Instructions: 1 pill twice a day with 1 g vitamin C each dose Last refill without follow up Xtampza ER 13.5 mg Cap,Sprinkl,Er12hr(Dont Crush) 13.5 mg PO BID Rx Instructions: must administer with a meal/food Discontinued sodium chloride 1 gram Tablet 1 g PO TID Qty: 20 0RF Discharge Orders: Discharge Order (Routine); Ordered 09/09/22 Ordered By: Mirella Kathuria Referrals: Dayne Greene MD [Primary Care Provider] - Florence Orr FNP [Nurse Practitioner] - 1 week Discharge Diet: Usual diet, Cardiac, Diabetic and Low Cholesterol Discharge Activity: Resume usual activity Patient Instructions: Opioid Safety Discharge Attestations Time Spent in Discharge Care*: greater than 30 min Quality Metrics Clinical Quality Measures [ No reported AMI, CVA or VTE this stay] Coding Level of Care Code Acute Chg [facility] note Diagnoses Acute exacerbation of chronic obstructive airways disease J44.1 Acute respiratory failure with hypoxia J96.01 Coronary artery disease I25.10 Hypertension I10 Diabetic peripheral neuropathy associated with type 2 diabetes mellitus E11.42 Smoker F17.200 High cholesterol E78.00
[2022-09-09] MEDS: oxyCODONE 5 mg IR Tab/Cap PO (10:06)
--- NOTE | 2022-09-09 10:47 | PC.CHAP ---
Pastoral Care Encounter/Spiritual Assessment Type of Contact [] Declined security manager visit [] Patient/Family/Request visit [] Outpatient visit [] Follow-up visit [] Physician referral [] Code/Alert [X] Routine visit [] Staff referral [] Actively dying [] Patient sleeping [] Family support [] [] Out of room [] Palliative care [] [] Receiving care in room [] Pre-surgical visit [] Trauma [] Long length of stay [] ICU visit [] Other: Relational/Emotional Strength [X] Patient feels connected with others/family/visitors/staff [] Distress [] Loneliness/isolation [] Abandonment Spirituality of Patient [XX] Person of Susan [] Attends Rastafari of their Susan X[X] Believes in Prayer [] Reads Bible or Rastafari materials [] There are Spiritual issues to be addressed Roaster Helper Interventions [X] Prayer [] Active listening [] Non-anxious presence [] Spiritual/emotional support [] Crisis/trauma care [] Spiritual counseling [] Bereavement support [] Provided bereavement packet [] Provided Bible/devotional materials [] Provided toy/stuffed animal, coloring book to patient or family member [] Provided Communion [] Anointing/[place] [] Salvation [X] Completed spiritual assessment [] Other: Impact on Illness or Injury [] Angry [] Fearful [] Anxious [] Often cries [] Exhaustion [] Unable to work [] Unable to attend christian [] Unable to walk/stand [] Unable to read [] Unable to drive [] Unable to eat/drink [] Unable to sleep [] Unable to be with family [] Patient intubated [] Other: Summary Time spent with patient 10 IN
[2022-09-09 11:40] LABS: Glucose Point of Care 380 mg/dL (70-110)
--- NOTE | 2022-09-09 11:40 | PC.NURSE ---
pt stated, my cell phone still has not be returned to me. i educ pt that i had called both er and laundry, no cell phone found either place.
[2022-09-09] MEDS: azithromycin 500 MG in sodium chloride 0.9% 250 ML 250 MG IV (11:54)
== END 2022-09-09 16:30 | disposition home or self-care (01) | DRG 190 ==
LOC: ER 09-08 01:57 → ER IP 09-08 01:59 → MEDSURG 09-08 06:13
PROVIDERS: Internal Medicine; Admitting Provider Internal Medicine; Emergency Provider Emergency Medicine; PCP Family Medicine; Visit Provider Student in an Organized Health Care Education/Training Program
DX: J44.1 Chronic obstructive pulmonary disease with (acute) exacerbation (principal); J96.01 Acute respiratory failure with hypoxia; N17.9 Acute kidney failure, unspecified; E87.1 Hypo-osmolality and hyponatremia; I12.9 Hypertensive chronic kidney disease with stage 1 through stage 4 chronic kidney disease, or unspecified chronic kidney disease; E11.22 Type 2 diabetes mellitus with diabetic chronic kidney disease; N18.30 Chronic kidney disease, stage 3 unspecified; I25.10 Atherosclerotic heart disease of native coronary artery without angina pectoris; F17.200 Nicotine dependence, unspecified, uncomplicated; E03.9 Hypothyroidism, unspecified; E78.5 Hyperlipidemia, unspecified; E11.42 Type 2 diabetes mellitus with diabetic polyneuropathy; I48.91 Unspecified atrial fibrillation; G47.33 Obstructive sleep apnea (adult) (pediatric); I25.2 Old myocardial infarction; E78.00 Pure hypercholesterolemia, unspecified; M48.061 Spinal stenosis, lumbar region without neurogenic claudication; T38.0X5A Adverse effect of glucocorticoids and synthetic analogues, initial encounter; D72.828 Other elevated white blood cell count; Z95.5 Presence of coronary angioplasty implant and graft; Z89.511 Acquired absence of right leg below knee; Z99.89 Dependence on other enabling machines and devices; Z79.52 Long term (current) use of systemic steroids; Z79.02 Long term (current) use of antithrombotics/antiplatelets; Z79.82 Long term (current) use of aspirin; Z79.4 Long term (current) use of insulin; Z20.822 Contact with and (suspected) exposure to COVID-19
CPT/HCPCS: 36415; 36416; 36600; 71045; 80048; 80053; 81001; 82803; 82962; 83605; 83735; 83880; 84145; 84443; 84484; 85025; 87040; 87070; 87077; 87086; 87186; 87205; 87426; 87804; 93005; 94640; 94664; 94760; 96372; 96374; 97165; 99285; J0456; J1644; J1815; J2920; J2930; J7030; J7050; J7626

== ENCOUNTER → 2022-10-10 14:05 | Outpatient (BNVA) | payer MEDICARE, MEDICAID, SELFPAY | PROVIDERS: PCP Family Medicine; Visit Provider Nurse Practitioner Family | DX: J44.9 Chronic obstructive pulmonary disease, unspecified (principal); F17.210 Nicotine dependence, cigarettes, uncomplicated | CPT/HCPCS: 99213 ==

== ENCOUNTER 2022-10-22 06:37 | Outpatient (CLI) | payer MEDICARE, MEDICAID, SELFPAY ==
--- NOTE | 2022-10-22 | ECG_ITS ---
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 Interpretive Statements NAME OF STUDY: LEXISCAN SESTAMIBI STRESS TEST INDICATION: [Chest Pain, ] Procedure: At the baseline, the blood pressure was 112/77 mmHg with a heart rate of 75 bpm. The electrocardiogram showed normal sinus rhythm, normal axis with normal ST and T's. The Lexiscan was infused over a period of 20 seconds. A total of 0.4 mg of Lexiscan was infused. The stress phase was continued for a total of 5 minutes. Heart rate was at the end of stress phase was 79 bpm and a blood pressure of 109/71 mmHg. The EKG at the peak infusion revealed normal sinus rhythm with no significant ST-T wave changes. Sestamibi was injected 20 seconds after the Lexiscan infusion. Blood pressure at the end of recovery phase was 118/73 mmHg with a heart rate of 77 bpm. Conclusion: 1. Normal EKG response to Lexiscan infusion 2. No Lexiscan induced chest pain or cardiac arrhythmia. 3. Normal blood pressure and heart rate response. 4. Sestamibi/sestamibi perfusion scan pending; see separate report. Electronically Signed On 10-27-2022 20:06:47 CLOTH BALE HEADER by Chris Ellis M.D. [email or web address]
--- NOTE | 2022-10-22 06:48 | NMCV_ITS ---
NM aung perf SPECT r/s* [id number] Angeles Valdes Age: 57 Gender: F : 1965 Exam Date: 10/22/2022 07:38 Ordering Phys: Chris Ellis M.D ([email or web address]) Technologist: DARA De La Garza Exam Location: [facility] Indications: CHEST PAIN STRESS TEST Please see separate stress test report in [facility] for full findings IMAGE PROTOCOL Rest/Stress 1 Lexiscan Day Radiopharmaceutical Dose (mCi) Administration Site Administered by Rest: Tc-99m 10.9 IV DARA Goldberg Sestamibi Stress:Tc-99m 32.7 IV DARA Goldberg Sestamibi Rest: 22-Oct-2022 60 Discovery 630 Stress: 22-Oct-2022 30 Discovery 630 0.4mg Lexiscan. Supine position only as patient was unable to lay prone. SPECT RESULTS Technical Quality: Excellent Raw Data Analysis: Normal Image Corrections: No attenuation or motion correction applied Summed Stress Score: 12 Summed Rest Score: 18 Summed Difference Score: 2 PERFUSION FINDINGS Large in size, mostly fixed perfusion defect is seen in inferior and anterior goodson. This is consistent with large sized prior infarct in LAD and RCA territories. Small sized area of reversible perfusion defect is noted in inferolateral wall. This is consistent with small area of ischemia in the left circumflex artery territory. FUNCTIONAL RESULTS (calculated via Gated SPECT) Stress Image LV EF (%): 52 Stress EDV (mL):148 TID: 1.08 Stress ESV (mL):71 FUNCTIONAL FINDINGS: There is normal left ventricular systolic function. IMPRESSIONS 1. Abnormal myocardial perfusion imaging with large sized prior infarcts noted in RCA and LAD territories. 2. Ischemia is noted in the Left circumflex artery territory. 3. LV systolic function is normal Chris Ellis MD (Electronically Signed) Final Date: 23 October 2022 12:01 S
[2022-10-22 07:09] VITALS: BMI 37.7
[2022-10-22] MEDS: regadenoson 0.4 Mg/5 ml Syringe IVP (08:17)
[2022-10-22] MEDS: ondansetron 2 mg/ML SDV 2 mL 4 MG IVP (08:25)
[2022-10-22 08:45] VITALS: BP 118/73; PULSE 78
== END 2022-10-22 06:38 | disposition home or self-care (01) ==
LOC: CDL 06:39
PROVIDERS: PCP Family Medicine; Visit Provider Internal Medicine
DX: R07.9 Chest pain, unspecified (principal); I25.9 Chronic ischemic heart disease, unspecified
CPT/HCPCS: 36415; 78452; 93017; 96374; 96375; A9500; J2405; J2785

== ENCOUNTER 2022-11-20 11:39 | Observation (INO) | payer MEDICARE, MEDICAID, SELFPAY ==
[2022-11-18 14:54] LABS: Basophils # 0.1 10^3/uL (0.0-0.1); Eosinophils # 0.4 10^3/uL (0.0-0.8); Hematocrit 43.4 % (37.0-47.0); Hemoglobin 13.6 g/dL (11.5-15.3); Lymphocytes % 28.1 %; Mean Corpuscular HGB Conc 31.3 g/dL (30.0-36.0); Mean Corpuscular Volume 86.1 fl (81-99); Mean Platelet Volume 9.7 fL (7.4-10.4); Monocytes # 0.8 10^3/uL (0.2-0.9); Monocytes % 5.8 %; Neutrophils # 8.72 10^3/uL (1.8-7.7); Neutrophils % 61.7 %; Nucleated Red Blood Cells % 0 %; Platelet Count 351 10^3/cmm (130-400); Red Blood Count 5.04 10^6/uL (4.1-5.3); Red Cell Distribution Width 16.3 % (12.1-15.1); White Blood Count 14.1 10^3/uL (4.0-10.0)
[2022-11-18 15:13] LABS: INR 0.97 (0.83-1.21); Prothrombin Time (Patient) 13.2 Seconds (12.0-15.1)
[2022-11-18 15:14] LABS: Anion Gap 12.7 (5-19); Blood Urea Nitrogen 12 mg/dL (6-20); Calcium 9.4 mg/dL (8.5-10.5); Carbon Dioxide 29 mmol/L (22-29); Chloride 97 mmol/L (98-107); Glucose 56 mg/dL (65-115); Osmolality Calculated 277 mOsm/kg (285-295); Potassium 3.7 mmol/L (3.5-5.1); Sodium 135 mmol/L (136-145)
[2022-11-20] VITALS (30 sets, daily range): BP systolic 109–167; BP diastolic 64–116; PULSE 60–88; RESP 11–25; TEMP 37.1; O2SAT 90–99; BMI 37.7
--- NOTE | 2022-11-20 06:00 | XACV_ITS ---
Exam Room: 2 Ht: 178 cm Wt: 119 kg BSA: 2.48 m2 Gender: Female : 1965 Exam Priority: Routine Procedure(s): Procedure Description: Diagnostic procedure Procedure Description: PCI procedure Procedure Description: Left Heart Catheterization Procedure Description: Drug Eluting Coronary Stent Procedure Description: PTCA Procedure Description: Coronary Angiography Procedure Description: Pressure Wire Diagnostic Cath Status: Elective Diagnostic Findings * INDICATION: 57-year-old woman with past medical history of CAD, atrial fibrillation has been having shortness of breath and chest discomfort episodes. She underwent stress test that was abnormal. Plan for coronary angiogram with possible percutaneous coronary intervention. * Left Main has no significant disease. * 30% ostial lesion. Gives rise to a very high OM 1 branch which has proximally 60% stenosis. * Proximal Right Coronary Artery to Mid Right Coronary Artery: chronic total occlusion, SARI: 0 flow. * Mid Left Anterior Descending: obstructive 60-70% stenosis, SARI: 3 flow. * First Obtuse Marginal Branch Segment: obstructive 60% stenosis, SARI: 3 flow. * Coronary angiography shows right dominance. PCI Status: Elective PCI Indication: Other Interventional Findings * Procedure detail: We engaged left main artery with XB 3.0 guide catheter. IV heparin was administered to maintain ACT above 250 S. iFR wire was used to cross OM1 stenosis and was put in distal vessel after normalization. iFR value of 0.84 was obtained. As this was ischemic we decided to perform PCI. We placed at 2.5 x 18 mm resolute Gem drug-eluting stent. Angiogram demonstrated excellent stent expansion and no residual stenosis. iFR wire was then directed to LAD to assess severity of disease. An IFR value of 0.86 was obtained for mid LAD. We then decided to perform PCI of mid LAD. It was predilated with 3.0 x 12 mm semicompliant balloon. We then placed 3.5 x 18 mm resolute Gem drug-eluting stent. Proximal segment of the stent was postdilated with a 3.75 x 8 mm NC balloon. At this time final angiogram showed excellent stent expansion, no residual stenosis and SARI-3 flow. Guidewire and guide catheter were removed. Patient left the Bale Stacker in a stable condition.. * Mid Left Anterior Descendin% stenosis treated with a AB TREK 3.00X12 RX BALLOON, MDT R GEM 3.5X18 DAQUAN, and MDT NC EUPHORA RX [id number] BALLOON. 0% residual stenosis, SARI: 3 flow. * First Obtuse Marginal Branch Segment: 60% stenosis treated with a MDT R GEM 2.5X18 DAQUAN. 0% residual stenosis, SARI: 3 flow. Conclusions 1. Severe OM 1 stenosis confirmed with iFR value of 0.84 s/p successful revacsularization with DAQUAN x1. 2. Severe mid LAD stenosis confirmed with iFR value of 0.86 s/p successful revascularization with DAQUAN x 1. 3. Mid Left Anterior Descending was treated with a Balloon, Drug Eluting Stent, and Balloon. 4. First Obtuse Marginal Branch Segment was treated with a Drug Eluting Stent. Recommendations * Aggressive risk factor modification. * Dual antiplatelet therapy with aspirin and Plavix for atleast 1 year. * High intensity statin therapy. * Outpatient cardiology follow up in 4 weeks. Interventional RX Recommendation: PCI w/o planned CABG Diagnostic RX Recommendation: PCI w/o planned CABG Anticoagulation: Heparin Pressures Phase:Rest AO : 81 / 59 ( 70 ) @ 7:56:00 AM 114 / 65 ( 83 ) @ 8:03:00 AM 90 / 49 ( 63 ) @ 8:17:00 AM 76 / 50 ( 60 ) @ 8:29:00 AM 88 / 47 ( 63 ) @ 8:33:00 AM LV : 110 / -2 / 20 @ 8:02:00 AM 110 / -5 / 17 @ 8:03:00 AM Valves Phase:DefaultPhase AV : 0.0 @ 8:44:19 AM AV Mean Gradient: 0.0 @ 8:44:19 AM 0.0 @ 8:44:19 AM Clinical Evaluation EBL: 5mL-10mL Procedural Details Procedure Consent Obtained. Admit Source: Out Patient. Pre-Procedure Time Out. Identified patient by full name and date of as verbalized by the patient/guarantor. Does the consent match the physician's order: Yes. Accurate & Complete Informed Consent: Yes. Inpatient/Outpatient History & Physical on Chart: Yes. If H&P is completed, is and addenduem needed: No; If yes, is the addendum complete: N/A. Visualize and Verify Site with Patient/Guarantor: N/A. Relevant Radiology Images available: N/A. The risks, benefits, and alternatives of sedation and/or procedure were discussed by physician. The patient agrees to continue. Procedure started. Bale Stacker Indications: abnormal stress test. Correct patient, site and procedure confirmed by cath team. PERRLA. 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 Lungs clear x 5 lobes. IV Site on Arrival: 18 gauge in the left anticubital. IV Fluids: 0.9% NaCl at KVO. 0 mL infused prior to lab aid. Pre Procedural Pulses: bilateral radial was 3+. Pre Procedural Pulses: left dorsalis pedis was 3+. Pre Procedural Pulses: left posterior tibial was Doppled. Oxygen started at 2liters/min via nasal canula. right groin was prepped with chloroprep then draped in the usual sterile fashion. right radial was prepped with chloroprep then draped in the usual sterile fashion. Baseline sample Acquired. HR: 89 BPM. Physician notified. Physician arrived. Physician scrubbed in. Immediate Pre-Procedure Time Out. Correct Patient: Yes; Correct Procedure: Yes; Correct Site: Yes; Correct Patient Position: Yes; Correct Supplies: Yes; Dried Flammable Prep: Yes; Blood Products Available: N/A;. Lidocaine 1% infiltrated to the right radial. Arterial access obtained. A 5 malaysian TIG catheter in over wire. Multiple views taken of left coronary artery. Catheter redirected to the RCA. Multiple views taken of right coronary artery. EDP Sample taken: LV 110/-3,20; HR: 64 BPM; SpO2: 89%. Pullback taken: LV 110/-6,17; AO 114/65(83); Mean: 0mmHg, Peak to Peak: 0mmHg, SEP: 17sec/min; HR: 64 BPM; SpO2: 95%. Catheter out. 6 malaysian XB 3 guide catheter was inserted over the wire. IFR guidewire was advanced through the guide catheter to lesion in the OM. Fractional flow reserve measurements obtained. Inflation Number : 1 A MDT R GEM 2.5X18 DAQUAN -Lot Number# [id number] exp date 07/26/23 was prepped and advanced across the 1st Ob Jacqueline. The stent was deployed at 12 CHUY for 0:21 seconds. Stent balloon out over wire. Results checked. ACT drawn. Results 277 seconds. Therapeutic limits - pre-heparin administration 90-150 seconds and monitoring heparin during a vascular procedure >250 seconds. FFR repositioned to mid LAD. Fractional flow reserve measurements obtained. Inflation number : 1 A AB TREK 3.00X12 RX BALLOON was prepped and advanced across the Mid LAD , then inflated to 8 CHUY for 0:21 seconds. Results checked. Balloon and wire out. Inflation Number : 2 A MDT R GEM 3.5X18 DAQUAN -Lot Number# [id number] exp date 02/11/2025 was prepped and advanced across the Mid LAD. The stent was deployed at 12 CHUY for 0:26 seconds. Stent balloon out over wire. Inflation number : 3 A MDT NC EUPHORA RX [id number] BALLOON was prepped and advanced across the Mid LAD , then inflated to 14 CHUY for 0:20 seconds. Inflation number: 4 The MDT NC EUPHORA RX [id number] BALLOON was reinflated across the Mid LAD, to 12 CHUY for 0:16 seconds. Balloon out. IFR wire out. Stent balloon and wire out. ACT drawn. Results 363 seconds. Therapeutic limits - pre-heparin administration 90-150 seconds and monitoring heparin during a vascular procedure >250 seconds. Results checked. Guide catheter out. Wire out. A TR Band was successful obtaining hemostatsis at the Right Radial artery insertion site. PERRLA. 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 No VTE prophylaxis required. Medication's Wasted: Nitro = 49.8 mg. Medication's Wasted: Other = fentanyl 50mcg. Medication's Wasted: Other = versed 1 mg. Medication's Wasted: Heparin = 3000 units. Medication's Wasted: Lidocaine 1% = 2 mL. Total IV fluids: 50 mL. Post-op diagnosis: severe stenosis OM1 with PCI with one stent. Severe stenosis Mid LAD with PCI 1 stent. Complications: none. Estimated blood loss: 5mL-10mL. Responsiveness - Normal response to verbal stimuli; alert and oriented, PERRLA. Airway - Unaffected, no intervention required; spontaneous ventilation. Circulation: W/N/L, pulses unchanged. Nausea/Vomiting: No. Procedure completed. Patient transferred by bed to CPRU. Vital chart was stopped. Access Site Site: Right Radial artery Sheath Size: 6 Fr Hemostasis Method: TR Band Hemostasis Success: Successful Procedure Medications Start: 7:45 AM Stop: 7:45 AM Medication: Versed Amount: 1 mg Route: I.V. Start: 7:45 AM Stop: 7:45 AM Medication: Fentanyl Amount: 50 mcg Route: I.V. Start: 7:49 AM Stop: 7:49 AM Medication: Versed Amount: 1 mg Route: I.V. Start: 7:50 AM Stop: 7:50 AM Medication: Fentanyl Amount: 50 mcg Route: I.V. Start: 7:53 AM Stop: 7:53 AM Medication: Nitrogylcerin Amount: 200 mcg Route: I.A. Start: 7:54 AM Stop: 7:54 AM Medication: Versed Amount: 1 mg Route: I.V. Start: 7:54 AM Stop: 7:54 AM Medication: Heparin Amount: 5000 units Route: I.V. Start: 8:03 AM Stop: 8:03 AM Medication: Versed Amount: 1 mg Route: I.V. Start: 8:05 AM Stop: 8:05 AM Medication: Fentanyl Amount: 25 mcg Route: I.V. Start: 8:06 AM Stop: 8:06 AM Medication: Heparin Amount: 4000 units Route: I.V. Start: 8:12 AM Stop: 8:12 AM Medication: Heparin Amount: 2000 units Route: I.V. Start: 8:13 AM Stop: 8:13 AM Medication: Fentanyl Amount: 25 mcg Route: I.V. Start: 8:23 AM Stop: 8:23 AM Medication: Versed Amount: 1 mg Route: I.V. Start: 8:23 AM Stop: 8:23 AM Medication: Heparin Amount: 1000 units Route: I.V. Start: 8:28 AM Stop: 8:28 AM Medication: Heparin Amount: 1000 units Route: I.V. Start: 8:33 AM Stop: 8:33 AM Medication: Plavix Amount: 600 mg Route: P.O. I, the attending physician, have reviewed and verified all procedure medications. Yes, all medications given per verbal order History/Risk Factors Hypertension: Yes Dyslipidemia: Yes Peripheral Arterial Disease (PAD): No Myocardial Infarction (PR): Yes Obesity: Yes Tobacco Use: Current/Recent(w/in 1 year) Prior Interventions PCI: Yes CABG: No Valve Surgery: No Date of PCI: 07/13/2014 Report Signatures Finalized by Chris Ellis MD on 11/26/2022 10:43 AM
[2022-11-20] MEDS: diphenhydrAMINE 50 mg Capsule PO (06:30)
[2022-11-20 06:51] LABS: Glucose Point of Care 170 mg/dL (70-110)
--- NOTE | 2022-11-20 07:38 | SUR.PREOP ---
The patient has a prosthetic leg on the right
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
--- NOTE | 2022-11-20 07:40 | SUR.PREOP ---
The patient has had pain addiction in the past and now has a very good support system that is regulated by her nephew, Donny. He has possession of all her opiods and fills her pills weekly for her. He aslo stated that he has narcan in the home readily available if needed.
--- NOTE | 2022-11-20 09:03 | SUR.PHASEI ---
Received the patient back from the bottle labeler via cot s/p PCI of the OM and LAD. Patient drowsy, but awakens to verbal stimuli easily. panel monitor placed and vital signs obtained. TR band intact to the right wrist with no bleeding or hematoma noted. palpable radial pulse. no other assessment changes noted from pre cath assessment. will transfer to CSU when a bed becomes available.
--- NOTE | 2022-11-20 09:45 | SUR.PHASEI ---
Letting the air out of the band per protocol. No other assessment changes noted at this time.
--- NOTE | 2022-11-20 10:45 | SUR.PHASEI ---
TR band off. No bleeding or hematoma noted. Site cleansed with warm water and patted dry. a large bandaid was applied to the site. No other changes noted at this time. patient voiced no concerns
--- NOTE | 2022-11-20 11:09 | SUR.PHASEI ---
Report called to SYD PalaciosU RN. Will transfer via bed to room 111-1 shortly.
[2022-11-20] MEDS: insulin lispro 100 unit/1 mL SUBCUT ×3 (12:21→20:34)
[2022-11-20] MEDS: sodium chloride 0.9% 1,000 ML 100 ML IV ×2 (12:22→21:30)
[2022-11-20 17:54] LABS: Glucose Point of Care 222 mg/dL (70-110)
[2022-11-20 17:55] LABS: Glucose Point of Care 252 mg/dL (70-110)
[2022-11-20 20:38] LABS: Glucose Point of Care 182 mg/dL (70-110)
--- NOTE | 2022-11-20 21:10 | PC.NURSE ---
spoke with Dr Quezada with patient concerns of home meds not being ordered. Instruction given to give night time medication per home med list
[2022-11-20] MEDS: gabapentin 300 mg Capsule 600 MG PO (21:27)
[2022-11-20] MEDS: cloNIDine 0.1 mg Tablet PO (21:27)
[2022-11-20] MEDS: quetiapine 100 mg Tablet PO (21:27)
[2022-11-20] MEDS: oxyCODONE 5 mg IR Tab/Cap PO (21:29)
[2022-11-20] MEDS: trazodone 100 mg Tablet PO (21:29)
[2022-11-21 04:56] VITALS: PULSE 76
[2022-11-21 07:20] VITALS: BP 117/90; PULSE 89; RESP 18; TEMP 36.9; O2SAT 93
[2022-11-21 07:50] LABS: Glucose Point of Care 211 mg/dL (70-110)
[2022-11-21 08:16] VITALS: RESP 13
[2022-11-21] MEDS: amlodipine 5 mg Tablet PO (08:16)
[2022-11-21] MEDS: oxyCODONE 5 mg IR Tab/Cap PO (08:16)
[2022-11-21] MEDS: aspirin 81 mg EC Tablet PO (08:16)
[2022-11-21] MEDS: citalopram 20 mg Tablet PO (08:16)
[2022-11-21] MEDS: levothyroxine 50 mcg Tablet PO (08:16)
[2022-11-21] MEDS: clopidogrel 75 mg Tablet PO (08:16)
[2022-11-21] MEDS: insulin lispro 100 unit/1 mL SUBCUT (08:21)
[2022-11-21 08:45] LABS: Basophils # 0.1 10^3/uL (0.0-0.1); Basophils % 0.8 %; Eosinophils # 0.4 10^3/uL (0.0-0.8); Eosinophils % 3.5 %; Hematocrit 45.2 % (37.0-47.0); Hemoglobin 14.6 g/dL (11.5-15.3); Lymphocytes # 2.9 10^3/uL (0.8-4.8); Lymphocytes % 26.7 %; Mean Corpuscular HGB Conc 32.3 g/dL (30.0-36.0); Mean Corpuscular Hemoglobin 27.8 pg (28.0-34.0); Mean Corpuscular Volume 85.9 fl (81-99); Mean Platelet Volume 9.4 fL (7.4-10.4); Monocytes # 0.7 10^3/uL (0.2-0.9); Monocytes % 6.2 %; Neutrophils # 6.83 10^3/uL (1.8-7.7); Neutrophils % 62.4 %; Nucleated Red Blood Cells % 0 %; Platelet Count 319 10^3/cmm (130-400); Red Blood Count 5.26 10^6/uL (4.1-5.3); Red Cell Distribution Width 16.6 % (12.1-15.1); White Blood Count 10.9 10^3/uL (4.0-10.0)
[2022-11-21 09:04] LABS: Anion Gap 18.1 (5-19); Blood Urea Nitrogen 12 mg/dL (6-20); Calcium 9.4 mg/dL (8.5-10.5); Carbon Dioxide 25 mmol/L (22-29); Chloride 97 mmol/L (98-107); Glomerular Filtration Rate 56.9 mL/min (90-130); Glucose 201 mg/dL (65-115); Osmolality Calculated 287 mOsm/kg (285-295); Potassium 4.1 mmol/L (3.5-5.1); Sodium 136 mmol/L (136-145)
--- NOTE | 2022-11-21 09:04 | P.DS_ITS ---
Discharge Providers Date of Admission: 11/20/22 11:39 Date of Discharge: November 21, 2022 Attending Provider at Admission: Chris Ellis M.D Attending Provider at Discharge: Chris Ellis M.D Primary Care Provider: Dayne Greene MD Reason for Visit Reason for Visit: Left heart cath with possible PCI Brief History: 57-year-old woman with past medical history of CAD, atrial fibrillation has been having shortness of breath and chest discomfort episodes.? She underwent stress test that was abnormal.? Plan for coronary angiogram with possible percutaneous coronary intervention Hospital Course Hospital Course Patient underwent successful revascularization of OM 1 with DESX 1 and mid LAD with DAQUAN X1. Patient was observed and stayed stable. No access site complications. Was discharged in a stable condition in a dual antiplatelet therapy. Physical Exam Narrative: GENERAL: Patient is alert, awake and oriented x3. [] NECK: No jugular vein distension. [] HEENT: No cyanosis. No icterus. No pallor. [] HEART: Regular S1 and S2. No murmur, rub or gallop. [] LUNGS: Clear to auscultate bilaterally. [] CENTRAL NERVOUS SYSTEM: Grossly nonfocal. [] EXTREMITIES: Lower extremities with 1+ edema bilaterally. Pulses palpable in the lower extremities, both dorsalis pedis and posterior tibial. 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 Routine Exams 11/20/22 06:00 Taken BMP [Basic Metabolic Panel] Routine Lab 11/21/22 08:34 Results Laboratory Results WBC 10.9 10^3/uL (4.0-10.0) H 11/21/22 08:34 RBC 5.26 10^6/uL (4.1-5.3) 11/21/22 08:34 Hgb 14.6 g/dL (11.5-15.3) 11/21/22 08:34 Hct 45.2 % (37.0-47.0) 11/21/22 08:34 MCV 85.9 fl (81-99) 11/21/22 08:34 MCH 27.8 pg (28.0-34.0) L 11/21/22 08:34 MCHC 32.3 g/dL (30.0-36.0) 11/21/22 08:34 RDW 16.6 % (12.1-15.1) H 11/21/22 08:34 Plt Count 319 10^3/cmm (130-400) 11/21/22 08:34 MPV 9.4 fL (7.4-10.4) 11/21/22 08:34 Neut % (Auto) 62.4 % 11/21/22 08:34 Lymph % (Auto) 26.7 % 11/21/22 08:34 [place] % (Auto) 6.2 % 11/21/22 08:34 Eos % (Auto) 3.5 % 11/21/22 08:34 Baso % (Auto) 0.8 % 11/21/22 08:34 Neut # (Auto) 6.83 10^3/uL (1.8-7.7) 11/21/22 08:34 Lymph # (Auto) 2.9 10^3/uL (0.8-4.8) 11/21/22 08:34 [place] # (Auto) 0.7 10^3/uL (0.2-0.9) 11/21/22 08:34 Eos # (Auto) 0.4 10^3/uL (0.0-0.8) 11/21/22 08:34 Baso # (Auto) 0.1 10^3/uL (0.0-0.1) 11/21/22 08:34 Nucleated RBC % (auto) 0 % 11/21/22 08:34 Nucleated RBCs # 0.0 /100WBC 11/21/22 08:34 PT 13.2 Seconds (12.0-15.1) 11/18/22 14:30 INR 0.97 (0.83-1.21) 11/18/22 14:30 Sodium 136 mmol/L (136-145) 11/21/22 08:34 Potassium 4.1 mmol/L (3.5-5.1) 11/21/22 08:34 Chloride 97 mmol/L (98-107) L 11/18/22 14:30 Carbon Dioxide 25 mmol/L (22-29) 11/21/22 08:34 Anion Gap 18.1 (5-19) 11/21/22 08:34 BUN 12 mg/dL (6-20) 11/21/22 08:34 Creatinine 1.1 mg/dL (0.5-0.9) H 11/18/22 14:30 GFR Calculation 51.0 mL/min (90-130) L 11/18/22 14:30 Glucose 56 mg/dL (65-115) L 11/18/22 14:30 POC Glucose 211 mg/dL (70-110) H 11/21/22 07:18 Calculated Osmolality 287 mOsm/kg (285-295) 11/21/22 08:34 Calcium 9.4 mg/dL (8.5-10.5) 11/21/22 08:34 Vitals Last Vital Signs Temp 98.5 F 11/21/22 07:20 Pulse 89 11/21/22 07:20 Resp 13 11/21/22 08:16 BP 117/90 11/21/22 07:20 Pulse Ox 93 11/21/22 07:20 O2 Del Method 11/21/22 07:20 O2 Flow Rate 3 11/20/22 11:00 Discharge Plan Discharge Patient Disposition: Home Condition: Stable Prescriptions: Continued fluticasone propion-salmeterol [Advair Diskus] 100-50 mcg/dose blister with device 1 puff INHALATION BID amlodipine 10 mg tablet 5 mg PO DAILY aspirin 81 mg tablet,chewable 81 mg PO DAILY fluticasone propionate 50 mcg/actuation spray,suspension 1 spray INTRANASAL Q12H PRN (Reason: Nasal Congestion) montelukast 10 mg tablet 10 mg PO DAILY citalopram 20 mg tablet 20 mg PO DAILY levothyroxine 100 mcg tablet 50 mcg PO DAILY clopidogrel 75 mg tablet 75 mg PO DAILY melatonin 10 mg capsule 10 mg PO BEDTIME simvastatin 20 mg tablet 20 mg PO DAILY clonidine HCl 0.1 mg tablet 0.1 mg PO BID nitroglycerin 0.4 mg tablet, sublingual 0.4 mg sublingual Q5M PRN (Reason: Chest Pain) Rx Instructions: do not exceed 3 doses per episode gabapentin 600 mg tablet 1,200 mg PO TID Qty: 180 1RF tizanidine 4 mg tablet 4 mg PO TID PRN (Reason: muscle spasm) Qty: 90 1RF oxycodone 5 mg tablet 5 mg PO Q8H PRN (Reason: pain) 30 Days Qty: 90 0RF Rx Instructions: max of three per day insulin lispro [Humalog KwikPen Insulin] 100 unit/mL insulin pen 10 unit SUBCUT TID Rx Instructions: Sliding scale quetiapine [Seroquel] 100 mg tablet 100 mg PO BEDTIME trazodone 100 mg tablet 100 mg PO BEDTIME tamsulosin 0.4 mg capsule 0.4 mg PO DAILY Qty: 30 12RF methenamine hippurate 1 gram tablet See Rx Instructions .ROUTE .COMPLEX Qty: 60 12RF Dose Instruction: TAKE 1 TABLET BY MOUTH TWICE DAILY with vitamin c. 1000mg FOR recurrent urinary tract infection Rx Instructions: TAKE 1 TABLET BY MOUTH TWICE DAILY with vitamin c. 1000mg FOR recurrent urinary tract infection pyridoxine (vitamin B6) [Vitamin B-6] 50 mg Tablet 25 mg PO DAILY albuterol sulfate 90 mcg/actuation HFA aerosol inhaler 90 mcg INHALATION QID PRN (Reason: Shortness Of Breath) insulin degludec [Tresiba FlexTouch U-200] 200 unit/mL (3 mL) insulin pen See Rx Instructions .ROUTE .COMPLEX Qty: 0 0RF Rx Instructions: sliding scale ascorbic acid (vitamin C) [Vitamin C] 1,000 mg Tablet 1,000 mg PO BID methocarbamol 750 mg Tablet 750 mg PO TID PRN (Reason: Muscle Pain) Discharge Orders: Discharge Order (Routine); Ordered 11/21/22 Ordered By: Chris Ellis Referrals: Chris Ellis M.D [Physician] - 2 months Florence Orr FNP [Nurse Practitioner] - 11/28/22 9:00 am ([facility] has scheduled you a follow-up appointment with Florence Orr on 11/28/2022 at 9:00. At that time an appointment with Dr. Ellis will be scheduled.If you have any qustions, please call [phone].) Discharge Diet: Diabetic Discharge Activity: Increase activity as tolerated Patient Instructions: How to Stop Smoking (DC), Coronary Intravascular Stent Pl acement (DC), COPD Stoplight, Chest Pain Stoplight, Post Angiogram Home Care Instructions Discharge Attestations Time Spent in Discharge Care*: less than 30 min Quality Metrics Clinical Quality Measures [ No reported AMI, CVA or VTE this stay] Coding Level of Care Code Acute Code for Chg Fwd
[2022-11-21 09:58] VITALS: RESP 13
[2022-11-21 10:04] VITALS: BP 158/94; PULSE 94; RESP 17; TEMP 36.9; O2SAT 93
== END 2022-11-21 10:25 | disposition home or self-care (01) ==
LOC: CSU 11:41
PROVIDERS: Admitting Provider Internal Medicine; PCP Family Medicine; Visit Provider Internal Medicine
DX: I25.10 Atherosclerotic heart disease of native coronary artery without angina pectoris (principal); I25.82 Chronic total occlusion of coronary artery; I48.91 Unspecified atrial fibrillation; I10 Essential (primary) hypertension; E78.5 Hyperlipidemia, unspecified; E66.9 Obesity, unspecified; Z68.37 Body mass index [BMI] 37.0-37.9, adult; J44.9 Chronic obstructive pulmonary disease, unspecified; E11.42 Type 2 diabetes mellitus with diabetic polyneuropathy; I25.2 Old myocardial infarction; E03.9 Hypothyroidism, unspecified; F17.200 Nicotine dependence, unspecified, uncomplicated
CPT/HCPCS: 36415; 36416; 80048; 82962; 85025; 85347; 85610; 93458; 93571; 93572; 96361; 96365; 96372; 99152; 99153; C1725; C1769; C1874; C1887; C1894; C9600; C9601; G0378; J1644; J1815; J2250; J3010; J3490; J7030; Q0163; Q9967

== ENCOUNTER → 2022-11-28 08:57 | Outpatient (BNVA) | payer MEDICARE, MEDICAID, SELFPAY | PROVIDERS: PCP Family Medicine; Visit Provider Nurse Practitioner Family | DX: I25.10 Atherosclerotic heart disease of native coronary artery without angina pectoris (principal); I10 Essential (primary) hypertension; F17.210 Nicotine dependence, cigarettes, uncomplicated; I25.2 Old myocardial infarction; Z79.82 Long term (current) use of aspirin; Z79.4 Long term (current) use of insulin; E11.42 Type 2 diabetes mellitus with diabetic polyneuropathy | CPT/HCPCS: 36415; 80048; 99214 ==

== ENCOUNTER → 2022-12-23 15:21 | Outpatient (BNVA) | payer MEDICARE, MEDICAID, SELFPAY | PROVIDERS: PCP Family Medicine; Visit Provider Internal Medicine | DX: I25.10 Atherosclerotic heart disease of native coronary artery without angina pectoris (principal); F17.200 Nicotine dependence, unspecified, uncomplicated; I10 Essential (primary) hypertension; Z79.82 Long term (current) use of aspirin; R06.00 Dyspnea, unspecified | CPT/HCPCS: 99214 ==

== ENCOUNTER 2023-04-03 01:51 | Emergency (ER) | payer MEDICARE, MEDICAID, SELFPAY ==
[2023-04-03 01:53] VITALS: BP 144/73; PULSE 90; RESP 18; TEMP 36.7; O2SAT 93
--- NOTE | 2023-04-03 02:33 | USR_ITS ---
PROCEDURE INFORMATION: Exam: US Duplex Right Lower Extremity Veins, Limited Exam date and time: 04/03/2023 4:11 AM Age: 57 years old Clinical indication: Pain; Other: Right popliteal; Prior surgery; Surgery date: 6+ months; Surgery type: S/P right below knee amputation 2005. ; Additional info: Right leg pain- no injury TECHNIQUE: Imaging protocol: Real-time duplex ultrasound of the right extremity with 2-D nunes scale, color Doppler flow and spectral waveform analysis including responses to compression and other maneuvers (when performed) with image documentation. Limited exam was focused on the right lower extremity veins. COMPARISON: US soft tissue/extremity [id number] 05/06/2017 3:59 PM FINDINGS: Right deep veins: Unremarkable. The common femoral, femoral, proximal profunda femoral and popliteal veins are patent without thrombus. Normal Doppler waveforms. Normal compressibility and/or augmentation response. Right superficial veins: Unremarkable. Saphenofemoral junction is patent without thrombus. Soft tissues: Below the knee amputation. US/[place] [id number] IMPRESSION: No evidence of deep vein thrombosis.
--- NOTE | 2023-04-03 02:33 | XRR_ITS ---
PROCEDURE INFORMATION: Exam: XR Right Knee Exam date and time: 04/03/2023 2:54 AM Age: 57 years old Clinical indication: Pain; Knee; Right; Prior surgery; Surgery date: 6+ months; Surgery type: Bka 2005; Additional info: Right knee pain TECHNIQUE: Imaging protocol: Radiologic exam of the right knee. Views: 3 views. COMPARISON: No relevant prior studies available. FINDINGS: Bones/joints: Status post [id number] amputation. There is a moderate loss of joint space seen in the medial compartment of the right knee compatible with osteoarthritic changes. Soft tissues: Normal. XR/XR knee RT 3V* [id number] IMPRESSION: 1. There are no acute osseous findings. 2. Osteoarthritic changes seen within the right knee, most notably within the medial compartment.
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
[2023-04-03 02:48] VITALS: BP 153/84; PULSE 82; O2SAT 92
[2023-04-03] MEDS: dexamethasone 10 mg/mL INJ IM (05:35)
[2023-04-03 05:45] VITALS: BP 168/86; PULSE 84; O2SAT 92
== END 2023-04-03 05:49 | disposition home or self-care (01) ==
PROVIDERS: Emergency Provider Emergency Medicine; PCP Family Medicine
DX: M79.604 Pain in right leg (principal); Z79.82 Long term (current) use of aspirin; Z79.02 Long term (current) use of antithrombotics/antiplatelets; Z79.4 Long term (current) use of insulin; F17.210 Nicotine dependence, cigarettes, uncomplicated; Z98.61 Coronary angioplasty status; Z89.511 Acquired absence of right leg below knee; J44.9 Chronic obstructive pulmonary disease, unspecified; I25.10 Atherosclerotic heart disease of native coronary artery without angina pectoris; E11.9 Type 2 diabetes mellitus without complications
CPT/HCPCS: 73562; 93971; 96372; 99284; J1100

== ENCOUNTER → 2023-06-30 15:26 | Outpatient (BNVA) | payer MEDICARE, MEDICAID, SELFPAY | PROVIDERS: PCP Family Medicine; Visit Provider Internal Medicine | DX: I25.10 Atherosclerotic heart disease of native coronary artery without angina pectoris (principal); F17.200 Nicotine dependence, unspecified, uncomplicated; I10 Essential (primary) hypertension | CPT/HCPCS: 99214 ==

== ENCOUNTER 2023-07-09 13:37 | Outpatient (CLI) | payer MEDICARE, MEDICAID, SELFPAY ==
--- NOTE | 2023-07-09 14:15 | USCV_ITS ---
Angeles Valdes Age: 58 Gender: F : 1965 Exam Date: 07/09/2023 14:15 Ordering Phys: Chris Ellis M.D ([email or web address]) Technologist: CT Exam Location: [facility] [place] Indication: stenosis Risk Factors: Previous Vascular Surgery: Right Brachial BP: / Left Brachial BP: / Right Left Velocity (cm/s) Spectral Plaque Velocity (cm/s) Spectral Plaque Syst/Diast Broadening Syst/Diast Broadening 107.60/20.90 Prox CCA 109.70/ 20.70 107.60/23.00 Mid CCA 98.10 / 21.90 79.70/ 16.60 Distal CCA 93.40 / 20.20 85.00/ 14.90 Prox ICA 65.10 / 20.60 61.10/ 20.40 Mid ICA 61.40 / 21.40 51.60/ 16.10 Distal ICA 62.30 / 22.60 103.40 ECA 84.90 0.77 ICA/CCA 0.59 Antegrade Vertebral Antegrade 64.90/ 14.50 cm/s 38.10/ 14.00 cm/s Tri Subclavian Bi 278.3 127.8 0 0 FINDINGS Comparison: none available. No significant elevation of systolic or diastolic velocities. Waveforms are normal. Minimal carotid atherosclerosis. Antegrade vertebral arteries. CONCLUSIONS Bilateral ICA stenosis less than 50%. Mnimal carotid atherosclerosis. Dr. Minda Merino DO (Electronically Signed) Final Date: 21 July 2023 12:17 S
== END 2023-07-09 13:38 | disposition home or self-care (01) ==
LOC: RAD 13:38
PROVIDERS: PCP Family Medicine; Visit Provider Internal Medicine
DX: I65.23 Occlusion and stenosis of bilateral carotid arteries (principal)
CPT/HCPCS: 93880

== ENCOUNTER → 2023-12-29 15:04 | Outpatient (BNVA) | payer MEDICARE, MEDICAID, SELFPAY | PROVIDERS: PCP Family Medicine; Visit Provider Internal Medicine | DX: I25.10 Atherosclerotic heart disease of native coronary artery without angina pectoris (principal); R07.9 Chest pain, unspecified; I10 Essential (primary) hypertension; F17.200 Nicotine dependence, unspecified, uncomplicated | CPT/HCPCS: 99214 ==

== ENCOUNTER 2024-01-09 10:44 | Outpatient (CLI) | payer MEDICARE, MEDICAID, SELFPAY ==
--- NOTE | 2024-01-09 11:15 | USCV_ITS ---
Angeles Valdes Age: 58 Gender: F : 1965 Exam Date: 01/09/2024 11:15 Ordering Phys: Chris Ellis M.D ([email or web address]) Technologist: MARIA C Exam Location: [facility] [place] Indication: CHEST PAIN/SHORTNESS OF BREATH BP: 128 / 76 HR: 53 Rhythm: Atrial fibrillation Technical Quality: Suboptimal MEASUREMENTS (Male / Female) Normal Values 2D ECHO LV Diastolic Diameter PLAX 5.4 cm 4.2 - 5.9 / 3.9 - 5.3 cm IVS Diastolic Thickness 1.3 cm 0.6 - 1.0 / 0.6 - 0.9 cm IVS Systolic Thickness 2.1 cm LVPW Diastolic Thickness 1.5 cm 0.6 - 1.0 / 0.6 - 0.9 cm LVPW Systolic Thickness 2.5 cm LVOT Diameter 2.0 cm LV Ejection Fraction 2D Teich 77.8 % LV Ejection Fraction MOD 2C 80.5 % LV Ejection Fraction 2C AL 80.9 % LA Diameter 3.8 cm RA Systolic Volume 4C AL 44.8 ml RA Systolic Volume 4C MOD 42.3 ml LA Sys Volume AL 85.2 cm cubed Aorta at Sinotubular Diameter 2.2 cm IVC Diameter 2.0 cm M-MODE LA Ao Ratio MM 1.0 AV Cusp Separation MM 1.9 cm DOPPLER AV Peak Velocity 147.0 cm/s LVOT Peak Velocity 117.0 cm/s AV Area Cont Eq vti 2.7 cm squared AV Area Cont Eq pk 2.5 cm squared MV Peak Velocity 149.0 cm/s MV Area PHT 3.3 cm squared Mitral E to A Ratio 0.0 TR Peak Velocity 195.0 cm/s TR Peak Gradient 15.2 mmHg TR Mean Velocity 136.0 cm/s TR Mean Gradient 8.8 mmHg TR Velocity Time Integral 53.3 cm TV Peak E Velocity 66.0 cm/s Right Atrial Pressure 3.0 mmHg Pulmonary Artery Systolic Pressu 18.2 mmHg PV Peak Velocity 109.0 cm/s RV Ejection Time 0.3 s FINDINGS Left Ventricle Left ventricle is normal in size. LV systolic function is normal with EF of 55 to 60%. No regional wall motion abnormalities are seen. Right Ventricle Normal in size and function Right Atrium Normal in size Left Atrium Dilated Mitral Valve Structurally normal mitral valve. Mild mitral regurgitation. Aortic Valve Structurally normal aortic valve. No significant stenosis or regurgitation Tricuspid Valve Trace tricuspid regurgitation. Pulmonary artery systolic pressure is normal Pulmonic Valve Not well visualized Pericardium Normal Aorta Normal in size IVC Appears to be dilated CONCLUSIONS LV systolic function is normal with EF of 55 to 60%. Left atrial dilation Mild mitral regurgitation. Trace tricuspid regurgitation IVC appears to be dilated. Compared to prior echocardiogram from 2021, no significant changes are seen. Chris Ellis MD (Electronically Signed) Final Date: 11 January 2024 11:07 S
== END 2024-01-09 10:45 | disposition home or self-care (01) ==
LOC: RAD 10:47
PROVIDERS: PCP Family Medicine; Visit Provider Internal Medicine
DX: I08.1 Rheumatic disorders of both mitral and tricuspid valves (principal); R07.9 Chest pain, unspecified; R06.02 Shortness of breath
CPT/HCPCS: 93306

== ENCOUNTER → 2024-02-12 14:09 | Outpatient (BNVA) | payer MEDICARE, MEDICAID, SELFPAY | PROVIDERS: PCP Family Medicine; Visit Provider Podiatrist Foot & Ankle Surgery | DX: E11.621 Type 2 diabetes mellitus with foot ulcer (principal); L97.522 Non-pressure chronic ulcer of other part of left foot with fat layer exposed; E11.42 Type 2 diabetes mellitus with diabetic polyneuropathy; Z79.4 Long term (current) use of insulin | CPT/HCPCS: 99213 ==

== ENCOUNTER → 2024-02-26 14:00 | Outpatient (BNVA) | payer MEDICARE, SELFPAY | PROVIDERS: PCP Family Medicine; Visit Provider Podiatrist Foot & Ankle Surgery | DX: E11.42 Type 2 diabetes mellitus with diabetic polyneuropathy (principal); L97.522 Non-pressure chronic ulcer of other part of left foot with fat layer exposed; E11.621 Type 2 diabetes mellitus with foot ulcer; Z79.4 Long term (current) use of insulin | CPT/HCPCS: 99213 ==

== ENCOUNTER → 2024-03-15 11:00 | Outpatient (BNVA) | payer MEDICARE, MEDICAID, SELFPAY | PROVIDERS: PCP Family Medicine; Visit Provider Podiatrist Foot & Ankle Surgery | DX: E11.42 Type 2 diabetes mellitus with diabetic polyneuropathy (principal); L97.522 Non-pressure chronic ulcer of other part of left foot with fat layer exposed; E11.621 Type 2 diabetes mellitus with foot ulcer; Z79.4 Long term (current) use of insulin | CPT/HCPCS: 99213 ==

== ENCOUNTER → 2024-04-08 08:00 | Outpatient (BNVA) | payer MEDICARE, MEDICAID, SELFPAY | PROVIDERS: PCP Family Medicine; Visit Provider Podiatrist Foot & Ankle Surgery | DX: E11.42 Type 2 diabetes mellitus with diabetic polyneuropathy (principal); L97.522 Non-pressure chronic ulcer of other part of left foot with fat layer exposed; L97.422 Non-pressure chronic ulcer of left heel and midfoot with fat layer exposed; E11.621 Type 2 diabetes mellitus with foot ulcer | CPT/HCPCS: 29445 ==

== ENCOUNTER → 2024-04-15 07:44 | Outpatient (BNVA) | payer MEDICARE, MEDICAID, SELFPAY | PROVIDERS: PCP Family Medicine; Visit Provider Podiatrist Foot & Ankle Surgery | DX: E11.621 Type 2 diabetes mellitus with foot ulcer (principal); L97.422 Non-pressure chronic ulcer of left heel and midfoot with fat layer exposed; E11.42 Type 2 diabetes mellitus with diabetic polyneuropathy; L97.522 Non-pressure chronic ulcer of other part of left foot with fat layer exposed; Z79.4 Long term (current) use of insulin | CPT/HCPCS: 29405 ==

== ENCOUNTER 2024-04-22 15:46 | Outpatient (CLI) | payer MEDICARE, MEDICAID, SELFPAY | END 2024-04-22 15:47 | disposition home or self-care (01) | LOC: SPT 15:48 | PROVIDERS: PCP Family Medicine; Visit Provider Podiatrist Foot & Ankle Surgery | DX: Z46.89 Encounter for fitting and adjustment of other specified devices (principal); L97.422 Non-pressure chronic ulcer of left heel and midfoot with fat layer exposed | CPT/HCPCS: 97760; L4361 ==

== ENCOUNTER → 2024-04-29 13:15 | Outpatient (BNVA) | payer MEDICARE, MEDICAID, SELFPAY | PROVIDERS: PCP Family Medicine; Visit Provider Podiatrist Foot & Ankle Surgery | DX: Z51.89 Encounter for other specified aftercare (principal); E11.42 Type 2 diabetes mellitus with diabetic polyneuropathy; L97.422 Non-pressure chronic ulcer of left heel and midfoot with fat layer exposed; L97.522 Non-pressure chronic ulcer of other part of left foot with fat layer exposed; E11.621 Type 2 diabetes mellitus with foot ulcer; Z79.4 Long term (current) use of insulin | CPT/HCPCS: 99213 ==

== ENCOUNTER → 2024-05-13 15:25 | Outpatient (BNVA) | payer MEDICARE, MEDICAID, SELFPAY | PROVIDERS: PCP Family Medicine; Visit Provider Podiatrist Foot & Ankle Surgery | DX: L97.422 Non-pressure chronic ulcer of left heel and midfoot with fat layer exposed (principal); L97.522 Non-pressure chronic ulcer of other part of left foot with fat layer exposed | CPT/HCPCS: 99213 ==

== ENCOUNTER → 2024-05-26 10:36 | Outpatient (BNVA) | payer MEDICARE, MEDICAID, SELFPAY | PROVIDERS: PCP Family Medicine; Visit Provider Nurse Practitioner | DX: M25.511 Pain in right shoulder (principal); Z98.890 Other specified postprocedural states | CPT/HCPCS: 73030 ==

== ENCOUNTER → 2024-06-03 12:52 | Outpatient (BNVA) | payer MEDICARE, MEDICAID, SELFPAY | PROVIDERS: PCP Family Medicine; Visit Provider Podiatrist Foot & Ankle Surgery | DX: L97.422 Non-pressure chronic ulcer of left heel and midfoot with fat layer exposed (principal); L97.522 Non-pressure chronic ulcer of other part of left foot with fat layer exposed | CPT/HCPCS: 99213 ==

== ENCOUNTER → 2024-06-25 14:50 | Outpatient (BNVA) | payer MEDICARE, MEDICAID, SELFPAY | PROVIDERS: PCP Family Medicine; Visit Provider Specialist | DX: M25.511 Pain in right shoulder (principal); G56.03 Carpal tunnel syndrome, bilateral upper limbs; G56.20 Lesion of ulnar nerve, unspecified upper limb | CPT/HCPCS: 95910 ==

== ENCOUNTER → 2024-06-30 13:30 | Outpatient (BNVA) | payer MEDICARE, MEDICAID, SELFPAY | PROVIDERS: PCP Family Medicine; Visit Provider Podiatrist Foot & Ankle Surgery | DX: E11.42 Type 2 diabetes mellitus with diabetic polyneuropathy (principal); L97.521 Non-pressure chronic ulcer of other part of left foot limited to breakdown of skin; Z89.412 Acquired absence of left great toe; Z89.511 Acquired absence of right leg below knee; E11.621 Type 2 diabetes mellitus with foot ulcer; Z79.4 Long term (current) use of insulin | CPT/HCPCS: 99213 ==

== ENCOUNTER 2024-07-12 07:47 | Outpatient (CLI) | payer MEDICARE, MEDICAID, SELFPAY ==
--- NOTE | 2024-07-12 07:50 | MR_ITS ---
WS: [id number] MRI RIGHT SHOULDER ARTHROGRAM TECHNIQUE: Sagittal T2, coronal T1, T2 and proton density imaging. Axial gradient PDE imaging. Additi onal imaging post arthrogram. CLINICAL INFORMATION: right shoulder pain COMPARISON: Radiograph 05/26/2024 FINDINGS: Prior postoperative changes rotator cuff repair. Susceptibly artifact from rotator cuff anchors degra smooth some images. Advanced arthritis AC joint with loss of the subacromial space. Subacromial subdelto id fluid. Small joint effusion. Lobulated ganglion cyst along the dorsal surface of the AC joint. Lob ulated ganglion cyst measures 1.5 x 1.8 cm. Advanced degenerative narrowing of the glenohumeral articulation. High-grade complete tear of the sup raspinatus with tendon retraction to the glenohumeral joint. Atrophic infraspinatus with chronic thin kelvin and tendinopathy. Tiny intrasubstance tear distally. Teres minor appears intact. Diffuse increas ed signal with partial intrasubstance tear and tendinopathy involving the subscapularis biceps tendon not well-visualized in the bicipital groove. Atrophic intra-articular biceps tendon. Chronic thinnin g and irregularity of the glenoid labrum. MR/MR shoulder RT wo/w con [id number] IMPRESSION: 1. Postoperative changes prior rotator cuff repair 2. High-grade complete tear of the supraspinatus with retraction to the level of the glenohumeral joint. 3. Multiple multilobulated ganglion cyst along the dorsal surface AC joint sade suring 1.5 x 1.8 cm. Advanced arthritis AC joint with loss of the subacromial s pace. 4. Atrophic infraspinatus which appears intact. Tendinopathy with small intras ubstance tear distal infraspinatus. 5. Tendinopathy with intrasubstance tear involving the subscapularis which sonido ears intact. 6. Advanced arthritis glenohumeral joint with slight hypertrophic spurring. 7. Chronic thinning and irregularity of the glenoid labrum.
--- NOTE | 2024-07-12 08:00 | IR_ITS ---
WS: [id number] SHOULDER ARTHROGRAM RIGHT Fluoroscopic guided right shoulder arthrogram CLINICAL INFORMATION: right shoulder pain COMPARISON: None. PROCEDURE: The procedure including risks, benefits and complications were discussed with the patient, who agreed to proceed. Using sterile technique, the patient was prepped and draped in the usual ster ile fashion. After 1% lidocaine injection using fluoroscopic guidance, a 22-gauge spinal needle was a dvanced into the glenohumeral joint. Approximately 13 ml of a solution containing 10 ml normal saline , 10 ml Omnipaque 240, and 0.1 ml gadolinium was administered. No immediate complications. FLUOROSCOPY TIME: 1min [id number] # of spot films: 3 IR/IR arthrogram shoulderRT [id number] IMPRESSION: Uncomplicated fluoroscopic-guided right shoulder arthrogram. MRI to follow.
[2024-07-12] MEDS: gadobenate dimeglumine 20 mL vial IV (09:31)
[2024-07-12] MEDS: iohexol 240 mg/mL 50 mL Btl INTRA-ARTI (09:33)
== END 2024-07-12 07:48 | disposition home or self-care (01) ==
LOC: RAD 07:48
PROVIDERS: PCP Family Medicine; Visit Provider Nurse Practitioner
DX: M19.011 Primary osteoarthritis, right shoulder (principal); M75.121 Complete rotator cuff tear or rupture of right shoulder, not specified as traumatic; M67.411 Ganglion, right shoulder; M75.91 Shoulder lesion, unspecified, right shoulder; Z98.890 Other specified postprocedural states
CPT/HCPCS: 23350; 73223; 77002

== ENCOUNTER → 2024-07-16 09:45 | Outpatient (BNVA) | payer MEDICARE, MEDICAID, SELFPAY | PROVIDERS: PCP Family Medicine; Visit Provider Nurse Practitioner | DX: M19.011 Primary osteoarthritis, right shoulder (principal); G56.03 Carpal tunnel syndrome, bilateral upper limbs; G56.23 Lesion of ulnar nerve, bilateral upper limbs | CPT/HCPCS: 99215 ==

== ENCOUNTER → 2024-08-04 14:00 | Outpatient (BNVA) | payer MEDICARE, MEDICAID, SELFPAY | PROVIDERS: PCP Family Medicine; Visit Provider Podiatrist Foot & Ankle Surgery | DX: E11.621 Type 2 diabetes mellitus with foot ulcer; L97.521 Non-pressure chronic ulcer of other part of left foot limited to breakdown of skin; M21.622 Bunionette of left foot; M20.42 Other hammer toe(s) (acquired), left foot; E11.42 Type 2 diabetes mellitus with diabetic polyneuropathy; Z79.4 Long term (current) use of insulin | CPT/HCPCS: 99213 ==

== ENCOUNTER 2024-08-18 11:35 | Outpatient (CLI) | payer MEDICARE, MEDICAID, SELFPAY ==
[2024-08-18 12:27] LABS: Estmated Average Glucose 166; Hemoglobin A1C 7.4 % (4.0-6.0)
== END 2024-08-18 11:36 | disposition home or self-care (01) ==
LOC: LAB 11:36
PROVIDERS: PCP Family Medicine; Visit Provider Nurse Practitioner
DX: E11.42 Type 2 diabetes mellitus with diabetic polyneuropathy (principal); E11.40 Type 2 diabetes mellitus with diabetic neuropathy, unspecified; E11.9 Type 2 diabetes mellitus without complications
CPT/HCPCS: 36415; 83036

== ENCOUNTER → 2024-08-24 10:06 | Outpatient (BNVA) | payer MEDICARE, MEDICAID, SELFPAY | PROVIDERS: PCP Family Medicine; Visit Provider Family Medicine | DX: Z01.818 Encounter for other preprocedural examination (principal) | CPT/HCPCS: 93005 ==

== ENCOUNTER 2024-08-24 12:05 | Outpatient (CLI) | payer MEDICARE, MEDICAID, SELFPAY ==
[2024-08-24 13:03] LABS: Basophils # 0.1 10^3/uL (0.0-0.1); Basophils % 0.7 %; Eosinophils # 0.2 10^3/uL (0.0-0.8); Eosinophils % 1.7 %; Hematocrit 43.5 % (36-47); Lymphocytes # 3.4 10^3/uL (0.8-4.8); Lymphocytes % 24.4 %; Mean Corpuscular HGB Conc 33.8 g/dL (30-55); Mean Corpuscular Hemoglobin 29.9 pg (27-33); Mean Corpuscular Volume 88.6 fl (85-98); Mean Platelet Volume 8.9 fL (7.4-10.4); Monocytes # 0.9 10^3/uL (0.2-0.9); Monocytes % 6.5 %; Neutrophils # 9.23 10^3/uL (1.8-7.7); Neutrophils % 66.1 %; Nucleated Red Blood Cells % 0 %; Platelet Count 323 10^3/cmm (157-399); Red Blood Count 4.91 10^6/uL (3.85-5.65); Red Cell Distribution Width 16.9 % (12.1-15.1); White Blood Count 13.97 10^3/uL (3.29-11.43)
[2024-08-24 13:06] LABS: Bilirubin Urine Negative (Negative); Blood Urine Negative (Negative); Glucose Urine UA Negative (Normal); Ketones Urine Negative (Negative); Leukocyte Esterase Urine Trace (Negative); Nitrate Urine Negative (Negative); Protein Urine 1+ (Negative); Specific Gravity, Urine 1.013 (1.005-1.030); Urine Appearance Clear (CLEAR); Urine Color Yellow (Yellow); pH Urine 6.5 (5-7)
[2024-08-24 13:11] LABS: Bacteria Urine Trace /hpf; Hyaline Casts Urine 0.81 /lpf; RBC Urine 0-2 /hpf (0-2); WBC Urine 0-5 /hpf (0-5)
[2024-08-24 13:25] LABS: Alanine Aminotransferase < 5 U/L (0-33); Albumin Level 3.3 g/dL (3.5-5.2); Alkaline Phosphatase 95 U/L (35-105); Anion Gap 12.8 (5-19); Aspartate Amino Transferase 7 U/L (0-32); Blood Urea Nitrogen 7 mg/dL (8-23); Carbon Dioxide 28 mmol/L (22-29); Chloride 95 mmol/L (98-107); Globulin 3.9 g/dL (1.3-4.6); Glomerular Filtration Rate 63.9 mL/min (90-130); Glucose 135 mg/dL (65-115); Osmolality Calculated 274 mOsm/kg (285-295); Potassium 3.8 mmol/L (3.5-5.1); Sodium 132 mmol/L (136-145); Total Bilirubin 0.5 mg/dL (0.15-1.2); Total Protein 7.2 g/dL (6.6-8.7)
== END 2024-08-24 12:06 | disposition home or self-care (01) ==
LOC: LAB 12:06
PROVIDERS: PCP Family Medicine; Visit Provider Family Medicine
DX: Z01.818 Encounter for other preprocedural examination (principal); Z79.891 Long term (current) use of opiate analgesic
CPT/HCPCS: 36415; 80053; 81001; 85025; 87086

== ENCOUNTER 2024-09-01 15:59 | Observation (INO) | payer MEDICARE, MEDICAID, SELFPAY ==
[2024-09-01] VITALS (14 sets, daily range): BP systolic 84–140; BP diastolic 50–81; PULSE 72–108; RESP 16–18; TEMP 36.4–36.7; O2SAT 89–94; BMI 32.3
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
[2024-09-01 10:52] LABS: Glucose Point of Care 175 mg/dL (70-110)
[2024-09-01] MEDS: acetaminophen 1,000 MG/100 ML PIGGYBACK 400 MG IV (10:59)
[2024-09-01] MEDS: sodium chloride 0.9% 1,000 ML 30 ML IV (11:06)
[2024-09-01] MEDS: gabapentin 300 mg Capsule PO (11:09)
--- NOTE | 2024-09-01 11:13 | P.HPUD_ITS ---
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
--- NOTE | 2024-09-01 11:26 | ANES.PROC ---
Anesthesia Procedures Procedure/Date: 09/01/24 Nerve Block ^: Nerve Block 1: Main Anesthesia: other (versed 2mg) Time Out Performed: Yes Consent: requested by attending/covering physician and from patient Nerve block location: interscalene Anesthesia monitors applied: pulse oximetry, EKG, BP cuff and oxygen Nerve block position: supine Anesthetic Used: ropivicaine 0.5% Amount of anesthesia used (mL): 30 Ultrasound used to: recognize landmarks Nerve Stimulator Used?: Yes Interscalene/Femoral BLK: other needle (pjunk 4inch) Injection: neg aspiration of heme Patient Tolerated Procedure: well Complications: none
[2024-09-01] MEDS: VANCOMYCIN ADD-Vantage 1,000 MG in 0.9% NaCl ADD-Vantage 250 ML 250 MG IV (11:29)
--- NOTE | 2024-09-01 12:00 | SC_ITS ---
WS: [id number] C-arm FL for CVA [id number] REASON FOR EXAM: RT SHOULDER ARTHOPLASTY FINDINGS: Right shoulder total reverse arthroplasty. Surgical appliances are intact and in proper position and alignment. SC/C-arm FL for CVA [id number] IMPRESSION: Right shoulder total reverse arthroplasty without abnormality.
[2024-09-01] MEDS: tranexamic acid 1,000 mg/10mL SDV 1000 MG IV (13:03)
[2024-09-01] MEDS: VANCOMYCIN ADD-Vantage 1,000 MG VIAL 1000 MG XX (13:04)
[2024-09-01] MEDS: VANCOMYCIN ADD-Vantage 1,000 MG VIAL 1000 MG IRRIGATION (13:04)
--- NOTE | 2024-09-01 16:49 | XRR_ITS ---
PROCEDURE INFORMATION: Exam: XR Right Shoulder Exam date and time: 09/01/2024 4:50 PM Age: 59 years old Clinical indication: Injury or trauma; Other: Post op RT shoulder; Prior surgery; Surgery date: Post-operative (0-2 days); Surgery type: Post op reverse total shoulder right; Additional info: S/P reverse shoulder arthoplasty TECHNIQUE: Imaging protocol: Radiologic exam of the right shoulder. Views: 2 or more views. COMPARISON: MR shoulder RT wo/w con [id number] 07/12/2024 8:02 AM FINDINGS: Tubes, catheters and devices: The hardware appears intact. Bones/joints: Postsurgical changes of reverse shoulder arthroplasty. No dislocation. Soft tissues: Postsurgical changes. XR/XR shoulder RT min 2V* [id number] IMPRESSION: As above.
--- NOTE | 2024-09-01 16:54 | P.OP_ITS ---
Operative Report Date of procedure: September 01, 2024 Pre-op diagnosis: Severe degenerative osteoarthritis secondary to rotator cuff arthropathy with retained hardware following rotator cuff repair Post-op diagnosis: Severe degenerative osteoarthritis secondary to rotator cuff arthropathy with retained hardware following rotator cuff repair Post-op findings: Significant degenerative osteoarthritic change with osteopenia Procedure done: Right reverse shoulder arthroplasty, cemented with removal of prior rotator cuff fixation device x 2 Implants: The Tornier perform reverse shoulder system with a size 25 mm +3 offset reversed augmented glenoid lateralized baseplate, a size 36 mm cannulated standard glenosphere, reverse, a size 3+ humeral stem long, cemented, and a retentive reversed insert +3 mm thickness Specimens removed/disposition: Humeral head, disposed of Pathology: None Surgeon: Hazel Gomez MD Community Education Specialist: Caprice Hilario, nurse practitioner, whose services were required for positioning, retraction, exposure, implantation, and completion of the surgical procedure Anesthesia: General (Intubated, ASA 3) Estimated blood loss (mL): 240 IV fluids (mL): 650 Urine output (mL): 210 Complications: None, except loss of bone posterior cortex secondary to prior hardware which required removal and violated the cortex. Findings: As noted above. Condition: stable Disposition: PACU (Then admitted to the floor under observation status for postoperative rehabilitation and pain management) Brief History: This 59-year-old woman presents today for right reverse shoulder arthroplasty. The patient was seen in the office and the surgery was extensively discussed with the patient and her caregiver. Conservative treatments including anti- inflammatory medications, formal physical therapy, activity modifications, as well as corticosteroid injections were discussed. The patient stated she had tried and failed all of these interventions. Discussion was also undertaken regarding a lesser surgery, but the patient had a history of right rotator cuff repair in the past, and she had significant rotator cuff arthropathy according to MRI with complete tearing of the supraspinatus with retraction to the level of the glenohumeral joint. Patient obtained preoperative medical clearances and was scheduled for the above surgery. Risks and complications were discussed with her. Consents were signed. Procedure: The patient was brought to the operating theater and placed in a beachchair positioner following administration of general anesthesia intubated, ASA 3, as well as the preoperative regional block.? When she was positioned and confirmation was made that we could place the shoulder in appropriate positions to accomplish the surgical procedure, the right upper extremity was prepped and draped in usual fashion utilizing DuraPrep.? We confirmed we could visualize appropriately with fluoroscopy as well prior to prepping.? Following the DuraPrep, the patient's arm was draped free but so that we could use the arm moses to secure positions of the arm and this allowed us full access to the shoulder.? Preoperatively, the patient's arm had been marked and I subsequently initialed this.? During our surgical pause, we confirmed the site and side of surgery and this jt was visualized.? Additionally, the clavicle as well as the acromioclavicular joint and the coracoid were marked to allow appropriate incision placement.? Preoperative antibiotic, vancomycin 1 g, and TXA 1 g was also given.? Surgical pause was performed prior to incision. Incision then began between the acromioclavicular joint and coracoid and continued along the deltopectoral groove.? This was a standard deltopectoral incision.? Dissection continued through skin and soft tissues using a scalpel,and hemostasis was obtained using electrocautery.? The deltopectoral fascia was incised.? Soft tissues were then elevated from the subscapularis tendon.? Retractors were placed.? The coracoid was palpated as well as the musculocutaneous nerve and these were retracted as well as the deltoid on the opposite side.? The leash of vessels at the inferior aspect of the subscapularis was cauterized.? Tag sutures were placed 2 cm medial to the biceps tendon and further medial and an incision was made through the capsule and subscapularis tendon between the 2 lines of sutures.? Incision was continued transversely both superiorly through the rotator interval and inferiorly to allow access to the shoulder joint.? Biceps appeared to have previous tenotomy. The humeral head was manipulated and dislocated. Soft tissues were elevated off of the neck of the humerus following osteophyte removal.? In this way we were able to mobilize the humerus.? Osteotomy was accomplished of the humeral head, and we were then able to move the humeral head out of the way to visualize the glenoid. Soft tissues were resected from around glenoid.? Cautery was used to do this so that we could fully visualize for placement of the components.? Care was taken to protect the musculocutaneous and also the axillary nerves during this process.? The glenoid was found to be osteopenic, and there was significant deformity.? The humerus was also noted to be quite osteopenic. The glenoid was visualized.? The guidewire was placed into the glenoid.? Plan was to place this guidewire bicortically, but we continued down the glenoid neck, and screw at that time measured 45 mm, and further drilling was not accomplished. Because of the cortical nature of the bone in the area, we had excellent fixation with this 45 mm screw in the glenoid baseplate. Prior to removal of the guidewire, reaming was accomplished.? We reamed until we had good cortical bleeding bone.? Following this the guide pin was removed and a depth gauge was utilized to assure that this was the appropriate length screw and that we were not outside of the bone.? Finding this to be so and having reamed to good bleeding bone, the Tornier perform reverse augment lateralized baseplate glenoid was placed in position. It was a 25 mm with +3 offset. 2 screws in addition to the central fixation screw were then placed into this baseplate. These were 2 compression screws superiorly and inferiorly with the superior screw being 22 mm in the inferior screw being 18 mm. We had good purchase with the screws, and therefore, the standard glenosphere for the Tornier perform reverse shoulder was placed in position. This was a 36 mm glenosphere. It was found to seat nicely. The screw was then placed through the glenosphere into the baseplate. Attention was directed to the humerus to prepare the humerus.? As noted above, the humerus had been dislocated and humeral head osteotomy was accomplished. Guidewire was placed in appropriate position to allow reaming of the proximal aspect of the humerus. Attempted reaming contacted the patient's previous 2 screws from her rotator cuff repair. These had to be removed before reaming could be accomplished. Once this was reamed, the guidewire was removed. We then placed the broach into position and impacted it based upon the proximal size of the humerus. The chosen size based on the proximal aspect of the humerus was a size 2. When this was impacted into position, it was noted to fit somewhat loosely, and therefore we increased to the size 2+. Trial reduction was then accomplished utilizing the Tornier retentive reverse insert with a thickness of +0 mm. We also trialed the +3 mm, and this was noted to give better stability. After reduction and redislocation, there was noted to be fracturing of the posterior lateral cortex of the proximal humerus. Evaluation of the proximal humerus and consideration of the patient's osteopenia because decision to convert to a cemented humeral stem. Also, we increased the size to a 3+ long rather than the 2+. Preparation was made of the humerus for cementing. This included irrigation and use of an intraoperative drying sponge in preparation for the cementing. A cement gun was utilized to place cement into the humeral canal, and the humeral stem was then impacted into position. Cement was allowed to cure, evaluation was accomplished for any loose pieces of cement. The shoulder was then copiously irrigated. Following curing of the cement, the +3 mm retentive reversed insert was impacted into position uneventfully. The shoulder was reduced. With this construct, we had excellent excellent internal and external rotation.? We had no obvious impingement.? Distraction on the arm demonstrated approximately less than a millimeter of distraction.? Attention was directed to closure.? The shoulder was irrigated copiously with normal saline with Betadine and subsequently this was irrigated with normal saline.? Closure was then accomplished utilizing 0 Ethibond combined with 0 Vicryl to close anterior rotator cuff tissues.?The deltopectoral groove was then evaluated.? Soft tissues were closed in this area with 0 Vicryl.? We then placed vancomycin powder and Surgiflo.? The subcutaneous tissues were closed using 2-0 Monocryl.? The skin was closed with a running 3-0 Monocryl.? This was followed by Romel mesa and an OpSite.? The patient was placed in a slingshot style sling and was returned to recovery room in satisfactory condition where she will be discharged to the floor for postoperative rehabilitation and pain management.? There were no specimens and no complications.? X-rays were obtained intraoperatively as well as in PACU, and these demonstrated both appropriate position and reduction of the components as well as excellent fit of the humeral canal. 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
--- NOTE | 2024-09-01 17:00 | ANE.PACU2 ---
Inpatient post-anesthesia follow up: Airway intact: Yes Vital signs: Temperature 98.2 F Pulse Rate 98 Respiratory Rate 17 Blood Pressure 144/86 Pulse Oximetry 91 Oxygen Delivery Me thod Nasal Cannula Oxygen Flow Rate 2 Fraction of Inspir ed Oxygen Hydration adequate: Yes Nausea and vomiting: No Pain level: 1 Mental status: Baseline
[2024-09-01] MEDS: pantoprazole DR 40 mg Tablet PO (18:30)
[2024-09-01] MEDS: acetaminophen 500 mg Tablet 1000 MG PO (18:30)
[2024-09-01] MEDS: iron polysaccharide complex 150 mg Capsule PO (18:30)
[2024-09-01] MEDS: chlorhexidine gluconate 0.12% Btl 473 mL 30 ML MUCOUS MEM ×2 (18:31→20:51)
[2024-09-01] MEDS: sennosides-docusate Tablet 2 TAB PO (18:31)
[2024-09-01] MEDS: quetiapine 100 mg Tablet PO (20:51)
[2024-09-01] MEDS: oxyCODONE 10 mg ER (12 HR) Tablet PO (20:51)
[2024-09-01] MEDS: insulin glargine 100 units/1 mL 20 UNIT SUBCUT (20:51)
[2024-09-01] MEDS: gabapentin 300 mg Capsule 1200 MG PO (20:52)
[2024-09-01] MEDS: tranexamic acid 1,000 MG/100 ML PREMIX 600 MG IV (20:52)
[2024-09-01] MEDS: trazodone 100 mg Tablet PO (20:52)
[2024-09-02] VITALS (9 sets, daily range): BP systolic 117–149; BP diastolic 72–87; PULSE 87–110; RESP 16–18; TEMP 36.7–36.8; O2SAT 90–97
[2024-09-02] MEDS: acetaminophen 500 mg Tablet 1000 MG PO ×2 (00:12→08:20)
[2024-09-02 05:10] LABS: Basophils % 0.2 %; Eosinophils % 0.1 %; Hematocrit 40.8 % (36-47); Lymphocytes # 1.5 10^3/uL (0.8-4.8); Lymphocytes % 8.5 %; Mean Corpuscular HGB Conc 32.8 g/dL (30-55); Mean Corpuscular Hemoglobin 29.7 pg (27-33); Mean Corpuscular Volume 90.5 fl (85-98); Mean Platelet Volume 9.1 fL (7.4-10.4); Monocytes # 1.1 10^3/uL (0.2-0.9); Monocytes % 6.3 %; Neutrophils # 14.63 10^3/uL (1.8-7.7); Neutrophils % 84.2 %; Nucleated Red Blood Cells % 0 %; Platelet Count 339 10^3/cmm (157-399); Red Blood Count 4.51 10^6/uL (3.85-5.65); Red Cell Distribution Width 17.7 % (12.1-15.1); White Blood Count 17.38 10^3/uL (3.29-11.43)
[2024-09-02 05:29] LABS: Blood Urea Nitrogen 8 mg/dL (8-23); Calcium 8.2 mg/dL (8.5-10.5); Carbon Dioxide 26 mmol/L (22-29); Chloride 99 mmol/L (98-107); Creatinine Clr Calc Pharmacy 96.7149; Glomerular Filtration Rate 73.2 mL/min (90-130); Glucose 159 mg/dL (65-115); Osmolality Calculated 284 mOsm/kg (285-295); Sodium 136 mmol/L (136-145)
[2024-09-02 05:30] LABS: Anion Gap 15.8 (5-19); Potassium 4.8 mmol/L (3.5-5.1)
[2024-09-02] MEDS: pantoprazole DR 40 mg Tablet PO (08:18)
[2024-09-02] MEDS: levothyroxine 50 mcg Tablet PO (08:18)
[2024-09-02] MEDS: citalopram 20 mg Tablet PO (08:18)
[2024-09-02] MEDS: tamsulosin 0.4 mg Capsule PO (08:18)
[2024-09-02] MEDS: oxyCODONE 5 mg IR Tab/Cap PO ×2 (08:18→13:48)
[2024-09-02] MEDS: oxyCODONE 10 mg ER (12 HR) Tablet PO (08:19)
[2024-09-02] MEDS: sennosides-docusate Tablet 2 TAB PO (08:19)
[2024-09-02] MEDS: spironolactone 25 mg Tablet 50 MG PO (08:19)
[2024-09-02] MEDS: ascorbic acid 500 mg Tablet 1000 MG PO (08:19)
[2024-09-02] MEDS: aspirin 325 mg EC Tablet PO (08:19)
[2024-09-02] MEDS: gabapentin 300 mg Capsule 1200 MG PO (08:20)
[2024-09-02] MEDS: clopidogrel 75 mg Tablet PO (08:21)
[2024-09-02] MEDS: multivitamin therapeutic Tablet 1 TAB PO (08:21)
[2024-09-02] MEDS: losartan 50 mg Tablet PO (08:21)
[2024-09-02] MEDS: montelukast sodium 10 mg Tablet PO (08:21)
[2024-09-02] MEDS: cloNIDine 0.1 mg Tablet PO (08:21)
[2024-09-02] MEDS: nortriptyline 25 mg Capsule 100 MG PO (08:21)
[2024-09-02] MEDS: metoprolol tartrate 25 mg Tablet PO (08:21)
[2024-09-02] MEDS: amlodipine 10 mg Tablet 5 MG PO (08:21)
[2024-09-02] MEDS: atorvastatin 40 mg Tablet 20 MG PO (08:22)
[2024-09-02] MEDS: insulin glargine 100 units/1 mL 20 UNIT SUBCUT (08:27)
[2024-09-02] MEDS: chlorhexidine gluconate 0.12% Btl 473 mL 30 ML MUCOUS MEM (08:27)
[2024-09-02] MEDS: VANCOMYCIN ADD-Vantage 1,000 MG in 0.9% NaCl ADD-Vantage 250 ML 250 MG IV (11:45)
--- NOTE | 2024-09-02 13:12 | P.DS_ITS ---
Discharge Providers Date of Admission: 09/01/24 15:59 Date of Discharge: September 02, 2024 Attending Provider at Admission: Hazel Gomez MD Attending Provider at Discharge: Hazel Gomez MD Primary Care Provider: Dayne Greene MD Diagnoses at Discharge Discharge Diagnosis (1) Status post reverse total shoulder replacement: Status: Acute Qualifiers: Laterality: right Qualified Code(s): Z96.611 - Presence of right artificial shoulder joint Permanent problem details: Date of procedure: September 01, 2024 Pre-op diagnosis: Severe degenerative osteoarthritis secondary to rotator cuff arthropathy with retained hardware following rotator cuff repair Procedure done: Right reverse shoulder arthroplasty, cemented with removal of prior rotator cuff fixation device x 2 Implants: The Tornier perform reverse shoulder system with a size 25 mm +3 offset reversed augmented glenoid lateralized baseplate, a size 36 mm cannulated standard glenosphere, reverse, a size 3+ humeral stem long, cemented, and a retentive reversed insert +3 mm thickness. 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 The patient was seen in the office and the surgery was extensively discussed with the patient and her caregiver. Conservative treatments including anti- inflammatory medications, formal physical therapy, activity modifications, as well as corticosteroid injections were discussed. The patient stated she had tried and failed all of these interventions. Discussion was also undertaken regarding a lesser surgery, but the patient had a history of right rotator cuff repair in the past, and she had significant rotator cuff arthropathy according to MRI with complete tearing of the supraspinatus with retraction to the level of the glenohumeral joint. Patient obtained preoperative medical clearances and was scheduled for the above surgery. Risks and complications were discussed with her. Consents were signed. Underwent reverse total shoulder arthroplasty without complication on 09/01/2024. Hospital Course Hospital Course This 59-year-old female patient was taken to surgery on September 01, 2024 for same-day surgery of right reverse total shoulder arthroplasty. Patient tolerated surgery well and has done well postoperatively. She was admitted to the hospital under observation status for 1 night stay, due to medical comorbidities and pain management. Patient has worked with occupational therapy services and done well. Postoperative pain has been well-controlled with immediate release oxycodone. The patient has done well postoperatively however, she has a right sided BKA, which is stable and well-healed however, due to her recent reverse total shoulder on the right side, she is unable to put on her prosthetic without assistance and she lives at home alone. It was felt best by physical therapy that she be discharged to halfway facility. This has been arranged and she will discharge to [facility] for acute postoperative rehabilitation. Reverse total shoulder arthroplasty rehabilitation protocol will be sent to skilled facility for appropriate rehabilitation. Will plan to see the patient in follow-up in the clinic. Physical Exam Const: COMMON NORMALS: no acute distress, average body habitus, patient oriented x3, no limitations, alert and well nourished GENERAL APPEARANCE: cooperative; not anxious and not combative ORIENTATION/CONSCIOUSNESS: Yes awake, Yes oriented to person, Yes oriented to place and Yes oriented to time HENMT: COMMON NORMALS: normocephalic and atraumatic HEAD & SCALP: normocephalic and atraumatic Resp: COMMON NORMALS: normal respiratory effort Cardio: OTHER: No complaints of shortness of breath, chest discomfort or acute respiratory/cardiac concern. Extremity: RIGHT UPPER EXTREMITY: Yes shoulder joint (Incision closed subcuticularly.) Right shoulder: Yes Right shoulder joint inspection exam (No skin breakdown or bruising. Moderate swelling. No S/S infection), Yes Right shoulder joint ROM exam (Not assessed due to recent surgery.), Yes Right shoulder joint neurovascular exam (Sensation intact to light touch. Rapid cap refill.) and Yes Right shoulder joint other findings (TTP to anterior shoulder and over incision. No active drainage on PTOP DSG) OTHER: Full AROM to right elbow, wrist and fingers. Neuro: COMMON NORMALS: patient oriented x3 SENSORIUM/ORIENTATION: Yes alert, Yes oriented to person, Yes oriented to place and Yes oriented to time Psych: ATTITUDE: Yes engaged Skin: COMMON NORMALS: no rashes or lesions noted, turgor normal and no jaundice GENERAL SKIN EXAM: no rashes or lesions noted and turgor normal Urinary Catheter Management: Thomas: Cath Placed During This Visit: no Discharge Data Studies Completed and Pending Completed Studies During Hospitalization Category Date Time Status XR shoulder RT min 2V* [id number] Routine Exams 09/01/24 16:49 Completed Pending at discharge Category Date Time Status SARS Covid-2 Antigen Routine Lab 09/02/24 11:49 Uncollected Radiology Impressions C-Arm Fluoroscopy 09/01/24 12:00 IMPRESSION: Right shoulder total reverse arthroplasty without abnormality. Shoulder X-Ray 09/01/24 16:49 IMPRESSION: As above. Laboratory Results WBC 17.38 10^3/uL (3.29-11.43) H 09/02/24 04:29 RBC 4.51 10^6/uL (3.85-5.65) 09/02/24 04:29 Hgb 13.40 g/dL (11.27-16.99) 09/02/24 04:29 Hct 40.8 % (36-47) 09/02/24 04:29 MCV 90.5 fl (85-98) 09/02/24 04:29 MCH 29.7 pg (27-33) 09/02/24 04:29 MCHC 32.8 g/dL (30-55) 09/02/24 04:29 RDW 17.7 % (12.1-15.1) H 09/02/24 04:29 Plt Count 339 10^3/cmm (157-399) 09/02/24 04:29 MPV 9.1 fL (7.4-10.4) 09/02/24 04:29 Neut % (Auto) 84.2 % 09/02/24 04:29 Lymph % (Auto) 8.5 % 09/02/24 04:29 [place] % (Auto) 6.3 % 09/02/24 04:29 Eos % (Auto) 0.1 % 09/02/24 04:29 Baso % (Auto) 0.2 % 09/02/24 04:29 Neut # (Auto) 14.63 10^3/uL (1.8-7.7) H 09/02/24 04:29 Lymph # (Auto) 1.5 10^3/uL (0.8-4.8) 09/02/24 04:29 [place] # (Auto) 1.1 10^3/uL (0.2-0.9) H 09/02/24 04:29 Eos # (Auto) 0.0 10^3/uL (0.0-0.8) 09/02/24 04:29 Baso # (Auto) 0.0 10^3/uL (0.0-0.1) 09/02/24 04:29 Nucleated RBC % (auto) 0 % 09/02/24 04:29 Nucleated RBCs # 0.0 /100WBC 09/02/24 04:29 Sodium 136 mmol/L (136-145) 09/02/24 04:29 Potassium 4.8 mmol/L (3.5-5.1) 09/02/24 04:29 Chloride 99 mmol/L (98-107) 09/02/24 04:29 Carbon Dioxide 26 mmol/L (22-29) 09/02/24 04:29 Anion Gap 15.8 (5-19) 09/02/24 04:29 BUN 8 mg/dL (8-23) 09/02/24 04:29 Creatinine 0.8 mg/dL (0.5-0.9) 09/02/24 04:29 GFR Calculation 73.2 mL/min (90-130) L 09/02/24 04:29 Glucose 159 mg/dL (65-115) H 09/02/24 04:29 POC Glucose 175 mg/dL (70-110) H 09/01/24 10:49 Calculated Osmolality 284 mOsm/kg (285-295) L 09/02/24 04:29 Calcium 8.2 mg/dL (8.5-10.5) L 09/02/24 04:29 Vitals Last Vital Signs Temp 98.1 F 09/02/24 07:24 Pulse 106 H 09/02/24 08:30 Resp 18 09/02/24 08:30 BP 149/72 09/02/24 08:21 Pulse Ox 97 09/02/24 08:30 O2 Del Method Nasal Cannula 09/02/24 08:30 O2 Flow Rate 4 09/02/24 08:30 Discharge Plan Discharge Patient Disposition: Xfer SNF Condition: Stable Prescriptions: New oxycodone 5 mg Tablet 5 - 10 mg PO Q4H PRN (Reason: Moderate To Severe Pain) 7 Days Qty: 40 0RF acetaminophen 500 mg Tablet 1,000 mg PO Q8H 30 Days Qty: 180 0RF aspirin 325 mg Tablet,Delayed Release (Dr/Ec) 325 mg PO DAILY 30 Days Qty: 30 0RF Continued amlodipine 10 mg tablet 5 mg PO DAILY aspirin 81 mg tablet,chewable 81 mg PO DAILY montelukast 10 mg tablet 10 mg PO DAILY citalopram 20 mg tablet 20 mg PO DAILY levothyroxine 100 mcg tablet 50 mcg PO DAILY clopidogrel 75 mg tablet 75 mg PO DAILY simvastatin 20 mg tablet 20 mg PO DAILY clonidine HCl 0.1 mg tablet 0.1 mg PO BID nitroglycerin 0.4 mg tablet, sublingual 0.4 mg sublingual Q5M PRN (Reason: Chest Pain) Rx Instructions: do not exceed 3 doses per episode gabapentin 600 mg tablet 1,200 mg PO TID Qty: 180 1RF tizanidine 4 mg tablet 4 mg PO TID PRN (Reason: muscle spasm) Qty: 90 1RF oxycodone 5 mg tablet 5 mg PO Q8H PRN (Reason: pain) 30 Days Qty: 90 0RF Rx Instructions: max of three per day insulin lispro [Humalog KwikPen Insulin] 100 unit/mL insulin pen 20 unit SUBCUT TID Rx Instructions: Sliding scale (DME) custom molded accomadative orthotic See Rx Instructions .Route .MEDSUPPLY Qty: 1 0RF Rx Instructions: As directed w/toe filler (DME) Cam boot See Rx Instructions .Route .MEDSUPPLY Qty: 1 0RF Rx Instructions: As directed quetiapine [Seroquel] 100 mg tablet 100 mg PO BEDTIME trazodone 100 mg tablet 100 mg PO BEDTIME oxycodone [OxyContin] 15 mg tablet,oral only,ext.rel.12 hr 15 mg PO BID insulin degludec [Tresiba FlexTouch U-200] 200 unit/mL (3 mL) insulin pen 20 unit SUBCUT BID esomeprazole magnesium 40 mg capsule,delayed release(DR/EC) 40 mg PO BID losartan 50 mg tablet 50 mg PO BID nortriptyline 50 mg capsule 100 mg PO DAILY spironolactone 50 mg tablet 50 mg PO DAILY metoprolol tartrate 25 mg tablet 25 mg PO BID Ozempic 1 mg/dose (4 mg/3 mL) pen injector 1 mg SUBCUT Q7D tamsulosin 0.4 mg capsule 0.4 mg PO DAILY Qty: 30 12RF methenamine hippurate 1 gram tablet See Rx Instructions .ROUTE .COMPLEX Qty: 60 12RF Dose Instruction: TAKE 1 TABLET BY MOUTH TWICE DAILY with vitamin c. 1000mg FOR recurrent urinary tract infection Rx Instructions: TAKE 1 TABLET BY MOUTH TWICE DAILY with vitamin c. 1000mg FOR recurrent urinary tract infection albuterol sulfate 90 mcg/actuation HFA aerosol inhaler 90 mcg INHALATION QID PRN (Reason: Shortness Of Breath) ascorbic acid (vitamin C) [Vitamin C] 1,000 mg Tablet 1,000 mg PO BID methocarbamol 750 mg Tablet 750 mg PO TID PRN (Reason: Muscle Pain) Discharge Orders: Discharge Order (Routine); Ordered 09/02/24 Ordered By: Hazel Gomez Referrals: [facility] [Outside] Hazel Gomez MD [Physician] - 09/15/24 11:00 am Discharge Diet: Advance as tolerated, Usual diet and Diabetic Discharge Activity: Limit activity as instructed Patient Instructions: Acetaminophen (By mouth), Aspirin (By mouth), Oxycodone, Slow Release (By mouth), Acute Wound Care (DC), Opioid Safety, Post Anesthesia Care Activity Restrictions/Additional Instructions: Ice to right shoulder. Wear sling at all times. Shoulder protocol per handout. Discharge Attestations Time Spent in Discharge Care*: greater than 30 min Time Spent in Smoking Cessation: 5 minutes - patient was provided with ex tensive education as to the need for smoking cessation. Her current nicotine use increases her risk of infection, wound healing complications and delayed healing. Patient was encouraged to decrease the amount of cigarettes currently smoked for healing to right shoulder for recent reverse total shoulder, but also to help with overall lung health and chronic COPD diagnosis. Quality Metrics Clinical Quality Measures [ No reported AMI, CVA or VTE this stay] Coding Level of Care Code Acute Code for Chg Fwd Diagnoses Status post reverse total replacement of right shoulder Z96.611 Laterality: right Rotator cuff arthropathy of right shoulder M12.811 Secondary osteoarthritis of right shoulder due to rotator cuff arthropathy M19.211 Laterality: right
--- NOTE | 2024-09-02 13:39 | PC.NURSE ---
Discharge Note Patient discharged to [facility] via retirement transportation accompanied by retirement staff. Discharge instructions reviewed with patient and/or ambulatory service representative. Mobile pharmacy medications and/or prescriptions provided. Belongings/home medications returned.
--- NOTE | 2024-09-02 14:06 | PC.NURSE ---
Called report to [facility] Clarissa BAUTISTA.
[2024-09-02 14:47] LABS: SARS Covid-2 Antigen Negative (Negative)
== END 2024-09-02 15:39 | disposition skilled nursing facility (03) ==
LOC: MEDSURG 15:59
PROVIDERS: Nurse Practitioner; Admitting Provider Specialist; PCP Family Medicine; Visit Provider Specialist
PROC: (CPT 23472; principal; 2024-09-01 11:45)
DX: M19.011 Primary osteoarthritis, right shoulder (principal); I25.10 Atherosclerotic heart disease of native coronary artery without angina pectoris; E11.42 Type 2 diabetes mellitus with diabetic polyneuropathy; Z79.4 Long term (current) use of insulin; J44.9 Chronic obstructive pulmonary disease, unspecified; G47.33 Obstructive sleep apnea (adult) (pediatric); F17.200 Nicotine dependence, unspecified, uncomplicated; Z79.02 Long term (current) use of antithrombotics/antiplatelets; Z95.5 Presence of coronary angioplasty implant and graft; Z91.199 Patient's noncompliance with other medical treatment and regimen due to unspecified reason; Z99.81 Dependence on supplemental oxygen; Z79.82 Long term (current) use of aspirin
CPT/HCPCS: 20680; 23472; 36415; 36416; 51702; 73030; 77001; 80048; 82962; 85025; 87426; 96372; 97162; 97166; 97530; 97760; C1713; C1776; G0378; J0131; J1100; J1815; J2371; J2405; J2704; J2710; J3010; J3370; J7030; J7050

== ENCOUNTER → 2024-09-06 12:49 | Outpatient (BNVA) | payer MEDICARE, MEDICAID, SELFPAY | PROVIDERS: PCP Family Medicine; Visit Provider Podiatrist Foot & Ankle Surgery | DX: M21.622 Bunionette of left foot (principal); M20.42 Other hammer toe(s) (acquired), left foot; E11.42 Type 2 diabetes mellitus with diabetic polyneuropathy; E11.621 Type 2 diabetes mellitus with foot ulcer; L97.521 Non-pressure chronic ulcer of other part of left foot limited to breakdown of skin; Z79.4 Long term (current) use of insulin | CPT/HCPCS: 99213 ==

== ENCOUNTER → 2024-09-15 10:40 | Outpatient (BNVA) | payer MEDICARE, MEDICAID, SELFPAY | PROVIDERS: PCP Family Medicine; Visit Provider Nurse Practitioner | DX: Z96.611 Presence of right artificial shoulder joint (principal); M19.211 Secondary osteoarthritis, right shoulder | CPT/HCPCS: 99024 ==

== ENCOUNTER → 2024-09-20 14:26 | Outpatient (BNVA) | payer MEDICARE, MEDICAID, SELFPAY | PROVIDERS: PCP Family Medicine; Visit Provider Podiatrist Foot & Ankle Surgery | DX: M21.622 Bunionette of left foot (principal); M20.42 Other hammer toe(s) (acquired), left foot; E11.42 Type 2 diabetes mellitus with diabetic polyneuropathy; L97.521 Non-pressure chronic ulcer of other part of left foot limited to breakdown of skin; Z89.412 Acquired absence of left great toe; Z89.511 Acquired absence of right leg below knee; E11.621 Type 2 diabetes mellitus with foot ulcer; Z79.4 Long term (current) use of insulin | CPT/HCPCS: 99213 ==

== ENCOUNTER → 2024-10-13 11:23 | Outpatient (BNVA) | payer MEDICARE, MEDICAID, SELFPAY | PROVIDERS: PCP Family Medicine; Visit Provider Nurse Practitioner | DX: Z96.611 Presence of right artificial shoulder joint (principal); M19.211 Secondary osteoarthritis, right shoulder | CPT/HCPCS: 73030; 99213 ==

== ENCOUNTER → 2024-10-18 14:44 | Outpatient (BNVA) | payer MEDICARE, MEDICAID, SELFPAY | PROVIDERS: PCP Family Medicine; Visit Provider Podiatrist Foot & Ankle Surgery | DX: E11.42 Type 2 diabetes mellitus with diabetic polyneuropathy (principal); L97.521 Non-pressure chronic ulcer of other part of left foot limited to breakdown of skin; Z89.511 Acquired absence of right leg below knee; E11.621 Type 2 diabetes mellitus with foot ulcer | CPT/HCPCS: 99213 ==

== ENCOUNTER → 2024-11-12 09:53 | Outpatient (BNVA) | payer MEDICARE, MEDICAID, SELFPAY | PROVIDERS: PCP Family Medicine; Visit Provider Nurse Practitioner | DX: M19.211 Secondary osteoarthritis, right shoulder (principal); Z96.611 Presence of right artificial shoulder joint | CPT/HCPCS: 73030; 99213 ==

== ENCOUNTER → 2024-11-29 14:30 | Outpatient (BNVA) | payer MEDICARE, MEDICAID, SELFPAY | PROVIDERS: PCP Family Medicine; Visit Provider Nurse Practitioner | DX: Z96.611 Presence of right artificial shoulder joint (principal); Z89.412 Acquired absence of left great toe; Z89.511 Acquired absence of right leg below knee; E11.42 Type 2 diabetes mellitus with diabetic polyneuropathy; E11.621 Type 2 diabetes mellitus with foot ulcer; L97.521 Non-pressure chronic ulcer of other part of left foot limited to breakdown of skin; Z79.4 Long term (current) use of insulin | CPT/HCPCS: 73030; 99213 ==

== ENCOUNTER → 2024-12-13 11:07 | Outpatient (BNVA) | payer MEDICARE, MEDICAID, SELFPAY | PROVIDERS: PCP Family Medicine; Visit Provider Nurse Practitioner | DX: M19.012 Primary osteoarthritis, left shoulder (principal); R29.898 Other symptoms and signs involving the musculoskeletal system; G89.29 Other chronic pain | CPT/HCPCS: 73030; 99214 ==

== ENCOUNTER → 2025-01-12 11:28 | Outpatient (BNVA) | payer MEDICARE, MEDICAID, SELFPAY | PROVIDERS: PCP Family Medicine; Visit Provider Podiatrist Foot & Ankle Surgery | DX: E11.42 Type 2 diabetes mellitus with diabetic polyneuropathy (principal); L97.522 Non-pressure chronic ulcer of other part of left foot with fat layer exposed; Z89.412 Acquired absence of left great toe; Z89.511 Acquired absence of right leg below knee; E11.621 Type 2 diabetes mellitus with foot ulcer; Z79.4 Long term (current) use of insulin | CPT/HCPCS: 99213 ==

== ENCOUNTER → 2025-01-31 11:20 | Outpatient (BNVA) | payer MEDICARE, MEDICAID, SELFPAY | PROVIDERS: PCP Family Medicine; Visit Provider Nurse Practitioner | DX: M19.012 Primary osteoarthritis, left shoulder (principal); R29.898 Other symptoms and signs involving the musculoskeletal system; G89.29 Other chronic pain | CPT/HCPCS: 99214 ==

== ENCOUNTER → 2025-02-02 10:29 | Outpatient (BNVA) | payer MEDICARE, MEDICAID, SELFPAY | PROVIDERS: PCP Family Medicine; Visit Provider Podiatrist Foot & Ankle Surgery | DX: M21.622 Bunionette of left foot (principal); M20.42 Other hammer toe(s) (acquired), left foot; E11.42 Type 2 diabetes mellitus with diabetic polyneuropathy; Z79.4 Long term (current) use of insulin | CPT/HCPCS: 99213 ==

== ENCOUNTER 2025-03-09 11:17 | Outpatient (CLI) | payer MEDICARE, MEDICAID, SELFPAY ==
--- NOTE | 2025-03-09 11:45 | MRR_ITS ---
PROCEDURE INFORMATION: Exam: MR Left Upper Extremity Joint Without Contrast; Shoulder Exam date and time: 03/09/2025 11:35 AM Age: 59 years old Clinical indication: Condition or disease; Osteoarthritis; Primary; Shoulder; Left; Additional info: Primary osteoarthritis of left shoulder TECHNIQUE: Imaging protocol: Magnetic resonance imaging of the left upper extremity without contrast. Exam focused on the shoulder. COMPARISON: CR XR shoulder LT min 2V* [id number] 12/13/2024 11:09 AM FINDINGS: Bones/joints: Moderate joint effusion. No definite full-thickness glenohumeral articular cartilage loss is seen. Mild osteoarthritis of the acromioclavicular joint. Glenoid labrum: Age-related degeneration and/or tearing involving the anterior superior glenoid labrum. Bursae: There is fluid in the subacromial/subdeltoid bursa. Supraspinatus tendon: Moderate to severe tendinosis of the supraspinatus tendon with extensive partial-thickness undersurface tearing. There is probable focal full-thickness tearing. Infraspinatus tendon: Severe tendinosis of the infraspinatus tendon with extensive partial-thickness undersurface tearing and low-grade partial-thickness bursal surface tearing. Subscapularis tendon: Moderate tendinosis of the subscapularis tendon with partial-thickness bursal surface and undersurface tearing. Teres minor tendon: The teres minor tendon is intact. Tendon of biceps brachii: Tenosynovitis involving the long head of biceps tendon. Glenohumeral ligaments: The middle glenohumeral ligament is intact. The superior glenohumeral ligament is not well visualized. The inferior glenohumeral ligament is intact. Soft tissues: No significant subcutaneous soft tissue swelling. MR/MR shoulder LT wo con* [id number] IMPRESSION: 1. Severe tendinosis of the infraspinatus tendon with extensive partial-thickness undersurface tearing and low-grade partial-thickness bursal surface tearing. 2. Moderate to severe tendinosis of the supraspinatus tendon with extensive partial-thickness undersurface tearing. There is probable focal full-thickness tearing. 3. Moderate tendinosis of the subscapularis tendon with partial-thickness bursal surface and undersurface tearing. 4. Tenosynovitis involving the long head of biceps tendon. 5. Age-related degeneration and/or tearing involving the anterior superior glenoid labrum. 6. Mild osteoarthritis of the acromioclavicular joint. 7. Moderate glenohumeral joint effusion. 8. Fluid in the subacromial/subdeltoid bursa.
== END 2025-03-09 11:18 | disposition home or self-care (01) ==
PROVIDERS: PCP Family Medicine; Visit Provider Nurse Practitioner
DX: M19.012 Primary osteoarthritis, left shoulder (principal); M75.22 Bicipital tendinitis, left shoulder; M67.814 Other specified disorders of tendon, left shoulder; M75.112 Incomplete rotator cuff tear or rupture of left shoulder, not specified as traumatic
CPT/HCPCS: 73221

== ENCOUNTER → 2025-03-21 12:17 | Outpatient (BNVA) | payer MEDICARE, MEDICAID, SELFPAY | PROVIDERS: PCP Family Medicine; Visit Provider Nurse Practitioner | DX: M12.812 Other specific arthropathies, not elsewhere classified, left shoulder (principal) | CPT/HCPCS: 80053 ==

== ENCOUNTER → 2025-03-28 09:26 | Outpatient (BNVA) | payer MEDICARE, MEDICAID, SELFPAY | PROVIDERS: PCP Family Medicine; Visit Provider Family Medicine | DX: Z01.818 Encounter for other preprocedural examination (principal) | CPT/HCPCS: 93005 ==

== ENCOUNTER → 2025-04-05 13:26 | Day surgery (SDC) | payer MEDICARE, MEDICAID, SELFPAY ==
[2025-04-05 13:47] VITALS: BP 122/70; PULSE 65; RESP 17; TEMP 36.2; O2SAT 96; BMI 30.5
[2025-04-05] MEDS: acetaminophen 1,000 MG/100 ML PIGGYBACK 400 MG IV (14:08)
--- NOTE | 2025-04-05 14:14 | SUR.PREOP ---
right interscalene block performed at bedside using 4mg decadron and 20mg 0.5%ropivicaine
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
--- NOTE | 2025-04-05 15:00 | PM.MISC ---
Miscellaneous Note Note: Surgery postponed. Patient's L arm placed in sling
--- NOTE | 2025-04-05 15:13 | SUR.PREOP ---
after discussing case was postponed by surgeon with Dr Boucher, patient was placed in a universal sling, IV discontinued, and patient was wheeled out in wheelchair.
== END ==
LOC: OR 13:29
PROVIDERS: PCP Family Medicine; Visit Provider Specialist
PROC: (CPT 23120; principal; 2025-04-05 14:55)
PROC: (CPT 23130; 2025-04-05 14:55)
DX: Z53.8 Procedure and treatment not carried out for other reasons (principal); J44.9 Chronic obstructive pulmonary disease, unspecified; G47.30 Sleep apnea, unspecified; I25.10 Atherosclerotic heart disease of native coronary artery without angina pectoris; I10 Essential (primary) hypertension; I25.2 Old myocardial infarction; K21.9 Gastro-esophageal reflux disease without esophagitis; E11.9 Type 2 diabetes mellitus without complications; E78.5 Hyperlipidemia, unspecified; E66.01 Morbid (severe) obesity due to excess calories; Z68.30 Body mass index [BMI] 30.0-30.9, adult; Z79.82 Long term (current) use of aspirin; Z79.4 Long term (current) use of insulin
CPT/HCPCS: 36416; 82962; J0131; J1100; J2405; J2704; J2795; J3010; J3490; J7030; J9999

== ENCOUNTER 2025-06-15 13:39 | Outpatient (CLI) | payer MEDICARE, MEDICAID, SELFPAY ==
--- NOTE | 2025-06-15 13:54 | XR_ITS ---
WS: [id number] DEXA (DUAL ENERGY X-RAY ABSORPTIOMETRY) Bone mineral density was performed using a [employer] machine. HISTORY: OSTEOPOROSIS COMPARISON: None available. Lumbar spine BMD (L1-L4): 1.310 g/cm2 T score: 1.1 Z score: 1.3 Total hip BMD: Left: 1.034 (g/cm2). T score: 0.2 (no units) Z score: 0.4 (no units) Left forearm BMD: 0.936 g/cm2. T score: 0.7 Z score: 1.7 10 year probability of a major osteoporotic fracture is 20.2%. XR/XR DEXA axial skeleton* [id number] IMPRESSION: NORMAL BONE MINERAL DENSITY based upon the WHO classification for females.
--- NOTE | 2025-06-15 13:55 | MM_ITS ---
WS: [id number] BILATERAL 3D TOMOSYNTHESIS DIGITAL SCREENING MAMMOGRAPHY WITH CAD CLINICAL INFORMATION: SCREENING HISTORY: Screening mammogram. No current complaints. COMPARISON: 2019 TECHNIQUE: Bilateral CC and MLO views. FINDINGS: The breasts are composed of heterogeneous fibroglandular density tissue, which can limit the detection of small underlying mass lesions. No suspicious mass, asymmetry, calcifications, or architectural distortion. No evidence of malignancy. Incidental punctate and lucent centered calcifications. MM/MM [facility] tomosynthesis [id number] IMPRESSION: DENSITY: The breasts are heterogeneously dense, which may obscure small masses. BI-RADS: 2 - Benign FOLLOW UP: 1 Year Follow-up Recommend return to annual screening mammography.
== END 2025-06-15 13:40 | disposition home or self-care (01) ==
LOC: RAD 13:40
PROVIDERS: PCP Family Medicine; Visit Provider Family Medicine
DX: Z12.31 Encounter for screening mammogram for malignant neoplasm of breast (principal); Z78.0 Asymptomatic menopausal state; Z13.820 Encounter for screening for osteoporosis
CPT/HCPCS: 77063; 77067; 77080